=== PATIENT | male | born 1970 | race African-American/Black ===

== ENCOUNTER 2020-09-08 06:34 | Inpatient (IN) | payer OTHER ==
[2020-09-08] MEDS ORDERED: SODIUM CHLORIDE 0.9% 1000 ML 1,000 ML IV ONE ×2 (07:12→09:35)
--- NOTE | 2020-09-08 07:27 | Emergency Department Report ---
ED Altered Mental Status HPI - General Chief Complaint: Alcohol Stated Complaint: ETOH Time Seen by Provider: 09/08/20 07:12 Source: EMS Mode of arrival: Stretcher Limitations: Language Barrier, Physical Limitation - History of Present Illness Initial Comments: 49-year-old male, no past medical history, presents to ED for medical evaluation. Patient is currently unable to give any history. I spoke with patient's brother, Adrián ([phone]), over the phone. He states that there was a alliance party at his house last night. States his brother attended. Brother Adrián believes patient had too much to drink last night. Patient's brother states he went to bed early. When he awoke this morning, patient had an empty bottle of whiskey beside him. Brother states it looks like patient was about to vomit. States he had white bubbles in his mouth. Brother states he asked the patient if he needed to go to the ER and patient stated yes. Brother states patient does not drink daily, however he does drink on the weekends usually. MD Complaint: altered mental status, intoxication -: Last night Severity: severe Consistency of Symptoms: constant Context: alcohol abuse - Related Data Home Medications Medication Instructions Recorded Confirmed Last Taken Cholecalciferol (Vitamin D3) 5,000 unit PO DAILY 09/08/20 09/08/20 Unknown [Vitamin D3] Famotidine [Pepcid] 20 mg PO BID 09/08/20 09/08/20 Unknown lisinopriL [Lisinopril] 30 mg PO QDAY 09/08/20 09/08/20 Unknown metFORMIN [Glucophage] 500 mg PO QDAY 09/08/20 09/08/20 Unknown Allergies Allergy/AdvReac Type Severity Reaction Status Date / Time No Known Allergies Allergy Unverified 09/08/20 08:33 ED Review of Systems ROS: Stated complaint: ETOH Other details as noted in HPI Comment: Unobtainable due to pts medical conditions ED Past Medical Hx - Past Medical History Previous Medical History?: No - Surgical History Past Surgical History?: No - Medications Home Medications: Home Medications Medication Instructions Recorded Confirmed Last Taken Type Cholecalciferol (Vitamin D3) 5,000 unit PO DAILY 09/08/20 09/08/20 Unknown History [Vitamin D3] Famotidine [Pepcid] 20 mg PO BID 09/08/20 09/08/20 Unknown History lisinopriL [Lisinopril] 30 mg PO QDAY 09/08/20 09/08/20 Unknown History metFORMIN [Glucophage] 500 mg PO QDAY 09/08/20 09/08/20 Unknown History ED Physical Exam - General Limitations: Language Barrier, Physical Limitation General appearance: lethargic (Arousable to painful stimuli, opens eyes, does not speak) - Head Head exam: Present: atraumatic, normocephalic - Eye Eye exam: Present: normal appearance - ENT ENT exam: Present: mucous membranes dry - Neck Neck exam: Present: normal inspection - Respiratory Respiratory exam: Present: normal lung sounds bilaterally. Absent: respiratory distress - Cardiovascular Cardiovascular Exam: Present: normal rhythm, tachycardia - GI/Abdominal GI/Abdominal exam: Present: soft. Absent: distended, tenderness - Extremities Exam Extremities exam: Present: normal inspection - Neurological Exam Neurological exam: Present: altered - Psychiatric Psychiatric exam: Present: normal affect, normal mood - Skin Skin exam: Present: warm, dry, intact, normal color ED Course Vital Signs 09/08/20 09/08/20 09/08/20 06:45 07:00 07:16 Temperature 97.7 F Pulse Rate 114 H 116 H 125 H Respiratory 19 31 H 25 H Rate Blood Pressure 143/88 161/109 Blood Pressure 142/89 [Left] O2 Sat by Pulse 97 96 98 Oximetry 09/08/20 09/08/20 09/08/20 07:45 08:16 08:43 Temperature Pulse Rate 114 H 88 94 H Respiratory 23 19 20 Rate Blood Pressure 212/125 122/72 194/134 Blood Pressure [Left] O2 Sat by Pulse 93 97 96 Oximetry 09/08/20 09/08/20 09/08/20 08:45 09:01 09:31 Temperature Pulse Rate 92 H 86 72 Respiratory 21 21 20 Rate Blood Pressure 98/50 94/45 84/48 Blood Pressure [Left] O2 Sat by Pulse 95 94 100 Oximetry 09/08/20 09/08/20 09/08/20 10:01 10:11 10:31 Temperature Pulse Rate 67 70 61 Respiratory 20 24 Rate Blood Pressure 88/51 110/75 89/54 Blood Pressure [Left] O2 Sat by Pulse 100 97 97 Oximetry 09/08/20 09/08/20 09/08/20 10:45 11:15 11:31 Temperature Pulse Rate 76 65 65 Respiratory 24 24 24 Rate Blood Pressure 112/83 92/44 94/53 Blood Pressure [Left] O2 Sat by Pulse 97 98 98 Oximetry 09/08/20 09/08/20 09/08/20 11:45 12:01 12:15 Temperature Pulse Rate 64 66 84 Respiratory 24 24 24 Rate Blood Pressure 98/53 101/54 104/78 Blood Pressure [Left] O2 Sat by Pulse 100 100 97 Oximetry 09/08/20 09/08/20 09/08/20 12:31 12:45 13:01 Temperature Pulse Rate 66 63 64 Respiratory 24 24 24 Rate Blood Pressure 91/52 96/47 96/40 Blood Pressure [Left] O2 Sat by Pulse 96 98 91 Oximetry 09/08/20 09/08/20 09/08/20 13:15 13:31 13:45 Temperature Pulse Rate 62 80 72 Respiratory 24 24 24 Rate Blood Pressure 96/47 100/55 109/51 Blood Pressure [Left] O2 Sat by Pulse 93 97 95 Oximetry 09/08/20 09/08/20 14:01 14:15 Temperature Pulse Rate 64 74 Respiratory 24 23 Rate Blood Pressure 104/49 104/47 Blood Pressure [Left] O2 Sat by Pulse 94 94 Oximetry - Reevaluation(s) Reevaluation #1: 09/08/20 07:49 Called to room to evaluate patient. Patient just returned from CT, more unresponsive. When I entered the room, patient appeared cyanotic, O2 sats were in the 50s on the monitor and patient was bradycardic. I immediately began bagging the patient. Heart rate then improved to the 110s and O2 sats increased to 98%. Patient was then intubated using the glide scope, no drugs. - Intubation Time Out Performed: No Sedative: none Paralytic: other (None) Laryngoscope: fiberoptic video scope Size: 4 ET Tube Size: 7.5 Tube Secured Depth (cm): 22 Tube Secured Location: lips Tube Placement Confirmation: visualized tube passing t, equal breath sounds bilat, no breath sounds over epi, confirmation by capnometr Patient Tolerated Procedure: well Intubation Complications: none - Lab Data Result diagrams: 09/08/20 08:15 09/08/20 08:15 Lab Results 09/08/20 09/08/20 09/08/20 Range/Units 07:51 08:15 08:15 WBC 15.6 H (4.5-11.0) K/mm3 RBC 6.67 H (3.65-5.03) M/mm3 Hgb 17.7 H (11.8-15.2) gm/dl Hct 57.5 H (35.5-45.6) % MCV 86 (84-94) fl MCH 27 L (28-32) pg MCHC 31 L (32-34) % RDW 18.1 H (13.2-15.2) % Plt Count 235 (140-440) K/mm3 Add Manual Diff Complete Total Counted 100 Seg Neuts % (Manual) 71.0 H (40.0-70.0) % Band Neutrophils % 5.0 % Lymphocytes % (Manual) 14.0 (13.4-35.0) % Monocytes % (Manual) 3.0 (0.0-7.3) % Eosinophils % (Manual) 1.0 (0.0-4.3) % Metamyelocytes % 6.0 % Nucleated RBC % Not Reportable Seg Neutrophils # Man 11.1 H (1.8-7.7) K/mm3 Band Neutrophils # 0.8 K/mm3 Lymphocytes # (Manual) 2.2 (1.2-5.4) K/mm3 Abs React Lymphs (Man) 0.0 K/mm3 Monocytes # (Manual) 0.5 (0.0-0.8) K/mm3 Eosinophils # (Manual) 0.2 (0.0-0.4) K/mm3 Basophils # (Manual) 0.0 (0.0-0.1) K/mm3 Metamyelocytes # 0.9 K/mm3 Myelocytes # 0.0 K/mm3 Promyelocytes # 0.0 K/mm3 Blast Cells # 0.0 K/mm3 WBC Morphology Not Reportable Hypersegmented Neuts Not Reportable Hyposegmented Neuts Not Reportable Hypogranular Neuts Not Reportable Smudge Cells Not Reportable Toxic Granulation Not Reportable Toxic Vacuolation Not Reportable Dohle Bodies Not Reportable Pelger-Huet Anomaly Not Reportable Lamar Rods Not Reportable Platelet Estimate Consistent w auto Clumped Platelets Not Reportable Plt Clumps, EDTA Not Reportable Large Platelets Not Reportable Giant Platelets Not Reportable Platelet Satelliting Not Reportable Plt Morphology Comment Not Reportable RBC Morphology Normal Dimorphic RBCs Not Reportable Polychromasia Not Reportable Hypochromasia Not Reportable Poikilocytosis Not Reportable Anisocytosis Not Reportable Microcytosis Not Reportable Macrocytosis Not Reportable Spherocytes Not Reportable Pappenheimer Bodies Not Reportable Sickle Cells Not Reportable Target Cells Not Reportable Tear Drop Cells Not Reportable Ovalocytes Not Reportable Helmet Cells Not Reportable Cochran-Bellmore Bodies Not Reportable [place] Rings Not Reportable Hubbard Cells Not Reportable Bite Cells Not Reportable Crenated Cell Not Reportable Elliptocytes Not Reportable Acanthocytes (Spur) Not Reportable Rouleaux Not Reportable Hemoglobin C Crystals Not Reportable Schistocytes Not Reportable Malaria parasites Not Reportable Warner Bodies Not Reportable Hem Pathologist Commnt No ABG pH (7.350-7.450) pH Units ABG pCO2 mm Hg ABG pO2 (80.0-90.0) mm Hg ABG HCO3 (20.0-26.0) mmol/L ABG O2 Saturation (95.0-99.0) % ABG O2 Content (0.0-44) ABG Base Excess (-2.0-3.0) mmol/L ABG Hemoglobin (14.0-18.0) gm/dl ABG Carboxyhemoglobin (0.0-5.0) % ABG Methemoglobin (0.0-1.5) % Oxyhemoglobin (95.0-99.0) % FiO2 % Sodium 140 (137-145) mmol/L Potassium 3.5 L (3.6-5.0) mmol/L Chloride 97.7 L (98-107) mmol/L Carbon Dioxide 26 (22-30) mmol/L Anion Gap 20 mmol/L BUN 21 H (9-20) mg/dL Creatinine 1.3 (0.8-1.3) mg/dL Estimated GFR 58 ml/min BUN/Creatinine Ratio 16 % Glucose 228 H (75-100) mg/dL Lactic Acid (0.7-2.0) mmol/L Calcium 8.4 (8.4-10.2) mg/dL Total Bilirubin 0.20 (0.1-1.2) mg/dL Direct Bilirubin < 0.2 (0-0.2) mg/dL Indirect Bilirubin 0.0 mg/dL AST 33 (5-40) units/L ALT 26 (7-56) units/L Alkaline Phosphatase 121 (35-129) units/L Total Protein 8.2 (6.3-8.2) g/dL Albumin 4.0 (3.9-5) g/dL Albumin/Globulin Ratio 1.0 % Salicylates < 0.3 L (2.8-20.0) mg/dL Acetaminophen (10.0-30.0) ug/mL Plasma/Serum Alcohol (0-0.07) % 09/08/20 09/08/20 09/08/20 Range/Units 08:15 08:15 08:20 WBC (4.5-11.0) K/mm3 RBC (3.65-5.03) M/mm3 Hgb (11.8-15.2) gm/dl Hct (35.5-45.6) % MCV (84-94) fl MCH (28-32) pg MCHC (32-34) % RDW (13.2-15.2) % Plt Count (140-440) K/mm3 Add Manual Diff Total Counted Seg Neuts % (Manual) (40.0-70.0) % Band Neutrophils % % Lymphocytes % (Manual) (13.4-35.0) % Monocytes % (Manual) (0.0-7.3) % Eosinophils % (Manual) (0.0-4.3) % Metamyelocytes % % Nucleated RBC % Seg Neutrophils # Man (1.8-7.7) K/mm3 Band Neutrophils # K/mm3 Lymphocytes # (Manual) (1.2-5.4) K/mm3 Abs React Lymphs (Man) K/mm3 Monocytes # (Manual) (0.0-0.8) K/mm3 Eosinophils # (Manual) (0.0-0.4) K/mm3 Basophils # (Manual) (0.0-0.1) K/mm3 Metamyelocytes # K/mm3 Myelocytes # K/mm3 Promyelocytes # K/mm3 Blast Cells # K/mm3 WBC Morphology Hypersegmented Neuts Hyposegmented Neuts Hypogranular Neuts Smudge Cells Toxic Granulation Toxic Vacuolation Dohle Bodies Pelger-Huet Anomaly Lamar Rods Platelet Estimate Clumped Platelets Plt Clumps, EDTA Large Platelets Giant Platelets Platelet Satelliting Plt Morphology Comment RBC Morphology Dimorphic RBCs Polychromasia Hypochromasia Poikilocytosis Anisocytosis Microcytosis Macrocytosis Spherocytes Pappenheimer Bodies Sickle Cells Target Cells Tear Drop Cells Ovalocytes Helmet Cells Cochran-Bellmore Bodies [place] Rings Onel Cells Bite Cells Crenated Cell Elliptocytes Acanthocytes (Spur) Rouleaux Hemoglobin C Crystals Schistocytes Malaria parasites Warner Bodies Hem Pathologist Commnt ABG pH (7.350-7.450) pH Units ABG pCO2 mm Hg ABG pO2 (80.0-90.0) mm Hg ABG HCO3 (20.0-26.0) mmol/L ABG O2 Saturation (95.0-99.0) % ABG O2 Content (0.0-44) ABG Base Excess (-2.0-3.0) mmol/L ABG Hemoglobin (14.0-18.0) gm/dl ABG Carboxyhemoglobin (0.0-5.0) % ABG Methemoglobin (0.0-1.5) % Oxyhemoglobin (95.0-99.0) % FiO2 % Sodium (137-145) mmol/L Potassium (3.6-5.0) mmol/L Chloride (98-107) mmol/L Carbon Dioxide (22-30) mmol/L Anion Gap mmol/L BUN (9-20) mg/dL Creatinine (0.8-1.3) mg/dL Estimated GFR ml/min BUN/Creatinine Ratio % Glucose (75-100) mg/dL Lactic Acid 4.40 H* (0.7-2.0) mmol/L Calcium (8.4-10.2) mg/dL Total Bilirubin (0.1-1.2) mg/dL Direct Bilirubin (0-0.2) mg/dL Indirect Bilirubin mg/dL AST (5-40) units/L ALT (7-56) units/L Alkaline Phosphatase (35-129) units/L Total Protein (6.3-8.2) g/dL Albumin (3.9-5) g/dL Albumin/Globulin Ratio % Salicylates (2.8-20.0) mg/dL Acetaminophen 5.0 L (10.0-30.0) ug/mL Plasma/Serum Alcohol 0.11 H (0-0.07) % 05/25/21 Range/Units 09:15 WBC (4.5-11.0) K/mm3 RBC (3.65-5.03) M/mm3 Hgb (11.8-15.2) gm/dl Hct (35.5-45.6) % MCV (84-94) fl MCH (28-32) pg MCHC (32-34) % RDW (13.2-15.2) % Plt Count (140-440) K/mm3 Add Manual Diff Total Counted Seg Neuts % (Manual) (40.0-70.0) % Band Neutrophils % % Lymphocytes % (Manual) (13.4-35.0) % Monocytes % (Manual) (0.0-7.3) % Eosinophils % (Manual) (0.0-4.3) % Metamyelocytes % % Nucleated RBC % Seg Neutrophils # Man (1.8-7.7) K/mm3 Band Neutrophils # K/mm3 Lymphocytes # (Manual) (1.2-5.4) K/mm3 Abs React Lymphs (Man) K/mm3 Monocytes # (Manual) (0.0-0.8) K/mm3 Eosinophils # (Manual) (0.0-0.4) K/mm3 Basophils # (Manual) (0.0-0.1) K/mm3 Metamyelocytes # K/mm3 Myelocytes # K/mm3 Promyelocytes # K/mm3 Blast Cells # K/mm3 WBC Morphology Hypersegmented Neuts Hyposegmented Neuts Hypogranular Neuts Smudge Cells Toxic Granulation Toxic Vacuolation Dohle Bodies Pelger-Huet Anomaly Lamar Rods Platelet Estimate Clumped Platelets Plt Clumps, EDTA Large Platelets Giant Platelets Platelet Satelliting Plt Morphology Comment RBC Morphology Dimorphic RBCs Polychromasia Hypochromasia Poikilocytosis Anisocytosis Microcytosis Macrocytosis Spherocytes Pappenheimer Bodies Sickle Cells Target Cells Tear Drop Cells Ovalocytes Helmet Cells Cochran-Bellmore Bodies [place] Rings Onel Cells Bite Cells Crenated Cell Elliptocytes Acanthocytes (Spur) Rouleaux Hemoglobin C Crystals Schistocytes Malaria parasites Warner Bodies Hem Pathologist Commnt ABG pH 7.222 L (7.350-7.450) pH Units ABG pCO2 54.5 mm Hg ABG pO2 185.7 H (80.0-90.0) mm Hg ABG HCO3 21.9 (20.0-26.0) mmol/L ABG O2 Saturation 99.0 (95.0-99.0) % ABG O2 Content 23.1 (0.0-44) ABG Base Excess -6.5 L (-2.0-3.0) mmol/L ABG Hemoglobin 17.0 (14.0-18.0) gm/dl ABG Carboxyhemoglobin 3.1 (0.0-5.0) % ABG Methemoglobin 0.7 (0.0-1.5) % Oxyhemoglobin 95.3 (95.0-99.0) % FiO2 21 % Sodium (137-145) mmol/L Potassium (3.6-5.0) mmol/L Chloride (98-107) mmol/L Carbon Dioxide (22-30) mmol/L Anion Gap mmol/L BUN (9-20) mg/dL Creatinine (0.8-1.3) mg/dL Estimated GFR ml/min BUN/Creatinine Ratio % Glucose (75-100) mg/dL Lactic Acid (0.7-2.0) mmol/L Calcium (8.4-10.2) mg/dL Total Bilirubin (0.1-1.2) mg/dL Direct Bilirubin (0-0.2) mg/dL Indirect Bilirubin mg/dL AST (5-40) units/L ALT (7-56) units/L Alkaline Phosphatase (35-129) units/L Total Protein (6.3-8.2) g/dL Albumin (3.9-5) g/dL Albumin/Globulin Ratio % Salicylates (2.8-20.0) mg/dL Acetaminophen (10.0-30.0) ug/mL Plasma/Serum Alcohol (0-0.07) % - EKG Data -: EKG Interpreted by Ri EKG shows normal: sinus rhythm, axis, intervals, QRS complexes, ST-T waves Rate: normal Interpretation: no acute changes - Radiology Data Radiology results: report reviewed, image reviewed CHEST 1 VIEW INDICATION: AMS, post-intubation. COMPARISON: None FINDINGS: SUPPORT DEVICES: Endotracheal tube faintly projects in the midline with tip near the level the clavicles. HEART: Borderline cardiomegaly. LUNGS/PLEURA: Mild patchy left basilar predominant airspace disease. No appreciable effusion. ADDITIONAL FINDINGS: None. IMPRESSION: 1. Faintly visualized endotracheal tube in the midline. 2. Mild patchy left basilar airspace disease. Signer Name: Jerry Duarte MD Signed: 09/08/2020 7:56 AM Workstation Name: [id number] CT head without contrast INDICATION : AMS. TECHNIQUE: Axial imaging performed from the skull apex through the skull base without the use of contrast. All CT scans at this location are performed using CT dose reduction for ALARA by means of automated exposure control. COMPARISON: None FINDINGS: Parenchyma: No acute intracranial hemorrhage or parenchymal abnormality. Blood vessels throughout the brain appears slightly dense which may reflect recent contrast administration at another facility--I see no comparison imaging at this facility. Ventricles: Ventricles are normal in size and appear symmetric. Soft tissues: Soft tissues including the orbits appear normal. Bones: No acute osseous abnormality. Sinuses: There is mild mucosal thickening in both maxillary sinuses. Remaining sinuses and mastoid air cells are clear. IMPRESSION: No acute abnormality. Signer Name: Jerry Duarte MD Signed: 09/08/2020 6:56 AM Workstation Name: [id number] - Medical Decision Making 49-year-old male presents to ED with altered mental status, possibly due to alcohol use. Patient obtunded on initial presentation, but able to open eyes to painful stimuli. Patient went over to CT to have a head CT done. Following CT, patient was more altered, unable to arouse, and cyanotic. Patient was hypoxic. BVM was immediately used to increase O2 saturation. Patient was then intubated. CT head negative for any acute findings. Chest x-ray shows left basilar infiltrate. WBCs and lactic acid elevated. Blood cultures drawn, cefepime given. Patient given 30 cc/kg bolus of IV fluids. Alcohol level is 111. EKG is unremarkable. Drug screen only positive for marijuana. Patient will be admitted by hospitalist, Dr. Cantu, for further management. - Differential Diagnosis Alcohol intoxication, drug overdose, intracranial bleed Critical Care Time: Yes Critical care time in (mins) excluding proc time.: 35 Critical care attestation.: If time is entered above; I have spent that time in minutes in the direct care of this critically ill patient, excluding procedure time. Critical Care Time: 35 min ED Disposition Clinical Impression: Acute respiratory failure with hypoxia, Acute encephalopathy, Alcohol intoxication, Pneumonia, Sepsis Disposition: DC-[id number] OP ADMIT IP TO THIS HOSP Is pt being admited?: Yes Condition: Critical Time of Disposition: 09:18
[2020-09-08 08:30] LABS: Mean Corpuscular HGB Conc 31 % (32-34); Mean Corpuscular Volume 86 fl (84-94); Platelet Count 235 K/mm3 (140-440); Red Blood Count 6.67 M/mm3 (3.65-5.03); Red Cell Distribution Width 18.1 % (13.2-15.2)
[2020-09-08 08:37] LABS: Hematocrit 57.5 % (35.5-45.6); Hemoglobin 17.7 gm/dl (11.8-15.2)
[2020-09-08 08:50] LABS: Alanine Aminotransferase 26 units/L (7-56); BUN/Creatinine Ratio 16; Blood Urea Nitrogen 21 mg/dL (9-20); Calcium 8.4 mg/dL (8.4-10.2); Hemolysis Index 23
[2020-09-08 09:04] LABS: Bilirubin,Direct < 0.2 mg/dL (0-0.2)
[2020-09-08] MEDS ORDERED: CEFEPIME/NS 2 GM/100 ML 2 GM/100 ML BAG IV ONE (09:04)
--- NOTE | 2020-09-08 09:11 | XRay Report ---
ABDOMEN 1 VIEW(S) 09/08/2020 7:51 AM INDICATION: OG tube placement. COMPARISON: Chest radiograph 09/08/2020 FINDINGS: The tip of the nasogastric tube projects over the gastric lumen in appropriate position.. Signer Name: Newton Moore MD Signed: 09/08/2020 9:00 AM Workstation Name: [id number]
--- NOTE | 2020-09-08 09:11 | XRay Report ---
CHEST 1 VIEW INDICATION: AMS, post-intubation. COMPARISON: None FINDINGS: SUPPORT DEVICES: Endotracheal tube faintly projects in the midline with tip near the level the clavic les. HEART: Borderline cardiomegaly. LUNGS/PLEURA: Mild patchy left basilar predominant airspace disease. No appreciable effusion. ADDITIONAL FINDINGS: None. IMPRESSION: 1. Faintly visualized endotracheal tube in the midline. 2. Mild patchy left basilar airspace disease. Signer Name: Jerry Duarte MD Signed: 09/08/2020 8:56 AM Workstation Name: [id number]
--- NOTE | 2020-09-08 09:11 | Cat Scan Report ---
CT head without contrast INDICATION : AMS. TECHNIQUE: Axial imaging performed from the skull apex through the skull base without the use of con trast. All CT scans at this location are performed using CT dose reduction for ALARA by means of aut omated exposure control. COMPARISON: None FINDINGS: Parenchyma: No acute intracranial hemorrhage or parenchymal abnormality. Blood vessels throughout th e brain appears slightly dense which may reflect recent contrast administration at another facility-- I see no comparison imaging at this facility. Ventricles: Ventricles are normal in size and appear symmetric. Soft tissues: Soft tissues including the orbits appear normal. Bones: No acute osseous abnormality. Sinuses: There is mild mucosal thickening in both maxillary sinuses. Remaining sinuses and mastoid a ir cells are clear. IMPRESSION: No acute abnormality. Signer Name: Jerry Duarte MD Signed: 09/08/2020 7:56 AM Workstation Name: [id number]
[2020-09-08 09:12] LABS: Band Neutrophils # (Manual) 0.8 K/mm3; Total Cells Counted 100
[2020-09-08 09:13] LABS: Platelet Estimate Consistent w Auto; RBC Morphology Normal
[2020-09-08 09:39] LABS: ABG Base Excess -6.5 mmol/L (-2.0-3.0); ABG HCO3 21.9 mmol/L (20.0-26.0); ABG Methemoglobin 0.7 % (0.0-1.5); ABG PCO2 54.5 mm Hg; ABG PH 7.222 pH Units (7.350-7.450); ABG PO2 185.7 mm Hg (80.0-90.0)
--- NOTE | 2020-09-08 10:08 | History and Physical Report ---
History of Present Illness Date of examination: 09/08/20 Date of admission: 09/08/2020 Chief complaint: Altered level of consciousness, acute alcohol intoxication History of present illness: When I evaluated the patient patient was orally intubated on ventilatory suppo rt, no proper history available for me Details were obtained from the ED note 49-year-old male, no past medical history, presents to ED for medical evaluation. Patient is currently unable to give any history. ED doc spoke with patient's brother, Adrián ([phone]), over the phone. He states that there was a republican at his house last night. States his brother attended. Brother Adrián believes patient had too much to drink last night. Patient's brother states he went to bed early. When he awoke this morning, patient had an empty bottle of whiskey beside him. Brother states it looks like patient was about to vomit. States he had white bubbles in his mouth. Brother states he asked the patient if he needed to go to the ER and patient stated yes. Brother states patient does not drink daily, however he does drink on the weekends usually. In ED patient went to CT scan and return to the room was found to be cyanotic and acute hypoxic respiratory failure, ER physician promptly intubated and placed on ventilatory support. Initial work-up in the ED consistent with alcohol intoxication with alcohol levels of 0.11, has leukocytosis, lactic acidosis And chest x-ray showed mild patchy left-sided infiltrate. No other history available Past History Past Medical History: diabetes, hypertension Past Surgical History: Other (Unknown) Social history: alcohol abuse Family history: other (None) Medications and Allergies Allergies Allergy/AdvReac Type Severity Reaction Status Date / Time No Known Allergies Allergy Unverified 09/08/20 08:33 Home Medications Medication Instructions Recorded Confirmed Last Taken Type Cholecalciferol (Vitamin D3) 5,000 unit PO DAILY 09/08/20 09/08/20 Unknown History [Vitamin D3] Famotidine [Pepcid] 20 mg PO BID 09/08/20 09/08/20 Unknown History RX: lisinopriL [Lisinopril] 30 mg PO QDAY 09/08/20 09/08/20 Unknown History metFORMIN [Glucophage] 500 mg PO QDAY 09/08/20 09/08/20 Unknown History Active Meds: Active Medications Propofol (Diprivan 10 Mg/Ml) 1,000 mg in 100 mls @ 3.6 mls/hr IV TITR JUAN LUIS; Protocol Last Titration: 09/08/20 09:37 Dose: 3 mcg/kg/min, 2.16 mls/hr Documented by: Sodium Chloride (Nacl 0.9% 1000 Ml) 1,000 mls @ 999 mls/hr IV BOLUS ONE Stop: 09/08/20 10:35 Last Admin: 09/08/20 09:36 Dose: 999 mls/hr Documented by: Review of Systems ROS unobtainable: due to endotracheal tube Exam - Constitutional Vitals: Temp Pulse Resp BP Pulse Ox 97.7 F 86 21 94/45 94 09/08/20 06:45 09/08/20 09:01 09/08/20 09:01 09/08/20 09:01 09/08/20 09:01 General appearance: Present: mild distress, well-nourished, obese (Morbidly obese), other (Orally intubated on ventilatory support) - EENT Eyes: Present: PERRL, EOM intact ENT: other (ET tube and Dobbhoff in place) - Neck Neck: Present: other (ET tube and Dobbhoff in place). Absent: enlarged thyroid - Respiratory Respiratory effort: normal Respiratory: bilateral: diminished, rhonchi, negative: rales, wheezing - Cardiovascular Rhythm: regular Heart Sounds: Present: S1 & S2 - Extremities Extremities: no ischemia Extremity abnormal: edema - Abdominal General gastrointestinal: Present: soft, non-tender, non-distended, normal bowel sounds, other (Obese) - Integumentary Integumentary: Present: clear, warm - Musculoskeletal Musculoskeletal: other - Psychiatric Psychiatric: other (Infectious) - Neurologic Neurologic: other Results - Labs CBC & Chem 7: 09/08/20 08:15 09/08/20 08:15 Labs: Abnormal lab results 09/08/20 09/08/20 09/08/20 Range/Units 07:51 08:15 08:15 WBC 15.6 H (4.5-11.0) K/mm3 RBC 6.67 H (3.65-5.03) M/mm3 Hgb 17.7 H (11.8-15.2) gm/dl Hct 57.5 H (35.5-45.6) % MCH 27 L (28-32) pg MCHC 31 L (32-34) % RDW 18.1 H (13.2-15.2) % Seg Neuts % (Manual) 71.0 H (40.0-70.0) % Seg Neutrophils # Man 11.1 H (1.8-7.7) K/mm3 ABG pH (7.350-7.450) pH Units ABG pO2 (80.0-90.0) mm Hg ABG Base Excess (-2.0-3.0) mmol/L Potassium 3.5 L (3.6-5.0) mmol/L Chloride 97.7 L (98-107) mmol/L BUN 21 H (9-20) mg/dL Glucose 228 H (75-100) mg/dL Salicylates < 0.3 L (2.8-20.0) mg/dL Acetaminophen (10.0-30.0) ug/mL Plasma/Serum Alcohol (0-0.07) % 09/08/20 09/08/20 09/08/20 Range/Units 08:15 08:15 09:15 WBC (4.5-11.0) K/mm3 RBC (3.65-5.03) M/mm3 Hgb (11.8-15.2) gm/dl Hct (35.5-45.6) % MCH (28-32) pg MCHC (32-34) % RDW (13.2-15.2) % Seg Neuts % (Manual) (40.0-70.0) % Seg Neutrophils # Man (1.8-7.7) K/mm3 ABG pH 7.222 L (7.350-7.450) pH Units ABG pO2 185.7 H (80.0-90.0) mm Hg ABG Base Excess -6.5 L (-2.0-3.0) mmol/L Potassium (3.6-5.0) mmol/L Chloride (98-107) mmol/L BUN (9-20) mg/dL Glucose (75-100) mg/dL Salicylates (2.8-20.0) mg/dL Acetaminophen 5.0 L (10.0-30.0) ug/mL Plasma/Serum Alcohol 0.11 H (0-0.07) % Assessment and Plan --Acute toxic metabolic encephalopathy; Due to alcohol intoxication, hypoxia --Acute hypoxic respiratory failure; Possible aspiration pneumonia. Intubated on ventilatory support Nebulizers, IV antibiotics, follow cultures Pulmonary /critical care consult --Acute alcohol intoxication; Thiamine folic acid, IV Protonix, IV fluids, Supportive care Patient needs counseling when medically stable --Pneumonia Community-acquired versus aspiration Empiric antibiotics, ventilatory support Follow cultures, ID consult if needed --Leukocytosis; secondary to pneumonia Treat the underlying cause --Lactic acidosis/sepsis due to pneumonia Continue empiric antibiotics, follow cultures --Alcohol withdrawal symptoms; [facility] protocol Will counsellors and advised to quit alcohol intake when patient is more alert and awake --Hyperglycemia; Accu-Chek sliding scale coverage Check A1c --Hypokalemia; replenish per protocol monitor electrolytes --Obesity; BMI 51.7 Patient needs weight reduction when medically stable --DVT prophylaxis; Lovenox Closely monitor the patient and adjust management as needed We will try to talk to the family and get more medical history Critical care time 55 minutes The high probability of a clinically significant, sudden or life threatening deterioration of the [multi] system(s) required my full and direct attention, intervention and personal management. The aggregate critical care time was [55] minutes. This time is in addition to time spent performing reported procedures but includes the following: [x] Data Review and interpretation [x] Patient assessment and monitoring of vital signs [x] Documentation [x] Medication orders and management 09/08/2020; will try to reach family for additional medical history Follow pulmonary evaluation and recommendations Admit to ICU.
[2020-09-08] MEDS ORDERED: VANCOMYCIN/NS 1 GM/250 ML 1 GM/250 ML BAG IV ONE (10:18)
[2020-09-08] MEDS ORDERED: MIDAZOLAM 5 MG/5 ML INJ MDV IV ONE (10:43)
--- NOTE | 2020-09-08 10:45 | Electrocardiograph Report ---
[facility] Test Date: 2020-09-08 Test Time: 09:06:40 Pat Name: GARY SOL Department: Room: [place] [address] Gender: M Pole [employer]amer Machine: FRANKLIN : 1970 Requested By: SKY GUERRIER Order Number: [id number] Reading MD: Carol Navarro Measurements Intervals [place] Rate: 76 P: 69 W[place]: 173 QRS: 66 QRSD: 109 T: -5 QT: 414 QTc: 468 Interpretive Statements Sinus rhythm LAE, consider biatrial enlargement No previous ECG available for comparison Electronically Signed On 09-08-2020 10:45:22 EDT by Carol Navarro
[2020-09-08] MEDS ORDERED: SODIUM CHLORIDE 0.9% 1000 ML IV SOLN IV ONE (10:54)
[2020-09-08] MEDS ORDERED: THIAMINE 100 MG, FOLIC ACID 1 MG, MULTIPLE VITAMIN INJ, ADULT 10 ML in SODIUM CHLORIDE ... IV ONE (11:00)
[2020-09-08] MEDS ORDERED: VANCOMYCIN 2,000 MG in SODIUM CHLORIDE 0.9% 500 ML 500 ML IV ONE (11:00)
[2020-09-08] MEDS ORDERED: MIDAZOLAM 5 MG/5 ML INJ MDV IV NR (12:00)
--- NOTE | 2020-09-08 13:24 | Consultation ---
History of Present Illness Consult date: 09/08/20 Requesting physician: SHAREE MÉNDEZ Reason for consult: other (Acute Hypoxemic Respiratory Failure) History of present illness: PULMONARY/CCM CONSULT NOTE (Full note dictated) Please see dictated notes for full details Past History Past Medical History: diabetes, hypertension Past Surgical History: Other (Unknown) Social history: alcohol abuse Family history: other (None) Medications and Allergies Allergies Allergy/AdvReac Type Severity Reaction Status Date / Time No Known Allergies Allergy Unverified 09/08/20 08:33 Home Medications Medication Instructions Recorded Confirmed Last Taken Type Cholecalciferol (Vitamin D3) 5,000 unit PO DAILY 09/08/20 09/08/20 Unknown History [Vitamin D3] Famotidine [Pepcid] 20 mg PO BID 09/08/20 09/08/20 Unknown History lisinopriL [Lisinopril] 30 mg PO QDAY 09/08/20 09/08/20 Unknown History metFORMIN [Glucophage] 500 mg PO QDAY 09/08/20 09/08/20 Unknown History Active Meds: Active Medications Enoxaparin Sodium (Enoxaparin 40 Mg/0.4 Ml Inj) 40 mg SUB-Q QDAY@2200 JUAN LUIS; Protocol Propofol (Diprivan 10 Mg/Ml) 1,000 mg in 100 mls @ 3.6 mls/hr IV TITR JUAN LUIS; Protocol Last Titration: 09/08/20 09:37 Dose: 3 mcg/kg/min, 2.16 mls/hr Documented by: Cefepime HCl (Cefepime/Ns 2 Gm/100 Ml) 2 gm in 100 mls @ 200 mls/hr IV Q8H JUAN LUIS; Protocol Thiamine HCl 100 mg/ Folic Acid 1 mg/ Multivitamins/Minerals 10 ml/ Sodium Chloride 1,011.2 mls @ 250 mls/hr IV ONCE ONE Stop: 09/08/20 15:02 Last Admin: 09/08/20 11:36 Dose: 250 mls/hr Documented by: Insulin Human Lispro (Insulin Lispro 100 Unit/Ml) 0 unit SUB-Q Q6HR JUAN LUIS; Protocol Lorazepam (Lorazepam 2 Mg/Ml Vial) 2 mg IV Q4H PRN PRN Reason: Agitation Midazolam HCl (Midazolam 5 Mg/5 Ml Inj Mdv) 5 mg IV ONCE NR Stop: 09/08/20 23:59 Last Admin: 09/08/20 11:10 Dose: 5 mg Documented by: Pantoprazole Sodium (Pantoprazole 40 Mg Inj) 40 mg IV QDAY [facility] Physical Examination Vital signs: Vital Signs Temp Pulse Resp BP Pulse Ox 97.7 F 114 H 19 142/89 97 09/08/20 06:45 09/08/20 06:45 09/08/20 06:45 09/08/20 06:45 09/08/20 06:45 Results - Laboratory Findings CBC and BMP: 09/08/20 08:15 09/08/20 08:15 ABG ABG pH 7.222 pH Units (7.350-7.450) L 09/08/20 09:15 ABG pCO2 54.5 mm Hg 09/08/20 09:15 ABG pO2 185.7 mm Hg (80.0-90.0) H 09/08/20 09:15 ABG O2 Saturation 99.0 % (95.0-99.0) 09/08/20 09:15 Abnormal lab findings: Abnormal Labs 09/08/20 09/08/20 09/08/20 07:51 08:15 08:15 WBC 15.6 H RBC 6.67 H Hgb 17.7 H Hct 57.5 H MCH 27 L MCHC 31 L RDW 18.1 H Seg Neuts % (Manual) 71.0 H Seg Neutrophils # Man 11.1 H ABG pH ABG pO2 ABG Base Excess Potassium 3.5 L Chloride 97.7 L BUN 21 H Glucose 228 H Lactic Acid Salicylates < 0.3 L Acetaminophen Plasma/Serum Alcohol 09/08/20 09/08/20 09/08/20 08:15 08:15 08:20 WBC RBC Hgb Hct MCH MCHC RDW Seg Neuts % (Manual) Seg Neutrophils # Man ABG pH ABG pO2 ABG Base Excess Potassium Chloride BUN Glucose Lactic Acid 4.40 H* Salicylates Acetaminophen 5.0 L Plasma/Serum Alcohol 0.11 H 09/08/20 09:15 WBC RBC Hgb Hct MCH MCHC RDW Seg Neuts % (Manual) Seg Neutrophils # Man ABG pH 7.222 L ABG pO2 185.7 H ABG Base Excess -6.5 L Potassium Chloride BUN Glucose Lactic Acid Salicylates Acetaminophen Plasma/Serum Alcohol
[2020-09-08 13:52] LABS: Bilirubin,Urine NEG (Negative); Blood,Urine SM (Negative); Color,Urine Amber (Yellow); Protein,Urine >500 mg/dL (Negative); Urobilinogen,Urine < 2.0 mg/dL (<2.0)
[2020-09-08 13:57] LABS: Amphetamine Screen,Urine Negative; Benzodiazepines Screen,Urine Negative; Cocaine Screen,Urine Negative; Methadone Screen,Urine Negative; Opiate Screen,Urine Negative
[2020-09-08 14:37] LABS: Cannabinoid Screen,Urine PRESUMPTIVE NEGATIVE
[2020-09-08] MEDS ORDERED: LIP THERAPY VASELINE TP PRN (16:21)
[2020-09-08] MEDS ORDERED: MINERAL OIL/PETROLATUM, WHITE OPHTH OINT 3.5 GM OU PRN (16:21)
[2020-09-08 16:36] LABS: ABG HCO3 20.9 mmol/L (20.0-26.0); ABG Methemoglobin 0.6 % (0.0-1.5); ABG Oxygen Saturation 98.4 % (95.0-99.0); ABG PCO2 31.8 mm Hg; ABG PH 7.435 pH Units (7.350-7.450); ABG PO2 117.8 mm Hg (80.0-90.0)
[2020-09-08] MEDS: INSULIN LISPRO 100 UNIT/ML SUB-Q SCH ×2 (17:03→18:21)
[2020-09-08] MEDS: CEFEPIME/NS 2 GM/100 ML 2 GM/100 ML BAG IV SCH (17:51)
[2020-09-08] MEDS ORDERED: SODIUM CHLORIDE 0.9% 1000 ML 1,000 ML IV SCH (20:15)
[2020-09-08] MEDS: ENOXAPARIN 40 MG/0.4 ML INJ SUB-Q SCH (21:50)
[2020-09-09] MEDS: INSULIN LISPRO 100 UNIT/ML SUB-Q SCH ×4 (01:41→17:18)
[2020-09-09] MEDS: CEFEPIME/NS 2 GM/100 ML 2 GM/100 ML BAG IV SCH ×3 (01:42→17:55)
--- NOTE | 2020-09-09 03:14 | XRay Report ---
CHEST 1 VIEW [id number] INDICATION / CLINICAL INFORMATION: follow up respiratory failure COMPARISON: 09/08/2020 FINDINGS: SUPPORT DEVICES: Nasogastric tube is again noted. Endotracheal tube appears to have advanced to just below the sternal notch with tip approximately 4.8 cm from the sarath. HEART / MEDIASTINUM: Cardiomegaly LUNGS / PLEURA: Lung bases are not fully included. Bibasilar atelectatic changes continue. A slightly congested appearance is seen. No pneumothorax. ADDITIONAL FINDINGS: No significant additional findings. Signer Name: Hilton Sampson MD Signed: 09/09/2020 3:10 AM Workstation Name: [id number]
--- NOTE | 2020-09-09 03:15 | Consultation ---
DATE OF CONSULTATION: 09/08/2020 CONSULTING PHYSICIAN: Dr. Zoë Cantu. REASON FOR CONSULTATION: Acute hypoxemic respiratory failure, on mechanical ventilatory support; acute toxic metabolic encephalopathy. CHIEF COMPLAINT AND HISTORY OF PRESENT ILLNESS: The patient is a 49-year-old morbidly obese male with past medical history according to the records significant for a diagnosis of alcohol abuse, who was brought to the emergency room. Apparently, according to his brother per the records, there was a alliance party at his house the night before presentation his brother had attended. He believes that his brother drank too much the night in question. He went to bed early. When he woke this morning, the patient was found with an empty bottle of whiskey beside him. His brother stated that the patient looked like he was about to vomit; he had white bubbles in his mouth. He asked the patient if he needed to go to the emergency room and the patient said yes. The brother had stated that the patient is not a daily drinker, but he does drink to excess on weekends in particular. He was seen in the emergency room, evaluated by the emergency room physician. When he came back from the CT scan, the patient was found more unresponsive. He appeared cyanotic. O2 sats were in the 50s. He was becoming bradycardic and so he was intubated with rapid sequence intubation at the bedside successfully. We are asked to assist with management. When I stopped by to see him, he remained on the mechanical ventilator, assist control mode of ventilation; I believe tidal volume of 500, rate of 24, PEEP of 8 and 80% FiO2. That is as much of the history of presentation as I have. With regards to the patient's tobacco use/abuse history, that history is unknown. PAST MEDICAL HISTORY: Reportedly alcohol abuse. PAST SURGICAL HISTORY: Unknown. MEDICATIONS: He was on at the time I stopped by to see him were reviewed. Pertinent medications included the following; cefepime 2 grams IV q. 8 hours, Lovenox 40 mg subcutaneously daily, insulin via sliding scale, Ativan 2 mg IV q. 4 hours p.r.n. agitation, Protonix 40 mg IV daily and propofol drip was going at 5 mcg per kilogram per minute. ALLERGIES: No known drug allergies. DIET: Morbidly obese gentleman, acute weight loss again history is unknown. FAMILY AND SOCIAL HISTORY: Lives in the community. Reported history of alcohol abuse. Tobacco or illicit drug use or abuse history otherwise unknown. FAMILY HISTORY: Otherwise unknown. The records actually do mention a history of diabetes and hypertension. REVIEW OF SYSTEMS: Unobtainable secondary to the patient's medical and mental condition. Since he has been here, no gross hematochezia or melena, no gross hematuria, no bloody tracheal secretions, no witnessed seizures have been reported. Review of systems is otherwise unobtainable or as in the body of the history above. PHYSICAL EXAMINATION: VITAL SIGNS: At presentation here, he is afebrile, temperature 97.7 degrees Fahrenheit, pulse of 114, respiratory rate of 19 and blood pressure 142/89, O2 sats were 97%, inspired oxygen concentration at that time was not known. GENERAL: A middle-aged, morbidly obese male. Normocephalic, atraumatic. On the mechanical ventilator ____ the set rate without significantly increased respiratory effort at rest. HEENT: Anicteric. No conjunctival erythema. Oropharynx is moist. Endotracheal tube was in place, taped at the lips around 25 cm. No gross jugular venous distention, no thyromegaly. He does have a large neck circumference. Grossly, there were no palpable lymph nodes in the supraclavicular or submandibular lymph node chains. LUNGS: Auscultation of both lung [place] were unremarkable. Lungs were clear bilaterally with good bilateral air movement. HEART: Sounds 1 and 2 are heard, regular rate and rhythm at the time of my evaluation without overt rubs or murmurs. ABDOMEN: Soft, full, protuberant. Bowel sounds are positive, nontender. No palpable hepatosplenomegaly. EXTREMITIES: Without overt digital clubbing or cyanosis. Trace pedal edema. Pedal pulses are 2+ bilaterally. NEUROLOGIC: Pupils were equal, round, about 2 mm, sluggishly reactive to light. Extraocular muscle movements could not be assessed. He had spontaneous withdrawal movements to all extremities, but he was sedated. SKIN: Normal turgor in the areas I examined, without overt cellulitis or rash. Please see the wound care nurses' notes for full description of his skin. PSYCHIATRIC: Mood and affect could not be assessed. The patient was sedated. LABORATORY DATA: From my review are as follows; admission white cell count 15,600, hemoglobin 17.7, hematocrit 57.5, platelet count 235. No significant band forms on the manual differential. Arterial blood gas showed pH of 7.22, pCO2 of 54, pO2 of 186; that was on room air. Serum sodium was 140, potassium 3.5, chloride 98, bicarbonate 26, BUN 21, creatinine 1.3, glucose 228. Lactic acid level was 4.4. Liver function tests essentially were within normal limits otherwise. Urinalysis was negative for nitrites and it did show trace leukocyte esterase; however, no microscopy has been reported. Urine drug screen; aspirin, Tylenol level within normal limits. Plasma alcohol was 0.11%, elevated. Two sets of blood cultures are no growth to date. IMAGING: A CT scan of the head was done. I have reviewed the radiologist's interpretation; no acute abnormality, essentially. A chest x-ray was done; I have reviewed the chest x-ray myself. It shows an endotracheal tube with the tip at the mid level of the clavicular heads, really riding a little high; it is a lordotic film. There is a suggestion of gross cardiomegaly; otherwise, really no acute process that I can see. A nasogastric tube is seen coursing through the mediastinum. I suspect soft tissue shadows, perhaps mild interstitial edema otherwise. ASSESSMENT: 1. Acute hypoxemic respiratory failure, on mechanical ventilatory support, presumably due to alcohol overdose. 2. Alcohol overdose. 3. Acute toxic metabolic encephalopathy. 4. Leukocytosis at presentation. 5. Hemoconcentration. 6. Likely chronic hypercapnia. 7. Mild hypokalemia. 8. Lactic acidosis at presentation. 9. History of hypertension. 10. History of diabetes. 11. Morbid obesity. PLAN: I should mention the urine drug screen was otherwise presumptive negative for all drugs tested. It does seem this is an alcohol overdose with hypoventilation hypercapnia, and subsequent need for mechanical ventilation. Ventilator-associated pneumonia bundle has been introduced. A stat ABG has been ordered and I will make adjustments from that standpoint. Oxygen will be weaned to keep sats greater than or equal to about 90%, aspiration precautions included in the ventilator-associated pneumonia bundle. Hopefully, he can quickly improve, his alcohol can be metabolized and we might see an improvement in mental status. Brother, per records, denies daily alcohol use; still will need to keep an eye out for possible alcohol withdrawal symptoms down the road. I will go ahead and order serum magnesium and phosphorus, just to get an idea of how much alcohol he might be taking and to address as necessary. I will also get a serum troponin. He will benefit from evaluation of his cardiomegaly ultimately. I do note the lower extremity trace edema. I will get a BNP level. Again, consideration will be made for a 2D echocardiogram and, in light of the significant cardiomegaly, I will go ahead and order a 2D echocardiogram. Enteral nutrition will be the feeding modality of choice. He is appropriately on GI and DVT prophylaxis. I will get a procalcitonin level to better evaluate the true infectious potential of this leukocytosis. I will also repeat the lactic acid level. We will continue empiric cefepime monotherapy for now, follow the tracheal aspirate and follow the blood cultures. Flu and pneumonia vaccination will be addressed per protocol. Thank you very much for the consult. We will follow along and make further recommendations as the picture progresses/becomes clearer. He is critically ill, on life-sustaining interventions including mechanical ventilatory support, at high risk of from cardiopulmonary system decompensation at this time. I spent about 35 to 40 minutes of critical care time without overlap and excluding any procedural time that may be necessary. TID: [id number] RECEIPT: [id number] DAVIE/EMANUEL PHILIP
[2020-09-09 04:54] LABS: Alanine Aminotransferase 18 units/L (7-56); Albumin 2.8 g/dL (3.9-5); BUN/Creatinine Ratio 22; Blood Urea Nitrogen 26 mg/dL (9-20); Calcium 7.5 mg/dL (8.4-10.2); HDL Cholesterol 33 mg/dL (40-59); Hemolysis Index 71; LDL Cholesterol,Direct 71 mg/dL (50-130)
--- NOTE | 2020-09-09 08:27 | Progress Note ---
Assessment and Plan Assessment and plan: --Acute hypoxic respiratory failure; Possible aspiration pneumonia. Intubated on ventilatory support Nebulizers, IV antibiotics, follow cultures Pulmonary /critical care consult --Acute toxic metabolic encephalopathy; POA Due to alcohol intoxication, hypoxia Now orally intubated and sedated --Acute systolic congestive heart failure; ejection fraction 20 to 25% IV diuretics, cannot give beta-blockers, TONO inhibitors, due to hypotension input output monitoring, low-sodium diet Fluid restriction, cardiology consult --Four-chamber dilated cardiomyopathy; Antifailure medications, cardiology consult --Acute alcohol intoxication; Thiamine folic acid, IV Protonix, IV fluids, Supportive care Patient needs counseling when medically stable --Pneumonia Community-acquired versus aspiration Empiric antibiotics, ventilatory support Follow cultures, ID consult if needed --Leukocytosis; secondary to pneumonia Treat the underlying cause --Lactic acidosis/sepsis due to pneumonia Continue empiric antibiotics, follow cultures --Alcohol withdrawal symptoms; [facility] protocol Will counselor at law and advised to quit alcohol intake when patient is more alert and awake --Hyperglycemia; no evidence of diabetes mellitus Accu-Chek sliding scale coverage Check A1c 5.9 --Hypokalemia; resolved replenish per protocol as needed --Obesity; BMI 51.7 Patient needs weight reduction when medically stable --DVT prophylaxis; Lovenox Closely monitor the patient and adjust management as needed We will try to talk to the family and get more medical history Restraint for safety Critical care time 35 minutes The high probability of a clinically significant, sudden or life threatening deterioration of the [multi] system(s) required my full and direct attention, intervention and personal management. The aggregate critical care time was [35] minutes. This time is in addition to time spent performing reported pro cedures but includes the following: [x] Data Review and interpretation [x] Patient assessment and monitoring of vital signs [x] Documentation [x] Medication orders and management 09/09/2020; Patient is intubated on ventilatory support, wean as tolerated and extubate Pulmonary critical evaluation and recommendations noted and appreciated Acute versus acute on chronic CHF systolic dysfunction/dilated cardiomyopathy Start Lasix, unable to give beta-blockers and TONO inhibitors due to hypotension Cardiology consult placed History Interval history: I have seen and examined the patient at the bedside in ICU this morning Patient's chart and medications reviewed No new events reported by the nursing staff Patient remains intubated on ventilatory support Vital signs reviewed Hospitalist Physical - Constitutional Vitals: Temp Pulse Resp BP Pulse Ox 98.2 F 79 24 127/94 98 09/09/20 07:27 09/09/20 04:00 09/09/20 02:51 09/09/20 03:53 09/09/20 03:53 General appearance: Present: no acute distress, well-nourished, obese (Morbidly obese), other (Orally intubated on ventilatory support, sedated) - EENT Eyes: Present: PERRL, EOM intact ENT: other (ET tube and Dobbhoff in place) - Neck Neck: Present: supple, normal ROM - Respiratory Respiratory effort: normal Respiratory: bilateral: diminished, rhonchi, negative: rales, wheezing - Cardiovascular Rhythm: regular Heart Sounds: Present: S1 & S2 - Extremities Extremities: no ischemia, No edema - Abdominal General gastrointestinal: soft, non-tender, non-distended, normal bowel sounds - Integumentary Integumentary: Present: clear, warm - Psychiatric Psychiatric: other (Intubated on vent) - Neurologic Neurologic: other (Intubated on vent) Results - Labs CBC & Chem 7: 09/08/20 08:15 09/09/20 04:12 Labs: Laboratory Last Values WBC 15.6 K/mm3 (4.5-11.0) H 09/08/20 08:15 RBC 6.67 M/mm3 (3.65-5.03) H 09/08/20 08:15 Hgb 17.7 gm/dl (11.8-15.2) H 09/08/20 08:15 Hct 57.5 % (35.5-45.6) H 09/08/20 08:15 MCV 86 fl (84-94) 09/08/20 08:15 MCH 27 pg (28-32) L 09/08/20 08:15 MCHC 31 % (32-34) L 09/08/20 08:15 RDW 18.1 % (13.2-15.2) H 09/08/20 08:15 Plt Count 235 K/mm3 (140-440) 09/08/20 08:15 Add Manual Diff Complete 09/08/20 08:15 Total Counted 100 09/08/20 08:15 Seg Neuts % (Manual) 71.0 % (40.0-70.0) H 09/08/20 08:15 Band Neutrophils % 5.0 % 09/08/20 08:15 Lymphocytes % (Manual) 14.0 % (13.4-35.0) 09/08/20 08:15 Monocytes % (Manual) 3.0 % (0.0-7.3) 09/08/20 08:15 Eosinophils % (Manual) 1.0 % (0.0-4.3) 09/08/20 08:15 Metamyelocytes % 6.0 % 09/08/20 08:15 Nucleated RBC % Not Reportable 09/08/20 08:15 Seg Neutrophils # Man 11.1 K/mm3 (1.8-7.7) H 09/08/20 08:15 Band Neutrophils # 0.8 K/mm3 09/08/20 08:15 Lymphocytes # (Manual) 2.2 K/mm3 (1.2-5.4) 09/08/20 08:15 Abs React Lymphs (Man) 0.0 K/mm3 09/08/20 08:15 Monocytes # (Manual) 0.5 K/mm3 (0.0-0.8) 09/08/20 08:15 Eosinophils # (Manual) 0.2 K/mm3 (0.0-0.4) 09/08/20 08:15 Basophils # (Manual) 0.0 K/mm3 (0.0-0.1) 09/08/20 08:15 Metamyelocytes # 0.9 K/mm3 09/08/20 08:15 Myelocytes # 0.0 K/mm3 09/08/20 08:15 Promyelocytes # 0.0 K/mm3 09/08/20 08:15 Blast Cells # 0.0 K/mm3 09/08/20 08:15 WBC Morphology Not Reportable 09/08/20 08:15 Hypersegmented Neuts Not Reportable 09/08/20 08:15 Hyposegmented Neuts Not Reportable 09/08/20 08:15 Hypogranular Neuts Not Reportable 09/08/20 08:15 Smudge Cells Not Reportable 09/08/20 08:15 Toxic Granulation Not Reportable 09/08/20 08:15 Toxic Vacuolation Not Reportable 09/08/20 08:15 Dohle Bodies Not Reportable 09/08/20 08:15 Pelger-Huet Anomaly Not Reportable 09/08/20 08:15 Lamar Rods Not Reportable 09/08/20 08:15 Platelet Estimate Consistent w auto 09/08/20 08:15 Clumped Platelets Not Reportable 09/08/20 08:15 Plt Clumps, EDTA Not Reportable 09/08/20 08:15 Large Platelets Not Reportable 09/08/20 08:15 Giant Platelets Not Reportable 09/08/20 08:15 Platelet Satelliting Not Reportable 09/08/20 08:15 Plt Morphology Comment Not Reportable 09/08/20 08:15 RBC Morphology Normal 09/08/20 08:15 Dimorphic RBCs Not Reportable 09/08/20 08:15 Polychromasia Not Reportable 09/08/20 08:15 Hypochromasia Not Reportable 09/08/20 08:15 Poikilocytosis Not Reportable 09/08/20 08:15 Anisocytosis Not Reportable 09/08/20 08:15 Microcytosis Not Reportable 09/08/20 08:15 Macrocytosis Not Reportable 09/08/20 08:15 Spherocytes Not Reportable 09/08/20 08:15 Pappenheimer Bodies Not Reportable 09/08/20 08:15 Sickle Cells Not Reportable 09/08/20 08:15 Target Cells Not Reportable 09/08/20 08:15 Tear Drop Cells Not Reportable 09/08/20 08:15 Ovalocytes Not Reportable 09/08/20 08:15 Helmet Cells Not Reportable 09/08/20 08:15 [place]ran-[place] Bodies Not Reportable 09/08/20 08:15 [place] Rings Not Reportable 09/08/20 08:15 Onel Cells Not Reportable 09/08/20 08:15 Bite Cells Not Reportable 09/08/20 08:15 Crenated Cell Not Reportable 09/08/20 08:15 Elliptocytes Not Reportable 09/08/20 08:15 Acanthocytes (Spur) Not Reportable 09/08/20 08:15 Rouleaux Not Reportable 09/08/20 08:15 Hemoglobin C Crystals Not Reportable 09/08/20 08:15 Schistocytes Not Reportable 09/08/20 08:15 Malaria parasites Not Reportable 09/08/20 08:15 Warner Bodies Not Reportable 09/08/20 08:15 Hem Pathologist Commnt No 09/08/20 08:15 ABG pH 7.425 (7.320-7.450) 09/09/20 03:08 POC ABG pCO2 36.4 mmHg (32.0-48.0) 09/09/20 03:08 ABG pCO2 31.8 mm Hg 09/08/20 16:25 POC ABG pO2 107.6 mmHg (83-108) 09/09/20 03:08 ABG pO2 117.8 mm Hg (80.0-90.0) H 09/08/20 16:25 POC ABG HCO3 23.3 09/09/20 03:08 ABG HCO3 20.9 mmol/L (20.0-26.0) 09/08/20 16:25 ABG O2 Saturation 98.9 (0-100) 09/09/20 03:08 ABG O2 Content 24.5 (0.0-44) 09/08/20 16:25 POC ABG Base Excess -0.5 09/09/20 03:08 ABG Base Excess -2.0 mmol/L (-2.0-3.0) 09/08/20 16:25 ABG Hemoglobin 18.2 (12.0-17.5) H 09/09/20 03:08 ABG Oxyhemoglobin 97.5 (94-98) 09/09/20 03:08 ABG Carboxyhemoglobin 2.0 % (0.0-5.0) 09/08/20 16:25 ABG Methemoglobin 0.2 (0.0-1.5) 09/09/20 03:08 ABG Sodium 139.3 mmol/L (136.0-145.0) 09/09/20 03:08 ABG Potassium 4.4 mmol/L (3.40-4.50) 09/09/20 03:08 ABG Chloride 106.0 mmol/L (98-107) 09/09/20 03:08 ABG Glucose 145 mg/dL (65-95) H 09/09/20 03:08 Oxyhemoglobin 95.8 % (95.0-99.0) 09/08/20 16:25 Carboxyhemoglobin 1.2 (0.5-1.5) 09/09/20 03:08 FiO2 80 % 05/25/21 16:25 FiO2 % 80.0 09/09/20 03:08 Sodium 139 mmol/L (137-145) 09/09/20 04:12 Potassium 4.5 mmol/L (3.6-5.0) D 09/09/20 04:12 Chloride 105.0 mmol/L (98-107) 09/09/20 04:12 Carbon Dioxide 22 mmol/L (22-30) 09/09/20 04:12 Anion Gap 17 mmol/L 09/09/20 04:12 BUN 26 mg/dL (9-20) H 09/09/20 04:12 Creatinine 1.2 mg/dL (0.8-1.3) 09/09/20 04:12 Estimated GFR > 60 ml/min 09/09/20 04:12 BUN/Creatinine Ratio 22 % 09/09/20 04:12 Glucose 136 mg/dL (75-100) H 09/09/20 04:12 POC Glucose 128 mg/dL (70-105) H 09/09/20 01:32 Hemoglobin A1c 5.8 % (4-6) 09/08/20 15:58 Lactic Acid 2.20 mmol/L (0.7-2.0) H* 09/08/20 17:39 Calcium 7.5 mg/dL (8.4-10.2) L 09/09/20 04:12 Phosphorus 3.60 mg/dL (2.5-4.5) 09/08/20 17:39 Magnesium 2.00 mg/dL (1.7-2.3) 09/09/20 04:12 Total Bilirubin 0.60 mg/dL (0.1-1.2) 09/09/20 04:12 Direct Bilirubin < 0.2 mg/dL (0-0.2) 09/08/20 08:15 Indirect Bilirubin 0.0 mg/dL 09/08/20 08:15 AST 30 units/L (5-40) 09/09/20 04:12 ALT 18 units/L (7-56) 09/09/20 04:12 Alkaline Phosphatase 82 units/L (35-129) 09/09/20 04:12 Ammonia 50.0 umol/L (25-60) 09/09/20 04:12 Total Protein 6.0 g/dL (6.3-8.2) L D 09/09/20 04:12 Albumin 2.8 g/dL (3.9-5) L 09/09/20 04:12 Albumin/Globulin Ratio 0.9 % 09/09/20 04:12 Triglycerides 148 mg/dL (2-149) 09/09/20 04:12 Cholesterol 119 mg/dL (50-199) 09/09/20 04:12 LDL Cholesterol Direct 71 mg/dL (50-130) 09/09/20 04:12 HDL Cholesterol 33 mg/dL (40-59) L 09/09/20 04:12 Cholesterol/HDL Ratio 3.60 % 09/09/20 04:12 Amylase 45 units/L (27-131) 09/09/20 04:12 Lipase 12 units/L (13-60) L 09/09/20 04:12 Arterial Blood Glucose 145 mg/dL (65-95) H 09/09/20 03:08 Arterial Blood Ionized Calcium 4.3 mg/dL (4.6-5.3) L 09/09/20 03:08 Urine Color Yee (Yellow) 09/08/20 Unknown Urine Turbidity Cloudy (Clear) 09/08/20 Unknown Urine pH 5.0 (5.0-7.0) 09/08/20 Unknown Ur Specific [place] 1.018 (1.003-1.030) 09/08/20 Unknown Urine Protein >500 mg/dL (Negative) 09/08/20 Unknown Urine Glucose (UA) Neg mg/dL (Negative) 09/08/20 Unknown Urine Ketones Neg mg/dL (Negative) 09/08/20 Unknown Urine Blood Sm (Negative) 09/08/20 Unknown Urine Nitrite Neg (Negative) 09/08/20 Unknown Urine Bilirubin Neg (Negative) 09/08/20 Unknown Urine Urobilinogen < 2.0 mg/dL (<2.0) 09/08/20 Unknown Ur Leukocyte Esterase Tr (Negative) 09/08/20 Unknown Urine WBC (Auto) Not Reportable 09/08/20 Unknown Urine RBC (Auto) Not Reportable 09/08/20 Unknown Salicylates < 0.3 mg/dL (2.8-20.0) L 09/08/20 07:51 Urine Opiates Screen Negative 09/08/20 Unknown Urine Methadone Screen Negative 09/08/20 Unknown Acetaminophen 5.0 ug/mL (10.0-30.0) L 09/08/20 08:15 Ur Barbiturates Screen Negative 09/08/20 Unknown Ur Phencyclidine Scrn Negative 09/08/20 Unknown Ur Amphetamines Screen Negative 09/08/20 Unknown U Benzodiazepines Scrn Negative 09/08/20 Unknown Urine Cocaine Screen Negative 09/08/20 Unknown U Marijuana (THC) Screen Presumptive negative 09/08/20 Unknown Drugs of Abuse Note Disclamer 09/08/20 Unknown Plasma/Serum Alcohol 0.11 % (0-0.07) H 09/08/20 08:15 Microbiology: Microbiology 09/08/20 08:20 Peripheral/Venous Blood Culture - Preliminary Culture in Progress 09/08/20 08:20 Peripheral/Venous Blood Culture - Preliminary Culture in Progress Active Medications - Current Medications Current Medications: Generic Name Dose Route Start Last Admin Trade Name Freq PRN Reason Stop Dose Admin Enoxaparin Sodium 40 mg 09/08/20 22:00 09/08/20 21:50 Enoxaparin 40 Mg/0.4 Ml Inj SUB-Q 40 mg QDAY@2200 JUAN LUIS Administration Protocol Hydrophilic Ointment 1 applic 09/08/20 16:21 Lip Therapy Vaseline TP Q2HR PRN Dry Lips Propofol 1,000 mg in 100 mls @ 3.6 mls/hr 09/08/20 08:00 09/09/20 08:21 Diprivan 10 Mg/Ml IV 30 mcg/kg/min TITR JUAN LUIS 21.6 mls/hr Titration Protocol 5 MCG/KG/MIN Cefepime HCl 2 gm in 100 mls @ 200 mls/hr 09/08/20 18:00 09/09/20 01:42 Cefepime/Ns 2 Gm/100 Ml IV 200 mls/hr Q8H JUAN LUIS Administration Protocol Sodium Chloride 1,000 mls @ 75 mls/hr 09/08/20 20:15 09/08/20 21:00 Nacl 0.9% 1000 Ml IV 75 mls/hr DIRECT JUAN LUIS Administration Insulin Human Lispro 0 unit 09/08/20 12:00 09/09/20 06:26 Insulin Lispro 100 Unit/Ml SUB-Q Not Given Q6HR JUAN LUIS Protocol Lorazepam 2 mg 09/08/20 10:35 Lorazepam 2 Mg/Ml Vial IV Q4H PRN Agitation Multi-Ingred Cream/Lotion/Oil/Oint 1 applic 09/08/20 16:21 Mineral Oil/Petrolatum, White Ophth Oint 3.5 Gm OU Q4HR PRN Dry Eye(s) Pantoprazole Sodium 40 mg 09/09/20 10:00 Pantoprazole 40 Mg Inj IV QDAY JUAN LUIS
[2020-09-09] MEDS: PANTOPRAZOLE 40 MG INJ IV SCH (09:03)
[2020-09-09] MEDS ORDERED: SIMPLE SYRUP 15 ML FEEDTUBE PRN ×2 (09:19)
[2020-09-09] MEDS ORDERED: SODIUM BICARBONATE 325 MG TAB FEEDTUBE PRN (09:19)
[2020-09-09] MEDS ORDERED: LIPASE 10,500/PROTEASE 25,000/AMYLASE 43,750 (UNITS) DR CAP FEEDTUBE PRN (09:19)
[2020-09-09] MEDS: LORazepam 2 MG/ML VIAL IV PRN (13:52)
--- NOTE | 2020-09-09 14:10 | Progress Note ---
Assessment and Plan Acute hypoxemic respiratory failure Alcohol overdose Acute toxic metabolic encephalopathy HFrEF Leukocytosis at presentation Hemoconcentration Likely chronic hypercapnia Mild hypokalemia Lactic acidosis at presentation History of hypertension History of diabetes Morbid obesity - increased peep to 10 - reduced FiO2 to 60% - begin Fentanyl and hold Propofol for weaning - begin CIWA protocol - discontinue [place] catheter - repeat procalcitonin level ion am (tentative de-escalation of IV AB's after >/= 72 hours of negative cultures if procalcitonin trends unremarkable) - VTE w/up (D-dimer + bilateral lower extremity dopplers +/- CTA chest re: Pulm HTN and hypoxemia with current CXR) - continue care as below otherwise; - continue Daily SAT and SBT assessment as tolerated - continue to wean supplemental oxygen for target O2 sat's > 90% acutely - VAP bundle addressed - continue lung protective strategies - continue bronchodilators with pulmonary hygiene per RT - wean per pulmonary driven protocols otherwise - continue accuchecks with glycemic control per SSI (While critically ill target blood glucose of 140-180 mg/dL; avoid hypoglycemia) - sedation prn for target RASS 0 to -1 - avoid nephrotoxins, renally dose all medications - continue empiric Zosyn & Vancomycin - prn analgesia per CPOT score - Maintenance of sleep-wake cycle, avoid delirium - continue enteral nutritional support at goal rate as tolerated - G.I. & VTE prophylaxis - PT/OT/ROM exercises - continue mobility protocols for pressure ulcer prophylaxis - Monitor hemodynamics closely - continue other care per attending / other consultants - discharge planning ongoing concurrently COVID SPECIFIC INTERVENTIONS - consider Remdesivir as per ID/Pulmonary developed protocols - consider systemic steroids for severe COVID-19 infection empirically - follow COVID tests results - consider zinc and vitamin C supplementation - Monitor inflammatory markers per facility protocol - ferritin, Ddimer, CRP - therapeutic anticoagulation per system Protocol based on d-dimer and clinical considerations - empiric contact and airborne isolation .... Re-evaluate in am & prn CONDITION: CRITICAL PROGNOSIS: GUARDED CODE STATUS: FULL CODE The high probability of a clinically significant, sudden or life-threatening deterioration of the [respiratory, cardiovascular, renal & neurologic] system(s) required my full and direct attention, intervention and personal management. The aggregate critical care time was [35] minutes without overlap. Time includes spent on; [x] Data Review and interpretation [x] Patient assessment and monitoring of vital signs [x] Documentation [x] Medication orders and management Subjective Date of service: 09/09/20 Principal diagnosis: Ac hypoxemic and hypercapnic resp failure; EtOH OD; Acute encephalopathy Interval history: Patient is seen today for: Acute hypoxemic and hypercapnic respiratory failure; Alcohol overdose; Acute encephalopathy; Leukocytosis; DM II; Morbid obesity Seen and examined at bedside; 24hour events reviewed; nursing and respiratory care staff consulted; no adverse overnight events reported to me; restying peacefully in bed; remains on MVS; FiO2 at 65% with peep at 8; appropriate during SAT's per RN; no gross bleeding; 2D ECHO with EF 20-25% & RVSP of 45 mmHg Objective Vital Signs - 12hr 09/09/20 09/09/20 09/09/20 02:11 02:21 02:30 Temperature Pulse Rate 81 81 80 Respiratory 24 24 24 Rate Blood Pressure 138/104 138/100 O2 Sat by Pulse 97 98 98 Oximetry 09/09/20 09/09/20 09/09/20 02:41 02:47 02:51 Temperature Pulse Rate 78 80 Respiratory 26 H 22 24 Rate Blood Pressure 138/100 130/96 O2 Sat by Pulse 97 99 98 Oximetry 09/09/20 09/09/20 09/09/20 03:53 04:00 07:27 Temperature 98.2 F 98.2 F Pulse Rate 79 79 Respiratory Rate Blood Pressure 127/94 O2 Sat by Pulse 98 Oximetry 09/09/20 09/09/20 09/09/20 08:54 09:53 09:54 Temperature Pulse Rate 79 74 Respiratory 22 Rate Blood Pressure 132/92 O2 Sat by Pulse 98 99 Oximetry Constitutional: no acute distress, other (middle aged morbidly obese male without vemtilator dyssynchrony) Eyes: non-icteric ENT: oropharynx moist, other (ETT 25 cm RACHEAL) Neck: supple, no lymphadenopathy, no JVD, other (large neck circumference) Effort: normal Ascultation: Bilateral: diminished breath sounds, rhonchi Percussion: Bilateral: not dull Cardiovascular: regular rate and rhythm Gastrointestinal: normoactive bowel sounds, soft, non-tender, non-distended (protuberant) Integumentary: normal Extremities: no cyanosis, pink and warm, pulses normal, no ischemia or petechiae, edema (trace) Neurologic: non-focal exam (grossly), pupils equal and round, CN II-XII normal, motor strength normal and Psychiatric: other (sedated) CBC and BMP: 09/08/20 08:15 09/09/20 04:12 ABG, PT/INR, D-dimer: ABG ABG pH 7.425 (7.320-7.450) 09/09/20 03:08 POC ABG pCO2 36.4 mmHg (32.0-48.0) 09/09/20 03:08 ABG pCO2 31.8 mm Hg 09/08/20 16:25 POC ABG pO2 107.6 mmHg (83-108) 09/09/20 03:08 ABG pO2 117.8 mm Hg (80.0-90.0) H 09/08/20 16:25 POC ABG HCO3 23.3 09/09/20 03:08 ABG O2 Saturation 98.9 (0-100) 09/09/20 03:08 Abnormal lab findings: Abnormal Labs 09/08/20 09/08/20 09/08/20 07:51 08:15 08:15 WBC 15.6 H RBC 6.67 H Hgb 17.7 H Hct 57.5 H MCH 27 L MCHC 31 L RDW 18.1 H Seg Neuts % (Manual) 71.0 H Seg Neutrophils # Man 11.1 H ABG pH ABG pO2 ABG Base Excess ABG Hemoglobin ABG Glucose Potassium 3.5 L Chloride 97.7 L BUN 21 H Glucose 228 H POC Glucose Lactic Acid Calcium Total Protein Albumin HDL Cholesterol Lipase Arterial Blood Glucose Arterial Blood Ionized Calcium Salicylates < 0.3 L Acetaminophen Plasma/Serum Alcohol 09/08/20 09/08/20 09/08/20 08:15 08:15 08:20 WBC RBC Hgb Hct MCH MCHC RDW Seg Neuts % (Manual) Seg Neutrophils # Man ABG pH ABG pO2 ABG Base Excess ABG Hemoglobin ABG Glucose Potassium Chloride BUN Glucose POC Glucose Lactic Acid 4.40 H* Calcium Total Protein Albumin HDL Cholesterol Lipase Arterial Blood Glucose Arterial Blood Ionized Calcium Salicylates Acetaminophen 5.0 L Plasma/Serum Alcohol 0.11 H 09/08/20 09/08/20 09/08/20 09:15 16:25 17:19 WBC RBC Hgb Hct MCH MCHC RDW Seg Neuts % (Manual) Seg Neutrophils # Man ABG pH 7.222 L ABG pO2 185.7 H 117.8 H ABG Base Excess -6.5 L ABG Hemoglobin 18.1 H ABG Glucose Potassium Chloride BUN Glucose POC Glucose 106 H Lactic Acid Calcium Total Protein Albumin HDL Cholesterol Lipase Arterial Blood Glucose Arterial Blood Ionized Calcium Salicylates Acetaminophen Plasma/Serum Alcohol 09/08/20 09/09/20 09/09/20 17:39 01:32 03:08 WBC RBC Hgb Hct MCH MCHC RDW Seg Neuts % (Manual) Seg Neutrophils # Man ABG pH ABG pO2 ABG Base Excess ABG Hemoglobin 18.2 H ABG Glucose 145 H Potassium Chloride BUN Glucose POC Glucose 128 H Lactic Acid 2.20 H* Calcium Total Protein Albumin HDL Cholesterol Lipase Arterial Blood Glucose 145 H Arterial Blood Ionized Calcium 4.3 L Salicylates Acetaminophen Plasma/Serum Alcohol 09/09/20 09/09/20 09/09/20 04:12 06:10 11:05 WBC RBC Hgb Hct MCH MCHC RDW Seg Neuts % (Manual) Seg Neutrophils # Man ABG pH ABG pO2 ABG Base Excess ABG Hemoglobin ABG Glucose Potassium Chloride BUN 26 H Glucose 136 H POC Glucose 135 H 139 H Lactic Acid Calcium 7.5 L Total Protein 6.0 L D Albumin 2.8 L HDL Cholesterol 33 L Lipase 12 L Arterial Blood Glucose Arterial Blood Ionized Calcium Salicylates Acetaminophen Plasma/Serum Alcohol Chest x-ray: image reviewed (tubes and lines in good position) Allied health notes reviewed: nursing
[2020-09-09] MEDS: fentaNYL DRIP Premix 2,000 MCG/100 ML BAG IV SCH (15:16)
--- NOTE | 2020-09-09 16:40 | Vascular Lab Report ---
DUPLEX DOPPLER LOWER EXTREMITY VEINS, BILATERAL INDICATION / CLINICAL INFORMATION: swelling; hypoxemia. TECHNIQUE: Duplex doppler imaging was performed through the veins of both lower extremities using venous adam yakelin and other maneuvers. COMPARISON: None available. FINDINGS: RIGHT COMMON FEMORAL VEIN: Negative. RIGHT FEMORAL VEIN: Negative. RIGHT POPLITEAL VEIN: Negative. RIGHT CALF VEINS: Negative. LEFT COMMON FEMORAL VEIN: Negative. LEFT FEMORAL VEIN: Negative. LEFT POPLITEAL VEIN: Negative. LEFT CALF VEINS: Negative. ADDITIONAL FINDINGS: None. IMPRESSION: 1. No sonographic evidence for DVT in either lower extremity. Signer Name: Renny Buckley MD Signed: 09/09/2020 4:35 PM Workstation Name: [id number]
[2020-09-09] MEDS: ENOXAPARIN 40 MG/0.4 ML INJ SUB-Q SCH (21:52)
[2020-09-10] MEDS: CEFEPIME/NS 2 GM/100 ML 2 GM/100 ML BAG IV SCH ×3 (02:11→18:05)
[2020-09-10] MEDS: INSULIN LISPRO 100 UNIT/ML SUB-Q SCH ×3 (05:27→19:05)
[2020-09-10] MEDS: FUROSEMIDE 40 MG/4 ML INJ IV SCH ×2 (05:27→18:06)
[2020-09-10] MEDS: fentaNYL DRIP Premix 2,000 MCG/100 ML BAG IV SCH ×2 (05:28→18:30)
--- NOTE | 2020-09-10 05:29 | XRay Report ---
CHEST 1 VIEW [id number] INDICATION / CLINICAL INFORMATION: follow up respiratory failure COMPARISON: 09/09/2020 FINDINGS: SUPPORT DEVICES: Stable HEART / MEDIASTINUM: Stable LUNGS / PLEURA: Slightly congested appearance is noted. No definite focal infiltrates are seen. No pn eumothorax. ADDITIONAL FINDINGS: No significant additional findings. Signer Name: Hilton Sampson MD Signed: 09/10/2020 5:25 AM Workstation Name: [id number]
--- NOTE | 2020-09-10 08:21 | Progress Note ---
Assessment and Plan Assessment and plan: COVID-19 test negative - 09/10/2020 --Elevated D-dimers; Lower extremity venous Dopplers negative for DVT Check CTA to evaluate for PE and patient is stable --Acute hypoxic respiratory failure; Possible aspiration pneumonia. Intubated on ventilatory support Wean as tolerated and extubate Nebulizers, IV antibiotics, follow cultures Pulmonary /critical care following --Acute toxic metabolic encephalopathy; POA Due to alcohol intoxication, hypoxia Now orally intubated and sedated --Acute systolic congestive heart failure; ejection fraction 20 to 25% IV diuretics, cannot give beta-blockers, TONO inhibitors, due to hypotension input output monitoring, low-sodium diet Fluid restriction, cardiology consulted --Four-chamber dilated cardiomyopathy; Antifailure medications, cardiology consult --Acute alcohol intoxication; Thiamine folic acid, IV Protonix, IV fluids, Supportive care Patient needs counseling when medically stable --Pneumonia Community-acquired versus aspiration Empiric antibiotics, ventilatory support Follow cultures, ID consult if needed --Leukocytosis; secondary to pneumonia Treat the underlying cause --Lactic acidosis/sepsis due to pneumonia Continue empiric antibiotics, follow cultures --Alcohol withdrawal symptoms; [facility] protocol Will behavioral health counselor and advised to quit alcohol intake when patient is more alert and awake --Hyperglycemia; no evidence of diabetes mellitus Accu-Chek sliding scale coverage Check A1c 5.9 --Hypokalemia; resolved replenish per protocol as needed --Obesity; BMI 51.7 Patient needs weight reduction when medically stable --DVT prophylaxis; Lovenox Closely monitor the patient and adjust management as needed We will try to talk to the family and get more medical history Restraint for safety Critical care time 35 minutes The high probability of a clinically significant, sudden or life threatening deterioration of the [multi] system(s) required my full and direct attention, intervention and personal management. The aggregate critical care time was [35] minutes. This time is in addition to time spent performing reported procedures but includes the following: [x] Data Review and interpretation [x] Patient assessment and monitoring of vital signs [x] Documentation [x] Medication orders and management 09/09/2020; Patient is intubated on ventilatory support, wean as tolerated and extubate Pulmonary critical evaluation and recommendations noted and appreciated Acute versus acute on chronic CHF systolic dysfunction/dilated cardiomyopathy Start Lasix, unable to give beta-blockers and TONO inhibitors due to hypotension Cardiology consult placed 09/10/2020; patient remains intubated on ventilatory support Will wean as tolerated and extubate Elevated D-dimers, venous Doppler lower extremity negative for DVT Will get CTA chest to rule out PE when medically stable Cardiomyopathy, cardiology consulted History Interval history: I have seen and examined the patient at the bedside in ICU this morning Patient's chart, tests and reports, current medications reviewed Morbidly obese patient remains intubated on ventilatory support In mild distress Vital signs noted Hospitalist Physical - Constitutional Vitals: Temp Pulse Resp BP Pulse Ox 98.8 F 75 24 97/65 100 09/10/20 05:00 09/10/20 07:46 09/10/20 04:00 09/10/20 07:46 09/10/20 07:46 General appearance: Present: no acute distress, well-nourished, obese (Morbidly obese), other (Orally intubated on ventilatory support, sedated) - EENT Eyes: Present: PERRL, EOM intact - Neck Neck: Present: supple, normal ROM, other (Dobbhoff in ET tube in place) - Respiratory Respiratory effort: normal Respiratory: bilateral: diminished, rales, rhonchi, negative: wheezing - Cardiovascular Rhythm: regular Heart Sounds: Present: S1 & S2 - Extremities Extremities: no ischemia Extremity abnormal: edema - Abdominal General gastrointestinal: soft, non-tender, non-distended, normal bowel sounds, other (Obese) - Integumentary Integumentary: Present: clear, warm - Psychiatric Psychiatric: other (Intubated on ventilatory support) - Neurologic Neurologic: other (Intubated on ventilatory support) Results - Labs CBC & Chem 7: 09/08/20 08:15 09/09/20 04:12 Labs: Laboratory Last Values WBC 15.6 K/mm3 (4.5-11.0) H 09/08/20 08:15 RBC 6.67 M/mm3 (3.65-5.03) H 09/08/20 08:15 Hgb 17.7 gm/dl (11.8-15.2) H 09/08/20 08:15 Hct 57.5 % (35.5-45.6) H 09/08/20 08:15 MCV 86 fl (84-94) 09/08/20 08:15 MCH 27 pg (28-32) L 09/08/20 08:15 MCHC 31 % (32-34) L 09/08/20 08:15 RDW 18.1 % (13.2-15.2) H 09/08/20 08:15 Plt Count 235 K/mm3 (140-440) 09/08/20 08:15 Add Manual Diff Complete 09/08/20 08:15 Total Counted 100 09/08/20 08:15 Seg Neuts % (Manual) 71.0 % (40.0-70.0) H 09/08/20 08:15 Band Neutrophils % 5.0 % 09/08/20 08:15 Lymphocytes % (Manual) 14.0 % (13.4-35.0) 09/08/20 08:15 Monocytes % (Manual) 3.0 % (0.0-7.3) 09/08/20 08:15 Eosinophils % (Manual) 1.0 % (0.0-4.3) 09/08/20 08:15 Metamyelocytes % 6.0 % 09/08/20 08:15 Nucleated RBC % Not Reportable 09/08/20 08:15 Seg Neutrophils # Man 11.1 K/mm3 (1.8-7.7) H 09/08/20 08:15 Band Neutrophils # 0.8 K/mm3 09/08/20 08:15 Lymphocytes # (Manual) 2.2 K/mm3 (1.2-5.4) 09/08/20 08:15 Abs React Lymphs (Man) 0.0 K/mm3 09/08/20 08:15 Monocytes # (Manual) 0.5 K/mm3 (0.0-0.8) 09/08/20 08:15 Eosinophils # (Manual) 0.2 K/mm3 (0.0-0.4) 09/08/20 08:15 Basophils # (Manual) 0.0 K/mm3 (0.0-0.1) 09/08/20 08:15 Metamyelocytes # 0.9 K/mm3 09/08/20 08:15 Myelocytes # 0.0 K/mm3 09/08/20 08:15 Promyelocytes # 0.0 K/mm3 09/08/20 08:15 Blast Cells # 0.0 K/mm3 09/08/20 08:15 WBC Morphology Not Reportable 09/08/20 08:15 Hypersegmented Neuts Not Reportable 09/08/20 08:15 Hyposegmented Neuts Not Reportable 09/08/20 08:15 Hypogranular Neuts Not Reportable 09/08/20 08:15 Smudge Cells Not Reportable 09/08/20 08:15 Toxic Granulation Not Reportable 09/08/20 08:15 Toxic Vacuolation Not Reportable 09/08/20 08:15 Dohle Bodies Not Reportable 09/08/20 08:15 Pelger-Huet Anomaly Not Reportable 09/08/20 08:15 Lamar Rods Not Reportable 09/08/20 08:15 Platelet Estimate Consistent w auto 09/08/20 08:15 Clumped Platelets Not Reportable 09/08/20 08:15 Plt Clumps, EDTA Not Reportable 09/08/20 08:15 Large Platelets Not Reportable 09/08/20 08:15 Giant Platelets Not Reportable 09/08/20 08:15 Platelet Satelliting Not Reportable 09/08/20 08:15 Plt Morphology Comment Not Reportable 09/08/20 08:15 RBC Morphology Normal 09/08/20 08:15 Dimorphic RBCs Not Reportable 09/08/20 08:15 Polychromasia Not Reportable 09/08/20 08:15 Hypochromasia Not Reportable 09/08/20 08:15 Poikilocytosis Not Reportable 09/08/20 08:15 Anisocytosis Not Reportable 09/08/20 08:15 Microcytosis Not Reportable 09/08/20 08:15 Macrocytosis Not Reportable 09/08/20 08:15 Spherocytes Not Reportable 09/08/20 08:15 Pappenheimer Bodies Not Reportable 09/08/20 08:15 Sickle Cells Not Reportable 09/08/20 08:15 Target Cells Not Reportable 09/08/20 08:15 Tear Drop Cells Not Reportable 09/08/20 08:15 Ovalocytes Not Reportable 09/08/20 08:15 Helmet Cells Not Reportable 09/08/20 08:15 Cochran-Jeddito Bodies Not Reportable 09/08/20 08:15 Foristell Rings Not Reportable 09/08/20 08:15 Onel Cells Not Reportable 09/08/20 08:15 Bite Cells Not Reportable 09/08/20 08:15 Crenated Cell Not Reportable 09/08/20 08:15 Elliptocytes Not Reportable 09/08/20 08:15 Acanthocytes (Spur) Not Reportable 09/08/20 08:15 Rouleaux Not Reportable 09/08/20 08:15 Hemoglobin C Crystals Not Reportable 09/08/20 08:15 Schistocytes Not Reportable 09/08/20 08:15 Malaria parasites Not Reportable 09/08/20 08:15 Warner Bodies Not Reportable 09/08/20 08:15 Hem Pathologist Commnt No 09/08/20 08:15 D-Dimer 3467.79 ng/mlDDU (0-234) H 09/09/20 15:19 ABG pH 7.409 (7.320-7.450) 09/10/20 05:00 POC ABG pCO2 33.8 mmHg (32.0-48.0) 09/10/20 05:00 ABG pCO2 31.8 mm Hg 09/08/20 16:25 POC ABG pO2 73.9 mmHg (83-108) L 09/10/20 05:00 ABG pO2 117.8 mm Hg (80.0-90.0) H 09/08/20 16:25 POC ABG HCO3 20.9 09/10/20 05:00 ABG HCO3 20.9 mmol/L (20.0-26.0) 09/08/20 16:25 ABG O2 Saturation 96.8 (0-100) 09/10/20 05:00 ABG O2 Content 24.5 (0.0-44) 09/08/20 16:25 POC ABG Base Excess -2.7 09/10/20 05:00 ABG Base Excess -2.0 mmol/L (-2.0-3.0) 09/08/20 16:25 ABG Hemoglobin 18.0 (12.0-17.5) H 09/10/20 05:00 ABG Oxyhemoglobin 95.2 (94-98) 09/10/20 05:00 ABG Carboxyhemoglobin 2.0 % (0.0-5.0) 09/08/20 16:25 ABG Methemoglobin 0.1 (0.0-1.5) 09/10/20 05:00 ABG Sodium 140.3 mmol/L (136.0-145.0) 09/10/20 05:00 ABG Potassium 4.0 mmol/L (3.40-4.50) 09/10/20 05:00 ABG Chloride 110.0 mmol/L (98-107) H 09/10/20 05:00 ABG Glucose 121 mg/dL (65-95) H 09/10/20 05:00 Oxyhemoglobin 95.8 % (95.0-99.0) 09/08/20 16:25 Carboxyhemoglobin 1.6 (0.5-1.5) H 09/10/20 05:00 FiO2 80 % 09/08/20 16:25 FiO2 % 45.0 09/10/20 05:00 Sodium 139 mmol/L (137-145) 09/09/20 04:12 Potassium 4.5 mmol/L (3.6-5.0) D 09/09/20 04:12 Chloride 105.0 mmol/L (98-107) 09/09/20 04:12 Carbon Dioxide 22 mmol/L (22-30) 09/09/20 04:12 Anion Gap 17 mmol/L 09/09/20 04:12 BUN 26 mg/dL (9-20) H 09/09/20 04:12 Creatinine 1.2 mg/dL (0.8-1.3) 09/09/20 04:12 Estimated GFR > 60 ml/min 09/09/20 04:12 BUN/Creatinine Ratio 22 % 09/09/20 04:12 Glucose 136 mg/dL (75-100) H 09/09/20 04:12 POC Glucose 127 mg/dL (70-105) H 09/10/20 05:22 Hemoglobin A1c 5.8 % (4-6) 09/08/20 15:58 Lactic Acid 2.00 mmol/L (0.7-2.0) 09/09/20 09:10 Calcium 7.5 mg/dL (8.4-10.2) L 09/09/20 04:12 Phosphorus 3.60 mg/dL (2.5-4.5) 09/08/20 17:39 Magnesium 2.00 mg/dL (1.7-2.3) 09/09/20 04:12 Total Bilirubin 0.60 mg/dL (0.1-1.2) 09/09/20 04:12 Direct Bilirubin < 0.2 mg/dL (0-0.2) 09/08/20 08:15 Indirect Bilirubin 0.0 mg/dL 09/08/20 08:15 AST 30 units/L (5-40) 09/09/20 04:12 ALT 18 units/L (7-56) 09/09/20 04:12 Alkaline Phosphatase 82 units/L (35-129) 09/09/20 04:12 Ammonia 50.0 umol/L (25-60) 09/09/20 04:12 Total Protein 6.0 g/dL (6.3-8.2) L D 09/09/20 04:12 Albumin 2.8 g/dL (3.9-5) L 09/09/20 04:12 Albumin/Globulin Ratio 0.9 % 09/09/20 04:12 Triglycerides 148 mg/dL (2-149) 09/09/20 04:12 Cholesterol 119 mg/dL (50-199) 09/09/20 04:12 LDL Cholesterol Direct 71 mg/dL (50-130) 09/09/20 04:12 HDL Cholesterol 33 mg/dL (40-59) L 09/09/20 04:12 Cholesterol/HDL Ratio 3.60 % 09/09/20 04:12 Amylase 45 units/L (27-131) 09/09/20 04:12 Lipase 12 units/L (13-60) L 09/09/20 04:12 Procalcitonin 0.34 ng/mL (<0.15) 09/08/20 17:39 Arterial Blood Glucose 121 mg/dL (65-95) H 09/10/20 05:00 Arterial Blood Ionized Calcium 4.6 mg/dL (4.6-5.3) 09/10/20 05:00 Urine Color Yee (Yellow) 09/08/20 Unknown Urine Turbidity Cloudy (Clear) 09/08/20 Unknown Urine pH 5.0 (5.0-7.0) 09/08/20 Unknown Ur Specific [place] 1.018 (1.003-1.030) 09/08/20 Unknown Urine Protein >500 mg/dL (Negative) 09/08/20 Unknown Urine Glucose (UA) Neg mg/dL (Negative) 09/08/20 Unknown Urine Ketones Neg mg/dL (Negative) 09/08/20 Unknown Urine Blood Sm (Negative) 09/08/20 Unknown Urine Nitrite Neg (Negative) 09/08/20 Unknown Urine Bilirubin Neg (Negative) 09/08/20 Unknown Urine Urobilinogen < 2.0 mg/dL (<2.0) 09/08/20 Unknown Ur Leukocyte Esterase Tr (Negative) 09/08/20 Unknown Urine WBC (Auto) Not Reportable 09/08/20 Unknown Urine RBC (Auto) Not Reportable 09/08/20 Unknown Salicylates < 0.3 mg/dL (2.8-20.0) L 09/08/20 07:51 Urine Opiates Screen Negative 09/08/20 Unknown Urine Methadone Screen Negative 09/08/20 Unknown Acetaminophen 5.0 ug/mL (10.0-30.0) L 09/08/20 08:15 Ur Barbiturates Screen Negative 09/08/20 Unknown Ur Phencyclidine Scrn Negative 09/08/20 Unknown Ur Amphetamines Screen Negative 09/08/20 Unknown U Benzodiazepines Scrn Negative 09/08/20 Unknown Urine Cocaine Screen Negative 09/08/20 Unknown U Marijuana (THC) Screen Presumptive negative 09/08/20 Unknown Drugs of Abuse Note Disclamer 09/08/20 Unknown Plasma/Serum Alcohol 0.11 % (0-0.07) H 09/08/20 08:15 Coronavirus (PCR) Negative (Negative) 09/09/20 09:45 Microbiology: Microbiology 09/08/20 08:20 Peripheral/Venous Blood Culture - Preliminary NO GROWTH AFTER 24 HOURS 09/08/20 08:20 Peripheral/Venous Blood Culture - Preliminary NO GROWTH AFTER 24 HOURS Active Medications - Current Medications Current Medications: Generic Name Dose Route Start Last Admin Trade Name Freq PRN Reason Stop Dose Admin Lipase/Protease/Amylase 1 each 09/09/20 09:19 Lipase 10,500/Protease 25,000/Amylase 43,750 (Units) Dr Almeida FEEDTUBE PRN PRN For Clogged Feeding Tube Enoxaparin Sodium 40 mg 09/08/20 22:00 09/09/20 21:52 Enoxaparin 40 Mg/0.4 Ml Inj SUB-Q 40 mg QDAY@2200 JUAN LUIS Administration Protocol Fentanyl 50 mcg 09/09/20 13:30 Fentanyl 100 Mcg/2 Ml Inj IV Q10MIN PRN ANALGESIA Furosemide 40 mg 09/10/20 06:00 09/10/20 05:27 Furosemide 40 Mg/4 Ml Inj IV 40 mg 0600,1800 JUAN LUIS Administration Hydrophilic Ointment 1 applic 09/08/20 16:21 Lip Therapy Vaseline TP Q2HR PRN Dry Lips Propofol 1,000 mg in 100 mls @ 3.6 mls/hr 09/08/20 08:00 09/10/20 02:11 Diprivan 10 Mg/Ml IV 20 mcg/kg/min TITR JUAN LUIS 14.4 mls/hr Administration Protocol 5 MCG/KG/MIN Cefepime HCl 2 gm in 100 mls @ 200 mls/hr 09/08/20 18:00 09/10/20 02:11 Cefepime/Ns 2 Gm/100 Ml IV 200 mls/hr Q8H JUAN LUIS Administration Protocol Fentanyl Citrate 2,000 mcg in 100 mls @ 6 mls/hr 09/09/20 14:00 09/10/20 05:28 Fentanyl Drip Premix IV 1 mcg/kg/hr TITR JUAN LUIS 6 mls/hr Administration Protocol 1 MCG/KG/HR Insulin Human Lispro 0 unit 09/08/20 12:00 09/10/20 05:27 Insulin Lispro 100 Unit/Ml SUB-Q Not Given Q6HR [facility] Protocol Lorazepam 2 mg 09/08/20 10:35 09/09/20 13:52 Lorazepam 2 Mg/Ml Vial IV 2 mg Q4H PRN Administration Agitation Multi-Ingred Cream/Lotion/Oil/Oint 1 applic 09/08/20 16:21 Mineral Oil/Petrolatum, White Ophth Oint 3.5 Gm OU Q4HR PRN Dry Eye(s) Pantoprazole Sodium 40 mg 09/09/20 10:00 09/09/20 09:03 Pantoprazole 40 Mg Inj IV 40 mg QDAY JUAN LUIS Administration Simple Syrup 15 ml 09/09/20 09:19 Simple Syrup 15 Ml FEEDTUBE PRN PRN Hypoglycemia Simple Syrup 30 ml 09/09/20 09:19 Simple Syrup 15 Ml FEEDTUBE PRN PRN Hypoglycemia Sodium Bicarbonate 325 mg 09/09/20 09:19 Sodium Bicarbonate 325 Mg Tab FEEDTUBE PRN PRN For Clogged Feeding Tube Nutrition/Malnutrition Assess - Dietary Evaluation Nutrition/Malnutrition Findings: Nutrition Notes Start: 09/09/20 09:13 Freq: Status: Active Protocol: Document 09/09/20 09:13 COLLEEN (Rec: 09/09/20 09:19 [id number]) Nutrition Notes Need for Assessment generated from: MD Order Initial or Follow up Assessment Current Diagnosis Diabetes,Hypertension, Respiratory Failure Other Pertinent Diagnosis alcohol intoxication Current Diet No diet Labs/Tests BUN 26 BG 136 Pertinent Medications Propofol 21.6 mls/hr (570 kcal ) Height 5 ft Weight 120 kg [place] Body Weight (kg) 48.18 BMI 51.6 Weight Status Morbidly Obese Subjective/Other Information MD order for TF. Pt on vent. Will increase TF rate to meet needs as propofol decreases. Burn Absent Trauma Absent Current % PO Negligible Minimum of two criteria No physical signs of malnutrition #1 Nutrition Diagnosis Inadequate oral intake Etiology acute respiratory failure As Evidenced by Signs and Symptoms pt on vent and unable to consume PO Is patient on ventilator? Yes Is Patient Ambulatory and/or Out of Bed No [facility] 2286.456 Kcal/Kg value to use for calculation 15 Approximate Energy Requirements Using 1800 kcal/Kg Calculation Used for Recommendations Kcal/kg Additional Notes Protein: (up to 2.5 g/kg IBW) <120g Fluid: 1 ml/kcal or per MD Nutrition Intervention Change Diet Order: Start TF Nutrition Support: Vital AF at 55 ml/hr Flush 100 ml q4h or per MD Kcal 1,584 Protein (gm) 99 Carbohydrates (gm) 146 Fat (gm) 71 Fluid (mL) 1,071 Fiber (gm) 0 Goal #1 Meet at least 75% of protein and energy needs via TF Anticipated Discharge Needs: Unable to determine at this time Follow-Up By: 09/11/20 Additional Comments FU for TF start and tolerance
[2020-09-10] MEDS: PANTOPRAZOLE 40 MG INJ IV SCH (09:05)
[2020-09-10 10:10] LABS: Basophils # (Auto) 0.1 K/mm3 (0.0-0.1); Basophils % (Auto) 0.5 % (0.0-1.8); Eosinophils % (Auto) 0.5 % (0.0-4.3); Hematocrit 53.2 % (35.5-45.6); Hemoglobin 17.2 gm/dl (11.8-15.2); Lymphocytes # (Auto) 1.3 K/mm3 (1.2-5.4); Lymphocytes % (Auto) 13.3 % (13.4-35.0); Mean Corpuscular HGB Conc 32 % (32-34); Mean Corpuscular Volume 83 fl (84-94); Monocytes # (Auto) 0.7 K/mm3 (0.0-0.8); Monocytes % (Auto) 6.6 % (0.0-7.3); Platelet Count 157 K/mm3 (140-440); Red Blood Count 6.44 M/mm3 (3.65-5.03); Red Cell Distribution Width 18.1 % (13.2-15.2)
--- NOTE | 2020-09-10 10:32 | Consultation ---
History of Present Illness Consult date: 09/10/20 Consult reason: congestive heart failure History of present illness: 49-year old M admitted with alcohol intoxication with a serum alcohol level 0.11, and acute hypoxic respiratory failure. Head CT scan reports no acute intracranial abnormality. Currently, he is intubated, unresponsive on mechanical ventilation. A cardiac consultation has been requested for CHF. Chest x-ray shows cardiomegaly but no interstitial edema. Further evaluation with an echocardiogram revealed a 4 chamber dilated cardiomyopathy with an ejection fraction 20-25%. The duration of cardiomyopathy is uncertain. Home medications suggests a history of hypertension and diabetes. There is no reported cardiac history. An ECG done is sinus rhythm with left atrial enlargement. Past History Past Medical History: diabetes, hypertension Past Surgical History: Other (Unknown) Social history: alcohol abuse Family history: other (None) Medications and Allergies Allergies Allergy/AdvReac Type Severity Reaction Status Date / Time No Known Allergies Allergy Unverified 09/08/20 08:33 Home Medications Medication Instructions Recorded Confirmed Last Taken Type Cholecalciferol (Vitamin D3) 5,000 unit PO DAILY 09/08/20 09/08/20 Unknown History [Vitamin D3] Famotidine [Pepcid] 20 mg PO BID 09/08/20 09/08/20 Unknown History lisinopriL [Lisinopril] 30 mg PO QDAY 09/08/20 09/08/20 Unknown History metFORMIN [Glucophage] 500 mg PO QDAY 09/08/20 09/08/20 Unknown History Active Meds: Active Medications Lipase/Protease/Amylase (Lipase 10,500/Protease 25,000/Amylase 43,750 (Units) Dr Almeida) 1 each FEEDTUBE PRN PRN PRN Reason: For Clogged Feeding Tube Enoxaparin Sodium (Enoxaparin 40 Mg/0.4 Ml Inj) 40 mg SUB-Q QDAY@2200 JUAN LUIS; Protocol Last Admin: 09/09/20 21:52 Dose: 40 mg Documented by: Fentanyl (Fentanyl 100 Mcg/2 Ml Inj) 50 mcg IV Q10MIN PRN PRN Reason: ANALGESIA Furosemide (Furosemide 40 Mg/4 Ml Inj) 40 mg IV 0600,1800 JUAN LUIS Last Admin: 09/10/20 05:27 Dose: 40 mg Documented by: Hydrophilic Ointment (Lip Therapy Vaseline) 1 applic TP Q2HR PRN PRN Reason: Dry Lips Propofol (Diprivan 10 Mg/Ml) 1,000 mg in 100 mls @ 3.6 mls/hr IV TITR JUAN LUIS; Protocol Last Admin: 09/10/20 09:36 Dose: 20 mcg/kg/min, 14.4 mls/hr Documented by: Cefepime HCl (Cefepime/Ns 2 Gm/100 Ml) 2 gm in 100 mls @ 200 mls/hr IV Q8H JUAN LUIS; Protocol Last Admin: 09/10/20 09:37 Dose: 200 mls/hr Documented by: Fentanyl Citrate (Fentanyl Drip Premix) 2,000 mcg in 100 mls @ 6 mls/hr IV TITR JUAN LUIS; Protocol Last Admin: 09/10/20 05:28 Dose: 1 mcg/kg/hr, 6 mls/hr Documented by: Insulin Human Lispro (Insulin Lispro 100 Unit/Ml) 0 unit SUB-Q Q6HR JUAN LUIS; Protocol Last Admin: 09/10/20 05:27 Dose: Not Given Documented by: Lorazepam (Lorazepam 2 Mg/Ml Vial) 2 mg IV Q4H PRN PRN Reason: Agitation Last Admin: 09/09/20 13:52 Dose: 2 mg Documented by: Multi-Ingred Cream/Lotion/Oil/Oint (Mineral Oil/Petrolatum, White Ophth Oint 3.5 Gm) 1 applic OU Q4HR PRN PRN Reason: Dry Eye(s) Pantoprazole Sodium (Pantoprazole 40 Mg Inj) 40 mg IV QDAY [facility] Last Admin: 09/10/20 09:05 Dose: 40 mg Documented by: Simple Syrup (Simple Syrup 15 Ml) 15 ml FEEDTUBE PRN PRN PRN Reason: Hypoglycemia Simple Syrup (Simple Syrup 15 Ml) 30 ml FEEDTUBE PRN PRN PRN Reason: Hypoglycemia Sodium Bicarbonate (Sodium Bicarbonate 325 Mg Tab) 325 mg FEEDTUBE PRN PRN PRN Reason: For Clogged Feeding Tube Review of Systems ROS unobtainable: due to endotracheal tube Physical Examination Vital Signs Temp Pulse Resp BP Pulse Ox 97.7 F 114 H 19 142/89 97 09/08/20 06:45 09/08/20 06:45 09/08/20 06:45 09/08/20 06:45 09/08/20 06:45 General appearance: obese, other (intubated on the vent) Cardiac: Positive: Reg Rate and Rhythm Results 09/10/20 08:47 09/09/20 04:12 CBC 09/10/20 Range/Units 08:47 WBC 9.9 (4.5-11.0) K/mm3 RBC 6.44 H (3.65-5.03) M/mm3 Hgb 17.2 H (11.8-15.2) gm/dl Hct 53.2 H (35.5-45.6) % Plt Count 157 (140-440) K/mm3 Lymph # (Auto) 1.3 (1.2-5.4) K/mm3 [place] # (Auto) 0.7 (0.0-0.8) K/mm3 Eos # (Auto) 0.0 (0.0-0.4) K/mm3 Baso # (Auto) 0.1 (0.0-0.1) K/mm3 Assessment and Plan Dilated Cardiomyopathy, uncertain duration LVEF 20-25% Acute hypoxic respiratory failure Alcohol intoxication Hypertension Diabetes Medical therapy for dilated cardiomyopathy. Further evaluation depends on clinical course.
[2020-09-10 10:34] LABS: Alanine Aminotransferase 17 units/L (7-56); Albumin 2.6 g/dL (3.9-5); BUN/Creatinine Ratio 25; Blood Urea Nitrogen 27 mg/dL (9-20); Calcium 7.8 mg/dL (8.4-10.2); Hemolysis Index 67
[2020-09-10] MEDS: LORazepam 2 MG/ML VIAL IV PRN (11:50)
[2020-09-10] MEDS: fentaNYL 100 MCG/2 ML INJ IV PRN (12:19)
[2020-09-10] MEDS ORDERED: niCARdipine 50 MG in SODIUM CHLORIDE 0.9% 250ML 230 ML IV SCH (12:30)
--- NOTE | 2020-09-10 12:41 | Progress Note ---
Assessment and Plan Acute hypoxemic respiratory failure Alcohol overdose Acute toxic metabolic encephalopathy HFrEF Leukocytosis at presentation Hemoconcentration Likely chronic hypercapnia Mild hypokalemia Lactic acidosis at presentation History of hypertension History of diabetes Morbid obesity - begin Cardene drip - cardiology evaluation ongoing re: CMOP (EF 20-25%) - FiO2 down to 45% - continue CIWA protocol - repeat procalcitonin unremarbale; will de-escalate after 72 hours of negative BC's - will get CTA chest (dopplers negative) - continue care as below otherwise; - continue Daily SAT and SBT assessment as tolerated - continue to wean supplemental oxygen for target O2 sat's > 90% acutely - VAP bundle addressed - continue lung protective strategies - continue bronchodilators with pulmonary hygiene per RT - wean per pulmonary driven protocols otherwise - continue accuchecks with glycemic control per SSI (While critically ill target blood glucose of 140-180 mg/dL; avoid hypoglycemia) - sedation prn for target RASS 0 to -1 - avoid nephrotoxins, renally dose all medications - continue empiric Zosyn & Vancomycin - prn analgesia per CPOT score - Maintenance of sleep-wake cycle, avoid delirium - continue enteral nutritional support at goal rate as tolerated - G.I. & VTE prophylaxis - PT/OT/ROM exercises - continue mobility protocols for pressure ulcer prophylaxis - Monitor hemodynamics closely - continue other care per attending / other consultants - discharge planning ongoing concurrently COVID SPECIFIC INTERVENTIONS - consider Remdesivir as per ID/Pulmonary developed protocols - consider systemic steroids for severe COVID-19 infection empirically - follow COVID tests results - consider zinc and vitamin C supplementation - Monitor inflammatory markers per facility protocol - ferritin, Ddimer, CRP - therapeutic anticoagulation per system Protocol based on d-dimer and clinical considerations - empiric contact and airborne isolation .... Re-evaluate in am & prn CONDITION: CRITICAL PROGNOSIS: GUARDED CODE STATUS: FULL CODE The high probability of a clinically significant, sudden or life-threatening deterioration of the [respiratory, cardiovascular, renal & neurologic] system(s) required my full and direct attention, intervention and personal management. The aggregate critical care time was [32] minutes without overlap. Time includes spent on; [x] Data Review and interpretation [x] Patient assessment and monitoring of vital signs [x] Documentation [x] Medication orders and management Subjective Date of service: 09/10/20 Principal diagnosis: Ac hypoxemic and hypercapnic resp failure; EtOH OD; Acute encephalopathy Interval history: Patient is seen today for: Acute hypoxemic and hypercapnic respiratory failure; Alcohol overdose; Acute encephalopathy; Leukocytosis; DM II; Morbid obesity Seen and examined at bedside; 24hour events reviewed; nursing and respiratory care staff consulted; no adverse overnight events reported to me; restying peacefully in bed; failed SBT after about 2 hours; SBP's up to 200's; no emesis ort overt aspiration Objective Vital Signs - 12hr 09/10/20 09/10/20 09/10/20 02:00 04:00 05:00 Temperature 98.8 F Pulse Rate Pulse Rate [ 66 72 From Monitor] Respiratory 23 24 Rate Blood Pressure O2 Sat by Pulse 100 100 Oximetry 09/10/20 09/10/20 09/10/20 05:02 07:46 08:00 Temperature 99.4 F Pulse Rate 69 75 Pulse Rate [ From Monitor] Respiratory Rate Blood Pressure 103/66 97/65 O2 Sat by Pulse 98 100 Oximetry 09/10/20 09/10/20 09/10/20 10:00 11:00 12:00 Temperature 99 F Pulse Rate 72 78 Pulse Rate [ 72 From Monitor] Respiratory 24 24 28 H Rate Blood Pressure O2 Sat by Pulse 100 99 Oximetry Constitutional: no acute distress, other (middle aged morbidly obese male without vemtilator dyssynchrony) Eyes: non-icteric ENT: oropharynx moist, other (ETT 25 cm RACHEAL) Neck: supple, no lymphadenopathy, no JVD, other (large neck circumference) Effort: normal Ascultation: Bilateral: diminished breath sounds, rhonchi Percussion: Bilateral: not dull Cardiovascular: regular rate and rhythm Gastrointestinal: normoactive bowel sounds, soft, non-tender, non-distended (protuberant) Integumentary: normal Extremities: no cyanosis, pink and warm, pulses normal, no ischemia or petechiae, edema (trace) Neurologic: non-focal exam (grossly), pupils equal and round, CN II-XII normal, motor strength normal and Psychiatric: other (sedated) CBC and BMP: 09/10/20 08:47 09/10/20 08:47 ABG, PT/INR, D-dimer: ABG ABG pH 7.409 (7.320-7.450) 09/10/20 05:00 POC ABG pCO2 33.8 mmHg (32.0-48.0) 09/10/20 05:00 ABG pCO2 31.8 mm Hg 09/08/20 16:25 POC ABG pO2 73.9 mmHg (83-108) L 09/10/20 05:00 ABG pO2 117.8 mm Hg (80.0-90.0) H 09/08/20 16:25 POC ABG HCO3 20.9 09/10/20 05:00 ABG O2 Saturation 96.8 (0-100) 09/10/20 05:00 PT/INR, D-dimer D-Dimer 3467.79 ng/mlDDU (0-234) H 09/09/20 15:19 Abnormal lab findings: Abnormal Labs 09/08/20 09/08/20 09/08/20 07:51 08:15 08:15 WBC 15.6 H RBC 6.67 H Hgb 17.7 H Hct 57.5 H MCV MCH 27 L MCHC 31 L RDW 18.1 H Lymph % (Auto) Seg Neutrophils % Seg Neuts % (Manual) 71.0 H Seg Neutrophils # Seg Neutrophils # Man 11.1 H D-Dimer ABG pH POC ABG pO2 ABG pO2 ABG Base Excess ABG Hemoglobin ABG Chloride ABG Glucose Carboxyhemoglobin Potassium 3.5 L Chloride 97.7 L Carbon Dioxide BUN 21 H Glucose 228 H POC Glucose Lactic Acid Calcium Magnesium Total Protein Albumin HDL Cholesterol Lipase Arterial Blood Glucose Arterial Blood Ionized Calcium Salicylates < 0.3 L Acetaminophen Plasma/Serum Alcohol 09/08/20 09/08/20 09/08/20 08:15 08:15 08:20 WBC RBC Hgb Hct MCV MCH MCHC RDW Lymph % (Auto) Seg Neutrophils % Seg Neuts % (Manual) Seg Neutrophils # Seg Neutrophils # Man D-Dimer ABG pH POC ABG pO2 ABG pO2 ABG Base Excess ABG Hemoglobin ABG Chloride ABG Glucose Carboxyhemoglobin Potassium Chloride Carbon Dioxide BUN Glucose POC Glucose Lactic Acid 4.40 H* Calcium Magnesium Total Protein Albumin HDL Cholesterol Lipase Arterial Blood Glucose Arterial Blood Ionized Calcium Salicylates Acetaminophen 5.0 L Plasma/Serum Alcohol 0.11 H 09/08/20 09/08/20 09/08/20 09:15 16:25 17:19 WBC RBC Hgb Hct MCV MCH MCHC RDW Lymph % (Auto) Seg Neutrophils % Seg Neuts % (Manual) Seg Neutrophils # Seg Neutrophils # Man D-Dimer ABG pH 7.222 L POC ABG pO2 ABG pO2 185.7 H 117.8 H ABG Base Excess -6.5 L ABG Hemoglobin 18.1 H ABG Chloride ABG Glucose Carboxyhemoglobin Potassium Chloride Carbon Dioxide BUN Glucose POC Glucose 106 H Lactic Acid Calcium Magnesium Total Protein Albumin HDL Cholesterol Lipase Arterial Blood Glucose Arterial Blood Ionized Calcium Salicylates Acetaminophen Plasma/Serum Alcohol 09/08/20 09/09/20 09/09/20 17:39 01:32 03:08 WBC RBC Hgb Hct MCV MCH MCHC RDW Lymph % (Auto) Seg Neutrophils % Seg Neuts % (Manual) Seg Neutrophils # Seg Neutrophils # Meng D-Dimer ABG pH POC ABG pO2 ABG pO2 ABG Base Excess ABG Hemoglobin 18.2 H ABG Chloride ABG Glucose 145 H Carboxyhemoglobin Potassium Chloride Carbon Dioxide BUN Glucose POC Glucose 128 H Lactic Acid 2.20 H* Calcium Magnesium Total Protein Albumin HDL Cholesterol Lipase Arterial Blood Glucose 145 H Arterial Blood Ionized Calcium 4.3 L Salicylates Acetaminophen Plasma/Serum Alcohol 09/09/20 09/09/20 09/09/20 04:12 06:10 11:05 WBC RBC Hgb Hct MCV MCH MCHC RDW Lymph % (Auto) Seg Neutrophils % Seg Neuts % (Manual) Seg Neutrophils # Seg Neutrophils # Meng D-Dimer ABG pH POC ABG pO2 ABG pO2 ABG Base Excess ABG Hemoglobin ABG Chloride ABG Glucose Carboxyhemoglobin Potassium Chloride Carbon Dioxide BUN 26 H Glucose 136 H POC Glucose 135 H 139 H Lactic Acid Calcium 7.5 L Magnesium Total Protein 6.0 L D Albumin 2.8 L HDL Cholesterol 33 L Lipase 12 L Arterial Blood Glucose Arterial Blood Ionized Calcium Salicylates Acetaminophen Plasma/Serum Alcohol 09/09/20 09/09/20 09/09/20 15:19 15:43 23:37 WBC RBC Hgb Hct MCV MCH MCHC RDW Lymph % (Auto) Seg Neutrophils % Seg Neuts % (Manual) Seg Neutrophils # Seg Neutrophils # Man D-Dimer 3467.79 H ABG pH POC ABG pO2 ABG pO2 ABG Base Excess ABG Hemoglobin ABG Chloride ABG Glucose Carboxyhemoglobin Potassium Chloride Carbon Dioxide BUN Glucose POC Glucose 116 H 117 H Lactic Acid Calcium Magnesium Total Protein Albumin HDL Cholesterol Lipase Arterial Blood Glucose Arterial Blood Ionized Calcium Salicylates Acetaminophen Plasma/Serum Alcohol 09/10/20 09/10/20 09/10/20 05:00 05:22 08:47 WBC RBC 6.44 H Hgb 17.2 H Hct 53.2 H MCV 83 L MCH 27 L MCHC RDW 18.1 H Lymph % (Auto) 13.3 L Seg Neutrophils % 79.1 H Seg Neuts % (Manual) Seg Neutrophils # 7.9 H Seg Neutrophils # Man D-Dimer ABG pH POC ABG pO2 73.9 L ABG pO2 ABG Base Excess ABG Hemoglobin 18.0 H ABG Chloride 110.0 H ABG Glucose 121 H Carboxyhemoglobin 1.6 H Potassium Chloride Carbon Dioxide BUN Glucose POC Glucose 127 H Lactic Acid Calcium Magnesium Total Protein Albumin HDL Cholesterol Lipase Arterial Blood Glucose 121 H Arterial Blood Ionized Calcium Salicylates Acetaminophen Plasma/Serum Alcohol 09/10/20 08:47 WBC RBC Hgb Hct MCV MCH MCHC RDW Lymph % (Auto) Seg Neutrophils % Seg Neuts % (Manual) Seg Neutrophils # Seg Neutrophils # Man D-Dimer ABG pH POC ABG pO2 ABG pO2 ABG Base Excess ABG Hemoglobin ABG Chloride ABG Glucose Carboxyhemoglobin Potassium Chloride 108.3 H Carbon Dioxide 20 L BUN 27 H Glucose POC Glucose Lactic Acid Calcium 7.8 L Magnesium 2.50 H Total Protein 5.8 L Albumin 2.6 L HDL Cholesterol Lipase Arterial Blood Glucose Arterial Blood Ionized Calcium Salicylates Acetaminophen Plasma/Serum Alcohol Chest x-ray: image reviewed Allied health notes reviewed: nursing
[2020-09-10] MEDS: METOPROLOL TARTRATE 25 MG TAB PO SCH ×2 (13:00→21:29)
--- NOTE | 2020-09-10 17:29 | Cat Scan Report ---
CTA CHEST WITH IV CONTRAST INDICATION / CLINICAL INFORMATION: respiratory failure; hypoxemia. TECHNIQUE: Axial CT images were obtained through the chest after injection of IV contrast. 3 plane MIP and/or 3D reconstructions were produced. All CT scans at this location are performed using CT dose reduction f or ALARA by means of automated exposure control. COMPARISON: None available. FINDINGS: Motion artifact obscures fine detail Endotracheal tubes in good position. PULMONARY ARTERIES: No pulmonary emboli. THORACIC AORTA: No significant abnormality. HEART: Moderate cardiac enlargement CORONARY ARTERIES: No significant calcification. PLEURA: No pleural effusion. No pneumothorax. LYMPH NODES: No significant adenopathy. LUNGS: Patchy airspace changes lower lobes noted ADDITIONAL FINDINGS: None. UPPER ABDOMEN: No acute findings. SKELETAL STRUCTURES: No significant osseous abnormality. IMPRESSION: 1. No CT evidence for pulmonary embolism. 2. Patchy airspace changes lower lobes pneumonia is a concern 3. Cardiac enlargement Signer Name: Renny Buckley MD Signed: 09/10/2020 5:25 PM Workstation Name: [id number]
[2020-09-10] MEDS: SODIUM CHLORIDE 0.45% 1000 ML 1,000 ML IV SCH (18:06)
[2020-09-10] MEDS: carvediloL 3.125 MG TAB PO SCH (21:29)
[2020-09-10] MEDS: ENOXAPARIN 40 MG/0.4 ML INJ SUB-Q SCH (21:30)
[2020-09-11] MEDS: CEFEPIME/NS 2 GM/100 ML 2 GM/100 ML BAG IV SCH ×3 (01:34→17:49)
--- NOTE | 2020-09-11 04:02 | XRay Report ---
CHEST 1 VIEW [id number] INDICATION / CLINICAL INFORMATION: follow up respiratory failure COMPARISON: 09/10/2020 FINDINGS: SUPPORT DEVICES: Stable HEART / MEDIASTINUM: Cardiomegaly LUNGS / PLEURA: Left lower lateral chest is excluded. Congestive changes and pulmonary edema have wor sened. No pneumothorax. ADDITIONAL FINDINGS: No significant additional findings. Signer Name: Hilton Sampson MD Signed: 09/11/2020 3:57 AM Workstation Name: [id number]
[2020-09-11] MEDS: FUROSEMIDE 40 MG/4 ML INJ IV SCH ×2 (06:28→17:49)
[2020-09-11] MEDS: INSULIN LISPRO 100 UNIT/ML SUB-Q SCH ×3 (06:28→17:51)
[2020-09-11] MEDS: SODIUM CHLORIDE 0.45% 1000 ML 1,000 ML IV SCH (06:32)
[2020-09-11] MEDS: ASPIRIN 81 MG TAB CHEW PO SCH (10:02)
[2020-09-11] MEDS: METOPROLOL TARTRATE 25 MG TAB PO SCH ×2 (10:02→21:46)
[2020-09-11] MEDS: carvediloL 3.125 MG TAB PO SCH ×2 (10:03→21:46)
[2020-09-11] MEDS: LISINOPRIL 5 MG TAB PO SCH (10:05)
[2020-09-11] MEDS: SPIRONOLACTONE 25 MG TAB PO SCH (10:06)
--- NOTE | 2020-09-11 11:28 | Progress Note ---
Assessment and Plan Assessment and plan: COVID-19 test negative - 09/10/2020 --Elevated D-dimers; Lower extremity venous Dopplers negative for DVT Check CTA to evaluate for PE and patient is stable --Acute hypoxic respiratory failure; Possible aspiration pneumonia. Intubated on ventilatory support Wean as tolerated and extubate Nebulizers, IV antibiotics, follow cultures Pulmonary /critical care following --Acute toxic metabolic encephalopathy; POA Due to alcohol intoxication, hypoxia Now orally intubated and sedated --Acute systolic congestive heart failure; ejection fraction 20 to 25% IV diuretics, cannot give beta-blockers, TONO inhibitors, due to hypotension input output monitoring, low-sodium diet Fluid restriction, cardiology consulted --Four-chamber dilated cardiomyopathy; Antifailure medications, cardiology consult --Acute alcohol intoxication; Thiamine folic acid, IV Protonix, IV fluids, Supportive care Patient needs counseling when medically stable --Pneumonia Community-acquired versus aspiration Empiric antibiotics, ventilatory support Follow cultures, ID consult if needed --Leukocytosis; secondary to pneumonia Treat the underlying cause --Lactic acidosis/sepsis due to pneumonia Continue empiric antibiotics, follow cultures --Alcohol withdrawal symptoms; CIWY protocol Will investment counselor and advised to quit alcohol intake when patient is more alert and awake --Hyperglycemia; no evidence of diabetes mellitus Accu-Chek sliding scale coverage Check A1c 5.9 --Hypokalemia; resolved replenish per protocol as needed --Obesity; BMI 51.7 Patient needs weight reduction when medically stable --DVT prophylaxis; Lovenox Closely monitor the patient and adjust management as needed We will try to talk to the family and get more medical history Restraint for safety Critical care time 34 minutes The high probability of a clinically significant, sudden or life threatening deterioration of the [multi] system(s) required my full and direct attention, intervention and personal management. The aggregate critical care time was [34] minutes. This time is in addition to time spent performing reported procedures but includes the following: [x] Data Review and interpretation [x] Patient assessment and monitoring of vital signs [x] Documentation [x] Medication orders and management 09/09/2020; Patient is intubated on ventilatory support, wean as tolerated and extubate Pulmonary critical evaluation and recommendations noted and appreciated Acute versus acute on chronic CHF systolic dysfunction/dilated cardiomyopathy Start Lasix, unable to give beta-blockers and TONO inhibitors due to hypotension Cardiology consult placed 09/10/2020; patient remains intubated on ventilatory support Will wean as tolerated and extubate Elevated D-dimers, venous Doppler lower extremity negative for DVT Will get CTA chest to rule out PE when medically stable Cardiomyopathy, cardiology consulted 09/11/2020 remains intubated on ventilator support on weaning parameters Wean as tolerated and extubate, continue current management Plan of care reviewed with the patient's nurse and case management History Interval history: I have seen and examined the patient at the bedside Patient's chart and medications reviewed Patient remains intubated on ventilatory support Alert and awake, not in acute distress Vital signs noted Hospitalist Physical - Constitutional Vitals: Temp Pulse Resp BP Pulse Ox 98.6 F 71 24 123/79 99 09/11/20 03:51 09/11/20 11:17 09/11/20 10:30 09/11/20 11:17 09/11/20 11:17 General appearance: Present: no acute distress, well-nourished, obese, other (intubated on the vent) - EENT Eyes: Present: PERRL, EOM intact - Neck Neck: Present: supple, normal ROM - Respiratory Respiratory effort: normal Respiratory: bilateral: diminished, rhonchi, negative: rales, wheezing - Cardiovascular Rhythm: regular Heart Sounds: Present: S1 & S2 - Extremities Extremities: no ischemia Extremity abnormal: edema - Abdominal General gastrointestinal: soft, non-tender, non-distended, normal bowel sounds - Integumentary Integumentary: Present: clear, warm - Psychiatric Psychiatric: other (Intubated on vent) - Neurologic Neurologic: other (Intubated on vent) Results - Labs CBC & Chem 7: 09/11/20 13:10 09/11/20 13:10 Labs: Laboratory Last Values WBC 9.9 K/mm3 (4.5-11.0) 09/10/20 08:47 RBC 6.44 M/mm3 (3.65-5.03) H 09/10/20 08:47 Hgb 17.2 gm/dl (11.8-15.2) H 09/10/20 08:47 Hct 53.2 % (35.5-45.6) H 09/10/20 08:47 MCV 83 fl (84-94) L 09/10/20 08:47 MCH 27 pg (28-32) L 09/10/20 08:47 MCHC 32 % (32-34) 09/10/20 08:47 RDW 18.1 % (13.2-15.2) H 09/10/20 08:47 Plt Count 157 K/mm3 (140-440) 09/10/20 08:47 Lymph % (Auto) 13.3 % (13.4-35.0) L 09/10/20 08:47 [place] % (Auto) 6.6 % (0.0-7.3) 09/10/20 08:47 Eos % (Auto) 0.5 % (0.0-4.3) 09/10/20 08:47 Baso % (Auto) 0.5 % (0.0-1.8) 09/10/20 08:47 Lymph # (Auto) 1.3 K/mm3 (1.2-5.4) 09/10/20 08:47 [place] # (Auto) 0.7 K/mm3 (0.0-0.8) 09/10/20 08:47 Eos # (Auto) 0.0 K/mm3 (0.0-0.4) 09/10/20 08:47 Baso # (Auto) 0.1 K/mm3 (0.0-0.1) 09/10/20 08:47 Add Manual Diff Complete 09/08/20 08:15 Total Counted 100 09/08/20 08:15 Seg Neutrophils % 79.1 % (40.0-70.0) H 09/10/20 08:47 Seg Neuts % (Manual) 71.0 % (40.0-70.0) H 09/08/20 08:15 Band Neutrophils % 5.0 % 09/08/20 08:15 Lymphocytes % (Manual) 14.0 % (13.4-35.0) 09/08/20 08:15 Monocytes % (Manual) 3.0 % (0.0-7.3) 09/08/20 08:15 Eosinophils % (Manual) 1.0 % (0.0-4.3) 09/08/20 08:15 Metamyelocytes % 6.0 % 09/08/20 08:15 Nucleated RBC % Not Reportable 09/08/20 08:15 Seg Neutrophils # 7.9 K/mm3 (1.8-7.7) H 09/10/20 08:47 Seg Neutrophils # Man 11.1 K/mm3 (1.8-7.7) H 09/08/20 08:15 Band Neutrophils # 0.8 K/mm3 09/08/20 08:15 Lymphocytes # (Manual) 2.2 K/mm3 (1.2-5.4) 09/08/20 08:15 Abs React Lymphs (Man) 0.0 K/mm3 09/08/20 08:15 Monocytes # (Manual) 0.5 K/mm3 (0.0-0.8) 09/08/20 08:15 Eosinophils # (Manual) 0.2 K/mm3 (0.0-0.4) 09/08/20 08:15 Basophils # (Manual) 0.0 K/mm3 (0.0-0.1) 09/08/20 08:15 Metamyelocytes # 0.9 K/mm3 09/08/20 08:15 Myelocytes # 0.0 K/mm3 09/08/20 08:15 Promyelocytes # 0.0 K/mm3 09/08/20 08:15 Blast Cells # 0.0 K/mm3 09/08/20 08:15 WBC Morphology Not Reportable 09/08/20 08:15 Hypersegmented Neuts Not Reportable 09/08/20 08:15 Hyposegmented Neuts Not Reportable 09/08/20 08:15 Hypogranular Neuts Not Reportable 09/08/20 08:15 Smudge Cells Not Reportable 09/08/20 08:15 Toxic Granulation Not Reportable 09/08/20 08:15 Toxic Vacuolation Not Reportable 09/08/20 08:15 Dohle Bodies Not Reportable 09/08/20 08:15 Pelger-Huet Anomaly Not Reportable 09/08/20 08:15 Lamar Rods Not Reportable 09/08/20 08:15 Platelet Estimate Consistent w auto 09/08/20 08:15 Clumped Platelets Not Reportable 09/08/20 08:15 Plt Clumps, EDTA Not Reportable 09/08/20 08:15 Large Platelets Not Reportable 09/08/20 08:15 Giant Platelets Not Reportable 09/08/20 08:15 Platelet Satelliting Not Reportable 09/08/20 08:15 Plt Morphology Comment Not Reportable 09/08/20 08:15 RBC Morphology Normal 09/08/20 08:15 Dimorphic RBCs Not Reportable 09/08/20 08:15 Polychromasia Not Reportable 09/08/20 08:15 Hypochromasia Not Reportable 09/08/20 08:15 Poikilocytosis Not Reportable 09/08/20 08:15 Anisocytosis Not Reportable 09/08/20 08:15 Microcytosis Not Reportable 09/08/20 08:15 Macrocytosis Not Reportable 09/08/20 08:15 Spherocytes Not Reportable 09/08/20 08:15 Pappenheimer Bodies Not Reportable 09/08/20 08:15 Sickle Cells Not Reportable 09/08/20 08:15 Target Cells Not Reportable 09/08/20 08:15 Tear Drop Cells Not Reportable 09/08/20 08:15 Ovalocytes Not Reportable 09/08/20 08:15 Helmet Cells Not Reportable 09/08/20 08:15 [place] Bodies Not Reportable 09/08/20 08:15 [place] Rings Not Reportable 09/08/20 08:15 [place] Cells Not Reportable 09/08/20 08:15 Bite Cells Not Reportable 09/08/20 08:15 Crenated Cell Not Reportable 09/08/20 08:15 Elliptocytes Not Reportable 09/08/20 08:15 Acanthocytes (Spur) Not Reportable 09/08/20 08:15 Rouleaux Not Reportable 09/08/20 08:15 Hemoglobin C Crystals Not Reportable 09/08/20 08:15 Schistocytes Not Reportable 09/08/20 08:15 Malaria parasites Not Reportable 09/08/20 08:15 [place] Bodies Not Reportable 09/08/20 08:15 Hem Pathologist Commnt No 09/08/20 08:15 D-Dimer 3467.79 ng/mlDDU (0-234) H 09/09/20 15:19 ABG pH 7.456 (7.320-7.450) H 09/11/20 04:24 POC ABG pCO2 28.6 mmHg (32.0-48.0) L 09/11/20 04:24 ABG pCO2 31.8 mm Hg 09/08/20 16:25 POC ABG pO2 123.7 mmHg (83-108) H 09/11/20 04:24 ABG pO2 117.8 mm Hg (80.0-90.0) H 09/08/20 16:25 POC ABG HCO3 19.7 09/11/20 04:24 ABG HCO3 20.9 mmol/L (20.0-26.0) 09/08/20 16:25 ABG O2 Saturation 99.4 (0-100) 09/11/20 04:24 ABG O2 Content 24.5 (0.0-44) 09/08/20 16:25 POC ABG Base Excess -2.5 09/11/20 04:24 ABG Base Excess -2.0 mmol/L (-2.0-3.0) 09/08/20 16:25 ABG Hemoglobin 16.8 (12.0-17.5) 09/11/20 04:24 ABG Oxyhemoglobin 97.3 (94-98) 09/11/20 04:24 ABG Carboxyhemoglobin 2.0 % (0.0-5.0) 09/08/20 16:25 ABG Methemoglobin 0.2 (0.0-1.5) 09/11/20 04:24 ABG Sodium 138.6 mmol/L (136.0-145.0) 09/11/20 04:24 ABG Potassium 3.2 mmol/L (3.40-4.50) L 09/11/20 04:24 ABG Chloride 108.0 mmol/L (98-107) H 09/11/20 04:24 ABG Glucose 112 mg/dL (65-95) H 09/11/20 04:24 Oxyhemoglobin 95.8 % (95.0-99.0) 09/08/20 16:25 Carboxyhemoglobin 1.9 (0.5-1.5) H 09/11/20 04:24 FiO2 80 % 09/08/20 16:25 FiO2 % 45 09/11/20 04:24 Sodium 141 mmol/L (137-145) 09/10/20 08:47 Potassium 4.1 mmol/L (3.6-5.0) 09/10/20 08:47 Chloride 108.3 mmol/L (98-107) H 09/10/20 08:47 Carbon Dioxide 20 mmol/L (22-30) L 09/10/20 08:47 Anion Gap 17 mmol/L 09/10/20 08:47 BUN 27 mg/dL (9-20) H 09/10/20 08:47 Creatinine 1.1 mg/dL (0.8-1.3) 09/10/20 08:47 Estimated GFR > 60 ml/min 09/10/20 08:47 BUN/Creatinine Ratio 25 % 09/10/20 08:47 Glucose 94 mg/dL (75-100) 09/10/20 08:47 POC Glucose 108 mg/dL (70-105) H 09/11/20 06:22 Hemoglobin A1c 5.8 % (4-6) 09/08/20 15:58 Lactic Acid 2.00 mmol/L (0.7-2.0) 09/09/20 09:10 Calcium 7.8 mg/dL (8.4-10.2) L 09/10/20 08:47 Phosphorus 3.60 mg/dL (2.5-4.5) 09/08/20 17:39 Magnesium 2.50 mg/dL (1.7-2.3) H 09/10/20 08:47 Total Bilirubin 0.70 mg/dL (0.1-1.2) 09/10/20 08:47 Direct Bilirubin < 0.2 mg/dL (0-0.2) 09/08/20 08:15 Indirect Bilirubin 0.0 mg/dL 09/08/20 08:15 AST 24 units/L (5-40) 09/10/20 08:47 ALT 17 units/L (7-56) 09/10/20 08:47 Alkaline Phosphatase 77 units/L (35-129) 09/10/20 08:47 Ammonia 50.0 umol/L (25-60) 09/09/20 04:12 Total Protein 5.8 g/dL (6.3-8.2) L 09/10/20 08:47 Albumin 2.6 g/dL (3.9-5) L 09/10/20 08:47 Albumin/Globulin Ratio 0.8 % 09/10/20 08:47 Triglycerides 148 mg/dL (2-149) 09/09/20 04:12 Cholesterol 119 mg/dL (50-199) 09/09/20 04:12 LDL Cholesterol Direct 71 mg/dL (50-130) 09/09/20 04:12 HDL Cholesterol 33 mg/dL (40-59) L 09/09/20 04:12 Cholesterol/HDL Ratio 3.60 % 09/09/20 04:12 Amylase 45 units/L (27-131) 09/09/20 04:12 Lipase 12 units/L (13-60) L 09/09/20 04:12 Procalcitonin 0.28 ng/mL (<0.15) 09/10/20 05:00 Arterial Blood Glucose 112 mg/dL (65-95) H 09/11/20 04:24 Arterial Blood Ionized Calcium 4.6 mg/dL (4.6-5.3) 09/11/20 04:24 Urine Color Yee (Yellow) 09/08/20 Unknown Urine Turbidity Cloudy (Clear) 09/08/20 Unknown Urine pH 5.0 (5.0-7.0) 09/08/20 Unknown Ur Specific [place] 1.018 (1.003-1.030) 09/08/20 Unknown Urine Protein >500 mg/dL (Negative) 09/08/20 Unknown Urine Glucose (UA) Neg mg/dL (Negative) 09/08/20 Unknown Urine Ketones Neg mg/dL (Negative) 09/08/20 Unknown Urine Blood Sm (Negative) 09/08/20 Unknown Urine Nitrite Neg (Negative) 09/08/20 Unknown Urine Bilirubin Neg (Negative) 09/08/20 Unknown Urine Urobilinogen < 2.0 mg/dL (<2.0) 09/08/20 Unknown Ur Leukocyte Esterase Tr (Negative) 09/08/20 Unknown Urine WBC (Auto) Not Reportable 09/08/20 Unknown Urine RBC (Auto) Not Reportable 09/08/20 Unknown Salicylates < 0.3 mg/dL (2.8-20.0) L 09/08/20 07:51 Urine Opiates Screen Negative 09/08/20 Unknown Urine Methadone Screen Negative 09/08/20 Unknown Acetaminophen 5.0 ug/mL (10.0-30.0) L 09/08/20 08:15 Ur Barbiturates Screen Negative 09/08/20 Unknown Ur Phencyclidine Scrn Negative 09/08/20 Unknown Ur Amphetamines Screen Negative 09/08/20 Unknown U Benzodiazepines Scrn Negative 09/08/20 Unknown Urine Cocaine Screen Negative 09/08/20 Unknown U Marijuana (THC) Screen Presumptive negative 09/08/20 Unknown Drugs of Abuse Note Disclamer 09/08/20 Unknown Plasma/Serum Alcohol 0.11 % (0-0.07) H 09/08/20 08:15 Coronavirus (PCR) Negative (Negative) 09/09/20 09:45 Microbiology: Microbiology 09/08/20 08:20 Peripheral/Venous Blood Culture - Preliminary NO GROWTH AFTER 72 HOURS 09/08/20 08:20 Peripheral/Venous Blood Culture - Preliminary NO GROWTH AFTER 72 HOURS Active Medications - Current Medications Current Medications: Generic Name Dose Route Start Last Admin Trade Name Freq PRN Reason Stop Dose Admin Lipase/Protease/Amylase 1 each 09/09/20 09:19 Lipase 10,500/Protease 25,000/Amylase 43,750 (Units) Dr Almeida FEEDTUBE PRN PRN For Clogged Feeding Tube Aspirin 81 mg 09/11/20 10:00 09/11/20 10:02 Aspirin 81 Mg Tab Chew PO 81 mg QDAY JUAN LUIS Administration Carvedilol 3.125 mg 09/10/20 22:00 09/11/20 10:03 Carvedilol 3.125 Mg Tab PO 3.125 mg BID JUAN LUIS Administration Enoxaparin Sodium 40 mg 09/08/20 22:00 09/10/20 21:30 Enoxaparin 40 Mg/0.4 Ml Inj SUB-Q 40 mg QDAY@2200 JUAN LUIS Administration Protocol Fentanyl 50 mcg 09/09/20 13:30 09/10/20 12:19 Fentanyl 100 Mcg/2 Ml Inj IV 50 mcg Q10MIN PRN Administration ANALGESIA Furosemide 40 mg 09/10/20 06:00 09/11/20 06:28 Furosemide 40 Mg/4 Ml Inj IV 40 mg 0600,1800 [facility] Administration Hydrophilic Ointment 1 applic 09/08/20 16:21 Lip Therapy Vaseline TP Q2HR PRN Dry Lips Propofol 1,000 mg in 100 mls @ 3.6 mls/hr 09/08/20 08:00 09/11/20 06:31 Diprivan 10 Mg/Ml IV 15 mcg/kg/min TITR JUAN LUIS 10.8 mls/hr Administration Protocol 5 MCG/KG/MIN Cefepime HCl 2 gm in 100 mls @ 200 mls/hr 09/08/20 18:00 09/11/20 10:08 Cefepime/Ns 2 Gm/100 Ml IV 09/13/20 10:29 200 mls/hr Q8H JUAN LUIS Administration Protocol Fentanyl Citrate 2,000 mcg in 100 mls @ 6 mls/hr 09/09/20 14:00 09/10/20 18: 30 Fentanyl Drip Premix IV 1 mcg/kg/hr TITR JUAN LUIS 6 mls/hr Administration Protocol 1 MCG/KG/HR Nicardipine HCl 50 mg/ Sodium 250 mls @ 25 mls/hr 09/10/20 12:30 09/10/20 13 :00 Chloride IV 0 mg/hr TITR JUAN LUIS 0 mls/hr Titration Protocol 5 MG/HR Sodium Chloride 1,000 mls @ 50 mls/hr 09/10/20 16:00 09/11/20 06:32 Nacl 0.45% 1000 Ml IV 50 mls/hr DIRECT JUAN LUIS Administration Insulin Human Lispro 0 unit 09/08/20 12:00 09/11/20 06:28 Insulin Lispro 100 Unit/Ml SUB-Q Not Given Q6HR JUAN LUIS Protocol Lansoprazole 30 mg 09/11/20 10:00 Lansoprazole 30 Mg Solutab FEEDTUBE QDAY JUAN LUIS Lisinopril 2.5 mg 09/11/20 10:00 09/11/20 10:05 Lisinopril 5 Mg Tab PO 2.5 mg QDAY JUAN LUIS Administration Lorazepam 2 mg 09/08/20 10:35 09/10/20 11:50 Lorazepam 2 Mg/Ml Vial IV 2 mg Q4H PRN Administration Agitation Metoprolol Tartrate 25 mg 09/10/20 13:00 09/11/20 10:02 Metoprolol Tartrate 25 Mg Tab PO 25 mg BID JUAN LUIS Administration Multi-Ingred Cream/Lotion/Oil/Oint 1 applic 09/08/20 16:21 Mineral Oil/Petrolatum, White Ophth Oint 3.5 Gm OU Q4HR PRN Dry Eye(s) Simple Syrup 15 ml 09/09/20 09:19 Simple Syrup 15 Ml FEEDTUBE PRN PRN Hypoglycemia Simple Syrup 30 ml 09/09/20 09:19 Simple Syrup 15 Ml FEEDTUBE PRN PRN Hypoglycemia Sodium Bicarbonate 325 mg 09/09/20 09:19 Sodium Bicarbonate 325 Mg Tab FEEDTUBE PRN PRN For Clogged Feeding Tube Spironolactone 25 mg 09/11/20 10:00 09/11/20 10:06 Spironolactone 25 Mg Tab PO 25 mg QDAY JUAN LUIS Administration Nutrition/Malnutrition Assess - Dietary Evaluation Nutrition/Malnutrition Findings: Nutrition Notes Start: 09/09/20 09:13 Freq: Status: Active Protocol: Document 09/11/20 08:21 CW (Rec: 09/11/20 08:30 CW [id number]) Nutrition Notes Initial or Follow up Reassessment Current Diagnosis Diabetes,Hypertension, Respiratory Failure Other Pertinent Diagnosis alcohol intoxication Current Diet TF - Vital AF at 55 ml/hr Labs/Tests BUN 27 Pertinent Medications 1/2 NS at 50 ml/hr Humalog Propofol at 10.8ml/hr (285 kcal) Lasix Height 5 ft Weight 120 kg [place] Body Weight (kg) 48.18 BMI 51.6 Weight Status Morbidly Obese Subjective/Other Information F/U for TF start/ tolerance. Pt remains mechanically ventilated. TF advanced to goal of 55 ml/hr per chart; previous ran at 50 ml/hr. No reports of TF intolerance. Percent of energy/protein needs met: 80%/75% (excluding kcal from propofol) Burn Absent Trauma Absent Difficulty In Swallowing Skin Integrity/Comment Intact Current % PO Negligible Minimum of two criteria No physical signs of malnutrition #1 Nutrition Diagnosis Inadequate oral intake Diagnosis Progress(for reassessment Continues documentation) Is patient on ventilator? Yes Is Patient Ambulatory and/or Out of Bed No REE-([facility]-confined to bed) 2286.456 Kcal/Kg value to use for calculation 15 Approximate Energy Requirements Using 1800 kcal/Kg Calculation Used for Recommendations Kcal/kg Additional Notes Protein: (up to 2.5 g/kg IBW) <120g Fluid: 1 ml/kcal or per MD Nutrition Intervention Change Diet Order: Start TF Nutrition Support: Vital AF at 55 ml/hr Flush 100 ml q4h or per MD Kcal 1,584 Protein (gm) 99 Fluid (mL) 1,071 Goal #1 Meet at least 75% of protein and energy needs via TF Anticipated Discharge Needs: Unable to determine at this time Follow-Up By: 09/14/20 Additional Comments F/U for TF tolerance, vent status, propofol status
--- NOTE | 2020-09-11 11:53 | Progress Note ---
Assessment and Plan Dilated Cardiomyopathy, uncertain duration LVEF 20-25% Acute hypoxic respiratory failure Alcohol intoxication Hypertension Diabetes Medical therapy for dilated cardiomyopathy as tolerated. Further evaluation depends on clinical course. Subjective Date of service: 09/11/20 Principal diagnosis: Ac hypoxemic and hypercapnic resp failure; EtOH OD; Acute encephalopathy Interval history: Patient is alert but remains intubated on mechanical ventilation. Objective Vital Signs Temp Pulse Pulse Resp BP Pulse Ox 09/11/20 11:20 75 23 123/79 100 09/11/20 11:17 71 123/79 99 09/11/20 11:10 71 24 118/79 99 09/11/20 11:00 67 24 118/79 99 09/11/20 10:50 68 24 115/78 99 09/11/20 10:40 63 24 116/79 98 09/11/20 10:30 65 24 116/79 99 09/11/20 10:20 75 16 110/76 99 09/11/20 10:10 67 24 117/73 99 09/11/20 10:06 72 117/73 09/11/20 10:05 73 117/73 09/11/20 10:03 69 117/73 09/11/20 10:02 69 117/73 09/11/20 10:00 71 64 21 119/78 100 09/11/20 09:50 65 24 119/78 99 09/11/20 09:40 70 24 119/79 100 09/11/20 09:30 68 24 119/79 100 09/11/20 09:20 68 23 115/75 100 09/11/20 09:10 64 20 116/80 100 09/11/20 09:00 64 24 116/80 100 09/11/20 08:50 60 24 115/72 99 09/11/20 08:40 61 24 118/84 100 09/11/20 08:30 68 24 118/84 100 09/11/20 08:20 61 13 109/72 99 09/11/20 08:10 64 18 117/79 99 09/11/20 08:00 68 24 107/69 100 09/11/20 07:51 68 107/69 100 09/11/20 07:50 63 22 107/69 100 09/11/20 07:40 61 15 107/72 100 09/11/20 07:30 64 16 107/72 100 09/11/20 07:20 62 25 H 114/75 100 09/11/20 07:10 62 16 106/67 100 09/11/20 07:00 63 21 106/67 100 09/11/20 06:50 63 120/86 100 09/11/20 06:40 61 108/70 100 09/11/20 06:30 63 108/70 100 09/11/20 06:20 64 102/66 100 09/11/20 06:10 66 102/65 100 09/11/20 06:00 65 24 102/65 99 09/11/20 05:50 69 18 126/75 99 09/11/20 05:40 64 23 126/75 100 09/11/20 05:30 56 L 24 126/75 100 09/11/20 05:20 57 L 24 126/75 100 09/11/20 05:18 56 L 100 09/11/20 05:10 56 L 24 126/75 100 09/11/20 05:00 58 L 24 126/75 100 09/11/20 04:50 64 16 126/75 100 09/11/20 04:40 52 L 24 138/84 100 09/11/20 04:30 58 L 24 138/84 09/11/20 04:20 58 L 24 133/88 100 09/11/20 04:10 60 24 145/78 100 09/11/20 04:00 59 L 62 24 145/78 100 09/11/20 03:51 98.6 F 09/11/20 03:50 59 L 24 138/85 100 09/11/20 03:40 59 L 24 141/87 100 09/11/20 03:30 61 24 139/74 99 09/11/20 03:20 62 24 139/74 99 09/11/20 03:10 67 24 122/74 100 09/11/20 03:00 57 L 24 122/74 100 09/11/20 02:50 59 L 24 115/72 100 09/11/20 02:40 54 L 24 126/77 100 09/11/20 02:30 58 L 24 126/77 100 09/11/20 02:20 54 L 24 100 09/11/20 00:00 65 65 25 H 143/96 100 09/10/20 23:38 99.4 F 09/10/20 22:00 61 09/10/20 21:29 63 144/87 09/10/20 20:27 61 141/88 100 09/10/20 20:00 98.8 F 61 24 100 09/10/20 18:10 63 24 99 09/10/20 18:00 64 72 24 142/88 99 09/10/20 17:50 65 24 151/93 99 09/10/20 17:40 67 24 99 09/10/20 17:30 72 24 168/101 100 09/10/20 17:20 81 24 162/96 99 09/10/20 17:10 87 23 155/106 98 09/10/20 17:00 97 H 24 146/98 98 09/10/20 16:58 100 H 17 146/98 99 09/10/20 16:20 63 24 146/98 100 09/10/20 16:10 56 L 24 136/76 100 09/10/20 16:00 99 F 57 L 24 136/76 100 09/10/20 15:50 58 L 24 139/78 100 09/10/20 15:40 58 L 24 142/74 99 09/10/20 15:30 57 L 24 142/74 99 09/10/20 15:20 59 L 24 142/82 99 09/10/20 15:10 57 L 24 140/78 99 09/10/20 15:00 61 24 140/78 99 09/10/20 14:50 64 24 142/78 99 09/10/20 14:40 64 24 150/77 98 09/10/20 14:30 65 24 150/77 98 09/10/20 14:20 71 24 141/80 98 09/10/20 14:10 74 24 151/79 98 09/10/20 14:00 77 72 24 151/79 98 09/10/20 13:50 79 24 151/81 97 09/10/20 13:40 78 25 H 160/85 98 09/10/20 13:30 81 23 160/85 97 09/10/20 13:20 87 20 161/91 97 09/10/20 13:10 92 H 24 187/114 97 09/10/20 13:00 104 H 17 225/127 99 09/10/20 12:50 108 H 29 H 228/148 94 09/10/20 12:40 106 H 13 93 09/10/20 12:30 108 H 19 214/147 94 09/10/20 12:20 126 H 26 H 261/153 92 09/10/20 12:11 121 H 34 H 236/172 96 09/10/20 12:00 99 F 122 H 26 H 235/160 95 - Physical Examination General: Other (intubated) Cardiac: Positive: Reg Rate and Rhythm - Allied health notes Allied health notes reviewed: nursing
--- NOTE | 2020-09-11 12:27 | Progress Note ---
Assessment and Plan -Acute hypoxic respiratory failure on MVS Possible aspiration pneumonia -Lactic acidosis/sepsis due to pneumonia -Elevated D-dimers; Lower extremity venous Dopplers negative for DVT -Acute toxic metabolic encephalopathy; POA Due to alcohol intoxication, hypoxia -Acute systolic congestive heart failure; ejection fraction 20 to 25% -Four-chamber dilated cardiomyopathy -Acute alcohol intoxication, alcohol abuse disorder -Leukocytosis; secondary to pneumonia -Hyperglycemia; no evidence of diabetes mellitus -Hypokalemia; resolved - Extreme Obesity; BMI 51.7 -Thrombocytopenia - continue daily SAT and SBT assessment as tolerated -Add Precedex for agitation management - continue to titrate supplemental oxygen for SpO2 89-92% - VAP bundle addressed, aspiration precautions HOB >40 -Heart failure measures, keep negative balance. Stop IV fluids -Continue with diuresis while monitoring hemodynamics and electrolyte profile - continue lung protective strategies - continue bronchodilators with pulmonary hygiene per RT - wean per pulmonary driven protocols - continue accuchecks with glycemic control per SSI (While critically ill target blood glucose of 140-180 mg/dL; avoid hypoglycemia) - sedation for target RASS 0 to -1 -Titrate analgesia to CPOT 0-3 - avoid nephrotoxins, renally dose all medications - continue empiric antibitoics, then de-escalate - prn analgesia per CPOT score - Maintenance of sleep-wake cycle, avoid delirium - continue enteral nutritional support at goal rate as tolerated - VTE prophylaxis- Enoxaparin -Stress ulcer prophylaxis-Lansoprazole - PT/OT/ROM exercises - continue mobility protocol, off loading per facility protocol for pressure ulcer prevention - Monitor hemodynamics closely - continue other care per attending / other consultants CONDITION: CRITICAL PROGNOSIS: GUARDED CODE STATUS: FULL CODE The high probability of a clinically significant, sudden or life-threatening deterioration of the [respiratory, cardiovascular, renal & neurologic] system(s) required my full and direct attention, intervention and personal management. The aggregate critical care time was [35] minutes without overlap. Time includes spent on; [x] Data Review and interpretation [x] Patient assessment and monitoring of vital signs [x] Documentation [x] Medication orders and management Subjective Date of service: 09/11/20 Principal diagnosis: Ac hypoxemic and hypercapnic resp failure; EtOH OD; Acute encephalopathy Interval history: Patient is seen today for: Acute hypoxemic and hypercapnic respiratory failure; Alcohol overdose; Acute encephalopathy; Leukocytosis; DM II; Morbid obesity Seen and examined at bedside; 24hour events reviewed; nursing and respiratory care staff consulted; no adverse overnight events reported to me; resting peacefully in bed; failed SBT after about 1 hour SBPs up to 200s with tachycardia >100 ; no emesis or overt aspiration Awake and alert, appropriate off sedation COVID-19 test negative - 09/10/2020 Objective Vital Signs - 12hr 09/11/20 09/11/20 09/11/20 02:20 02:30 02:40 Temperature Pulse Rate 54 L 58 L 54 L Pulse Rate [ From Monitor] Respiratory 24 24 24 Rate Blood Pressure 126/77 126/77 O2 Sat by Pulse 100 100 100 Oximetry 09/11/20 09/11/20 09/11/20 02:50 03:00 03:10 Temperature Pulse Rate 59 L 57 L 67 Pulse Rate [ From Monitor] Respiratory 24 24 24 Rate Blood Pressure 115/72 122/74 122/74 O2 Sat by Pulse 100 100 100 Oximetry 09/11/20 09/11/20 09/11/20 03:20 03:30 03:40 Temperature Pulse Rate 62 61 59 L Pulse Rate [ From Monitor] Respiratory 24 24 24 Rate Blood Pressure 139/74 139/74 141/87 O2 Sat by Pulse 99 99 100 Oximetry 09/11/20 09/11/20 09/11/20 03:50 03:51 04:00 Temperature 98.6 F Pulse Rate 59 L 59 L Pulse Rate [ 62 From Monitor] Respiratory 24 24 Rate Blood Pressure 138/85 145/78 O2 Sat by Pulse 100 100 Oximetry 09/11/20 09/11/20 09/11/20 04:10 04:20 04:30 Temperature Pulse Rate 60 58 L 58 L Pulse Rate [ From Monitor] Respiratory 24 24 24 Rate Blood Pressure 145/78 133/88 138/84 O2 Sat by Pulse 100 100 100 Oximetry 09/11/20 09/11/20 09/11/20 04:40 04:50 05:00 Temperature Pulse Rate 52 L 64 58 L Pulse Rate [ From Monitor] Respiratory 24 16 24 Rate Blood Pressure 138/84 126/75 126/75 O2 Sat by Pulse 100 100 100 Oximetry 09/11/20 09/11/20 09/11/20 05:10 05:18 05:20 Temperature Pulse Rate 56 L 56 L 57 L Pulse Rate [ From Monitor] Respiratory 24 24 Rate Blood Pressure 126/75 126/75 O2 Sat by Pulse 100 100 100 Oximetry 09/11/20 09/11/20 09/11/20 05:30 05:40 05:50 Temperature Pulse Rate 56 L 64 69 Pulse Rate [ From Monitor] Respiratory 24 23 18 Rate Blood Pressure 126/75 126/75 126/75 O2 Sat by Pulse 100 100 99 Oximetry 09/11/20 09/11/20 09/11/20 06:00 06:10 06:20 Temperature Pulse Rate 65 66 64 Pulse Rate [ From Monitor] Respiratory 24 Rate Blood Pressure 102/65 102/65 102/66 O2 Sat by Pulse 99 100 100 Oximetry 09/11/20 09/11/20 09/11/20 06:30 06:40 06:50 Temperature Pulse Rate 63 61 63 Pulse Rate [ From Monitor] Respiratory Rate Blood Pressure 108/70 108/70 120/86 O2 Sat by Pulse 100 100 100 Oximetry 09/11/20 09/11/20 09/11/20 07:00 07:10 07:20 Temperature Pulse Rate 63 62 62 Pulse Rate [ From Monitor] Respiratory 21 16 25 H Rate Blood Pressure 106/67 106/67 114/75 O2 Sat by Pulse 100 100 100 Oximetry 09/11/20 09/11/20 09/11/20 07:30 07:40 07:50 Temperature Pulse Rate 64 61 63 Pulse Rate [ From Monitor] Respiratory 16 15 22 Rate Blood Pressure 107/72 107/72 107/69 O2 Sat by Pulse 100 100 100 Oximetry 09/11/20 09/11/20 09/11/20 07:51 08:00 08:10 Temperature Pulse Rate 68 68 64 Pulse Rate [ From Monitor] Respiratory 24 18 Rate Blood Pressure 107/69 107/69 117/79 O2 Sat by Pulse 100 100 99 Oximetry 09/11/20 09/11/20 09/11/20 08:20 08:30 08:40 Temperature Pulse Rate 61 68 61 Pulse Rate [ From Monitor] Respiratory 13 24 24 Rate Blood Pressure 109/72 118/84 118/84 O2 Sat by Pulse 99 100 100 Oximetry 09/11/20 09/11/20 09/11/20 08:50 09:00 09:10 Temperature Pulse Rate 60 64 64 Pulse Rate [ From Monitor] Respiratory 24 24 20 Rate Blood Pressure 115/72 116/80 116/80 O2 Sat by Pulse 99 100 100 Oximetry 09/11/20 09/11/20 09/11/20 09:20 09:30 09:40 Temperature Pulse Rate 68 68 70 Pulse Rate [ From Monitor] Respiratory 23 24 24 Rate Blood Pressure 115/75 119/79 119/79 O2 Sat by Pulse 100 100 100 Oximetry 09/11/20 09/11/20 09/11/20 09:50 10:00 10:02 Temperature Pulse Rate 65 71 69 Pulse Rate [ 64 From Monitor] Respiratory 24 21 Rate Blood Pressure 119/78 119/78 117/73 O2 Sat by Pulse 99 100 Oximetry 09/11/20 09/11/20 09/11/20 10:03 10:05 10:06 Temperature Pulse Rate 69 73 72 Pulse Rate [ From Monitor] Respiratory Rate Blood Pressure 117/73 117/73 117/73 O2 Sat by Pulse Oximetry 09/11/20 09/11/20 09/11/20 10:10 10:20 10:30 Temperature Pulse Rate 67 75 65 Pulse Rate [ From Monitor] Respiratory 24 16 24 Rate Blood Pressure 117/73 110/76 116/79 O2 Sat by Pulse 99 99 99 Oximetry 09/11/20 09/11/20 09/11/20 10:40 10:50 11:00 Temperature Pulse Rate 63 68 67 Pulse Rate [ From Monitor] Respiratory 24 24 24 Rate Blood Pressure 116/79 115/78 118/79 O2 Sat by Pulse 98 99 99 Oximetry 09/11/20 09/11/20 09/11/20 11:10 11:17 11:20 Temperature Pulse Rate 71 71 75 Pulse Rate [ From Monitor] Respiratory 24 23 Rate Blood Pressure 118/79 123/79 123/79 O2 Sat by Pulse 99 99 100 Oximetry 09/11/20 09/11/20 09/11/20 11:30 11:40 11:50 Temperature Pulse Rate 73 73 68 Pulse Rate [ From Monitor] Respiratory 21 20 24 Rate Blood Pressure 117/73 117/73 123/82 O2 Sat by Pulse 99 99 99 Oximetry 09/11/20 09/11/20 09/11/20 12:00 12:10 12:20 Temperature Pulse Rate 69 72 85 Pulse Rate [ From Monitor] Respiratory 24 24 16 Rate Blood Pressure 124/84 124/84 129/90 O2 Sat by Pulse 99 100 99 Oximetry Constitutional: no acute distress, other (middle aged morbidly obese male without vemtilator dyssynchrony) Eyes: non-icteric ENT: oropharynx moist, other (ETT 25 cm RACHEAL) Neck: supple, no lymphadenopathy, no JVD, other (large neck circumference) Effort: normal Ascultation: Bilateral: diminished breath sounds, rhonchi Percussion: Bilateral: not dull Cardiovascular: regular rate and rhythm Gastrointestinal: normoactive bowel sounds, soft, non-tender, non-distended (protuberant) Integumentary: normal Extremities: no cyanosis, pink and warm, pulses normal, no ischemia or petechiae, edema (trace) Neurologic: non-focal exam (grossly), pupils equal and round, CN II-XII normal, motor strength normal and Psychiatric: mood appropriate, affect normal CBC and BMP: 09/11/20 13:10 09/11/20 13:10 ABG, PT/INR, D-dimer: ABG ABG pH 7.456 (7.320-7.450) H 09/11/20 04:24 POC ABG pCO2 28.6 mmHg (32.0-48.0) L 09/11/20 04:24 ABG pCO2 31.8 mm Hg 09/08/20 16:25 POC ABG pO2 123.7 mmHg (83-108) H 09/11/20 04:24 ABG pO2 117.8 mm Hg (80.0-90.0) H 09/08/20 16:25 POC ABG HCO3 19.7 09/11/20 04:24 ABG O2 Saturation 99.4 (0-100) 09/11/20 04:24 PT/INR, D-dimer D-Dimer 3467.79 ng/mlDDU (0-234) H 09/09/20 15:19 Abnormal lab findings: Abnormal Labs 09/08/20 09/08/20 09/08/20 07:51 08:15 08:15 WBC 15.6 H RBC 6.67 H Hgb 17.7 H Hct 57.5 H MCV MCH 27 L MCHC 31 L RDW 18.1 H Lymph % (Auto) Seg Neutrophils % Seg Neuts % (Manual) 71.0 H Seg Neutrophils # Seg Neutrophils # Man 11.1 H D-Dimer ABG pH POC ABG pCO2 POC ABG pO2 ABG pO2 ABG Base Excess ABG Hemoglobin ABG Potassium ABG Chloride ABG Glucose Carboxyhemoglobin Potassium 3.5 L Chloride 97.7 L Carbon Dioxide BUN 21 H Glucose 228 H POC Glucose Lactic Acid Calcium Magnesium Total Protein Albumin HDL Cholesterol Lipase Arterial Blood Glucose Arterial Blood Ionized Calcium Salicylates < 0.3 L Acetaminophen Plasma/Serum Alcohol 09/08/20 09/08/20 09/08/20 08:15 08:15 08:20 WBC RBC Hgb Hct MCV MCH MCHC RDW Lymph % (Auto) Seg Neutrophils % Seg Neuts % (Manual) Seg Neutrophils # Seg Neutrophils # Man D-Dimer ABG pH POC ABG pCO2 POC ABG pO2 ABG pO2 ABG Base Excess ABG Hemoglobin ABG Potassium ABG Chloride ABG Glucose Carboxyhemoglobin Potassium Chloride Carbon Dioxide BUN Glucose POC Glucose Lactic Acid 4.40 H* Calcium Magnesium Total Protein Albumin HDL Cholesterol Lipase Arterial Blood Glucose Arterial Blood Ionized Calcium Salicylates Acetaminophen 5.0 L Plasma/Serum Alcohol 0.11 H 09/08/20 09/08/20 09/08/20 09:15 16:25 17:19 WBC RBC Hgb Hct MCV MCH MCHC RDW Lymph % (Auto) Seg Neutrophils % Seg Neuts % (Manual) Seg Neutrophils # Seg Neutrophils # Man D-Dimer ABG pH 7.222 L POC ABG pCO2 POC ABG pO2 ABG pO2 185.7 H 117.8 H ABG Base Excess -6.5 L ABG Hemoglobin 18.1 H ABG Potassium ABG Chloride ABG Glucose Carboxyhemoglobin Potassium Chloride Carbon Dioxide BUN Glucose POC Glucose 106 H Lactic Acid Calcium Magnesium Total Protein Albumin HDL Cholesterol Lipase Arterial Blood Glucose Arterial Blood Ionized Calcium Salicylates Acetaminophen Plasma/Serum Alcohol 09/08/20 09/09/20 09/09/20 17:39 01:32 03:08 WBC RBC Hgb Hct MCV MCH MCHC RDW Lymph % (Auto) Seg Neutrophils % Seg Neuts % (Manual) Seg Neutrophils # Seg Neutrophils # Man D-Dimer ABG pH POC ABG pCO2 POC ABG pO2 ABG pO2 ABG Base Excess ABG Hemoglobin 18.2 H ABG Potassium ABG Chloride ABG Glucose 145 H Carboxyhemoglobin Potassium Chloride Carbon Dioxide BUN Glucose POC Glucose 128 H Lactic Acid 2.20 H* Calcium Magnesium Total Protein Albumin HDL Cholesterol Lipase Arterial Blood Glucose 145 H Arterial Blood Ionized Calcium 4.3 L Salicylates Acetaminophen Plasma/Serum Alcohol 09/09/20 09/09/20 09/09/20 04:12 06:10 11:05 WBC RBC Hgb Hct MCV MCH MCHC RDW Lymph % (Auto) Seg Neutrophils % Seg Neuts % (Manual) Seg Neutrophils # Seg Neutrophils # Meng D-Dimer ABG pH POC ABG pCO2 POC ABG pO2 ABG pO2 ABG Base Excess ABG Hemoglobin ABG Potassium ABG Chloride ABG Glucose Carboxyhemoglobin Potassium Chloride Carbon Dioxide BUN 26 H Glucose 136 H POC Glucose 135 H 139 H Lactic Acid Calcium 7.5 L Magnesium Total Protein 6.0 L D Albumin 2.8 L HDL Cholesterol 33 L Lipase 12 L Arterial Blood Glucose Arterial Blood Ionized Calcium Salicylates Acetaminophen Plasma/Serum Alcohol 09/09/20 09/09/20 09/09/20 15:19 15:43 23:37 WBC RBC Hgb Hct MCV MCH MCHC RDW Lymph % (Auto) Seg Neutrophils % Seg Neuts % (Manual) Seg Neutrophils # Seg Neutrophils # Meng D-Dimer 3467.79 H ABG pH POC ABG pCO2 POC ABG pO2 ABG pO2 ABG Base Excess ABG Hemoglobin ABG Potassium ABG Chloride ABG Glucose Carboxyhemoglobin Potassium Chloride Carbon Dioxide BUN Glucose POC Glucose 116 H 117 H Lactic Acid Calcium Magnesium Total Protein Albumin HDL Cholesterol Lipase Arterial Blood Glucose Arterial Blood Ionized Calcium Salicylates Acetaminophen Plasma/Serum Alcohol 09/10/20 09/10/20 09/10/20 05:00 05:22 08:47 WBC RBC 6.44 H Hgb 17.2 H Hct 53.2 H MCV 83 L MCH 27 L MCHC RDW 18.1 H Lymph % (Auto) 13.3 L Seg Neutrophils % 79.1 H Seg Neuts % (Manual) Seg Neutrophils # 7.9 H Seg Neutrophils # Man D-Dimer ABG pH POC ABG pCO2 POC ABG pO2 73.9 L ABG pO2 ABG Base Excess ABG Hemoglobin 18.0 H ABG Potassium ABG Chloride 110.0 H ABG Glucose 121 H Carboxyhemoglobin 1.6 H Potassium Chloride Carbon Dioxide BUN Glucose POC Glucose 127 H Lactic Acid Calcium Magnesium Total Protein Albumin HDL Cholesterol Lipase Arterial Blood Glucose 121 H Arterial Blood Ionized Calcium Salicylates Acetaminophen Plasma/Serum Alcohol 09/10/20 09/10/20 09/11/20 08:47 11:39 04:24 WBC RBC Hgb Hct MCV MCH MCHC RDW Lymph % (Auto) Seg Neutrophils % Seg Neuts % (Manual) Seg Neutrophils # Seg Neutrophils # Man D-Dimer ABG pH 7.456 H POC ABG pCO2 28.6 L POC ABG pO2 123.7 H ABG pO2 ABG Base Excess ABG Hemoglobin ABG Potassium 3.2 L ABG Chloride 108.0 H ABG Glucose 112 H Carboxyhemoglobin 1.9 H Potassium Chloride 108.3 H Carbon Dioxide 20 L BUN 27 H Glucose POC Glucose 107 H Lactic Acid Calcium 7.8 L Magnesium 2.50 H Total Protein 5.8 L Albumin 2.6 L HDL Cholesterol Lipase Arterial Blood Glucose 112 H Arterial Blood Ionized Calcium Salicylates Acetaminophen Plasma/Serum Alcohol 09/11/20 09/11/20 06:22 11:26 WBC RBC Hgb Hct MCV MCH MCHC RDW Lymph % (Auto) Seg Neutrophils % Seg Neuts % (Manual) Seg Neutrophils # Seg Neutrophils # Man D-Dimer ABG pH POC ABG pCO2 POC ABG pO2 ABG pO2 ABG Base Excess ABG Hemoglobin ABG Potassium ABG Chloride ABG Glucose Carboxyhemoglobin Potassium Chloride Carbon Dioxide BUN Glucose POC Glucose 108 H 124 H Lactic Acid Calcium Magnesium Total Protein Albumin HDL Cholesterol Lipase Arterial Blood Glucose Arterial Blood Ionized Calcium Salicylates Acetaminophen Plasma/Serum Alcohol Chest x-ray: image reviewed Allied health notes reviewed: nursing
[2020-09-11] MEDS: LANSOPRAZOLE 30 MG SOLUTAB FEEDTUBE SCH (13:10)
[2020-09-11 13:32] LABS: Hemoglobin 16.9 gm/dl (11.8-15.2); Mean Corpuscular HGB Conc 33 % (32-34); Mean Corpuscular Volume 82 fl (84-94); Platelet Count 127 K/mm3 (140-440); Red Blood Count 6.38 M/mm3 (3.65-5.03); Red Cell Distribution Width 17.8 % (13.2-15.2)
[2020-09-11 13:43] LABS: Alanine Aminotransferase 17 units/L (7-56); Albumin 3.3 g/dL (3.9-5); BUN/Creatinine Ratio 25; Blood Urea Nitrogen 28 mg/dL (9-20); Hemolysis Index 17
[2020-09-11] MEDS: LORazepam 2 MG/ML VIAL IV PRN (14:45)
[2020-09-11] MEDS: fentaNYL 100 MCG/2 ML INJ IV PRN (15:01)
[2020-09-11] MEDS: fentaNYL DRIP Premix 2,000 MCG/100 ML BAG IV SCH (18:28)
[2020-09-11] MEDS: ENOXAPARIN 40 MG/0.4 ML INJ SUB-Q SCH (21:47)
[2020-09-12] MEDS: CEFEPIME/NS 2 GM/100 ML 2 GM/100 ML BAG IV SCH ×3 (01:50→18:36)
[2020-09-12] MEDS: FUROSEMIDE 40 MG/4 ML INJ IV SCH ×2 (06:08→18:35)
[2020-09-12] MEDS: INSULIN LISPRO 100 UNIT/ML SUB-Q SCH ×3 (06:08→18:36)
--- NOTE | 2020-09-12 08:30 | Progress Note ---
Assessment and Plan Assessment and plan: COVID-19 test negative - 09/10/2020 --Hypokalemia; potassium 3.2 Replenished with KCl oral Monitor electrolytes --Acute hypoxic respiratory failure; Possible aspiration pneumonia. Intubated on ventilatory support Wean as tolerated and extubate Nebulizers, IV antibiotics, follow cultures Pulmonary /critical care following --Elevated D-dimers; Lower extremity venous Dopplers negative for DVT CTA chest negative for PE --Acute toxic metabolic encephalopathy; POA Due to alcohol intoxication, hypoxia. Patient is intubated on vent --Acute systolic congestive heart failure; ejection fraction 20 to 25% IV diuretics, continue beta-blockers, TONO inhibitors, input output monitoring, low-sodium diet Fluid restriction, cardiology following --Four-chamber dilated cardiomyopathy; Antifailure medications, cardiology consult --Acute alcohol intoxication; Thiamine folic acid, IV Protonix, IV fluids, Supportive care Patient needs counseling when medically stable --Pneumonia Community-acquired versus aspiration Empiric antibiotics, ventilatory support Follow cultures, ID consult if needed --Leukocytosis; secondary to pneumonia Treat the underlying cause --Lactic acidosis/sepsis due to pneumonia Continue empiric antibiotics, follow cultures --Alcohol withdrawal symptoms; [facility] protocol Will certified alcohol drug counselor and advised to quit alcohol intake when patient is more alert and awake --Hyperglycemia; no evidence of diabetes mellitus Accu-Chek sliding scale coverage Check A1c 5.9 --Hypokalemia; resolved replenish per protocol as needed --Obesity; BMI 51.7 Patient needs weight reduction when medically stable --DVT prophylaxis; Lovenox Closely monitor the patient and adjust management as needed We will try to talk to the family and get more medical history Restraint for safety Critical care time 34 minutes The high probability of a clinically significant, sudden or life threatening deterioration of the [multi] system(s) required my full and direct attention, intervention and personal management. The aggregate critical care time was [35] minutes. This time is in addition to time spent performing reported procedures but includes the following: [x] Data Review and interpretation [x] Patient assessment and monitoring of vital signs [x] Documentation [x] Medication orders and management 09/09/2020; Patient is intubated on ventilatory support, wean as tolerated and extubate Pulmonary critical evaluation and recommendations noted and appreciated Acute versus acute on chronic CHF systolic dysfunction/dilated cardiomyopathy Start Lasix, unable to give beta-blockers and TONO inhibitors due to hypotension Cardiology consult placed 09/10/2020; patient remains intubated on ventilatory support Will wean as tolerated and extubate Elevated D-dimers, venous Doppler lower extremity negative for DVT Will get CTA chest to rule out PE when medically stable Cardiomyopathy, cardiology consulted 09/11/2020 remains intubated on ventilator support on weaning parameters Wean as tolerated and extubate, continue current management 09/12/2020; patient remains intubated on ventilatory support, wean as tolerated and extubate Blood pressure slightly improved, on antifailure medications Plan of care reviewed with the patient's nurse and case management History Interval history: Seen and examined the patient at the bedside in ICU this morning Patient's chart and medications reviewed, patient remains orally intubated on ventilatory support On weaning parameters, patient is alert and awake mild distress Vital signs noted Hospitalist Physical - Constitutional Vitals: Temp Pulse Resp BP Pulse Ox 98.6 F 63 22 126/90 100 09/12/20 03:23 09/12/20 07:47 09/12/20 07:00 09/12/20 07:47 09/12/20 07:47 General appearance: Present: no acute distress, well-nourished, obese, other (intubated on the vent) - EENT Eyes: Present: PERRL, EOM intact - Neck Neck: Present: supple, normal ROM, enlarged thyroid, masses or JVD - Respiratory Respiratory effort: labored Respiratory: bilateral: diminished, rales, rhonchi, negative: wheezing - Cardiovascular Rhythm: regular Heart Sounds: Present: S1 & S2 - Extremities Extremities: no ischemia Extremity abnormal: edema Peripheral Pulses: within normal limits - Abdominal General gastrointestinal: soft, non-tender, non-distended, normal bowel sounds - Integumentary Integumentary: Present: clear, warm - Psychiatric Psychiatric: other (Intubated on vent) - Neurologic Neurologic: moves all extremities, other (Intubated) Results - Labs CBC & Chem 7: 09/11/20 13:10 09/11/20 13:10 Labs: Laboratory Last Values WBC 11.1 K/mm3 (4.5-11.0) H 09/11/20 13:10 RBC 6.38 M/mm3 (3.65-5.03) H 09/11/20 13:10 Hgb 16.9 gm/dl (11.8-15.2) H 09/11/20 13:10 Hct 52.0 % (35.5-45.6) H 09/11/20 13:10 MCV 82 fl (84-94) L 09/11/20 13:10 MCH 27 pg (28-32) L 09/11/20 13:10 MCHC 33 % (32-34) 09/11/20 13:10 RDW 17.8 % (13.2-15.2) H 09/11/20 13:10 Plt Count 127 K/mm3 (140-440) L 09/11/20 13:10 Lymph % (Auto) Not Reportable 09/11/20 13:10 [place] % (Auto) Not Reportable 09/11/20 13:10 Eos % (Auto) Not Reportable 09/11/20 13:10 Baso % (Auto) Not Reportable 09/11/20 13:10 Lymph # (Auto) Not Reportable 09/11/20 13:10 [place] # (Auto) Not Reportable 09/11/20 13:10 Eos # (Auto) Not Reportable 09/11/20 13:10 Baso # (Auto) Not Reportable 09/11/20 13:10 Add Manual Diff Complete 09/08/20 08:15 Total Counted 100 09/08/20 08:15 Seg Neutrophils % 79.1 % (40.0-70.0) H 09/10/20 08:47 Seg Neuts % (Manual) 71.0 % (40.0-70.0) H 09/08/20 08:15 Band Neutrophils % 5.0 % 09/08/20 08:15 Lymphocytes % (Manual) 14.0 % (13.4-35.0) 09/08/20 08:15 Monocytes % (Manual) 3.0 % (0.0-7.3) 09/08/20 08:15 Eosinophils % (Manual) 1.0 % (0.0-4.3) 09/08/20 08:15 Metamyelocytes % 6.0 % 09/08/20 08:15 Nucleated RBC % Not Reportable 09/08/20 08:15 Seg Neutrophils # Not Reportable 09/11/20 13:10 Seg Neutrophils # Man 11.1 K/mm3 (1.8-7.7) H 09/08/20 08:15 Band Neutrophils # 0.8 K/mm3 09/08/20 08:15 Lymphocytes # (Manual) 2.2 K/mm3 (1.2-5.4) 09/08/20 08:15 Abs React Lymphs (Man) 0.0 K/mm3 09/08/20 08:15 Monocytes # (Manual) 0.5 K/mm3 (0.0-0.8) 09/08/20 08:15 Eosinophils # (Manual) 0.2 K/mm3 (0.0-0.4) 09/08/20 08:15 Basophils # (Manual) 0.0 K/mm3 (0.0-0.1) 09/08/20 08:15 Metamyelocytes # 0.9 K/mm3 09/08/20 08:15 Myelocytes # 0.0 K/mm3 09/08/20 08:15 Promyelocytes # 0.0 K/mm3 09/08/20 08:15 Blast Cells # 0.0 K/mm3 09/08/20 08:15 WBC Morphology Not Reportable 09/08/20 08:15 Hypersegmented Neuts Not Reportable 09/08/20 08:15 Hyposegmented Neuts Not Reportable 09/08/20 08:15 Hypogranular Neuts Not Reportable 09/08/20 08:15 Smudge Cells Not Reportable 09/08/20 08:15 Toxic Granulation Not Reportable 09/08/20 08:15 Toxic Vacuolation Not Reportable 09/08/20 08:15 Dohle Bodies Not Reportable 09/08/20 08:15 Pelger-Huet Anomaly Not Reportable 09/08/20 08:15 Lamar Rods Not Reportable 09/08/20 08:15 Platelet Estimate Consistent w auto 09/08/20 08:15 Clumped Platelets Not Reportable 09/08/20 08:15 Plt Clumps, EDTA Not Reportable 09/08/20 08:15 Large Platelets Not Reportable 09/08/20 08:15 Giant Platelets Not Reportable 09/08/20 08:15 Platelet Satelliting Not Reportable 09/08/20 08:15 Plt Morphology Comment Not Reportable 09/08/20 08:15 RBC Morphology Normal 09/08/20 08:15 Dimorphic RBCs Not Reportable 09/08/20 08:15 Polychromasia Not Reportable 09/08/20 08:15 Hypochromasia Not Reportable 09/08/20 08:15 Poikilocytosis Not Reportable 09/08/20 08:15 Anisocytosis Not Reportable 09/08/20 08:15 Microcytosis Not Reportable 09/08/20 08:15 Macrocytosis Not Reportable 09/08/20 08:15 Spherocytes Not Reportable 09/08/20 08:15 Pappenheimer Bodies Not Reportable 09/08/20 08:15 Sickle Cells Not Reportable 09/08/20 08:15 Target Cells Not Reportable 09/08/20 08:15 Tear Drop Cells Not Reportable 09/08/20 08:15 Ovalocytes Not Reportable 09/08/20 08:15 Helmet Cells Not Reportable 09/08/20 08:15 [place] Bodies Not Reportable 09/08/20 08:15 [place] Rings Not Reportable 09/08/20 08:15 Saxis Cells Not Reportable 09/08/20 08:15 Bite Cells Not Reportable 09/08/20 08:15 Crenated Cell Not Reportable 09/08/20 08:15 Elliptocytes Not Reportable 09/08/20 08:15 Acanthocytes (Spur) Not Reportable 09/08/20 08:15 Rouleaux Not Reportable 09/08/20 08:15 Hemoglobin C Crystals Not Reportable 09/08/20 08:15 Schistocytes Not Reportable 09/08/20 08:15 Malaria parasites Not Reportable 09/08/20 08:15 [place] Bodies Not Reportable 09/08/20 08:15 Hem Pathologist Commnt No 09/08/20 08:15 D-Dimer 3467.79 ng/mlDDU (0-234) H 09/09/20 15:19 ABG pH 7.507 (7.320-7.450) H 09/12/20 05:01 POC ABG pCO2 28.3 mmHg (32.0-48.0) L 09/12/20 05:01 ABG pCO2 31.8 mm Hg 09/08/20 16:25 POC ABG pO2 107.5 mmHg (83-108) 09/12/20 05:01 ABG pO2 117.8 mm Hg (80.0-90.0) H 09/08/20 16:25 POC ABG HCO3 21.9 09/12/20 05:01 ABG HCO3 20.9 mmol/L (20.0-26.0) 09/08/20 16:25 ABG O2 Saturation 98.9 (0-100) 09/12/20 05:01 ABG O2 Content 24.5 (0.0-44) 09/08/20 16:25 POC ABG Base Excess 0.5 09/12/20 05:01 ABG Base Excess -2.0 mmol/L (-2.0-3.0) 09/08/20 16:25 ABG Hemoglobin 17.4 (12.0-17.5) 09/12/20 05:01 ABG Oxyhemoglobin 96.8 (94-98) 09/12/20 05:01 ABG Carboxyhemoglobin 2.0 % (0.0-5.0) 09/08/20 16:25 ABG Methemoglobin 0.1 (0.0-1.5) 09/12/20 05:01 ABG Sodium 143.2 mmol/L (136.0-145.0) 09/12/20 05:01 ABG Potassium 3.2 mmol/L (3.40-4.50) L 09/12/20 05:01 ABG Chloride 108.0 mmol/L (98-107) H 09/12/20 05:01 ABG Glucose 83 mg/dL (65-95) 09/12/20 05:01 Oxyhemoglobin 95.8 % (95.0-99.0) 09/08/20 16:25 Carboxyhemoglobin 2.0 (0.5-1.5) H 09/12/20 05:01 FiO2 80 % 09/08/20 16:25 FiO2 % 45.0 09/12/20 05:01 Sodium 142 mmol/L (137-145) 09/11/20 13:10 Potassium 3.4 mmol/L (3.6-5.0) L 09/11/20 13:10 Chloride 106.2 mmol/L (98-107) 09/11/20 13:10 Carbon Dioxide 24 mmol/L (22-30) 09/11/20 13:10 Anion Gap 15 mmol/L 09/11/20 13:10 BUN 28 mg/dL (9-20) H 09/11/20 13:10 Creatinine 1.1 mg/dL (0.8-1.3) 09/11/20 13:10 Estimated GFR > 60 ml/min 09/11/20 13:10 BUN/Creatinine Ratio 25 % 09/11/20 13:10 Glucose 99 mg/dL (75-100) 09/11/20 13:10 POC Glucose 102 mg/dL (70-105) 09/11/20 23:17 Hemoglobin A1c 5.8 % (4-6) 09/08/20 15:58 Lactic Acid 2.00 mmol/L (0.7-2.0) 09/09/20 09:10 Calcium 8.0 mg/dL (8.4-10.2) L 09/11/20 13:10 Phosphorus 3.90 mg/dL (2.5-4.5) 09/11/20 13:10 Magnesium 2.20 mg/dL (1.7-2.3) 09/11/20 13:10 Total Bilirubin 1.10 mg/dL (0.1-1.2) 09/11/20 13:10 Direct Bilirubin < 0.2 mg/dL (0-0.2) 09/08/20 08:15 Indirect Bilirubin 0.0 mg/dL 09/08/20 08:15 AST 23 units/L (5-40) 09/11/20 13:10 ALT 17 units/L (7-56) 09/11/20 13:10 Alkaline Phosphatase 97 units/L (35-129) 09/11/20 13:10 Ammonia 50.0 umol/L (25-60) 09/09/20 04:12 Total Protein 5.7 g/dL (6.3-8.2) L 09/11/20 13:10 Albumin 3.3 g/dL (3.9-5) L 09/11/20 13:10 Albumin/Globulin Ratio 1.4 % 09/11/20 13:10 Triglycerides 148 mg/dL (2-149) 09/09/20 04:12 Cholesterol 119 mg/dL (50-199) 09/09/20 04:12 LDL Cholesterol Direct 71 mg/dL (50-130) 09/09/20 04:12 HDL Cholesterol 33 mg/dL (40-59) L 09/09/20 04:12 Cholesterol/HDL Ratio 3.60 % 09/09/20 04:12 Amylase 45 units/L (27-131) 09/09/20 04:12 Lipase 12 units/L (13-60) L 09/09/20 04:12 Procalcitonin 0.28 ng/mL (<0.15) 09/10/20 05:00 Arterial Blood Glucose 83 mg/dL (65-95) 09/12/20 05:01 Arterial Blood Ionized Calcium 4.6 mg/dL (4.6-5.3) 09/11/20 04:24 Urine Color Yee (Yellow) 09/08/20 Unknown Urine Turbidity Cloudy (Clear) 09/08/20 Unknown Urine pH 5.0 (5.0-7.0) 09/08/20 Unknown Ur Specific [place] 1.018 (1.003-1.030) 09/08/20 Unknown Urine Protein >500 mg/dL (Negative) 09/08/20 Unknown Urine Glucose (UA) Neg mg/dL (Negative) 09/08/20 Unknown Urine Ketones Neg mg/dL (Negative) 09/08/20 Unknown Urine Blood Sm (Negative) 09/08/20 Unknown Urine Nitrite Neg (Negative) 09/08/20 Unknown Urine Bilirubin Neg (Negative) 09/08/20 Unknown Urine Urobilinogen < 2.0 mg/dL (<2.0) 09/08/20 Unknown Ur Leukocyte Esterase Tr (Negative) 09/08/20 Unknown Urine WBC (Auto) Not Reportable 09/08/20 Unknown Urine RBC (Auto) Not Reportable 09/08/20 Unknown Salicylates < 0.3 mg/dL (2.8-20.0) L 09/08/20 07:51 Urine Opiates Screen Negative 09/08/20 Unknown Urine Methadone Screen Negative 09/08/20 Unknown Acetaminophen 5.0 ug/mL (10.0-30.0) L 09/08/20 08:15 Ur Barbiturates Screen Negative 09/08/20 Unknown Ur Phencyclidine Scrn Negative 09/08/20 Unknown Ur Amphetamines Screen Negative 09/08/20 Unknown U Benzodiazepines Scrn Negative 09/08/20 Unknown Urine Cocaine Screen Negative 09/08/20 Unknown U Marijuana (THC) Screen Presumptive negative 09/08/20 Unknown Drugs of Abuse Note Disclamer 09/08/20 Unknown Plasma/Serum Alcohol 0.11 % (0-0.07) H 09/08/20 08:15 Coronavirus (PCR) Negative (Negative) 09/09/20 09:45 Microbiology: Microbiology 09/08/20 10:28 Tracheal Aspirate Sputum Culture - Preliminary 09/08/20 08:20 Peripheral/Venous Blood Culture - Preliminary NO GROWTH AFTER 72 HOURS 09/08/20 08:20 Peripheral/Venous Blood Culture - Preliminary NO GROWTH AFTER 72 HOURS Active Medications - Current Medications Current Medications: Generic Name Dose Route Start Last Admin Trade Name Freq PRN Reason Stop Dose Admin Lipase/Protease/Amylase 1 each 09/09/20 09:19 Lipase 10,500/Protease 25,000/Amylase 43,750 (Units) Dr Almeida FEEDTUBE PRN PRN For Clogged Feeding Tube Aspirin 81 mg 09/11/20 10:00 09/11/20 10:02 Aspirin 81 Mg Tab Chew PO 81 mg QDAY JUAN LUIS Administration Carvedilol 3.125 mg 09/10/20 22:00 09/11/20 21:46 Carvedilol 3.125 Mg Tab PO 3.125 mg BID JUAN LUIS Administration Enoxaparin Sodium 40 mg 09/08/20 22:00 09/11/20 21:47 Enoxaparin 40 Mg/0.4 Ml Inj SUB-Q 40 mg QDAY@2200 JUAN LUIS Administration Protocol Fentanyl 50 mcg 09/09/20 13:30 09/11/20 15:01 Fentanyl 100 Mcg/2 Ml Inj IV 50 mcg Q10MIN PRN Administration ANALGESIA Furosemide 40 mg 09/10/20 06:00 09/12/20 06:08 Furosemide 40 Mg/4 Ml Inj IV 40 mg 0600,1800 JUAN LUIS Administration Hydrophilic Ointment 1 applic 09/08/20 16:21 Lip Therapy Vaseline TP Q2HR PRN Dry Lips Propofol 1,000 mg in 100 mls @ 3.6 mls/hr 09/08/20 08:00 09/12/20 01:51 Diprivan 10 Mg/Ml IV 15 mcg/kg/min TITR JUAN LUIS 10.8 mls/hr Administration Protocol 5 MCG/KG/MIN Cefepime HCl 2 gm in 100 mls @ 200 mls/hr 09/08/20 18:00 09/12/20 01:50 Cefepime/Ns 2 Gm/100 Ml IV 09/13/20 10:29 200 mls/hr Q8H JUAN LUIS Administration Protocol Fentanyl Citrate 2,000 mcg in 100 mls @ 6 mls/hr 09/09/20 14:00 09/11/20 18:28 Fentanyl Drip Premix IV 1 mcg/kg/hr TITR JUAN LUIS 6 mls/hr Administration Protocol 1 MCG/KG/HR Nicardipine HCl 50 mg/ Sodium 250 mls @ 25 mls/hr 09/10/20 12:30 09/10/20 13:00 Chloride IV 0 mg/hr TITR JUAN LUIS 0 mls/hr Titration Protocol 5 MG/HR Insulin Human Lispro 0 unit 09/08/20 12:00 09/12/20 06:08 Insulin Lispro 100 Unit/Ml SUB-Q Not Given Q6HR [facility] Protocol Lansoprazole 30 mg 09/11/20 10:00 09/11/20 13:10 Lansoprazole 30 Mg Solutab FEEDTUBE 30 mg QDAY JUAN LUIS Administration Lisinopril 2.5 mg 09/11/20 10:00 09/11/20 10:05 Lisinopril 5 Mg Tab PO 2.5 mg QDAY JUAN LUIS Administration Lorazepam 2 mg 09/08/20 10:35 09/11/20 14:45 Lorazepam 2 Mg/Ml Vial IV 2 mg Q4H PRN Administration Agitation Metoprolol Tartrate 25 mg 09/10/20 13:00 09/11/20 21:46 Metoprolol Tartrate 25 Mg Tab PO 25 mg BID JUAN LUIS Administration Multi-Ingred Cream/Lotion/Oil/Oint 1 applic 09/08/20 16:21 Mineral Oil/Petrolatum, White Ophth Oint 3.5 Gm OU Q4HR PRN Dry Eye(s) Simple Syrup 15 ml 09/09/20 09:19 Simple Syrup 15 Ml FEEDTUBE PRN PRN Hypoglycemia Simple Syrup 30 ml 09/09/20 09:19 Simple Syrup 15 Ml FEEDTUBE PRN PRN Hypoglycemia Sodium Bicarbonate 325 mg 09/09/20 09:19 Sodium Bicarbonate 325 Mg Tab FEEDTUBE PRN PRN For Clogged Feeding Tube Spironolactone 25 mg 09/11/20 10:00 09/11/20 10:06 Spironolactone 25 Mg Tab PO 25 mg QDAY JUAN LUIS Administration Nutrition/Malnutrition Assess - Dietary Evaluation Nutrition/Malnutrition Findings: Nutrition Notes Start: 09/09/20 09:13 Freq: Status: Active Protocol: Document 09/11/20 08:21 CW (Rec: 09/11/20 08:30 CW [id number]) Nutrition Notes Initial or Follow up Reassessment Current Diagnosis Diabetes,Hypertension, Respiratory Failure Other Pertinent Diagnosis alcohol intoxication Current Diet TF - Vital AF at 55 ml/hr Labs/Tests BUN 27 Pertinent Medications 1/2 NS at 50 ml/hr Humalog Propofol at 10.8ml/hr (285 kcal) Lasix Height 5 ft Weight 120 kg [place] Body Weight (kg) 48.18 BMI 51.6 Weight Status Morbidly Obese Subjective/Other Information F/U for TF start/ tolerance. Pt remains mechanically ventilated. TF advanced to goal of 55 ml/hr per chart; previous ran at 50 ml/hr. No reports of TF intolerance. Percent of energy/protein needs met: 80%/75% (excluding kcal from propofol) Burn Absent Trauma Absent Difficulty In Swallowing Skin Integrity/Comment Intact Current % PO Negligible Minimum of two criteria No physical signs of malnutrition #1 Nutrition Diagnosis Inadequate oral intake Diagnosis Progress(for reassessment Continues documentation) Is patient on ventilator? Yes Is Patient Ambulatory and/or Out of Bed No REE-([place]-confined to bed) 2286.456 Kcal/Kg value to use for calculation 15 Approximate Energy Requirements Using 1800 kcal/Kg Calculation Used for Recommendations Kcal/kg Additional Notes Protein: (up to 2.5 g/kg IBW) <120g Fluid: 1 ml/kcal or per MD Nutrition Intervention Change Diet Order: Start TF Nutrition Support: Vital AF at 55 ml/hr Flush 100 ml q4h or per MD Kcal 1,584 Protein (gm) 99 Fluid (mL) 1,071 Goal #1 Meet at least 75% of protein and energy needs via TF Anticipated Discharge Needs: Unable to determine at this time Follow-Up By: 09/14/20 Additional Comments F/U for TF tolerance, vent status, propofol status
[2020-09-12] MEDS: ASPIRIN 81 MG TAB CHEW PO SCH (09:45)
[2020-09-12] MEDS: SPIRONOLACTONE 25 MG TAB PO SCH (09:45)
[2020-09-12] MEDS: METOPROLOL TARTRATE 25 MG TAB PO SCH ×2 (09:46→21:01)
[2020-09-12] MEDS: LISINOPRIL 5 MG TAB PO SCH (09:46)
[2020-09-12] MEDS: carvediloL 3.125 MG TAB PO SCH ×2 (09:46→21:01)
[2020-09-12] MEDS: LANSOPRAZOLE 30 MG SOLUTAB FEEDTUBE SCH (09:46)
[2020-09-12] MEDS ORDERED: BUMETANIDE 1 MG/4 ML INJ IV ONE (11:00)
--- NOTE | 2020-09-12 11:03 | Progress Note ---
Assessment and Plan -Acute hypoxic respiratory failure on MVS Possible aspiration pneumonia -Lactic acidosis/sepsis due to pneumonia -Elevated D-dimers; Lower extremity venous Dopplers negative for DVT -Acute toxic metabolic encephalopathy; POA Due to alcohol intoxication, hypoxia -Acute systolic congestive heart failure; ejection fraction 20 to 25% -Four-chamber dilated cardiomyopathy -Acute alcohol intoxication, alcohol abuse disorder -Leukocytosis; secondary to pneumonia -Hyperglycemia; no evidence of diabetes mellitus -Hypokalemia; resolved - Extreme Obesity; BMI 51.7 -Thrombocytopenia - continue daily SAT and SBT assessment as tolerated -Added Precedex for agitation management - continue to titrate supplemental oxygen for SpO2 89-92% - VAP bundle addressed, aspiration precautions HOB >40 -Heart failure measures, keep negative balance. An extra dose of Furosemide was given today -Continue with diuresis while monitoring hemodynamics and electrolyte profile - continue lung protective strategies - continue bronchodilators with pulmonary hygiene per RT - wean per pulmonary driven protocols - continue accuchecks with glycemic control per SSI (While critically ill target blood glucose of 140-180 mg/dL; avoid hypoglycemia) - sedation for target RASS 0 to -1 -Titrate analgesia to CPOT 0-3 - avoid nephrotoxins, renally dose all medications - continue empiric antibitoics, then de-escalate - prn analgesia per CPOT score - Maintenance of sleep-wake cycle, avoid delirium - continue enteral nutritional support at goal rate as tolerated - VTE prophylaxis- Enoxaparin -Stress ulcer prophylaxis-Lansoprazole - PT/OT/ROM exercises - continue mobility protocol, off loading per facility protocol for pressure ulcer prevention - Monitor hemodynamics closely - continue other care per attending / other consultants CONDITION: CRITICAL PROGNOSIS: GUARDED CODE STATUS: FULL CODE The high probability of a clinically significant, sudden or life-threatening deterioration of the [respiratory, cardiovascular, renal & neurologic] system(s) required my full and direct attention, intervention and personal management. The aggregate critical care time was [35] minutes without overlap. Time includes spent on; [x] Data Review and interpretation [x] Patient assessment and monitoring of vital signs [x] Documentation [x] Medication orders and management Subjective Date of service: 09/12/20 Principal diagnosis: Ac hypoxemic and hypercapnic resp failure; EtOH OD; Acute encephalopathy Interval history: Patient is seen today for: Acute hypoxemic and hypercapnic respiratory failure; Alcohol overdose; Acute encephalopathy; Leukocytosis; DM II; Morbid obesity Seen and examined at bedside; 24hour events reviewed; nursing and respiratory care staff consulted; no adverse overnight events reported to me; resting pe acefully in bed; failed SBT after about 2 hour SBPs up to 200s with tachycardia >100 ; no emesis or overt aspiration Awake and alert, appropriate off sedation COVID-19 test negative - 09/10/2020 Objective Vital Signs - 12hr 09/11/20 09/11/20 09/11/20 23:11 23:21 23:30 Temperature Pulse Rate 57 L 59 L 52 L Pulse Rate [ From Monitor] Respiratory 25 H 27 H 26 H Rate Blood Pressure 128/82 120/74 O2 Sat by Pulse 100 99 98 Oximetry 09/11/20 09/11/20 09/11/20 23:33 23:41 23:51 Temperature 98.9 F Pulse Rate 50 L 50 L Pulse Rate [ From Monitor] Respiratory 24 25 H Rate Blood Pressure 120/74 114/69 O2 Sat by Pulse 99 99 Oximetry 09/12/20 09/12/20 09/12/20 00:00 00:11 00:12 Temperature Pulse Rate 50 L 50 L 50 L Pulse Rate [ From Monitor] Respiratory 25 H 25 H Rate Blood Pressure 116/70 116/70 116/70 O2 Sat by Pulse 99 99 99 Oximetry 09/12/20 09/12/20 09/12/20 00:21 00:30 00:41 Temperature Pulse Rate 51 L 60 57 L Pulse Rate [ From Monitor] Respiratory 24 24 25 H Rate Blood Pressure 114/70 130/87 130/87 O2 Sat by Pulse 99 100 100 Oximetry 09/12/20 09/12/20 09/12/20 00:51 01:00 01:11 Temperature Pulse Rate 51 L 50 L 50 L Pulse Rate [ From Monitor] Respiratory 24 25 H 24 Rate Blood Pressure 126/83 120/78 120/78 O2 Sat by Pulse 99 100 99 Oximetry 09/12/20 09/12/20 09/12/20 01:21 01:30 01:41 Temperature Pulse Rate 59 L 50 L 50 L Pulse Rate [ From Monitor] Respiratory 24 25 H 25 H Rate Blood Pressure 130/86 126/77 126/77 O2 Sat by Pulse 100 99 100 Oximetry 09/12/20 09/12/20 09/12/20 01:51 02:00 02:11 Temperature Pulse Rate 49 L 50 L 51 L Pulse Rate [ From Monitor] Respiratory 24 24 25 H Rate Blood Pressure 122/77 118/74 118/74 O2 Sat by Pulse 100 100 99 Oximetry 09/12/20 09/12/20 09/12/20 02:21 02:30 02:41 Temperature Pulse Rate 50 L 58 L 58 L Pulse Rate [ From Monitor] Respiratory 18 25 H 24 Rate Blood Pressure 122/75 125/85 125/85 O2 Sat by Pulse 99 99 99 Oximetry 09/12/20 09/12/20 09/12/20 02:51 03:00 03:11 Temperature Pulse Rate 60 58 L 61 Pulse Rate [ From Monitor] Respiratory 24 24 24 Rate Blood Pressure 138/92 129/89 129/89 O2 Sat by Pulse 100 100 100 Oximetry 09/12/20 09/12/20 09/12/20 03:21 03:23 03:30 Temperature 98.6 F Pulse Rate 59 L 58 L Pulse Rate [ From Monitor] Respiratory 29 H 25 H Rate Blood Pressure 145/97 133/88 O2 Sat by Pulse 100 100 Oximetry 09/12/20 09/12/20 09/12/20 03:41 03:51 04:00 Temperature Pulse Rate 66 57 L 49 L Pulse Rate [ 63 From Monitor] Respiratory 18 25 H 25 H Rate Blood Pressure 133/88 136/89 121/80 O2 Sat by Pulse 100 100 100 Oximetry 09/12/20 09/12/20 09/12/20 04:11 04:21 04:30 Temperature Pulse Rate 57 L 47 L 59 L Pulse Rate [ From Monitor] Respiratory 26 H 24 24 Rate Blood Pressure 121/80 121/76 129/84 O2 Sat by Pulse 100 100 100 Oximetry 09/12/20 09/12/20 09/12/20 04:41 04:51 05:00 Temperature Pulse Rate 60 64 64 Pulse Rate [ From Monitor] Respiratory 25 H 25 H 29 H Rate Blood Pressure 129/84 147/94 148/89 O2 Sat by Pulse 100 100 100 Oximetry 09/12/20 09/12/20 09/12/20 05:11 05:21 05:30 Temperature Pulse Rate 65 50 L 60 Pulse Rate [ From Monitor] Respiratory 22 25 H 30 H Rate Blood Pressure 148/89 141/93 151/97 O2 Sat by Pulse 100 100 100 Oximetry 09/12/20 09/12/20 09/12/20 05:41 05:51 06:00 Temperature Pulse Rate 56 L 56 L 48 L Pulse Rate [ From Monitor] Respiratory 29 H 27 H 24 Rate Blood Pressure 151/97 143/95 126/79 O2 Sat by Pulse 100 99 99 Oximetry 09/12/20 09/12/20 09/12/20 06:11 06:20 06:30 Temperature Pulse Rate 67 77 66 Pulse Rate [ From Monitor] Respiratory 18 24 26 H Rate Blood Pressure 126/79 O2 Sat by Pulse 100 100 99 Oximetry 09/12/20 09/12/20 09/12/20 06:40 06:50 07:00 Temperature Pulse Rate 58 L 62 63 Pulse Rate [ From Monitor] Respiratory 29 H 20 22 Rate Blood Pressure 123/81 126/90 O2 Sat by Pulse 100 100 100 Oximetry 09/12/20 09/12/20 09/12/20 07:10 07:20 07:30 Temperature Pulse Rate 50 L 50 L 55 L Pulse Rate [ From Monitor] Respiratory 26 H 25 H 26 H Rate Blood Pressure 126/90 119/79 O2 Sat by Pulse 99 98 98 Oximetry 09/12/20 09/12/20 09/12/20 07:40 07:47 07:50 Temperature Pulse Rate 48 L 63 63 Pulse Rate [ From Monitor] Respiratory 24 26 H Rate Blood Pressure 119/79 126/90 121/75 O2 Sat by Pulse 98 100 98 Oximetry 09/12/20 09/12/20 09/12/20 08:00 08:10 08:20 Temperature 98.9 F Pulse Rate 61 50 L 49 L Pulse Rate [ From Monitor] Respiratory 26 H 26 H 25 H Rate Blood Pressure 131/84 131/84 136/86 O2 Sat by Pulse 99 99 99 Oximetry 09/12/20 09/12/20 09/12/20 08:30 08:40 08:50 Temperature Pulse Rate 50 L 51 L 51 L Pulse Rate [ From Monitor] Respiratory 25 H 25 H 25 H Rate Blood Pressure 118/74 118/74 141/94 O2 Sat by Pulse 99 99 98 Oximetry 09/12/20 09/12/20 09/12/20 09:00 09:10 09:20 Temperature Pulse Rate 83 71 69 Pulse Rate [ From Monitor] Respiratory 20 24 24 Rate Blood Pressure 140/104 140/104 148/103 O2 Sat by Pulse 100 99 99 Oximetry 09/12/20 09/12/20 09/12/20 09:30 09:40 09:45 Temperature Pulse Rate 64 67 81 Pulse Rate [ From Monitor] Respiratory 24 24 Rate Blood Pressure 156/95 156/95 156/95 O2 Sat by Pulse 98 99 Oximetry 09/12/20 09/12/20 09/12/20 09:46 09:50 10:00 Temperature Pulse Rate 80 89 77 Pulse Rate [ From Monitor] Respiratory 15 24 Rate Blood Pressure 175/118 175/118 165/104 O2 Sat by Pulse 100 99 Oximetry 09/12/20 09/12/20 09/12/20 10:10 10:20 10:30 Temperature Pulse Rate 85 76 73 Pulse Rate [ From Monitor] Respiratory 24 24 24 Rate Blood Pressure 165/104 159/100 170/100 O2 Sat by Pulse 98 99 98 Oximetry 09/12/20 09/12/20 10:40 10:50 Temperature Pulse Rate 83 86 Pulse Rate [ From Monitor] Respiratory 26 H 22 Rate Blood Pressure 170/100 189/130 O2 Sat by Pulse 97 98 Oximetry Constitutional: no acute distress, other (middle aged morbidly obese male without vemtilator dyssynchrony) Eyes: non-icteric ENT: oropharynx moist, other (ETT 25 cm RACHEAL) Neck: supple, no lymphadenopathy, no JVD, other (large neck circumference) Effort: normal Ascultation: Bilateral: diminished breath sounds, rhonchi Percussion: Bilateral: not dull Cardiovascular: regular rate and rhythm Gastrointestinal: normoactive bowel sounds, soft, non-tender, non-distended (protuberant) Integumentary: normal Extremities: no cyanosis, pink and warm, pulses normal, no ischemia or petechiae, edema (trace) Neurologic: non-focal exam (grossly), pupils equal and round, CN II-XII normal, motor strength normal and Psychiatric: mood appropriate, affect normal CBC and BMP: 09/13/20 04:29 09/13/20 04:29 ABG, PT/INR, D-dimer: ABG ABG pH 7.507 (7.320-7.450) H 09/12/20 05:01 POC ABG pCO2 28.3 mmHg (32.0-48.0) L 09/12/20 05:01 ABG pCO2 31.8 mm Hg 09/08/20 16:25 POC ABG pO2 107.5 mmHg (83-108) 09/12/20 05:01 ABG pO2 117.8 mm Hg (80.0-90.0) H 09/08/20 16:25 POC ABG HCO3 21.9 09/12/20 05:01 ABG O2 Saturation 98.9 (0-100) 09/12/20 05:01 PT/INR, D-dimer D-Dimer 3467.79 ng/mlDDU (0-234) H 09/09/20 15:19 Abnormal lab findings: Abnormal Labs 09/08/20 09/08/20 09/08/20 07:51 08:15 08:15 WBC 15.6 H RBC 6.67 H Hgb 17.7 H Hct 57.5 H MCV MCH 27 L MCHC 31 L RDW 18.1 H Plt Count Lymph % (Auto) Seg Neutrophils % Seg Neuts % (Manual) 71.0 H Seg Neutrophils # Seg Neutrophils # Man 11.1 H D-Dimer ABG pH POC ABG pCO2 POC ABG pO2 ABG pO2 ABG Base Excess ABG Hemoglobin ABG Potassium ABG Chloride ABG Glucose Carboxyhemoglobin Potassium 3.5 L Chloride 97.7 L Carbon Dioxide BUN 21 H Glucose 228 H POC Glucose Lactic Acid Calcium Magnesium Total Protein Albumin HDL Cholesterol Lipase Arterial Blood Glucose Arterial Blood Ionized Calcium Salicylates < 0.3 L Acetaminophen Plasma/Serum Alcohol 09/08/20 09/08/20 09/08/20 08:15 08:15 08:20 WBC RBC Hgb Hct MCV MCH MCHC RDW Plt Count Lymph % (Auto) Seg Neutrophils % Seg Neuts % (Manual) Seg Neutrophils # Seg Neutrophils # Man D-Dimer ABG pH POC ABG pCO2 POC ABG pO2 ABG pO2 ABG Base Excess ABG Hemoglobin ABG Potassium ABG Chloride ABG Glucose Carboxyhemoglobin Potassium Chloride Carbon Dioxide BUN Glucose POC Glucose Lactic Acid 4.40 H* Calcium Magnesium Total Protein Albumin HDL Cholesterol Lipase Arterial Blood Glucose Arterial Blood Ionized Calcium Salicylates Acetaminophen 5.0 L Plasma/Serum Alcohol 0.11 H 09/08/20 09/08/20 09/08/20 09:15 16:25 17:19 WBC RBC Hgb Hct MCV MCH MCHC RDW Plt Count Lymph % (Auto) Seg Neutrophils % Seg Neuts % (Manual) Seg Neutrophils # Seg Neutrophils # Man D-Dimer ABG pH 7.222 L POC ABG pCO2 POC ABG pO2 ABG pO2 185.7 H 117.8 H ABG Base Excess -6.5 L ABG Hemoglobin 18.1 H ABG Potassium ABG Chloride ABG Glucose Carboxyhemoglobin Potassium Chloride Carbon Dioxide BUN Glucose POC Glucose 106 H Lactic Acid Calcium Magnesium Total Protein Albumin HDL Cholesterol Lipase Arterial Blood Glucose Arterial Blood Ionized Calcium Salicylates Acetaminophen Plasma/Serum Alcohol 09/08/20 09/09/20 09/09/20 17:39 01:32 03:08 WBC RBC Hgb Hct MCV MCH MCHC RDW Plt Count Lymph % (Auto) Seg Neutrophils % Seg Neuts % (Manual) Seg Neutrophils # Seg Neutrophils # Man D-Dimer ABG pH POC ABG pCO2 POC ABG pO2 ABG pO2 ABG Base Excess ABG Hemoglobin 18.2 H ABG Potassium ABG Chloride ABG Glucose 145 H Carboxyhemoglobin Potassium Chloride Carbon Dioxide BUN Glucose POC Glucose 128 H Lactic Acid 2.20 H* Calcium Magnesium Total Protein Albumin HDL Cholesterol Lipase Arterial Blood Glucose 145 H Arterial Blood Ionized Calcium 4.3 L Salicylates Acetaminophen Plasma/Serum Alcohol 09/09/20 09/09/20 09/09/20 04:12 06:10 11:05 WBC RBC Hgb Hct MCV MCH MCHC RDW Plt Count Lymph % (Auto) Seg Neutrophils % Seg Neuts % (Manual) Seg Neutrophils # Seg Neutrophils # Man D-Dimer ABG pH POC ABG pCO2 POC ABG pO2 ABG pO2 ABG Base Excess ABG Hemoglobin ABG Potassium ABG Chloride ABG Glucose Carboxyhemoglobin Potassium Chloride Carbon Dioxide BUN 26 H Glucose 136 H POC Glucose 135 H 139 H Lactic Acid Calcium 7.5 L Magnesium Total Protein 6.0 L D Albumin 2.8 L HDL Cholesterol 33 L Lipase 12 L Arterial Blood Glucose Arterial Blood Ionized Calcium Salicylates Acetaminophen Plasma/Serum Alcohol 09/09/20 09/09/20 09/09/20 15:19 15:43 23:37 WBC RBC Hgb Hct MCV MCH MCHC RDW Plt Count Lymph % (Auto) Seg Neutrophils % Seg Neuts % (Manual) Seg Neutrophils # Seg Neutrophils # Man D-Dimer 3467.79 H ABG pH POC ABG pCO2 POC ABG pO2 ABG pO2 ABG Base Excess ABG Hemoglobin ABG Potassium ABG Chloride ABG Glucose Carboxyhemoglobin Potassium Chloride Carbon Dioxide BUN Glucose POC Glucose 116 H 117 H Lactic Acid Calcium Magnesium Total Protein Albumin HDL Cholesterol Lipase Arterial Blood Glucose Arterial Blood Ionized Calcium Salicylates Acetaminophen Plasma/Serum Alcohol 09/10/20 09/10/20 09/10/20 05:00 05:22 08:47 WBC RBC 6.44 H Hgb 17.2 H Hct 53.2 H MCV 83 L MCH 27 L MCHC RDW 18.1 H Plt Count Lymph % (Auto) 13.3 L Seg Neutrophils % 79.1 H Seg Neuts % (Manual) Seg Neutrophils # 7.9 H Seg Neutrophils # Man D-Dimer ABG pH POC ABG pCO2 POC ABG pO2 73.9 L ABG pO2 ABG Base Excess ABG Hemoglobin 18.0 H ABG Potassium ABG Chloride 110.0 H ABG Glucose 121 H Carboxyhemoglobin 1.6 H Potassium Chloride Carbon Dioxide BUN Glucose POC Glucose 127 H Lactic Acid Calcium Magnesium Total Protein Albumin HDL Cholesterol Lipase Arterial Blood Glucose 121 H Arterial Blood Ionized Calcium Salicylates Acetaminophen Plasma/Serum Alcohol 09/10/20 09/10/20 09/11/20 08:47 11:39 04:24 WBC RBC Hgb Hct MCV MCH MCHC RDW Plt Count Lymph % (Auto) Seg Neutrophils % Seg Neuts % (Manual) Seg Neutrophils # Seg Neutrophils # Man D-Dimer ABG pH 7.456 H POC ABG pCO2 28.6 L POC ABG pO2 123.7 H ABG pO2 ABG Base Excess ABG Hemoglobin ABG Potassium 3.2 L ABG Chloride 108.0 H ABG Glucose 112 H Carboxyhemoglobin 1.9 H Potassium Chloride 108.3 H Carbon Dioxide 20 L BUN 27 H Glucose POC Glucose 107 H Lactic Acid Calcium 7.8 L Magnesium 2.50 H Total Protein 5.8 L Albumin 2.6 L HDL Cholesterol Lipase Arterial Blood Glucose 112 H Arterial Blood Ionized Calcium Salicylates Acetaminophen Plasma/Serum Alcohol 09/11/20 09/11/20 09/11/20 06:22 11:26 13:10 WBC 11.1 H RBC 6.38 H Hgb 16.9 H Hct 52.0 H MCV 82 L MCH 27 L MCHC RDW 17.8 H Plt Count 127 L Lymph % (Auto) Seg Neutrophils % Seg Neuts % (Manual) Seg Neutrophils # Seg Neutrophils # Man D-Dimer ABG pH POC ABG pCO2 POC ABG pO2 ABG pO2 ABG Base Excess ABG Hemoglobin ABG Potassium ABG Chloride ABG Glucose Carboxyhemoglobin Potassium Chloride Carbon Dioxide BUN Glucose POC Glucose 108 H 124 H Lactic Acid Calcium Magnesium Total Protein Albumin HDL Cholesterol Lipase Arterial Blood Glucose Arterial Blood Ionized Calcium Salicylates Acetaminophen Plasma/Serum Alcohol 09/11/20 09/11/20 09/12/20 13:10 17:25 05:01 WBC RBC Hgb Hct MCV MCH MCHC RDW Plt Count Lymph % (Auto) Seg Neutrophils % Seg Neuts % (Manual) Seg Neutrophils # Seg Neutrophils # Man D-Dimer ABG pH 7.507 H POC ABG pCO2 28.3 L POC ABG pO2 ABG pO2 ABG Base Excess ABG Hemoglobin ABG Potassium 3.2 L ABG Chloride 108.0 H ABG Glucose Carboxyhemoglobin 2.0 H Potassium 3.4 L Chloride Carbon Dioxide BUN 28 H Glucose POC Glucose 107 H Lactic Acid Calcium 8.0 L Magnesium Total Protein 5.7 L Albumin 3.3 L HDL Cholesterol Lipase Arterial Blood Glucose Arterial Blood Ionized Calcium Salicylates Acetaminophen Plasma/Serum Alcohol Allied health notes reviewed: nursing
--- NOTE | 2020-09-12 11:31 | Progress Note ---
Assessment and Plan 1. Chronic combined systolic and diastolic heart failure 2. Dilated cardiomyopathy 3. Respiratory failure intubated on mechanical ventilator 4. Essential hypertension 5. Type 2 diabetes mellitus 6. Alcoholism Plan. Patient is currently stable he currently is being weaned off ventilator. He is alert and a little agitated today we will continue conservative management till he is extubated further cardiac work-up pending post extubation. Subjective Date of service: 09/12/20 Principal diagnosis: Ac hypoxemic and hypercapnic resp failure; EtOH OD; Acute encephalopathy Interval history: Alert intubated still on mechanical ventilator. Agitated today Objective Vital Signs Temp Pulse Pulse Resp BP Pulse Ox 09/12/20 11:20 74 24 166/101 98 09/12/20 11:10 80 25 H 154/103 98 09/12/20 11:00 78 24 154/103 98 09/12/20 10:50 86 22 189/130 98 09/12/20 10:40 83 26 H 170/100 97 09/12/20 10:30 73 24 170/100 98 09/12/20 10:20 76 24 159/100 99 09/12/20 10:10 85 24 165/104 98 09/12/20 10:00 77 24 165/104 99 09/12/20 09:50 89 15 175/118 100 09/12/20 09:46 80 175/118 09/12/20 09:45 81 156/95 09/12/20 09:40 67 24 156/95 99 09/12/20 09:30 64 24 156/95 98 09/12/20 09:20 69 24 148/103 99 09/12/20 09:10 71 24 140/104 99 09/12/20 09:00 83 20 140/104 100 09/12/20 08:50 51 L 25 H 141/94 98 09/12/20 08:40 51 L 25 H 118/74 99 09/12/20 08:30 50 L 25 H 118/74 99 09/12/20 08:20 49 L 25 H 136/86 99 09/12/20 08:10 50 L 26 H 131/84 99 09/12/20 08:00 98.9 F 61 26 H 131/84 99 09/12/20 07:50 63 26 H 121/75 98 09/12/20 07:47 63 126/90 100 09/12/20 07:40 48 L 24 119/79 98 09/12/20 07:30 55 L 26 H 119/79 98 09/12/20 07:20 50 L 25 H 98 09/12/20 07:10 50 L 26 H 126/90 99 09/12/20 07:00 63 22 126/90 100 09/12/20 06:50 62 20 123/81 100 09/12/20 06:40 58 L 29 H 100 09/12/20 06:30 66 26 H 99 09/12/20 06:20 77 24 100 09/12/20 06:11 67 18 126/79 100 09/12/20 06:00 48 L 24 126/79 99 09/12/20 05:51 56 L 27 H 143/95 99 09/12/20 05:41 56 L 29 H 151/97 09/12/20 05:30 60 30 H 151/97 09/12/20 05:21 50 L 25 H 141/93 09/12/20 05:11 65 22 148/89 09/12/20 05:00 64 29 H 148/89 09/12/20 04:51 64 25 H 147/94 09/12/20 04:41 60 25 H 129/84 09/12/20 04:30 59 L 24 129/84 09/12/20 04:21 47 L 24 121/76 09/12/20 04:11 57 L 26 H 121/80 09/12/20 04:00 49 L 63 25 H 121/80 09/12/20 03:51 57 L 25 H 136/89 09/12/20 03:41 66 18 133/88 09/12/20 03:30 58 L 25 H 133/88 09/12/20 03:23 98.6 F 09/12/20 03:21 59 L 29 H 145/97 09/12/20 03:11 61 24 129/89 09/12/20 03:00 58 L 24 129/89 100 09/12/20 02:51 60 24 138/92 09/12/20 02:41 58 L 24 125/85 99 09/12/20 02:30 58 L 25 H 125/85 99 09/12/20 02:21 50 L 18 122/75 99 09/12/20 02:11 51 L 25 H 118/74 99 09/12/20 02:00 50 L 24 118/74 100 09/12/20 01:51 49 L 24 122/77 100 09/12/20 01:41 50 L 25 H 126/77 100 09/12/20 01:30 50 L 25 H 126/77 99 09/12/20 01:21 59 L 24 130/86 100 09/12/20 01:11 50 L 24 120/78 99 09/12/20 01:00 50 L 25 H 120/78 100 09/12/20 00:51 51 L 24 126/83 99 09/12/20 00:41 57 L 25 H 130/87 100 09/12/20 00:30 60 24 130/87 100 09/12/20 00:21 51 L 24 114/70 99 09/12/20 00:12 50 L 116/70 99 09/12/20 00:11 50 L 25 H 116/70 99 09/12/20 00:00 50 L 25 H 116/70 99 09/11/20 23:51 50 L 25 H 114/69 99 09/11/20 23:41 50 L 24 120/74 99 09/11/20 23:33 98.9 F 09/11/20 23:30 52 L 26 H 120/74 98 09/11/20 23:21 59 L 27 H 99 09/11/20 23:11 57 L 25 H 128/82 100 09/11/20 23:00 60 25 H 128/82 99 09/11/20 22:51 61 25 H 142/92 99 09/11/20 22:41 73 17 150/96 100 09/11/20 22:30 69 15 150/96 100 09/11/20 22:21 63 16 137/91 100 09/11/20 22:10 66 16 100 09/11/20 22:00 63 25 H 143/91 100 09/11/20 21:51 69 25 H 138/92 100 09/11/20 21:46 62 138/92 09/11/20 21:41 60 24 140/91 99 09/11/20 21:31 62 24 140/91 99 09/11/20 21:30 64 24 140/91 100 09/11/20 21:21 64 25 H 138/93 100 09/11/20 21:11 64 24 140/92 99 09/11/20 21:05 67 24 99 09/11/20 21:00 64 25 H 140/92 99 09/11/20 20:51 70 24 141/88 100 09/11/20 20:41 65 24 99 09/11/20 20:34 64 114/69 100 09/11/20 20:30 53 L 24 114/69 99 09/11/20 20:21 54 L 24 130/84 99 09/11/20 20:10 61 24 99 09/11/20 20:00 64 60 25 H 135/86 100 09/11/20 19:58 99.1 F 09/11/20 19:51 66 24 124/79 99 09/11/20 19:41 61 23 99 09/11/20 19:30 70 21 137/92 100 09/11/20 19:21 54 L 13 117/73 99 09/11/20 19:11 54 L 21 120/74 99 09/11/20 19:00 55 L 24 120/74 99 09/11/20 18:51 54 L 24 127/83 99 09/11/20 18:41 59 L 24 98 09/11/20 18:30 67 25 H 140/88 99 09/11/20 18:21 63 26 H 127/81 99 09/11/20 18:11 61 24 133/84 97 09/11/20 18:00 68 61 25 H 133/84 98 09/11/20 17:51 62 24 124/77 98 09/11/20 17:41 62 25 H 97 09/11/20 17:30 66 24 120/75 97 09/11/20 17:21 68 24 122/75 97 09/11/20 17:11 69 24 96 09/11/20 17:00 72 24 122/72 97 09/11/20 16:50 75 24 97 09/11/20 16:41 75 24 121/75 98 09/11/20 16:30 84 24 121/75 98 09/11/20 16:21 88 24 130/79 97 09/11/20 16:11 94 H 24 132/77 98 09/11/20 16:01 103 H 25 H 132/77 97 09/11/20 15:51 118 H 25 H 186/104 96 09/11/20 15:41 137 H 26 H 92 05/28/21 15:31 128 H 39 H 179/110 95 09/11/20 15:25 103 H 132/77 97 09/11/20 15:21 127 H 37 H 179/110 96 09/11/20 15:11 124 H 36 H 95 09/11/20 15:00 128 H 26 H 184/113 95 09/11/20 14:50 122 H 30 H 96 09/11/20 14:41 117 H 37 H 97 09/11/20 14:30 120 H 34 H 185/117 97 09/11/20 14:20 107 H 37 H 98 09/11/20 14:11 108 H 36 H 160/109 98 09/11/20 14:00 103 H 118 H 30 H 160/109 99 09/11/20 13:51 102 H 38 H 97 09/11/20 13:40 115 H 26 H 98 09/11/20 13:30 84 24 157/102 99 09/11/20 13:20 85 26 H 159/108 100 09/11/20 13:10 76 15 99 09/11/20 13:00 81 18 147/109 100 09/11/20 12:56 98.8 F 09/11/20 12:50 72 24 130/89 99 09/11/20 12:40 76 18 98 09/11/20 12:30 85 13 129/90 98 09/11/20 12:20 85 16 129/90 99 09/11/20 12:10 72 24 124/84 100 09/11/20 12:00 69 24 124/84 99 09/11/20 11:50 68 24 123/82 99 09/11/20 11:40 73 20 117/73 99 09/11/20 11:30 73 21 117/73 99 - Physical Examination General: Other (intubated) HEENT: Positive: PERRL, Normocephaly, Mucus Membranes Moist Neck: Positive: neck supple, trachea midline. Negative: JVD/HJR Cardiac: Positive: Regular Rate, S1/S2, PMI, Dilated, Laterally Displaced Lungs: Positive: clear to auscultation, No Wheeze, Rales, Rhonchi Neuro: Positive: Grossly Intact, No Lateralizing Findings Abdomen: Positive: Unremarkable, Soft Extremities: Absent: edema - Labs and Meds Cardiac Enzymes 09/11/20 Range/Units 13:10 AST 23 (5-40) units/L CBC 09/11/20 Range/Units 13:10 WBC 11.1 H (4.5-11.0) K/mm3 RBC 6.38 H (3.65-5.03) M/mm3 Hgb 16.9 H (11.8-15.2) gm/dl Hct 52.0 H (35.5-45.6) % Plt Count 127 L (140-440) K/mm3 Lymph # (Auto) Not Reportable [place] # (Auto) Not Reportable Eos # (Auto) Not Reportable Baso # (Auto) Not Reportable Comprehensive Metabolic Panel 09/11/20 Range/Units 13:10 Sodium 142 (137-145) mmol/L Potassium 3.4 L (3.6-5.0) mmol/L Chloride 106.2 (98-107) mmol/L Carbon Dioxide 24 (22-30) mmol/L BUN 28 H (9-20) mg/dL Creatinine 1.1 (0.8-1.3) mg/dL Glucose 99 (75-100) mg/dL Calcium 8.0 L (8.4-10.2) mg/dL AST 23 (5-40) units/L ALT 17 (7-56) units/L Alkaline Phosphatase 97 (35-129) units/L Total Protein 5.7 L (6.3-8.2) g/dL Albumin 3.3 L (3.9-5) g/dL - Allied health notes Allied health notes reviewed: nursing
[2020-09-12] MEDS: ENOXAPARIN 40 MG/0.4 ML INJ SUB-Q SCH (21:01)
[2020-09-13] MEDS: CEFEPIME/NS 2 GM/100 ML 2 GM/100 ML BAG IV SCH ×2 (01:57→09:58)
[2020-09-13] MEDS: INSULIN LISPRO 100 UNIT/ML SUB-Q SCH ×4 (01:57→17:22)
[2020-09-13 04:48] LABS: Basophils % (Auto) 0.3 % (0.0-1.8); Eosinophils # (Auto) 0.5 K/mm3 (0.0-0.4); Eosinophils % (Auto) 3.8 % (0.0-4.3); Hematocrit 55.4 % (35.5-45.6); Hemoglobin 18.2 gm/dl (11.8-15.2); Lymphocytes % (Auto) 8.3 % (13.4-35.0); Mean Corpuscular HGB Conc 33 % (32-34); Mean Corpuscular Volume 82 fl (84-94); Monocytes % (Auto) 8.6 % (0.0-7.3); Red Blood Count 6.74 M/mm3 (3.65-5.03); Red Cell Distribution Width 17.2 % (13.2-15.2)
[2020-09-13 05:02] LABS: Platelet Count 147 K/mm3 (140-440)
[2020-09-13 05:07] LABS: Alanine Aminotransferase 26 units/L (7-56); Albumin 3.3 g/dL (3.9-5); BUN/Creatinine Ratio 26; Blood Urea Nitrogen 29 mg/dL (9-20); Calcium 8.4 mg/dL (8.4-10.2); Hemolysis Index 9
[2020-09-13] MEDS: FUROSEMIDE 40 MG/4 ML INJ IV SCH ×2 (06:27→17:22)
--- NOTE | 2020-09-13 08:33 | Progress Note ---
Assessment and Plan Assessment and plan: COVID-19 test negative - 09/10/2020 --Acute hypoxic respiratory failure; Possible aspiration pneumonia. Intubated on ventilatory support Wean as tolerated and extubate Nebulizers, IV antibiotics, follow cultures Pulmonary /critical care following --Elevated D-dimers; Lower extremity venous Dopplers negative for DVT CTA chest negative for PE --Hypokalemia; K3.2 Replenished with oral KCl 40 mEq x 2 Magnesium levels normal, monitor electrolytes --Acute toxic metabolic encephalopathy; POA Due to alcohol intoxication, hypoxia. Patient is currently intubated on vent --Acute systolic congestive heart failure; ejection fraction 20 to 25% IV diuretics, continue beta-blockers, TONO inhibitors, input output monitoring, low-sodium diet Fluid restriction, cardiology following --Four-chamber dilated cardiomyopathy; Antifailure medications, cardiology consult --Acute alcohol intoxication; Thiamine folic acid, IV Protonix, IV fluids, Supportive care Patient needs counseling when medically stable --Pneumonia Community-acquired versus aspiration Empiric antibiotics, ventilatory support Follow cultures, ID consult if needed --Leukocytosis; secondary to pneumonia Treat the underlying cause --Lactic acidosis/sepsis due to pneumonia Continue empiric antibiotics, follow cultures --Alcohol withdrawal symptoms; [facility] protocol Will counselor dormitory and advised to quit alcohol intake when patient is more alert and awake --Hyperglycemia; no evidence of diabetes mellitus Accu-Chek sliding scale coverage, A1c 5.9 --Hypokalemia; resolved replenish per protocol as needed --Severe malnutrition/hypoalbuminemia; present on admission Mild improvement Albumin is 3.3 today, nutrition supplements Nutrition consult --Thrombocytopenia; probably alcohol related Worsening platelet count, rule out HIT, test ordered --Obesity; BMI 51.7 Patient needs weight reduction when medically stable --DVT prophylaxis; Lovenox Closely monitor the patient and adjust management as needed We will try to talk to the family and get more medical history Restraint for safety Critical care time 34 minutes The high probability of a clinically significant, sudden or life threatening deterioration of the [multi] system(s) required my full and direct attention, intervention and personal management. The aggregate critical care time was [35] minutes. This time is in addition to time spent performing reported procedures but includes the following: [x] Data Review and interpretation [x] Patient assessment and monitoring of vital signs [x] Documentation [x] Medication orders and management 09/09/2020; Patient is intubated on ventilatory support, wean as tolerated and extubate Pulmonary critical evaluation and recommendations noted and appreciated Acute versus acute on chronic CHF systolic dysfunction/dilated cardiomyopathy Start Lasix, unable to give beta-blockers and TONO inhibitors due to hypotension Cardiology consult placed 09/10/2020; patient remains intubated on ventilatory support Will wean as tolerated and extubate Elevated D-dimers, venous Doppler lower extremity negative for DVT Will get CTA chest to rule out PE when medically stable Cardiomyopathy, cardiology consulted 09/11/2020 remains intubated on ventilator support on weaning parameters Wean as tolerated and extubate, continue current management 09/12/2020; patient remains intubated on ventilatory support, wean as tolerated and extubate Blood pressure slightly improved, on antifailure medications 09/13/2020; patient remains intubated on vent, hypokalemia, replaced with oral KCl Wean as tolerated and extubate, consult recommendations noted Plan of care reviewed with the patient's nurse and case management History Interval history: I have seen and examined the patient at the bedside in ICU this morning Patient's chart and medications reviewed No new overnight events reported by the nursing staff Patient remains intubated on ventilatory support On weaning parameters Alert and awake, not in acute distress Vital signs reviewed Hospitalist Physical - Constitutional Vitals: Temp Pulse Resp BP Pulse Ox 99.2 F 62 30 H 158/99 98 09/13/20 07:00 09/13/20 06:00 09/13/20 06:00 09/13/20 06:00 09/13/20 06:00 General appearance: Present: no acute distress, well-nourished, obese (Morbidly obese), other (intubated on the vent) - EENT Eyes: Present: PERRL, EOM intact - Neck Neck: Present: supple, normal ROM - Respiratory Respiratory effort: normal Respiratory: bilateral: diminished, negative: rales, rhonchi, wheezing - Cardiovascular Rhythm: regular Heart Sounds: Present: S1 & S2 - Extremities Extremities: no ischemia, No edema - Abdominal General gastrointestinal: soft, non-tender, non-distended, normal bowel sounds - Integumentary Integumentary: Present: clear, warm - Psychiatric Psychiatric: other (Intubated on vent) - Neurologic Neurologic: other (Intubated on vent) Results - Labs CBC & Chem 7: 09/13/20 04:29 09/13/20 04:29 Labs: Laboratory Last Values WBC 11.8 K/mm3 (4.5-11.0) H 09/13/20 04:29 RBC 6.74 M/mm3 (3.65-5.03) H 09/13/20 04:29 Hgb 18.2 gm/dl (11.8-15.2) H 09/13/20 04:29 Hct 55.4 % (35.5-45.6) H 09/13/20 04:29 MCV 82 fl (84-94) L 09/13/20 04:29 MCH 27 pg (28-32) L 09/13/20 04:29 MCHC 33 % (32-34) 09/13/20 04:29 RDW 17.2 % (13.2-15.2) H 09/13/20 04:29 Plt Count 147 K/mm3 (140-440) 09/13/20 04:29 Lymph % (Auto) 8.3 % (13.4-35.0) L 09/13/20 04:29 [place] % (Auto) 8.6 % (0.0-7.3) H 09/13/20 04:29 Eos % (Auto) 3.8 % (0.0-4.3) 09/13/20 04:29 Baso % (Auto) 0.3 % (0.0-1.8) 09/13/20 04:29 Lymph # (Auto) 1.0 K/mm3 (1.2-5.4) L 09/13/20 04:29 [place] # (Auto) 1.0 K/mm3 (0.0-0.8) H 09/13/20 04:29 Eos # (Auto) 0.5 K/mm3 (0.0-0.4) H 09/13/20 04:29 Baso # (Auto) 0.0 K/mm3 (0.0-0.1) 09/13/20 04:29 Add Manual Diff Complete 09/08/20 08:15 Total Counted 100 09/08/20 08:15 Seg Neutrophils % 79.0 % (40.0-70.0) H 09/13/20 04:29 Seg Neuts % (Manual) 71.0 % (40.0-70.0) H 09/08/20 08:15 Band Neutrophils % 5.0 % 09/08/20 08:15 Lymphocytes % (Manual) 14.0 % (13.4-35.0) 09/08/20 08:15 Monocytes % (Manual) 3.0 % (0.0-7.3) 09/08/20 08:15 Eosinophils % (Manual) 1.0 % (0.0-4.3) 09/08/20 08:15 Metamyelocytes % 6.0 % 09/08/20 08:15 Nucleated RBC % Not Reportable 09/08/20 08:15 Seg Neutrophils # 9.3 K/mm3 (1.8-7.7) H 09/13/20 04:29 Seg Neutrophils # Man 11.1 K/mm3 (1.8-7.7) H 09/08/20 08:15 Band Neutrophils # 0.8 K/mm3 09/08/20 08:15 Lymphocytes # (Manual) 2.2 K/mm3 (1.2-5.4) 09/08/20 08:15 Abs React Lymphs (Man) 0.0 K/mm3 09/08/20 08:15 Monocytes # (Manual) 0.5 K/mm3 (0.0-0.8) 09/08/20 08:15 Eosinophils # (Manual) 0.2 K/mm3 (0.0-0.4) 09/08/20 08:15 Basophils # (Manual) 0.0 K/mm3 (0.0-0.1) 09/08/20 08:15 Metamyelocytes # 0.9 K/mm3 09/08/20 08:15 Myelocytes # 0.0 K/mm3 09/08/20 08:15 Promyelocytes # 0.0 K/mm3 09/08/20 08:15 Blast Cells # 0.0 K/mm3 09/08/20 08:15 WBC Morphology Not Reportable 09/08/20 08:15 Hypersegmented Neuts Not Reportable 09/08/20 08:15 Hyposegmented Neuts Not Reportable 09/08/20 08:15 Hypogranular Neuts Not Reportable 09/08/20 08:15 Smudge Cells Not Reportable 09/08/20 08:15 Toxic Granulation Not Reportable 09/08/20 08:15 Toxic Vacuolation Not Reportable 09/08/20 08:15 Dohle Bodies Not Reportable 09/08/20 08:15 Pelger-Huet Anomaly Not Reportable 09/08/20 08:15 Lamar Rods Not Reportable 09/08/20 08:15 Platelet Estimate Consistent w auto 09/08/20 08:15 Clumped Platelets Not Reportable 09/08/20 08:15 Plt Clumps, EDTA Not Reportable 09/08/20 08:15 Large Platelets Not Reportable 09/08/20 08:15 Giant Platelets Not Reportable 09/08/20 08:15 Platelet Satelliting Not Reportable 09/08/20 08:15 Plt Morphology Comment Not Reportable 09/08/20 08:15 RBC Morphology Normal 09/08/20 08:15 Dimorphic RBCs Not Reportable 09/08/20 08:15 Polychromasia Not Reportable 09/08/20 08:15 Hypochromasia Not Reportable 09/08/20 08:15 Poikilocytosis Not Reportable 09/08/20 08:15 Anisocytosis Not Reportable 09/08/20 08:15 Microcytosis Not Reportable 09/08/20 08:15 Macrocytosis Not Reportable 09/08/20 08:15 Spherocytes Not Reportable 09/08/20 08:15 Pappenheimer Bodies Not Reportable 09/08/20 08:15 Sickle Cells Not Reportable 09/08/20 08:15 Target Cells Not Reportable 09/08/20 08:15 Tear Drop Cells Not Reportable 09/08/20 08:15 Ovalocytes Not Reportable 09/08/20 08:15 Helmet Cells Not Reportable 09/08/20 08:15 Cochran-Draper Bodies Not Reportable 09/08/20 08:15 Spray Rings Not Reportable 09/08/20 08:15 [place] Cells Not Reportable 09/08/20 08:15 Bite Cells Not Reportable 09/08/20 08:15 Crenated Cell Not Reportable 09/08/20 08:15 Elliptocytes Not Reportable 09/08/20 08:15 Acanthocytes (Spur) Not Reportable 09/08/20 08:15 Rouleaux Not Reportable 09/08/20 08:15 Hemoglobin C Crystals Not Reportable 09/08/20 08:15 Schistocytes Not Reportable 09/08/20 08:15 Malaria parasites Not Reportable 09/08/20 08:15 Warner Bodies Not Reportable 09/08/20 08:15 Hem Pathologist Commnt No 09/08/20 08:15 D-Dimer 3467.79 ng/mlDDU (0-234) H 09/09/20 15:19 ABG pH 7.509 (7.320-7.450) H 09/13/20 03:27 POC ABG pCO2 29.8 mmHg (32.0-48.0) L 09/13/20 03:27 ABG pCO2 31.8 mm Hg 09/08/20 16:25 POC ABG pO2 81.6 mmHg (83-108) L 09/13/20 03:27 ABG pO2 117.8 mm Hg (80.0-90.0) H 09/08/20 16:25 POC ABG HCO3 23.2 09/13/20 03:27 ABG HCO3 20.9 mmol/L (20.0-26.0) 09/08/20 16:25 ABG O2 Saturation 98.1 (0-100) 09/13/20 03:27 ABG O2 Content 24.5 (0.0-44) 09/08/20 16:25 POC ABG Base Excess 1.6 09/13/20 03:27 ABG Base Excess -2.0 mmol/L (-2.0-3.0) 09/08/20 16:25 ABG Hemoglobin 19.2 (12.0-17.5) H 09/13/20 03:27 ABG Oxyhemoglobin 96.1 (94-98) 09/13/20 03:27 ABG Carboxyhemoglobin 2.0 % (0.0-5.0) 09/08/20 16:25 ABG Methemoglobin 0.2 (0.0-1.5) 09/13/20 03:27 ABG Sodium 145.3 mmol/L (136.0-145.0) H 09/13/20 03:27 ABG Potassium 3.0 mmol/L (3.40-4.50) L 09/13/20 03:27 ABG Chloride 105.0 mmol/L (98-107) 09/13/20 03:27 ABG Glucose 97 mg/dL (65-95) H 09/13/20 03:27 Oxyhemoglobin 95.8 % (95.0-99.0) 09/08/20 16:25 Carboxyhemoglobin 1.8 (0.5-1.5) H 09/13/20 03:27 FiO2 80 % 09/08/20 16:25 FiO2 % 35.0 09/13/20 03:27 Sodium 145 mmol/L (137-145) 09/13/20 04:29 Potassium 3.2 mmol/L (3.6-5.0) L 09/13/20 04:29 Chloride 103.9 mmol/L (98-107) 09/13/20 04:29 Carbon Dioxide 26 mmol/L (22-30) 09/13/20 04:29 Anion Gap 18 mmol/L 09/13/20 04:29 BUN 29 mg/dL (9-20) H 09/13/20 04:29 Creatinine 1.1 mg/dL (0.8-1.3) 09/13/20 04:29 Estimated GFR > 60 ml/min 09/13/20 04:29 BUN/Creatinine Ratio 26 % 09/13/20 04:29 Glucose 86 mg/dL (75-100) 09/13/20 04:29 POC Glucose 82 mg/dL (70-105) 09/13/20 06:06 Hemoglobin A1c 5.8 % (4-6) 09/08/20 15:58 Lactic Acid 2.00 mmol/L (0.7-2.0) 09/09/20 09:10 Calcium 8.4 mg/dL (8.4-10.2) 09/13/20 04:29 Phosphorus 3.00 mg/dL (2.5-4.5) 09/13/20 04:29 Magnesium 2.00 mg/dL (1.7-2.3) 09/13/20 04:29 Total Bilirubin 1.80 mg/dL (0.1-1.2) H 09/13/20 04:29 Direct Bilirubin < 0.2 mg/dL (0-0.2) 09/08/20 08:15 Indirect Bilirubin 0.0 mg/dL 09/08/20 08:15 AST 30 units/L (5-40) 09/13/20 04:29 ALT 26 units/L (7-56) 09/13/20 04:29 Alkaline Phosphatase 118 units/L (35-129) 09/13/20 04:29 Ammonia 50.0 umol/L (25-60) 09/09/20 04:12 Total Protein 6.8 g/dL (6.3-8.2) 09/13/20 04:29 Albumin 3.3 g/dL (3.9-5) L 09/13/20 04:29 Albumin/Globulin Ratio 0.9 % 09/13/20 04:29 Triglycerides 148 mg/dL (2-149) 09/09/20 04:12 Cholesterol 119 mg/dL (50-199) 09/09/20 04:12 LDL Cholesterol Direct 71 mg/dL (50-130) 09/09/20 04:12 HDL Cholesterol 33 mg/dL (40-59) L 09/09/20 04:12 Cholesterol/HDL Ratio 3.60 % 09/09/20 04:12 Amylase 45 units/L (27-131) 09/09/20 04:12 Lipase 12 units/L (13-60) L 09/09/20 04:12 Procalcitonin 0.28 ng/mL (<0.15) 09/10/20 05:00 Arterial Blood Glucose 97 mg/dL (65-95) H 09/13/20 03:27 Arterial Blood Ionized Calcium 4.6 mg/dL (4.6-5.3) 09/13/20 03:27 Urine Color Yee (Yellow) 09/08/20 Unknown Urine Turbidity Cloudy (Clear) 09/08/20 Unknown Urine pH 5.0 (5.0-7.0) 09/08/20 Unknown Ur Specific [place] 1.018 (1.003-1.030) 09/08/20 Unknown Urine Protein >500 mg/dL (Negative) 09/08/20 Unknown Urine Glucose (UA) Neg mg/dL (Negative) 09/08/20 Unknown Urine Ketones Neg mg/dL (Negative) 09/08/20 Unknown Urine Blood Sm (Negative) 09/08/20 Unknown Urine Nitrite Neg (Negative) 09/08/20 Unknown Urine Bilirubin Neg (Negative) 09/08/20 Unknown Urine Urobilinogen < 2.0 mg/dL (<2.0) 09/08/20 Unknown Ur Leukocyte Esterase Tr (Negative) 09/08/20 Unknown Urine WBC (Auto) Not Reportable 09/08/20 Unknown Urine RBC (Auto) Not Reportable 09/08/20 Unknown Salicylates < 0.3 mg/dL (2.8-20.0) L 09/08/20 07:51 Urine Opiates Screen Negative 09/08/20 Unknown Urine Methadone Screen Negative 09/08/20 Unknown Acetaminophen 5.0 ug/mL (10.0-30.0) L 09/08/20 08:15 Ur Barbiturates Screen Negative 09/08/20 Unknown Ur Phencyclidine Scrn Negative 09/08/20 Unknown Ur Amphetamines Screen Negative 09/08/20 Unknown U Benzodiazepines Scrn Negative 09/08/20 Unknown Urine Cocaine Screen Negative 09/08/20 Unknown U Marijuana (THC) Screen Presumptive negative 09/08/20 Unknown Drugs of Abuse Note Disclamer 09/08/20 Unknown Plasma/Serum Alcohol 0.11 % (0-0.07) H 09/08/20 08:15 Coronavirus (PCR) Negative (Negative) 09/09/20 09:45 Microbiology: Microbiology 09/08/20 10:28 Tracheal Aspirate Sputum Culture - Preliminary 09/08/20 08:20 Peripheral/Venous Blood Culture - Preliminary NO GROWTH AFTER 4 DAYS 09/08/20 08:20 Peripheral/Venous Blood Culture - Preliminary NO GROWTH AFTER 4 DAYS [place]/IV: Voiding Method Condom Catheter Active Medications - Current Medications Current Medications: Generic Name Dose Route Start Last Admin Trade Name Freq PRN Reason Stop Dose Admin Lipase/Protease/Amylase 1 each 09/09/20 09:19 Lipase 10,500/Protease 25,000/Amylase 43,750 (Units) Dr Almeida FEEDTUBE PRN PRN For Clogged Feeding Tube Aspirin 81 mg 09/11/20 10:00 09/12/20 09:45 Aspirin 81 Mg Tab Chew PO 81 mg QDAY JUAN LUIS Administration Carvedilol 3.125 mg 09/10/20 22:00 09/12/20 21:01 Carvedilol 3.125 Mg Tab PO Not Given BID JUAN LUIS Enoxaparin Sodium 40 mg 09/08/20 22:00 09/12/20 21:01 Enoxaparin 40 Mg/0.4 Ml Inj SUB-Q 40 mg QDAY@2200 [facility] Administration Protocol Fentanyl 50 mcg 09/09/20 13:30 09/11/20 15:01 Fentanyl 100 Mcg/2 Ml Inj IV 50 mcg Q10MIN PRN Administration ANALGESIA Furosemide 40 mg 09/10/20 06:00 09/13/20 06:27 Furosemide 40 Mg/4 Ml Inj IV 40 mg 0600,1800 JUAN LUIS Administration Hydrophilic Ointment 1 applic 09/08/20 16:21 Lip Therapy Vaseline TP Q2HR PRN Dry Lips Propofol 1,000 mg in 100 mls @ 3.6 mls/hr 09/08/20 08:00 09/12/20 18:48 Diprivan 10 Mg/Ml IV 0 mcg/kg/min TITR JUAN LUIS 0 mls/hr Titration Protocol 5 MCG/KG/MIN Cefepime HCl 2 gm in 100 mls @ 200 mls/hr 09/08/20 18:00 09/13/20 01:57 Cefepime/Ns 2 Gm/100 Ml IV 09/13/20 10:29 200 mls/hr Q8H JUAN LUIS Administration Protocol Fentanyl Citrate 2,000 mcg in 100 mls @ 6 mls/hr 09/09/20 14:00 09/12/20 18:49 Fentanyl Drip Premix IV 0 mcg/kg/hr TITR JUAN LUIS 0 mls/hr Titration Protocol 1 MCG/KG/HR Nicardipine HCl 50 mg/ Sodium 250 mls @ 25 mls/hr 09/10/20 12:30 09/10/20 13:00 Chloride IV 0 mg/hr TITR JUAN LUIS 0 mls/hr Titration Protocol 5 MG/HR Dexmedetomidine HCl 400 mcg/ 104 mls @ 6.24 mls/hr 09/12/20 10:00 09/13/20 05:50 Sodium Chloride IV 0 mcg/kg/hr TITRATE JUAN LUIS 0 mls/hr Titration Protocol 0.2 MCG/KG/HR Insulin Human Lispro 0 unit 09/08/20 12:00 09/13/20 06:27 Insulin Lispro 100 Unit/Ml SUB-Q Not Given Q6HR JUAN LUIS Protocol Lansoprazole 30 mg 09/11/20 10:00 09/12/20 09:46 Lansoprazole 30 Mg Solutab FEEDTUBE 30 mg QDAY JUAN LUIS Administration Lisinopril 2.5 mg 09/11/20 10:00 09/12/20 09:46 Lisinopril 5 Mg Tab PO 2.5 mg QDAY JUAN LUIS Administration Lorazepam 2 mg 09/08/20 10:35 09/11/20 14:45 Lorazepam 2 Mg/Ml Vial IV 2 mg Q4H PRN Administration Agitation Metoprolol Tartrate 25 mg 09/10/20 13:00 09/12/20 21:01 Metoprolol Tartrate 25 Mg Tab PO Not Given BID JUAN LUIS Multi-Ingred Cream/Lotion/Oil/Oint 1 applic 09/08/20 16:21 Mineral Oil/Petrolatum, White Ophth Oint 3.5 Gm OU Q4HR PRN Dry Eye(s) Simple Syrup 15 ml 09/09/20 09:19 Simple Syrup 15 Ml FEEDTUBE PRN PRN Hypoglycemia Simple Syrup 30 ml 09/09/20 09:19 Simple Syrup 15 Ml FEEDTUBE PRN PRN Hypoglycemia Sodium Bicarbonate 325 mg 09/09/20 09:19 Sodium Bicarbonate 325 Mg Tab FEEDTUBE PRN PRN For Clogged Feeding Tube Spironolactone 25 mg 09/11/20 10:00 09/12/20 09:45 Spironolactone 25 Mg Tab PO 25 mg QDAY JUAN LUIS Administration Nutrition/Malnutrition Assess - Dietary Evaluation Nutrition/Malnutrition Findings: Nutrition Notes Start: 09/09/20 09:13 Freq: Status: Active Protocol: Document 09/11/20 08:21 CW (Rec: 09/11/20 08:30 CW [id number]) Nutrition Notes Initial or Follow up Reassessment Current Diagnosis Diabetes,Hypertension, Respiratory Failure Other Pertinent Diagnosis alcohol intoxication Current Diet TF - Vital AF at 55 ml/hr Labs/Tests BUN 27 Pertinent Medications 1/2 NS at 50 ml/hr Humalog Propofol at 10.8ml/hr (285 kcal) Lasix Height 5 ft Weight 120 kg [place] Body Weight (kg) 48.18 BMI 51.6 Weight Status Morbidly Obese Subjective/Other Information F/U for TF start/ tolerance. Pt remains mechanically ventilated. TF advanced to goal of 55 ml/hr per chart; previous ran at 50 ml/hr. No reports of TF intolerance. Percent of energy/protein needs met: 80%/75% (excluding kcal from propofol) Burn Absent Trauma Absent Difficulty In Swallowing Skin Integrity/Comment Intact Current % PO Negligible Minimum of two criteria No physical signs of malnutrition #1 Nutrition Diagnosis Inadequate oral intake Diagnosis Progress(for reassessment Continues documentation) Is patient on ventilator? Yes Is Patient Ambulatory and/or Out of Bed No REE-([place]-St. Jeor-confined to bed) 2286.456 Kcal/Kg value to use for calculation 15 Approximate Energy Requirements Using 1800 kcal/Kg Calculation Used for Recommendations Kcal/kg Additional Notes Protein: (up to 2.5 g/kg IBW) <120g Fluid: 1 ml/kcal or per MD Nutrition Intervention Change Diet Order: Start TF Nutrition Support: Vital AF at 55 ml/hr Flush 100 ml q4h or per MD Kcal 1,584 Protein (gm) 99 Fluid (mL) 1,071 Goal #1 Meet at least 75% of protein and energy needs via TF Anticipated Discharge Needs: Unable to determine at this time Follow-Up By: 09/14/20 Additional Comments F/U for TF tolerance, vent status, propofol status
--- NOTE | 2020-09-13 09:41 | Progress Note ---
Assessment and Plan 1. Chronic combined systolic and diastolic heart failure 2. Dilated cardiomyopathy 3. Respiratory failure intubated on mechanical ventilator 4. Essential hypertension 5. Type 2 diabetes mellitus 6. Alcoholism Plan. Patient is currently stable he currently is being weaned off ventilator. He is alert and still agitated. We will continue conservative management till he is extubated further cardiac work-up pending post extubation. Subjective Date of service: 09/13/20 Principal diagnosis: Ac hypoxemic and hypercapnic resp failure; EtOH OD; Acute encephalopathy Interval history: Alert intubated still on mechanical ventilator. Agitated today Objective Vital Signs Temp Pulse Pulse Resp BP Pulse Ox 09/13/20 08:10 72 17 139/93 98 09/13/20 08:07 71 139/93 100 09/13/20 07:00 99.2 F 09/13/20 06:00 57 L 62 24 158/99 97 09/13/20 05:30 51 L 24 160/99 98 09/13/20 05:00 57 L 24 167/101 98 09/13/20 04:30 62 24 99 09/13/20 04:06 60 173/104 97 09/13/20 04:00 60 24 97 09/13/20 03:48 98.6 F 09/13/20 03:30 59 L 24 184/110 98 09/13/20 03:00 58 L 24 183/109 97 09/13/20 02:30 58 L 24 175/106 96 09/13/20 02:00 59 L 59 L 25 H 172/106 98 09/13/20 01:30 61 13 174/105 98 09/13/20 01:01 74 16 170/97 97 09/13/20 00:46 60 167/100 98 09/13/20 00:30 60 13 167/100 98 09/13/20 00:00 98.6 F 57 L 24 167/103 98 09/12/20 23:30 64 18 169/100 98 09/12/20 23:00 62 17 160/96 97 09/12/20 22:30 52 L 17 155/91 97 09/12/20 22:00 57 L 55 L 23 164/96 97 09/12/20 21:30 52 L 23 99 09/12/20 21:00 59 L 17 97 09/12/20 20:30 58 L 15 152/92 97 09/12/20 20:29 61 144/87 97 09/12/20 20:00 98.8 F 56 L 13 144/87 96 09/12/20 19:30 57 L 24 136/88 98 09/12/20 19:00 56 L 24 142/84 96 09/12/20 18:10 59 L 24 149/85 98 09/12/20 18:00 68 58 L 17 149/85 98 09/12/20 17:50 80 11 L 131/82 99 09/12/20 17:40 66 25 H 163/106 99 09/12/20 17:30 66 26 H 163/106 99 09/12/20 17:20 53 L 26 H 159/95 98 09/12/20 17:10 63 25 H 98 09/12/20 17:00 53 L 26 H 138/89 98 09/12/20 16:50 60 25 H 149/98 98 09/12/20 16:40 63 24 139/76 98 09/12/20 16:30 73 22 139/76 99 09/12/20 16:20 61 24 126/76 98 09/12/20 16:10 58 L 18 147/93 98 09/12/20 16:00 62 25 H 147/93 99 09/12/20 15:50 60 25 H 128/79 97 09/12/20 15:40 62 25 H 135/85 98 09/12/20 15:30 59 L 25 H 135/85 98 09/12/20 15:20 62 15 133/81 99 09/12/20 15:17 60 133/81 98 09/12/20 15:10 62 24 136/87 98 09/12/20 15:00 66 25 H 136/87 98 09/12/20 14:50 74 12 132/82 100 09/12/20 14:40 61 24 138/82 97 09/12/20 14:30 64 25 H 138/82 98 09/12/20 14:20 76 25 H 136/92 99 09/12/20 14:10 52 L 21 133/83 97 09/12/20 14:00 62 64 26 H 133/83 100 09/12/20 13:50 60 24 149/94 99 09/12/20 13:40 56 L 24 136/81 97 09/12/20 13:30 51 L 25 H 136/81 97 09/12/20 13:20 57 L 24 150/92 97 09/12/20 13:10 60 24 163/100 99 09/12/20 13:00 66 25 H 163/100 99 09/12/20 12:50 71 23 163/105 99 09/12/20 12:40 71 24 179/105 99 09/12/20 12:30 75 17 179/105 100 09/12/20 12:20 74 24 168/97 99 09/12/20 12:10 71 16 148/94 100 09/12/20 12:00 58 L 24 148/94 97 09/12/20 11:50 61 24 154/93 97 09/12/20 11:40 70 25 H 158/104 97 09/12/20 11:30 83 22 158/104 100 09/12/20 11:20 74 24 166/101 98 09/12/20 11:10 80 25 H 154/103 98 09/12/20 11:08 77 154/103 99 09/12/20 11:00 98.4 F 78 24 154/103 98 09/12/20 10:50 86 22 189/130 98 09/12/20 10:40 83 26 H 170/100 97 09/12/20 10:30 73 24 170/100 98 09/12/20 10:20 76 24 159/100 99 09/12/20 10:10 85 24 165/104 98 09/12/20 10:00 77 58 L 24 165/104 99 09/12/20 09:50 89 15 175/118 100 09/12/20 09:46 80 175/118 09/12/20 09:45 81 156/95 09/12/20 09:40 67 24 156/95 99 - Physical Examination General: Other (intubated) HEENT: Positive: PERRL, Normocephaly, Mucus Membranes Moist Neck: Positive: neck supple, trachea midline. Negative: JVD/HJR Cardiac: Positive: Regular Rate, S1/S2, PMI, Dilated, Laterally Displaced. Negative: S3, S4 Lungs: Positive: clear to auscultation, No Wheeze, Rales, Rhonchi Neuro: Positive: Grossly Intact, No Lateralizing Findings Abdomen: Positive: Unremarkable, Soft Extremities: Absent: edema - Labs and Meds Cardiac Enzymes 09/13/20 Range/Units 04:29 AST 30 (5-40) units/L CBC 09/13/20 Range/Units 04:29 WBC 11.8 H (4.5-11.0) K/mm3 RBC 6.74 H (3.65-5.03) M/mm3 Hgb 18.2 H (11.8-15.2) gm/dl Hct 55.4 H (35.5-45.6) % Plt Count 147 (140-440) K/mm3 Lymph # (Auto) 1.0 L (1.2-5.4) K/mm3 [place] # (Auto) 1.0 H (0.0-0.8) K/mm3 Eos # (Auto) 0.5 H (0.0-0.4) K/mm3 Baso # (Auto) 0.0 (0.0-0.1) K/mm3 Comprehensive Metabolic Panel 09/13/20 Range/Units 04:29 Sodium 145 (137-145) mmol/L Potassium 3.2 L (3.6-5.0) mmol/L Chloride 103.9 (98-107) mmol/L Carbon Dioxide 26 (22-30) mmol/L BUN 29 H (9-20) mg/dL Creatinine 1.1 (0.8-1.3) mg/dL Glucose 86 (75-100) mg/dL Calcium 8.4 (8.4-10.2) mg/dL AST 30 (5-40) units/L ALT 26 (7-56) units/L Alkaline Phosphatase 118 (35-129) units/L Total Protein 6.8 (6.3-8.2) g/dL Albumin 3.3 L (3.9-5) g/dL - Allied health notes Allied health notes reviewed: nursing
[2020-09-13] MEDS: POTASSIUM CHLORIDE ER 20 MEQ TAB PO SCH ×2 (09:55→13:32)
[2020-09-13] MEDS: ASPIRIN 81 MG TAB CHEW PO SCH (09:55)
[2020-09-13] MEDS: SPIRONOLACTONE 25 MG TAB PO SCH (09:55)
[2020-09-13] MEDS: LANSOPRAZOLE 30 MG SOLUTAB FEEDTUBE SCH (09:55)
[2020-09-13] MEDS: carvediloL 3.125 MG TAB PO SCH ×2 (09:56→21:27)
[2020-09-13] MEDS: METOPROLOL TARTRATE 25 MG TAB PO SCH ×2 (09:56→21:26)
[2020-09-13] MEDS: LISINOPRIL 5 MG TAB PO SCH (09:56)
[2020-09-13] MEDS: POTASSIUM CHLORIDE 20 MEQ PACKET FEEDTUBE SCH ×2 (09:56→13:32)
--- NOTE | 2020-09-13 11:57 | Progress Note ---
Assessment and Plan -Acute hypoxic respiratory failure on MVS Possible aspiration pneumonia -Lactic acidosis/sepsis due to pneumonia -Elevated D-dimers; Lower extremity venous Dopplers negative for DVT -Acute toxic metabolic encephalopathy; POA Due to alcohol intoxication, hypoxia -Acute systolic congestive heart failure; ejection fraction 20 to 25% -Four-chamber dilated cardiomyopathy -Acute alcohol intoxication, alcohol abuse disorder -Leukocytosis; secondary to pneumonia -Hyperglycemia; no evidence of diabetes mellitus -Hypokalemia; resolved - Extreme Obesity; BMI 51.7 -Thrombocytopenia Tolerating SBT, plan to get weaning parameters NIF and RSBI His hemodynamics are normal, plan to extubate today. Substance abuse counselling once he is extubated and is able to participate in a meaningful discussion - continue to titrate supplemental oxygen for SpO2 89-92% - VAP bundle addressed, aspiration precautions HOB >40 -Heart failure measures, keep negative balance. -Continue with diuresis while monitoring hemodynamics and electrolyte profile - continue lung protective strategies - continue bronchodilators with pulmonary hygiene per RT - wean per pulmonary driven protocols - continue accuchecks with glycemic control per SSI (While critically ill target blood glucose of 140-180 mg/dL; avoid hypoglycemia) - avoid nephrotoxins, renally dose all medications - continue empiric antibitoics, then de-escalate - prn analgesia per CPOT score - Maintenance of sleep-wake cycle, avoid delirium - continue enteral nutritional support at goal rate as tolerated - VTE prophylaxis- Enoxaparin -Stress ulcer prophylaxis-Lansoprazole - PT/OT/ROM exercises - continue mobility protocol, off loading per facility protocol for pressure ulcer prevention - Monitor hemodynamics closely - continue other care per attending / other consultants CONDITION: CRITICAL PROGNOSIS: GUARDED CODE STATUS: FULL CODE The high probability of a clinically significant, sudden or life-threatening deterioration of the [respiratory, cardiovascular, renal & neurologic] system(s) required my full and direct attention, intervention and personal management. The aggregate critical care time was [33] minutes without overlap. Time includes spent on; [x] Data Review and interpretation [x] Patient assessment and monitoring of vital signs [x] Documentation [x] Medication orders and management Subjective Date of service: 09/13/20 Principal diagnosis: Ac hypoxemic and hypercapnic resp failure; EtOH OD; Acute encephalopathy Interval history: Patient is seen today for: Acute hypoxemic and hypercapnic respiratory failure; Alcohol overdose; Acute encephalopathy; Leukocytosis; DM II; Morbid obesity Seen and examined at bedside; 24hour events reviewed; nursing and respiratory care staff consulted; no adverse overnight events reported to me; resting peacefully in bed ; no emesis or overt aspiration Awake and alert, appropriate off Propofol and Fentnayl. On Precedex and is tolerating SBP Psupp 6 COVID-19 test negative - 09/10/2020 Objective Vital Signs - 12hr 09/13/20 09/13/20 09/13/20 00:00 00:30 00:46 Temperature 98.6 F Pulse Rate 57 L 60 60 Pulse Rate [ From Monitor] Respiratory 24 13 Rate Blood Pressure 167/103 167/100 167/100 O2 Sat by Pulse 98 98 98 Oximetry 09/13/20 09/13/20 09/13/20 01:01 01:30 02:00 Temperature Pulse Rate 74 61 59 L Pulse Rate [ 59 L From Monitor] Respiratory 16 13 25 H Rate Blood Pressure 170/97 174/105 172/106 O2 Sat by Pulse 97 98 98 Oximetry 09/13/20 09/13/20 09/13/20 02:30 03:00 03:30 Temperature Pulse Rate 58 L 58 L 59 L Pulse Rate [ From Monitor] Respiratory 24 24 24 Rate Blood Pressure 175/106 183/109 184/110 O2 Sat by Pulse 96 97 98 Oximetry 09/13/20 09/13/20 09/13/20 03:48 04:00 04:06 Temperature 98.6 F Pulse Rate 60 60 Pulse Rate [ From Monitor] Respiratory 24 Rate Blood Pressure 173/104 O2 Sat by Pulse 97 97 Oximetry 09/13/20 09/13/20 09/13/20 04:30 05:00 05:30 Temperature Pulse Rate 62 57 L 51 L Pulse Rate [ From Monitor] Respiratory 24 24 24 Rate Blood Pressure 167/101 160/99 O2 Sat by Pulse 99 98 98 Oximetry 09/13/20 09/13/20 09/13/20 06:00 06:30 07:00 Temperature 99.2 F Pulse Rate 57 L 60 65 Pulse Rate [ 62 From Monitor] Respiratory 24 24 24 Rate Blood Pressure 158/99 160/102 158/98 O2 Sat by Pulse 97 97 99 Oximetry 09/13/20 09/13/20 09/13/20 07:30 08:00 08:07 Temperature Pulse Rate 64 66 71 Pulse Rate [ From Monitor] Respiratory 24 24 Rate Blood Pressure 159/96 139/93 139/93 O2 Sat by Pulse 99 99 100 Oximetry 09/13/20 09/13/20 09/13/20 08:10 08:30 09:00 Temperature Pulse Rate 72 83 91 H Pulse Rate [ From Monitor] Respiratory 17 28 H 28 H Rate Blood Pressure 139/93 168/102 188/114 O2 Sat by Pulse 98 99 100 Oximetry 09/13/20 09/13/20 09/13/20 09:30 09:55 09:56 Temperature Pulse Rate 88 92 H 97 H Pulse Rate [ From Monitor] Respiratory 31 H Rate Blood Pressure 148/91 147/87 147/87 O2 Sat by Pulse 98 Oximetry 09/13/20 09/13/20 09/13/20 10:00 10:31 10:54 Temperature Pulse Rate 93 H 78 73 Pulse Rate [ 84 From Monitor] Respiratory 27 H 25 H 28 H Rate Blood Pressure 165/110 127/82 123/79 O2 Sat by Pulse 98 98 98 Oximetry 09/13/20 09/13/20 09/13/20 11:00 11:49 11:51 Temperature 98.0 F Pulse Rate 76 Pulse Rate [ From Monitor] Respiratory 15 Rate Blood Pressure 119/85 O2 Sat by Pulse 98 98 Oximetry Constitutional: no acute distress, other (middle aged morbidly obese male without vemtilator dyssynchrony) Eyes: non-icteric ENT: oropharynx moist, other (ETT 25 cm RACHEAL) Neck: supple, no lymphadenopathy, no JVD, other (large neck circumference) Effort: normal Ascultation: Bilateral: diminished breath sounds, rhonchi Percussion: Bilateral: not dull Cardiovascular: regular rate and rhythm Gastrointestinal: normoactive bowel sounds, soft, non-tender, non-distended (protuberant) Integumentary: normal Extremities: no cyanosis, pink and warm, pulses normal, no ischemia or petechiae, edema (trace) Neurologic: non-focal exam (grossly), pupils equal and round, CN II-XII normal, motor strength normal and Psychiatric: mood appropriate, affect normal CBC and BMP: 09/14/20 05:50 09/14/20 05:50 ABG, PT/INR, D-dimer: ABG ABG pH 7.346 (7.320-7.450) 09/13/20 10:55 POC ABG pCO2 45.4 mmHg (32.0-48.0) 09/13/20 10:55 ABG pCO2 31.8 mm Hg 09/08/20 16:25 POC ABG pO2 96.5 mmHg (83-108) 09/13/20 10:55 ABG pO2 117.8 mm Hg (80.0-90.0) H 09/08/20 16:25 POC ABG HCO3 24.3 09/13/20 10:55 ABG O2 Saturation 97.9 (0-100) 09/13/20 10:55 PT/INR, D-dimer D-Dimer 3467.79 ng/mlDDU (0-234) H 09/09/20 15:19 Abnormal lab findings: Abnormal Labs 09/08/20 09/08/20 09/08/20 07:51 08:15 08:15 WBC 15.6 H RBC 6.67 H Hgb 17.7 H Hct 57.5 H MCV MCH 27 L MCHC 31 L RDW 18.1 H Plt Count Lymph % (Auto) [place] % (Auto) Lymph # (Auto) [place] # (Auto) Eos # (Auto) Seg Neutrophils % Seg Neuts % (Manual) 71.0 H Seg Neutrophils # Seg Neutrophils # Man 11.1 H D-Dimer ABG pH POC ABG pCO2 POC ABG pO2 ABG pO2 ABG Base Excess ABG Hemoglobin ABG Sodium ABG Potassium ABG Chloride ABG Glucose Carboxyhemoglobin Potassium 3.5 L Chloride 97.7 L Carbon Dioxide BUN 21 H Glucose 228 H POC Glucose Lactic Acid Calcium Magnesium Total Bilirubin Total Protein Albumin HDL Cholesterol Lipase Arterial Blood Glucose Arterial Blood Ionized Calcium Salicylates < 0.3 L Acetaminophen Plasma/Serum Alcohol 09/08/20 09/08/20 09/08/20 08:15 08:15 08:20 WBC RBC Hgb Hct MCV MCH MCHC RDW Plt Count Lymph % (Auto) [place] % (Auto) Lymph # (Auto) [place] # (Auto) Eos # (Auto) Seg Neutrophils % Seg Neuts % (Manual) Seg Neutrophils # Seg Neutrophils # Man D-Dimer ABG pH POC ABG pCO2 POC ABG pO2 ABG pO2 ABG Base Excess ABG Hemoglobin ABG Sodium ABG Potassium ABG Chloride ABG Glucose Carboxyhemoglobin Potassium Chloride Carbon Dioxide BUN Glucose POC Glucose Lactic Acid 4.40 H* Calcium Magnesium Total Bilirubin Total Protein Albumin HDL Cholesterol Lipase Arterial Blood Glucose Arterial Blood Ionized Calcium Salicylates Acetaminophen 5.0 L Plasma/Serum Alcohol 0.11 H 09/08/20 09/08/20 09/08/20 09:15 16:25 17:19 WBC RBC Hgb Hct MCV MCH MCHC RDW Plt Count Lymph % (Auto) [place] % (Auto) Lymph # (Auto) [place] # (Auto) Eos # (Auto) Seg Neutrophils % Seg Neuts % (Manual) Seg Neutrophils # Seg Neutrophils # Man D-Dimer ABG pH 7.222 L POC ABG pCO2 POC ABG pO2 ABG pO2 185.7 H 117.8 H ABG Base Excess -6.5 L ABG Hemoglobin 18.1 H ABG Sodium ABG Potassium ABG Chloride ABG Glucose Carboxyhemoglobin Potassium Chloride Carbon Dioxide BUN Glucose POC Glucose 106 H Lactic Acid Calcium Magnesium Total Bilirubin Total Protein Albumin HDL Cholesterol Lipase Arterial Blood Glucose Arterial Blood Ionized Calcium Salicylates Acetaminophen Plasma/Serum Alcohol 09/08/20 09/09/20 09/09/20 17:39 01:32 03:08 WBC RBC Hgb Hct MCV MCH MCHC RDW Plt Count Lymph % (Auto) [place] % (Auto) Lymph # (Auto) [place] # (Auto) Eos # (Auto) Seg Neutrophils % Seg Neuts % (Manual) Seg Neutrophils # Seg Neutrophils # Man D-Dimer ABG pH POC ABG pCO2 POC ABG pO2 ABG pO2 ABG Base Excess ABG Hemoglobin 18.2 H ABG Sodium ABG Potassium ABG Chloride ABG Glucose 145 H Carboxyhemoglobin Potassium Chloride Carbon Dioxide BUN Glucose POC Glucose 128 H Lactic Acid 2.20 H* Calcium Magnesium Total Bilirubin Total Protein Albumin HDL Cholesterol Lipase Arterial Blood Glucose 145 H Arterial Blood Ionized Calcium 4.3 L Salicylates Acetaminophen Plasma/Serum Alcohol 09/09/20 09/09/20 09/09/20 04:12 06:10 11:05 WBC RBC Hgb Hct MCV MCH MCHC RDW Plt Count Lymph % (Auto) [place] % (Auto) Lymph # (Auto) [place] # (Auto) Eos # (Auto) Seg Neutrophils % Seg Neuts % (Manual) Seg Neutrophils # Seg Neutrophils # Man D-Dimer ABG pH POC ABG pCO2 POC ABG pO2 ABG pO2 ABG Base Excess ABG Hemoglobin ABG Sodium ABG Potassium ABG Chloride ABG Glucose Carboxyhemoglobin Potassium Chloride Carbon Dioxide BUN 26 H Glucose 136 H POC Glucose 135 H 139 H Lactic Acid Calcium 7.5 L Magnesium Total Bilirubin Total Protein 6.0 L D Albumin 2.8 L HDL Cholesterol 33 L Lipase 12 L Arterial Blood Glucose Arterial Blood Ionized Calcium Salicylates Acetaminophen Plasma/Serum Alcohol 09/09/20 09/09/20 09/09/20 15:19 15:43 23:37 WBC RBC Hgb Hct MCV MCH MCHC RDW Plt Count Lymph % (Auto) [place] % (Auto) Lymph # (Auto) [place] # (Auto) Eos # (Auto) Seg Neutrophils % Seg Neuts % (Manual) Seg Neutrophils # Seg Neutrophils # Man D-Dimer 3467.79 H ABG pH POC ABG pCO2 POC ABG pO2 ABG pO2 ABG Base Excess ABG Hemoglobin ABG Sodium ABG Potassium ABG Chloride ABG Glucose Carboxyhemoglobin Potassium Chloride Carbon Dioxide BUN Glucose POC Glucose 116 H 117 H Lactic Acid Calcium Magnesium Total Bilirubin Total Protein Albumin HDL Cholesterol Lipase Arterial Blood Glucose Arterial Blood Ionized Calcium Salicylates Acetaminophen Plasma/Serum Alcohol 09/10/20 09/10/20 09/10/20 05:00 05:22 08:47 WBC RBC 6.44 H Hgb 17.2 H Hct 53.2 H MCV 83 L MCH 27 L MCHC RDW 18.1 H Plt Count Lymph % (Auto) 13.3 L [place] % (Auto) Lymph # (Auto) [place] # (Auto) Eos # (Auto) Seg Neutrophils % 79.1 H Seg Neuts % (Manual) Seg Neutrophils # 7.9 H Seg Neutrophils # Man D-Dimer ABG pH POC ABG pCO2 POC ABG pO2 73.9 L ABG pO2 ABG Base Excess ABG Hemoglobin 18.0 H ABG Sodium ABG Potassium ABG Chloride 110.0 H ABG Glucose 121 H Carboxyhemoglobin 1.6 H Potassium Chloride Carbon Dioxide BUN Glucose POC Glucose 127 H Lactic Acid Calcium Magnesium Total Bilirubin Total Protein Albumin HDL Cholesterol Lipase Arterial Blood Glucose 121 H Arterial Blood Ionized Calcium Salicylates Acetaminophen Plasma/Serum Alcohol 09/10/20 09/10/20 09/11/20 08:47 11:39 04:24 WBC RBC Hgb Hct MCV MCH MCHC RDW Plt Count Lymph % (Auto) [place] % (Auto) Lymph # (Auto) [place] # (Auto) Eos # (Auto) Seg Neutrophils % Seg Neuts % (Manual) Seg Neutrophils # Seg Neutrophils # Man D-Dimer ABG pH 7.456 H POC ABG pCO2 28.6 L POC ABG pO2 123.7 H ABG pO2 ABG Base Excess ABG Hemoglobin ABG Sodium ABG Potassium 3.2 L ABG Chloride 108.0 H ABG Glucose 112 H Carboxyhemoglobin 1.9 H Potassium Chloride 108.3 H Carbon Dioxide 20 L BUN 27 H Glucose POC Glucose 107 H Lactic Acid Calcium 7.8 L Magnesium 2.50 H Total Bilirubin Total Protein 5.8 L Albumin 2.6 L HDL Cholesterol Lipase Arterial Blood Glucose 112 H Arterial Blood Ionized Calcium Salicylates Acetaminophen Plasma/Serum Alcohol 09/11/20 09/11/20 09/11/20 06:22 11:26 13:10 WBC 11.1 H RBC 6.38 H Hgb 16.9 H Hct 52.0 H MCV 82 L MCH 27 L MCHC RDW 17.8 H Plt Count 127 L Lymph % (Auto) [place] % (Auto) Lymph # (Auto) [place] # (Auto) Eos # (Auto) Seg Neutrophils % Seg Neuts % (Manual) Seg Neutrophils # Seg Neutrophils # Man D-Dimer ABG pH POC ABG pCO2 POC ABG pO2 ABG pO2 ABG Base Excess ABG Hemoglobin ABG Sodium ABG Potassium ABG Chloride ABG Glucose Carboxyhemoglobin Potassium Chloride Carbon Dioxide BUN Glucose POC Glucose 108 H 124 H Lactic Acid Calcium Magnesium Total Bilirubin Total Protein Albumin HDL Cholesterol Lipase Arterial Blood Glucose Arterial Blood Ionized Calcium Salicylates Acetaminophen Plasma/Serum Alcohol 09/11/20 09/11/20 09/12/20 13:10 17:25 05:01 WBC RBC Hgb Hct MCV MCH MCHC RDW Plt Count Lymph % (Auto) [place] % (Auto) Lymph # (Auto) [place] # (Auto) Eos # (Auto) Seg Neutrophils % Seg Neuts % (Manual) Seg Neutrophils # Seg Neutrophils # Man D-Dimer ABG pH 7.507 H POC ABG pCO2 28.3 L POC ABG pO2 ABG pO2 ABG Base Excess ABG Hemoglobin ABG Sodium ABG Potassium 3.2 L ABG Chloride 108.0 H ABG Glucose Carboxyhemoglobin 2.0 H Potassium 3.4 L Chloride Carbon Dioxide BUN 28 H Glucose POC Glucose 107 H Lactic Acid Calcium 8.0 L Magnesium Total Bilirubin Total Protein 5.7 L Albumin 3.3 L HDL Cholesterol Lipase Arterial Blood Glucose Arterial Blood Ionized Calcium Salicylates Acetaminophen Plasma/Serum Alcohol 09/13/20 09/13/20 09/13/20 03:27 04:29 04:29 WBC 11.8 H RBC 6.74 H Hgb 18.2 H Hct 55.4 H MCV 82 L MCH 27 L MCHC RDW 17.2 H Plt Count Lymph % (Auto) 8.3 L [place] % (Auto) 8.6 H Lymph # (Auto) 1.0 L [place] # (Auto) 1.0 H Eos # (Auto) 0.5 H Seg Neutrophils % 79.0 H Seg Neuts % (Manual) Seg Neutrophils # 9.3 H Seg Neutrophils # Man D-Dimer ABG pH 7.509 H POC ABG pCO2 29.8 L POC ABG pO2 81.6 L ABG pO2 ABG Base Excess ABG Hemoglobin 19.2 H ABG Sodium 145.3 H ABG Potassium 3.0 L ABG Chloride ABG Glucose 97 H Carboxyhemoglobin 1.8 H Potassium 3.2 L Chloride Carbon Dioxide BUN 29 H Glucose POC Glucose Lactic Acid Calcium Magnesium Total Bilirubin 1.80 H Total Protein Albumin 3.3 L HDL Cholesterol Lipase Arterial Blood Glucose 97 H Arterial Blood Ionized Calcium Salicylates Acetaminophen Plasma/Serum Alcohol 09/13/20 09/13/20 10:55 11:31 WBC RBC Hgb Hct MCV MCH MCHC RDW Plt Count Lymph % (Auto) [place] % (Auto) Lymph # (Auto) [place] # (Auto) Eos # (Auto) Seg Neutrophils % Seg Neuts % (Manual) Seg Neutrophils # Seg Neutrophils # Man D-Dimer ABG pH POC ABG pCO2 POC ABG pO2 ABG pO2 ABG Base Excess ABG Hemoglobin 19.7 H ABG Sodium ABG Potassium ABG Chloride ABG Glucose 102 H Carboxyhemoglobin Potassium Chloride Carbon Dioxide BUN Glucose POC Glucose 106 H Lactic Acid Calcium Magnesium Total Bilirubin Total Protein Albumin HDL Cholesterol Lipase Arterial Blood Glucose 102 H Arterial Blood Ionized Calcium Salicylates Acetaminophen Plasma/Serum Alcohol Allied health notes reviewed: nursing
[2020-09-13] MEDS: ENOXAPARIN 40 MG/0.4 ML INJ SUB-Q SCH (21:26)
[2020-09-14] MEDS: ACETAMINOPHEN 325 MG TAB PO PRN (00:41)
[2020-09-14 06:11] LABS: Basophils # (Auto) 0.1 K/mm3 (0.0-0.1); Basophils % (Auto) 0.6 % (0.0-1.8); Eosinophils # (Auto) 0.7 K/mm3 (0.0-0.4); Eosinophils % (Auto) 6.1 % (0.0-4.3); Hematocrit 57.2 % (35.5-45.6); Hemoglobin 18.8 gm/dl (11.8-15.2); Lymphocytes # (Auto) 0.9 K/mm3 (1.2-5.4); Mean Corpuscular HGB Conc 33 % (32-34); Mean Corpuscular Volume 84 fl (84-94); Monocytes # (Auto) 1.2 K/mm3 (0.0-0.8); Monocytes % (Auto) 10.3 % (0.0-7.3); Red Blood Count 6.82 M/mm3 (3.65-5.03); Red Cell Distribution Width 17.9 % (13.2-15.2)
[2020-09-14] MEDS ORDERED: diphenhydrAMINE 50 MG/ML VIAL IV ONE (06:14)
[2020-09-14 06:21] LABS: Platelet Count 162 K/mm3 (140-440)
[2020-09-14] MEDS: FUROSEMIDE 40 MG/4 ML INJ IV SCH ×2 (06:22→18:10)
[2020-09-14] MEDS: INSULIN LISPRO 100 UNIT/ML SUB-Q SCH ×4 (06:22→18:09)
[2020-09-14 06:30] LABS: Alanine Aminotransferase 52 units/L (7-56); Albumin 3.5 g/dL (3.9-5); BUN/Creatinine Ratio 23; Blood Urea Nitrogen 28 mg/dL (9-20); Calcium 8.6 mg/dL (8.4-10.2); Hemolysis Index 14
[2020-09-14] MEDS: LANSOPRAZOLE 30 MG SOLUTAB FEEDTUBE SCH (09:08)
[2020-09-14] MEDS: METOPROLOL TARTRATE 25 MG TAB PO SCH ×2 (09:08→21:13)
[2020-09-14] MEDS: SPIRONOLACTONE 25 MG TAB PO SCH (09:09)
[2020-09-14] MEDS: ASPIRIN 81 MG TAB CHEW PO SCH (09:09)
[2020-09-14] MEDS: carvediloL 3.125 MG TAB PO SCH ×2 (09:09→21:13)
[2020-09-14] MEDS: LISINOPRIL 5 MG TAB PO SCH (09:09)
--- NOTE | 2020-09-14 09:13 | Progress Note ---
Assessment and Plan Assessment and plan: COVID-19 test negative - 09/10/2020 --Acute hypoxic respiratory failure; extubated on 09/13/2020 on 2 L nasal cannula oxygen Continue supportive care, pulmonary following --Elevated D-dimers; Lower extremity venous Dopplers negative for DVT CTA chest negative for PE --Hypokalemia; K3.2 Replenished with oral KCl 40 mEq x 2 Magnesium levels normal, monitor electrolytes --Acute toxic metabolic encephalopathy; POA Due to alcohol intoxication, hypoxia. Patient is currently intubated on vent --Acute systolic congestive heart failure; ejection fraction 20 to 25% IV diuretics, continue beta-blockers, TONO inhibitors, input output monitoring, low-sodium diet Fluid restriction, cardiology following --Four-chamber dilated cardiomyopathy; Antifailure medications, cardiology consult --Acute alcohol intoxication; Thiamine folic acid, IV Protonix, IV fluids, Supportive care Patient needs counseling when medically stable --Pneumonia Community-acquired versus aspiration Empiric antibiotics, ventilatory support Follow cultures, ID consult if needed --Leukocytosis; secondary to pneumonia Treat the underlying cause --Lactic acidosis/sepsis due to pneumonia Continue empiric antibiotics, follow cultures --Alcohol withdrawal symptoms; [facility] protocol Will juvenile counselor and advised to quit alcohol intake when patient is more alert and awake --Hyperglycemia; no evidence of diabetes mellitus Accu-Chek sliding scale coverage, A1c 5.9 --Hypokalemia; resolved replenish per protocol as needed --Severe malnutrition/hypoalbuminemia; present on admission Mild improvement Albumin is 3.3 today, nutrition supplements Nutrition consult --Thrombocytopenia; probably alcohol related Worsening platelet count, rule out HIT, test ordered --Obesity; BMI 51.7 Patient needs weight reduction when medically stable --DVT prophylaxis; Lovenox PT evaluation recommendation DC planning per case management Stable to be transferred out of ICU Consults and recommendations Closely monitor the patient and adjust management as needed We will try to talk to the family and get more medical history Restraint for safety Critical care time 34 minutes The high probability of a clinically significant, sudden or life threatening deterioration of the [multi] system(s) required my full and direct attention, intervention and personal management. The aggregate critical care time was [35] minutes. This time is in addition to time spent performing reported procedures but includes the following: [x] Data Review and interpretation [x] Patient assessment and monitoring of vital signs [x] Documentation [x] Medication orders and management 09/09/2020; Patient is intubated on ventilatory support, wean as tolerated and extubate Pulmonary critical evaluation and recommendations noted and appreciated Acute versus acute on chronic CHF systolic dysfunction/dilated cardiomyopathy Start Lasix, unable to give beta-blockers and TONO inhibitors due to hypotension Cardiology consult placed 09/10/2020; patient remains intubated on ventilatory support Will wean as tolerated and extubate Elevated D-dimers, venous Doppler lower extremity negative for DVT Will get CTA chest to rule out PE when medically stable Cardiomyopathy, cardiology consulted 09/11/2020 remains intubated on ventilator support on weaning parameters Wean as tolerated and extubate, continue current management 09/12/2020; patient remains intubated on ventilatory support, wean as tolerated and extubate Blood pressure slightly improved, on antifailure medications 09/13/2020; patient remains intubated on vent, hypokalemia, replaced with oral K Cl Wean as tolerated and extubate, consult recommendations noted 09/14/2020; patient was extubated yesterday, today he is on 2 L nasal cannula oxygen Saturating well, PT evaluation recommendation, stable to transfer out of ICU to telemetry Plan of care reviewed with the patient's nurse and case management History Interval history: I have seen and examined the patient at the bedside Patient's chart and will patient's reviewed Patient was extubated yesterday 09/13/2020 Saturating well on 2 L nasal cannula patient is cheerful alert awake oriented x3 Vital signs noted Hospitalist Physical - Constitutional Vitals: Temp Pulse Resp BP Pulse Ox 99.4 F 92 H 21 138/98 96 09/14/20 08:42 09/14/20 08:09 09/14/20 08:09 09/14/20 07:00 09/14/20 08:09 General appearance: Present: no acute distress, well-nourished, obese (Morbidly obese), other (Extubated) - EENT Eyes: Present: PERRL, EOM intact - Neck Neck: Present: supple, normal ROM - Respiratory Respiratory effort: normal Respiratory: bilateral: diminished, negative: rales, rhonchi, wheezing - Cardiovascular Rhythm: regular Heart Sounds: Present: S1 & S2 - Extremities Extremities: no ischemia, No edema - Abdominal General gastrointestinal: soft, non-distended, normal bowel sounds - Integumentary Integumentary: Present: clear, warm - Psychiatric Psychiatric: appropriate mood/affect, cooperative - Neurologic Neurologic: CNII-XII intact, moves all extremities Results - Labs CBC & Chem 7: 09/14/20 05:50 09/14/20 05:50 Labs: Laboratory Last Values WBC 11.3 K/mm3 (4.5-11.0) H 09/14/20 05:50 RBC 6.82 M/mm3 (3.65-5.03) H 09/14/20 05:50 Hgb 18.8 gm/dl (11.8-15.2) H 09/14/20 05:50 Hct 57.2 % (35.5-45.6) H 09/14/20 05:50 MCV 84 fl (84-94) 09/14/20 05:50 MCH 28 pg (28-32) 09/14/20 05:50 MCHC 33 % (32-34) 09/14/20 05:50 RDW 17.9 % (13.2-15.2) H 09/14/20 05:50 Plt Count 162 K/mm3 (140-440) 09/14/20 05:50 Lymph % (Auto) 8.0 % (13.4-35.0) L 09/14/20 05:50 [place] % (Auto) 10.3 % (0.0-7.3) H 09/14/20 05:50 Eos % (Auto) 6.1 % (0.0-4.3) H 09/14/20 05:50 Baso % (Auto) 0.6 % (0.0-1.8) 09/14/20 05:50 Lymph # (Auto) 0.9 K/mm3 (1.2-5.4) L 09/14/20 05:50 [place] # (Auto) 1.2 K/mm3 (0.0-0.8) H 09/14/20 05:50 Eos # (Auto) 0.7 K/mm3 (0.0-0.4) H 09/14/20 05:50 Baso # (Auto) 0.1 K/mm3 (0.0-0.1) 09/14/20 05:50 Add Manual Diff Complete 09/08/20 08:15 Total Counted 100 09/08/20 08:15 Seg Neutrophils % 75.0 % (40.0-70.0) H 09/14/20 05:50 Seg Neuts % (Manual) 71.0 % (40.0-70.0) H 09/08/20 08:15 Band Neutrophils % 5.0 % 09/08/20 08:15 Lymphocytes % (Manual) 14.0 % (13.4-35.0) 09/08/20 08:15 Monocytes % (Manual) 3.0 % (0.0-7.3) 09/08/20 08:15 Eosinophils % (Manual) 1.0 % (0.0-4.3) 09/08/20 08:15 Metamyelocytes % 6.0 % 09/08/20 08:15 Nucleated RBC % Not Reportable 09/08/20 08:15 Seg Neutrophils # 8.5 K/mm3 (1.8-7.7) H 09/14/20 05:50 Seg Neutrophils # Man 11.1 K/mm3 (1.8-7.7) H 09/08/20 08:15 Band Neutrophils # 0.8 K/mm3 09/08/20 08:15 Lymphocytes # (Manual) 2.2 K/mm3 (1.2-5.4) 09/08/20 08:15 Abs React Lymphs (Man) 0.0 K/mm3 09/08/20 08:15 Monocytes # (Manual) 0.5 K/mm3 (0.0-0.8) 09/08/20 08:15 Eosinophils # (Manual) 0.2 K/mm3 (0.0-0.4) 09/08/20 08:15 Basophils # (Manual) 0.0 K/mm3 (0.0-0.1) 09/08/20 08:15 Metamyelocytes # 0.9 K/mm3 09/08/20 08:15 Myelocytes # 0.0 K/mm3 09/08/20 08:15 Promyelocytes # 0.0 K/mm3 09/08/20 08:15 Blast Cells # 0.0 K/mm3 09/08/20 08:15 WBC Morphology Not Reportable 09/08/20 08:15 Hypersegmented Neuts Not Reportable 09/08/20 08:15 Hyposegmented Neuts Not Reportable 09/08/20 08:15 Hypogranular Neuts Not Reportable 09/08/20 08:15 Smudge Cells Not Reportable 09/08/20 08:15 Toxic Granulation Not Reportable 09/08/20 08:15 Toxic Vacuolation Not Reportable 09/08/20 08:15 Dohle Bodies Not Reportable 09/08/20 08:15 Pel[place]-Huet Anomaly Not Reportable 09/08/20 08:15 [place] Rods Not Reportable 09/08/20 08:15 Platelet Estimate Consistent w auto 09/08/20 08:15 Clumped Platelets Not Reportable 09/08/20 08:15 Plt Clumps, EDTA Not Reportable 09/08/20 08:15 Large Platelets Not Reportable 09/08/20 08:15 Giant Platelets Not Reportable 09/08/20 08:15 Platelet Satelliting Not Reportable 09/08/20 08:15 Plt Morphology Comment Not Reportable 09/08/20 08:15 RBC Morphology Normal 09/08/20 08:15 Dimorphic RBCs Not Reportable 09/08/20 08:15 Polychromasia Not Reportable 09/08/20 08:15 Hypochromasia Not Reportable 09/08/20 08:15 Poikilocytosis Not Reportable 09/08/20 08:15 Anisocytosis Not Reportable 09/08/20 08:15 Microcytosis Not Reportable 09/08/20 08:15 Macrocytosis Not Reportable 09/08/20 08:15 Spherocytes Not Reportable 09/08/20 08:15 Pappenheimer Bodies Not Reportable 09/08/20 08:15 Sickle Cells Not Reportable 09/08/20 08:15 Target Cells Not Reportable 09/08/20 08:15 Tear Drop Cells Not Reportable 09/08/20 08:15 Ovalocytes Not Reportable 09/08/20 08:15 Helmet Cells Not Reportable 09/08/20 08:15 [place] Bodies Not Reportable 09/08/20 08:15 [place] Rings Not Reportable 09/08/20 08:15 [place] Cells Not Reportable 09/08/20 08:15 Bite Cells Not Reportable 09/08/20 08:15 Crenated Cell Not Reportable 09/08/20 08:15 Elliptocytes Not Reportable 09/08/20 08:15 Acanthocytes (Spur) Not Reportable 09/08/20 08:15 Rouleaux Not Reportable 09/08/20 08:15 Hemoglobin C Crystals Not Reportable 09/08/20 08:15 Schistocytes Not Reportable 09/08/20 08:15 Malaria parasites Not Reportable 09/08/20 08:15 [place] Bodies Not Reportable 09/08/20 08:15 Hem Pathologist Commnt No 09/08/20 08:15 D-Dimer 3467.79 ng/mlDDU (0-234) H 09/09/20 15:19 ABG pH 7.346 (7.320-7.450) 09/13/20 10:55 POC ABG pCO2 45.4 mmHg (32.0-48.0) 09/13/20 10:55 ABG pCO2 31.8 mm Hg 09/08/20 16:25 POC ABG pO2 96.5 mmHg (83-108) 09/13/20 10:55 ABG pO2 117.8 mm Hg (80.0-90.0) H 09/08/20 16:25 POC ABG HCO3 24.3 09/13/20 10:55 ABG HCO3 20.9 mmol/L (20.0-26.0) 09/08/20 16:25 ABG O2 Saturation 97.9 (0-100) 09/13/20 10:55 ABG O2 Content 24.5 (0.0-44) 09/08/20 16:25 POC ABG Base Excess -1.8 09/13/20 10:55 ABG Base Excess -2.0 mmol/L (-2.0-3.0) 09/08/20 16:25 ABG Hemoglobin 19.7 (12.0-17.5) H 09/13/20 10:55 ABG Oxyhemoglobin 96.3 (94-98) 09/13/20 10:55 ABG Carboxyhemoglobin 2.0 % (0.0-5.0) 09/08/20 16:25 ABG Methemoglobin 0.4 (0.0-1.5) 09/13/20 10:55 ABG Sodium 144.7 mmol/L (136.0-145.0) 09/13/20 10:55 ABG Potassium 3.8 mmol/L (3.40-4.50) 09/13/20 10:55 ABG Chloride 105.0 mmol/L (98-107) 09/13/20 10:55 ABG Glucose 102 mg/dL (65-95) H 09/13/20 10:55 Oxyhemoglobin 95.8 % (95.0-99.0) 09/08/20 16:25 Carboxyhemoglobin 1.2 (0.5-1.5) 09/13/20 10:55 FiO2 80 % 09/08/20 16:25 FiO2 % 35.0 09/13/20 10:55 Sodium 144 mmol/L (137-145) 09/14/20 05:50 Potassium 4.1 mmol/L (3.6-5.0) D 09/14/20 05:50 Chloride 102.9 mmol/L (98-107) 09/14/20 05:50 Carbon Dioxide 32 mmol/L (22-30) H 09/14/20 05:50 Anion Gap 13 mmol/L 09/14/20 05:50 BUN 28 mg/dL (9-20) H 09/14/20 05:50 Creatinine 1.2 mg/dL (0.8-1.3) 09/14/20 05:50 Estimated GFR > 60 ml/min 09/14/20 05:50 BUN/Creatinine Ratio 23 % 09/14/20 05:50 Glucose 97 mg/dL (75-100) 09/14/20 05:50 POC Glucose 105 mg/dL (70-105) 09/14/20 05:26 Hemoglobin A1c 5.8 % (4-6) 09/08/20 15:58 Lactic Acid 2.00 mmol/L (0.7-2.0) 09/09/20 09:10 Calcium 8.6 mg/dL (8.4-10.2) 09/14/20 05:50 Phosphorus 3.00 mg/dL (2.5-4.5) 09/13/20 04:29 Magnesium 2.00 mg/dL (1.7-2.3) 09/13/20 04:29 Total Bilirubin 1.00 mg/dL (0.1-1.2) 09/14/20 05:50 Direct Bilirubin < 0.2 mg/dL (0-0.2) 09/08/20 08:15 Indirect Bilirubin 0.0 mg/dL 09/08/20 08:15 AST 55 units/L (5-40) H 09/14/20 05:50 ALT 52 units/L (7-56) 09/14/20 05:50 Alkaline Phosphatase 135 units/L (35-129) H 09/14/20 05:50 Ammonia 50.0 umol/L (25-60) 09/09/20 04:12 Total Protein 7.1 g/dL (6.3-8.2) 09/14/20 05:50 Albumin 3.5 g/dL (3.9-5) L 09/14/20 05:50 Albumin/Globulin Ratio 1.0 % 09/14/20 05:50 Triglycerides 148 mg/dL (2-149) 09/09/20 04:12 Cholesterol 119 mg/dL (50-199) 09/09/20 04:12 LDL Cholesterol Direct 71 mg/dL (50-130) 09/09/20 04:12 HDL Cholesterol 33 mg/dL (40-59) L 09/09/20 04:12 Cholesterol/HDL Ratio 3.60 % 09/09/20 04:12 Amylase 45 units/L (27-131) 09/09/20 04:12 Lipase 12 units/L (13-60) L 09/09/20 04:12 Procalcitonin 0.28 ng/mL (<0.15) 09/10/20 05:00 Arterial Blood Glucose 102 mg/dL (65-95) H 09/13/20 10:55 Arterial Blood Ionized Calcium 4.7 mg/dL (4.6-5.3) 09/13/20 10:55 Urine Color Yee (Yellow) 09/08/20 Unknown Urine Turbidity Cloudy (Clear) 09/08/20 Unknown Urine pH 5.0 (5.0-7.0) 09/08/20 Unknown Ur Specific [place] 1.018 (1.003-1.030) 09/08/20 Unknown Urine Protein >500 mg/dL (Negative) 09/08/20 Unknown Urine Glucose (UA) Neg mg/dL (Negative) 09/08/20 Unknown Urine Ketones Neg mg/dL (Negative) 09/08/20 Unknown Urine Blood Sm (Negative) 09/08/20 Unknown Urine Nitrite Neg (Negative) 09/08/20 Unknown Urine Bilirubin Neg (Negative) 09/08/20 Unknown Urine Urobilinogen < 2.0 mg/dL (<2.0) 09/08/20 Unknown Ur Leukocyte Esterase Tr (Negative) 09/08/20 Unknown Urine WBC (Auto) Not Reportable 09/08/20 Unknown Urine RBC (Auto) Not Reportable 09/08/20 Unknown Salicylates < 0.3 mg/dL (2.8-20.0) L 09/08/20 07:51 Urine Opiates Screen Negative 09/08/20 Unknown Urine Methadone Screen Negative 09/08/20 Unknown Acetaminophen 5.0 ug/mL (10.0-30.0) L 09/08/20 08:15 Ur Barbiturates Screen Negative 09/08/20 Unknown Ur Phencyclidine Scrn Negative 09/08/20 Unknown Ur Amphetamines Screen Negative 09/08/20 Unknown U Benzodiazepines Scrn Negative 09/08/20 Unknown Urine Cocaine Screen Negative 09/08/20 Unknown U Marijuana (THC) Screen Presumptive negative 09/08/20 Unknown Drugs of Abuse Note Disclamer 09/08/20 Unknown Plasma/Serum Alcohol 0.11 % (0-0.07) H 09/08/20 08:15 Coronavirus (PCR) Negative (Negative) 09/09/20 09:45 Microbiology: Microbiology 09/08/20 08:20 Peripheral/Venous Blood Culture - Final NO GROWTH AFTER 5 DAYS 09/08/20 08:20 Peripheral/Venous Blood Culture - Final NO GROWTH AFTER 5 DAYS [place]/IV: Voiding Method Urinal Active Medications - Current Medications Current Medications: Generic Name Dose Route Start Last Admin Trade Name Freq PRN Reason Stop Dose Admin Acetaminophen 650 mg 09/14/20 00:19 09/14/20 00:41 Acetaminophen 325 Mg Tab PO 650 mg Q6H PRN Administration Pain, Mild (1-3) Lipase/Protease/Amylase 1 each 09/09/20 09:19 Lipase 10,500/Protease 25,000/Amylase 43,750 (Units) Dr Almeida FEEDTUBE PRN PRN For Clogged Feeding Tube Aspirin 81 mg 09/11/20 10:00 09/14/20 09:09 Aspirin 81 Mg Tab Chew PO 81 mg QDAY JUAN LUIS Administration Carvedilol 3.125 mg 09/10/20 22:00 09/14/20 09:09 Carvedilol 3.125 Mg Tab PO 3.125 mg BID JUAN LUIS Administration Enoxaparin Sodium 40 mg 09/08/20 22:00 09/13/20 21:26 Enoxaparin 40 Mg/0.4 Ml Inj SUB-Q 40 mg QDAY@2200 JUAN LUIS Administration Protocol Furosemide 40 mg 09/10/20 06:00 09/14/20 06:22 Furosemide 40 Mg/4 Ml Inj IV 40 mg 0600,1800 JUAN LUIS Administration Hydrophilic Ointment 1 applic 09/08/20 16:21 Lip Therapy Vaseline TP Q2HR PRN Dry Lips Nicardipine HCl 50 mg/ Sodium 250 mls @ 25 mls/hr 09/10/20 12:30 09/10/20 13:00 Chloride IV 0 mg/hr TITR JUAN LUIS 0 mls/hr Titration Protocol 5 MG/HR Dexmedetomidine HCl 400 mcg/ 104 mls @ 6.24 mls/hr 09/12/20 10:00 09/13/20 09:57 Sodium Chloride IV 0.2 mcg/kg/hr TITRATE JUAN LUIS 6.24 mls/hr Titration Protocol 0.2 MCG/KG/HR Insulin Human Lispro 0 unit 09/08/20 12:00 09/14/20 06:22 Insulin Lispro 100 Unit/Ml SUB-Q Not Given Q6HR [facility] Protocol Lansoprazole 30 mg 09/11/20 10:00 09/14/20 09:08 Lansoprazole 30 Mg Solutab FEEDTUBE 30 mg QDAY JUAN LUIS Administration Lisinopril 2.5 mg 09/11/20 10:00 09/14/20 09:09 Lisinopril 5 Mg Tab PO 2.5 mg QDAY JUAN LUIS Administration Lorazepam 2 mg 09/08/20 10:35 09/11/20 14:45 Lorazepam 2 Mg/Ml Vial IV 2 mg Q4H PRN Administration Agitation Metoprolol Tartrate 25 mg 09/10/20 13:00 09/14/20 09:08 Metoprolol Tartrate 25 Mg Tab PO 25 mg BID JUAN LUIS Administration Multi-Ingred Cream/Lotion/Oil/Oint 1 applic 09/08/20 16:21 Mineral Oil/Petrolatum, White Ophth Oint 3.5 Gm OU Q4HR PRN Dry Eye(s) Simple Syrup 15 ml 09/09/20 09:19 Simple Syrup 15 Ml FEEDTUBE PRN PRN Hypoglycemia Simple Syrup 30 ml 09/09/20 09:19 Simple Syrup 15 Ml FEEDTUBE PRN PRN Hypoglycemia Sodium Bicarbonate 325 mg 09/09/20 09:19 Sodium Bicarbonate 325 Mg Tab FEEDTUBE PRN PRN For Clogged Feeding Tube Spironolactone 25 mg 09/11/20 10:00 09/14/20 09:09 Spironolactone 25 Mg Tab PO 25 mg QDAY JUAN LUIS Administration Nutrition/Malnutrition Assess - Dietary Evaluation Nutrition/Malnutrition Findings: Nutrition Notes Start: 09/09/20 09:13 Freq: Status: Active Protocol: Document 09/11/20 08:21 CW (Rec: 09/11/20 08:30 CW [id number]) Nutrition Notes Initial or Follow up Reassessment Current Diagnosis Diabetes,Hypertension, Respiratory Failure Other Pertinent Diagnosis alcohol intoxication Current Diet TF - Vital AF at 55 ml/hr Labs/Tests BUN 27 Pertinent Medications 1/2 NS at 50 ml/hr Humalog Propofol at 10.8ml/hr (285 kcal) Lasix Height 5 ft Weight 120 kg [place] Body Weight (kg) 48.18 BMI 51.6 Weight Status Morbidly Obese Subjective/Other Information F/U for TF start/ tolerance. Pt remains mechanically ventilated. TF advanced to goal of 55 ml/hr per chart; previous ran at 50 ml/hr. No reports of TF intolerance. Percent of energy/protein needs met: 80%/75% (excluding kcal from propofol) Burn Absent Trauma Absent Difficulty In Swallowing Skin Integrity/Comment Intact Current % PO Negligible Minimum of two criteria No physical signs of malnutrition #1 Nutrition Diagnosis Inadequate oral intake Diagnosis Progress(for reassessment Continues documentation) Is patient on ventilator? Yes Is Patient Ambulatory and/or Out of Bed No REE-([facility]-confined to bed) 2286.456 Kcal/Kg value to use for calculation 15 Approximate Energy Requirements Using 1800 kcal/Kg Calculation Used for Recommendations Kcal/kg Additional Notes Protein: (up to 2.5 g/kg IBW) <120g Fluid: 1 ml/kcal or per MD Nutrition Intervention Change Diet Order: Start TF Nutrition Support: Vital AF at 55 ml/hr Flush 100 ml q4h or per MD Kcal 1,584 Protein (gm) 99 Fluid (mL) 1,071 Goal #1 Meet at least 75% of protein and energy needs via TF Anticipated Discharge Needs: Unable to determine at this time Follow-Up By: 09/14/20 Additional Comments F/U for TF tolerance, vent status, propofol status
--- NOTE | 2020-09-14 09:23 | Progress Note ---
Assessment and Plan -Acute hypoxic respiratory failure s/p MVS Possible aspiration pneumonia -Lactic acidosis/sepsis due to pneumonia -Elevated D-dimers; Lower extremity venous Dopplers negative for DVT -Acute toxic metabolic encephalopathy; POA Due to alcohol intoxication, hypoxia -Acute systolic congestive heart failure; ejection fraction 20 to 25% -Four-chamber dilated cardiomyopathy -Acute alcohol intoxication, alcohol abuse disorder -Leukocytosis; secondary to pneumonia -Hyperglycemia; no evidence of diabetes mellitus -Hypokalemia; resolved - Extreme Obesity; BMI 51.7 -Thrombocytopenia Substance abuse counselling done.He states, "never again" - continue to titrate supplemental oxygen for SpO2 89-92% -Heart failure measures, keep negative balance. -Continue with diuresis while monitoring hemodynamics and electrolyte profile - continue accuchecks with glycemic control per SSI (While critically ill target blood glucose of 140-180 mg/dL; avoid hypoglycemia) - avoid nephrotoxins, renally dose all medications - prn analgesia per CPOT score - Maintenance of sleep-wake cycle, avoid delirium - continue with regular diet - VTE prophylaxis- Enoxaparin - PT/OT/ROM exercises - continue other care per attending / other consultants Discussed with primary service. Can transfer out of the ICU Subjective Date of service: 09/14/20 Principal diagnosis: Ac hypoxemic and hypercapnic resp failure; EtOH OD; Acute encephalopathy Interval history: Patient is seen today for: Acute hypoxemic and hypercapnic respiratory failure; Alcohol overdose; Acute encephalopathy; Leukocytosis; DM II; Morbid obesity Seen and examined at bedside; 24hour events reviewed; nursing and respiratory care staff consulted; no adverse overnight events reported to me; resting peacefully in bed ; no emesis or overt aspiration Awake and alert, doing well post extubation COVID-19 test negative - 09/10/2020 Objective Vital Signs - 12hr 09/13/20 09/13/20 09/13/20 21:26 21:27 22:00 Temperature Pulse Rate 88 88 83 Pulse Rate [ 83 From Monitor] Respiratory 41 H Rate Blood Pressure 136/86 136/86 139/93 O2 Sat by Pulse 99 Oximetry 09/13/20 09/13/20 09/14/20 23:00 23:34 00:00 Temperature 98.8 F Pulse Rate 81 75 Pulse Rate [ From Monitor] Respiratory 34 H 33 H Rate Blood Pressure 122/74 120/79 O2 Sat by Pulse 99 93 Oximetry 05/09/14/20 09/14/20 00:02 01:00 02:00 Temperature Pulse Rate 75 75 79 Pulse Rate [ 77 From Monitor] Respiratory 35 H 41 H 18 Rate Blood Pressure 120/79 121/82 112/81 O2 Sat by Pulse 96 94 94 Oximetry 09/14/20 09/14/20 09/14/20 03:00 03:57 04:00 Temperature 98.7 F Pulse Rate 81 81 Pulse Rate [ From Monitor] Respiratory 20 18 Rate Blood Pressure 124/94 132/94 O2 Sat by Pulse 96 94 Oximetry 09/14/20 09/14/20 09/14/20 05:00 06:00 07:00 Temperature Pulse Rate 83 91 H 89 Pulse Rate [ From Monitor] Respiratory 22 22 44 H Rate Blood Pressure 138/98 O2 Sat by Pulse 96 97 93 Oximetry 09/14/20 09/14/20 08:09 08:42 Temperature 99.4 F Pulse Rate 92 H Pulse Rate [ From Monitor] Respiratory 21 Rate Blood Pressure O2 Sat by Pulse 96 Oximetry Constitutional: no acute distress, alert Eyes: non-icteric ENT: oropharynx moist Neck: supple, no lymphadenopathy, no JVD, other (large neck circumference) Effort: normal Ascultation: Bilateral: diminished breath sounds, rhonchi Percussion: Bilateral: not dull Cardiovascular: regular rate and rhythm, other (S1,S2) Gastrointestinal: normoactive bowel sounds, soft, non-tender, non-distended (protuberant) Integumentary: normal Extremities: no cyanosis, pink and warm, pulses normal, no ischemia or petechiae, edema (trace) Neurologic: normal mental status, non-focal exam, pupils equal and round, CN II- XII normal, motor strength normal and Psychiatric: mood appropriate, affect normal CBC and BMP: 09/18/20 04:53 09/18/20 04:53 ABG, PT/INR, D-dimer: ABG ABG pH 7.346 (7.320-7.450) 09/13/20 10:55 POC ABG pCO2 45.4 mmHg (32.0-48.0) 09/13/20 10:55 ABG pCO2 31.8 mm Hg 09/08/20 16:25 POC ABG pO2 96.5 mmHg (83-108) 09/13/20 10:55 ABG pO2 117.8 mm Hg (80.0-90.0) H 09/08/20 16:25 POC ABG HCO3 24.3 09/13/20 10:55 ABG O2 Saturation 97.9 (0-100) 09/13/20 10:55 PT/INR, D-dimer D-Dimer 3467.79 ng/mlDDU (0-234) H 09/09/20 15:19 Abnormal lab findings: Abnormal Labs 09/08/20 09/08/20 09/08/20 07:51 08:15 08:15 WBC 15.6 H RBC 6.67 H Hgb 17.7 H Hct 57.5 H MCV MCH 27 L MCHC 31 L RDW 18.1 H Plt Count Lymph % (Auto) [place] % (Auto) Eos % (Auto) Lymph # (Auto) [place] # (Auto) Eos # (Auto) Seg Neutrophils % Seg Neuts % (Manual) 71.0 H Seg Neutrophils # Seg Neutrophils # Man 11.1 H D-Dimer ABG pH POC ABG pCO2 POC ABG pO2 ABG pO2 ABG Base Excess ABG Hemoglobin ABG Sodium ABG Potassium ABG Chloride ABG Glucose Carboxyhemoglobin Potassium 3.5 L Chloride 97.7 L Carbon Dioxide BUN 21 H Glucose 228 H POC Glucose Lactic Acid Calcium Magnesium Total Bilirubin AST Alkaline Phosphatase Total Protein Albumin HDL Cholesterol Lipase Arterial Blood Glucose Arterial Blood Ionized Calcium Salicylates < 0.3 L Acetaminophen Plasma/Serum Alcohol 09/08/20 09/08/20 09/08/20 08:15 08:15 08:20 WBC RBC Hgb Hct MCV MCH MCHC RDW Plt Count Lymph % (Auto) [place] % (Auto) Eos % (Auto) Lymph # (Auto) [place] # (Auto) Eos # (Auto) Seg Neutrophils % Seg Neuts % (Manual) Seg Neutrophils # Seg Neutrophils # Man D-Dimer ABG pH POC ABG pCO2 POC ABG pO2 ABG pO2 ABG Base Excess ABG Hemoglobin ABG Sodium ABG Potassium ABG Chloride ABG Glucose Carboxyhemoglobin Potassium Chloride Carbon Dioxide BUN Glucose POC Glucose Lactic Acid 4.40 H* Calcium Magnesium Total Bilirubin AST Alkaline Phosphatase Total Protein Albumin HDL Cholesterol Lipase Arterial Blood Glucose Arterial Blood Ionized Calcium Salicylates Acetaminophen 5.0 L Plasma/Serum Alcohol 0.11 H 09/08/20 09/08/20 09/08/20 09:15 16:25 17:19 WBC RBC Hgb Hct MCV MCH MCHC RDW Plt Count Lymph % (Auto) [place] % (Auto) Eos % (Auto) Lymph # (Auto) [place] # (Auto) Eos # (Auto) Seg Neutrophils % Seg Neuts % (Manual) Seg Neutrophils # Seg Neutrophils # Man D-Dimer ABG pH 7.222 L POC ABG pCO2 POC ABG pO2 ABG pO2 185.7 H 117.8 H ABG Base Excess -6.5 L ABG Hemoglobin 18.1 H ABG Sodium ABG Potassium ABG Chloride ABG Glucose Carboxyhemoglobin Potassium Chloride Carbon Dioxide BUN Glucose POC Glucose 106 H Lactic Acid Calcium Magnesium Total Bilirubin AST Alkaline Phosphatase Total Protein Albumin HDL Cholesterol Lipase Arterial Blood Glucose Arterial Blood Ionized Calcium Salicylates Acetaminophen Plasma/Serum Alcohol 09/08/20 09/09/20 09/09/20 17:39 01:32 03:08 WBC RBC Hgb Hct MCV MCH MCHC RDW Plt Count Lymph % (Auto) [place] % (Auto) Eos % (Auto) Lymph # (Auto) [place] # (Auto) Eos # (Auto) Seg Neutrophils % Seg Neuts % (Manual) Seg Neutrophils # Seg Neutrophils # Man D-Dimer ABG pH POC ABG pCO2 POC ABG pO2 ABG pO2 ABG Base Excess ABG Hemoglobin 18.2 H ABG Sodium ABG Potassium ABG Chloride ABG Glucose 145 H Carboxyhemoglobin Potassium Chloride Carbon Dioxide BUN Glucose POC Glucose 128 H Lactic Acid 2.20 H* Calcium Magnesium Total Bilirubin AST Alkaline Phosphatase Total Protein Albumin HDL Cholesterol Lipase Arterial Blood Glucose 145 H Arterial Blood Ionized Calcium 4.3 L Salicylates Acetaminophen Plasma/Serum Alcohol 09/09/20 09/09/20 09/09/20 04:12 06:10 11:05 WBC RBC Hgb Hct MCV MCH MCHC RDW Plt Count Lymph % (Auto) [place] % (Auto) Eos % (Auto) Lymph # (Auto) [place] # (Auto) Eos # (Auto) Seg Neutrophils % Seg Neuts % (Manual) Seg Neutrophils # Seg Neutrophils # Man D-Dimer ABG pH POC ABG pCO2 POC ABG pO2 ABG pO2 ABG Base Excess ABG Hemoglobin ABG Sodium ABG Potassium ABG Chloride ABG Glucose Carboxyhemoglobin Potassium Chloride Carbon Dioxide BUN 26 H Glucose 136 H POC Glucose 135 H 139 H Lactic Acid Calcium 7.5 L Magnesium Total Bilirubin AST Alkaline Phosphatase Total Protein 6.0 L D Albumin 2.8 L HDL Cholesterol 33 L Lipase 12 L Arterial Blood Glucose Arterial Blood Ionized Calcium Salicylates Acetaminophen Plasma/Serum Alcohol 09/09/20 09/09/20 09/09/20 15:19 15:43 23:37 WBC RBC Hgb Hct MCV MCH MCHC RDW Plt Count Lymph % (Auto) [place] % (Auto) Eos % (Auto) Lymph # (Auto) [place] # (Auto) Eos # (Auto) Seg Neutrophils % Seg Neuts % (Manual) Seg Neutrophils # Seg Neutrophils # Man D-Dimer 3467.79 H ABG pH POC ABG pCO2 POC ABG pO2 ABG pO2 ABG Base Excess ABG Hemoglobin ABG Sodium ABG Potassium ABG Chloride ABG Glucose Carboxyhemoglobin Potassium Chloride Carbon Dioxide BUN Glucose POC Glucose 116 H 117 H Lactic Acid Calcium Magnesium Total Bilirubin AST Alkaline Phosphatase Total Protein Albumin HDL Cholesterol Lipase Arterial Blood Glucose Arterial Blood Ionized Calcium Salicylates Acetaminophen Plasma/Serum Alcohol 09/10/20 09/10/20 09/10/20 05:00 05:22 08:47 WBC RBC 6.44 H Hgb 17.2 H Hct 53.2 H MCV 83 L MCH 27 L MCHC RDW 18.1 H Plt Count Lymph % (Auto) 13.3 L [place] % (Auto) Eos % (Auto) Lymph # (Auto) [place] # (Auto) Eos # (Auto) Seg Neutrophils % 79.1 H Seg Neuts % (Manual) Seg Neutrophils # 7.9 H Seg Neutrophils # Man D-Dimer ABG pH POC ABG pCO2 POC ABG pO2 73.9 L ABG pO2 ABG Base Excess ABG Hemoglobin 18.0 H ABG Sodium ABG Potassium ABG Chloride 110.0 H ABG Glucose 121 H Carboxyhemoglobin 1.6 H Potassium Chloride Carbon Dioxide BUN Glucose POC Glucose 127 H Lactic Acid Calcium Magnesium Total Bilirubin AST Alkaline Phosphatase Total Protein Albumin HDL Cholesterol Lipase Arterial Blood Glucose 121 H Arterial Blood Ionized Calcium Salicylates Acetaminophen Plasma/Serum Alcohol 09/10/20 09/10/20 09/11/20 08:47 11:39 04:24 WBC RBC Hgb Hct MCV MCH MCHC RDW Plt Count Lymph % (Auto) [place] % (Auto) Eos % (Auto) Lymph # (Auto) [place] # (Auto) Eos # (Auto) Seg Neutrophils % Seg Neuts % (Manual) Seg Neutrophils # Seg Neutrophils # Man D-Dimer ABG pH 7.456 H POC ABG pCO2 28.6 L POC ABG pO2 123.7 H ABG pO2 ABG Base Excess ABG Hemoglobin ABG Sodium ABG Potassium 3.2 L ABG Chloride 108.0 H ABG Glucose 112 H Carboxyhemoglobin 1.9 H Potassium Chloride 108.3 H Carbon Dioxide 20 L BUN 27 H Glucose POC Glucose 107 H Lactic Acid Calcium 7.8 L Magnesium 2.50 H Total Bilirubin AST Alkaline Phosphatase Total Protein 5.8 L Albumin 2.6 L HDL Cholesterol Lipase Arterial Blood Glucose 112 H Arterial Blood Ionized Calcium Salicylates Acetaminophen Plasma/Serum Alcohol 09/11/20 09/11/20 09/11/20 06:22 11:26 13:10 WBC 11.1 H RBC 6.38 H Hgb 16.9 H Hct 52.0 H MCV 82 L MCH 27 L MCHC RDW 17.8 H Plt Count 127 L Lymph % (Auto) [place] % (Auto) Eos % (Auto) Lymph # (Auto) [place] # (Auto) Eos # (Auto) Seg Neutrophils % Seg Neuts % (Manual) Seg Neutrophils # Seg Neutrophils # Man D-Dimer ABG pH POC ABG pCO2 POC ABG pO2 ABG pO2 ABG Base Excess ABG Hemoglobin ABG Sodium ABG Potassium ABG Chloride ABG Glucose Carboxyhemoglobin Potassium Chloride Carbon Dioxide BUN Glucose POC Glucose 108 H 124 H Lactic Acid Calcium Magnesium Total Bilirubin AST Alkaline Phosphatase Total Protein Albumin HDL Cholesterol Lipase Arterial Blood Glucose Arterial Blood Ionized Calcium Salicylates Acetaminophen Plasma/Serum Alcohol 09/11/20 09/11/20 09/12/20 13:10 17:25 05:01 WBC RBC Hgb Hct MCV MCH MCHC RDW Plt Count Lymph % (Auto) [place] % (Auto) Eos % (Auto) Lymph # (Auto) [place] # (Auto) Eos # (Auto) Seg Neutrophils % Seg Neuts % (Manual) Seg Neutrophils # Seg Neutrophils # Man D-Dimer ABG pH 7.507 H POC ABG pCO2 28.3 L POC ABG pO2 ABG pO2 ABG Base Excess ABG Hemoglobin ABG Sodium ABG Potassium 3.2 L ABG Chloride 108.0 H ABG Glucose Carboxyhemoglobin 2.0 H Potassium 3.4 L Chloride Carbon Dioxide BUN 28 H Glucose POC Glucose 107 H Lactic Acid Calcium 8.0 L Magnesium Total Bilirubin AST Alkaline Phosphatase Total Protein 5.7 L Albumin 3.3 L HDL Cholesterol Lipase Arterial Blood Glucose Arterial Blood Ionized Calcium Salicylates Acetaminophen Plasma/Serum Alcohol 09/13/20 09/13/20 09/13/20 03:27 04:29 04:29 WBC 11.8 H RBC 6.74 H Hgb 18.2 H Hct 55.4 H MCV 82 L MCH 27 L MCHC RDW 17.2 H Plt Count Lymph % (Auto) 8.3 L [place] % (Auto) 8.6 H Eos % (Auto) Lymph # (Auto) 1.0 L [place] # (Auto) 1.0 H Eos # (Auto) 0.5 H Seg Neutrophils % 79.0 H Seg Neuts % (Manual) Seg Neutrophils # 9.3 H Seg Neutrophils # Man D-Dimer ABG pH 7.509 H POC ABG pCO2 29.8 L POC ABG pO2 81.6 L ABG pO2 ABG Base Excess ABG Hemoglobin 19.2 H ABG Sodium 145.3 H ABG Potassium 3.0 L ABG Chloride ABG Glucose 97 H Carboxyhemoglobin 1.8 H Potassium 3.2 L Chloride Carbon Dioxide BUN 29 H Glucose POC Glucose Lactic Acid Calcium Magnesium Total Bilirubin 1.80 H AST Alkaline Phosphatase Total Protein Albumin 3.3 L HDL Cholesterol Lipase Arterial Blood Glucose 97 H Arterial Blood Ionized Calcium Salicylates Acetaminophen Plasma/Serum Alcohol 09/13/20 09/13/20 09/13/20 10:55 11:31 23:10 WBC RBC Hgb Hct MCV MCH MCHC RDW Plt Count Lymph % (Auto) [place] % (Auto) Eos % (Auto) Lymph # (Auto) [place] # (Auto) Eos # (Auto) Seg Neutrophils % Seg Neuts % (Manual) Seg Neutrophils # Seg Neutrophils # Man D-Dimer ABG pH POC ABG pCO2 POC ABG pO2 ABG pO2 ABG Base Excess ABG Hemoglobin 19.7 H ABG Sodium ABG Potassium ABG Chloride ABG Glucose 102 H Carboxyhemoglobin Potassium Chloride Carbon Dioxide BUN Glucose POC Glucose 106 H 107 H Lactic Acid Calcium Magnesium Total Bilirubin AST Alkaline Phosphatase Total Protein Albumin HDL Cholesterol Lipase Arterial Blood Glucose 102 H Arterial Blood Ionized Calcium Salicylates Acetaminophen Plasma/Serum Alcohol 09/14/20 09/14/20 05:50 05:50 WBC 11.3 H RBC 6.82 H Hgb 18.8 H Hct 57.2 H MCV MCH MCHC RDW 17.9 H Plt Count Lymph % (Auto) 8.0 L [place] % (Auto) 10.3 H Eos % (Auto) 6.1 H Lymph # (Auto) 0.9 L [place] # (Auto) 1.2 H Eos # (Auto) 0.7 H Seg Neutrophils % 75.0 H Seg Neuts % (Manual) Seg Neutrophils # 8.5 H Seg Neutrophils # Man D-Dimer ABG pH POC ABG pCO2 POC ABG pO2 ABG pO2 ABG Base Excess ABG Hemoglobin ABG Sodium ABG Potassium ABG Chloride ABG Glucose Carboxyhemoglobin Potassium Chloride Carbon Dioxide 32 H BUN 28 H Glucose POC Glucose Lactic Acid Calcium Magnesium Total Bilirubin AST 55 H Alkaline Phosphatase 135 H Total Protein Albumin 3.5 L HDL Cholesterol Lipase Arterial Blood Glucose Arterial Blood Ionized Calcium Salicylates Acetaminophen Plasma/Serum Alcohol Chest x-ray: image reviewed Allied health notes reviewed: nursing
--- NOTE | 2020-09-14 10:21 | Progress Note ---
Assessment and Plan 1. Chronic combined systolic and diastolic heart failure 2. Dilated cardiomyopathy 3. Essential hypertension 4. Type 2 diabetes mellitus 5. Alcoholism 6. Obesity Plan. Patient is currently stable extubated. We will continue conservative management. Subjective Date of service: 09/14/20 Principal diagnosis: Ac hypoxemic and hypercapnic resp failure; EtOH OD; Acute encephalopathy Interval history: Alert extubated no complains Objective Vital Signs Temp Pulse Pulse Resp BP Pulse Ox 09/14/20 10:00 84 33 H 93/59 98 09/14/20 09:00 96 09/14/20 08:42 99.4 F 09/14/20 08:09 92 H 21 96 09/14/20 07:00 89 44 H 138/98 93 09/14/20 06:00 91 H 22 97 09/14/20 05:00 83 22 96 09/14/20 04:00 81 18 132/94 94 09/14/20 03:57 98.7 F 09/14/20 03:00 81 20 124/94 96 09/14/20 02:00 79 77 18 112/81 94 09/14/20 01:00 75 41 H 121/82 94 09/14/20 00:02 75 35 H 120/79 96 09/14/20 00:00 75 33 H 120/79 93 09/13/20 23:34 98.8 F 09/13/20 23:00 81 34 H 122/74 99 09/13/20 22:00 83 83 41 H 139/93 99 09/13/20 21:27 88 136/86 09/13/20 21:26 88 136/86 09/13/20 21:00 87 18 134/85 97 09/13/20 20:00 84 38 H 134/85 98 09/13/20 19:58 98.2 F 09/13/20 19:42 97 09/13/20 19:30 87 41 H 96 09/13/20 19:00 83 39 H 98 09/13/20 18:30 89 31 H 93 09/13/20 18:00 87 78 35 H 94 09/13/20 17:30 86 43 H 95 09/13/20 17:23 98.5 F 09/13/20 17:00 88 13 98 09/13/20 16:30 81 37 H 99 09/13/20 16:00 81 40 H 99 09/13/20 15:30 81 19 100 09/13/20 15:00 80 38 H 98 09/13/20 14:31 83 46 H 138/81 93 09/13/20 14:01 71 27 H 138/81 97 09/13/20 14:00 75 20 100 09/13/20 13:31 82 25 H 138/81 98 09/13/20 13:01 84 13 138/81 97 09/13/20 12:31 80 20 138/81 97 09/13/20 12:01 84 29 H 138/81 95 09/13/20 11:51 98 09/13/20 11:49 98.0 F 09/13/20 11:30 73 22 128/85 99 09/13/20 11:00 76 15 119/85 98 09/13/20 10:54 73 28 H 123/79 98 09/13/20 10:31 78 25 H 127/82 98 - Physical Examination General: Appears Well, No Apparent Distress HEENT: Positive: PERRL, Normocephaly, Mucus Membranes Moist Neck: Positive: neck supple, trachea midline. Negative: JVD/HJR Cardiac: Positive: Regular Rate, S1/S2, PMI, Laterally Displaced. Negative: S3, S4 Lungs: Positive: clear to auscultation, No Wheeze, Rales, Rhonchi Neuro: Positive: Grossly Intact, No Lateralizing Findings Abdomen: Positive: Unremarkable, Soft Extremities: Absent: edema - Labs and Meds Cardiac Enzymes 09/14/20 Range/Units 05:50 AST 55 H (5-40) units/L CBC 09/14/20 Range/Units 05:50 WBC 11.3 H (4.5-11.0) K/mm3 RBC 6.82 H (3.65-5.03) M/mm3 Hgb 18.8 H (11.8-15.2) gm/dl Hct 57.2 H (35.5-45.6) % Plt Count 162 (140-440) K/mm3 Lymph # (Auto) 0.9 L (1.2-5.4) K/mm3 [place] # (Auto) 1.2 H (0.0-0.8) K/mm3 Eos # (Auto) 0.7 H (0.0-0.4) K/mm3 Baso # (Auto) 0.1 (0.0-0.1) K/mm3 Comprehensive Metabolic Panel 09/14/20 Range/Units 05:50 Sodium 144 (137-145) mmol/L Potassium 4.1 D (3.6-5.0) mmol/L Chloride 102.9 (98-107) mmol/L Carbon Dioxide 32 H (22-30) mmol/L BUN 28 H (9-20) mg/dL Creatinine 1.2 (0.8-1.3) mg/dL Glucose 97 (75-100) mg/dL Calcium 8.6 (8.4-10.2) mg/dL AST 55 H (5-40) units/L ALT 52 (7-56) units/L Alkaline Phosphatase 135 H (35-129) units/L Total Protein 7.1 (6.3-8.2) g/dL Albumin 3.5 L (3.9-5) g/dL - Telemetry EKG Rhythm: Sinus Rhythm - Allied health notes Allied health notes reviewed: nursing
[2020-09-14] MEDS: ENOXAPARIN 40 MG/0.4 ML INJ SUB-Q SCH (21:13)
[2020-09-15] MEDS: INSULIN LISPRO 100 UNIT/ML SUB-Q SCH ×3 (00:32→13:32)
[2020-09-15] MEDS: ACETAMINOPHEN 325 MG TAB PO PRN ×2 (04:01→13:23)
[2020-09-15] MEDS: FUROSEMIDE 40 MG/4 ML INJ IV SCH ×2 (06:12→17:34)
--- NOTE | 2020-09-15 10:26 | Progress Note ---
Assessment and Plan Patient alert, awake. Resting on room air. O2 saturation 98%. No complaint of chest pain, shortness of breath at this time. Having non productive cough. History of alcohol abuse. Denies drug abuse. Smoking history not known . Work with [employer]. Not . No children. No known drug allergies. Patient afebrile and has leukocytosis. Chest xray done 09/11/20 reported Congestive changes and pulmonary edema have worsened. No pneumothorax. CT of chest done 09/10/[address] evidence for pulmonary embolism. Patchy airspace changes lower lobes pneumonia is a concern Cardiac enlargement. - Patient Problems (1) Acute respiratory failure with hypoxia Current Visit: Yes Status: Acute Plan to address problem: Improved. Patient is on room air. O2 saturation 98%. (2) Alcohol intoxication Current Visit: Yes Status: Acute Plan to address problem: Management as per primary care. (3) Acute encephalopathy Current Visit: Yes Status: Acute Plan to address problem: Management as per primary care and neurology. (4) Dilated cardiomyopathy Current Visit: Yes Status: Acute Plan to address problem: Management as per cardiology. Subjective Date of service: 09/15/20 Principal diagnosis: Ac hypoxemic and hypercapnic resp failure; EtOH OD; Acute encephalopathy Interval history: Patient alert, awake. Resting on room air. O2 saturation 98%. No complaint of chest pain, shortness of breath at this time. Having non productive cough. History of alcohol abuse.Denies drug abuse. Smoking history not known .Work with [employer]. Not . No children. No known drug allergies. Patient afebrile and has leukocytosis. Chest xray done 09/11/20 reported Congestive changes and pulmonary edema have worsened. No pneumothorax. CT of chest done 09/10/[address] evidence for pulmonary embolism. Patchy airspace changes lower lobes pneumonia is a concern Cardiac enlargement. Objective Vital Signs - 12hr 09/14/20 09/15/20 09/15/20 23:55 00:25 03:53 Temperature 98.7 F 98.4 F Pulse Rate 73 82 Respiratory 18 18 Rate Blood Pressure 127/76 130/90 O2 Sat by Pulse 96 94 90 Oximetry 09/15/20 09/15/20 09/15/20 08:02 09:02 09:25 Temperature 98.3 F Pulse Rate 92 H 101 H Respiratory 20 Rate Blood Pressure 123/75 O2 Sat by Pulse 96 96 Oximetry Constitutional: no acute distress, other (middle aged morbidly obese male wi thout vemtilator dyssynchrony) Eyes: non-icteric ENT: oropharynx moist, other (ETT 25 cm RACHEAL) Neck: supple, no lymphadenopathy, no JVD, other (large neck circumference) Effort: normal Ascultation: Bilateral: diminished breath sounds, rhonchi Percussion: Bilateral: not dull Cardiovascular: regular rate and rhythm Gastrointestinal: normoactive bowel sounds, soft, non-tender, non-distended (protuberant) Integumentary: normal Extremities: no cyanosis, pink and warm, pulses normal, no ischemia or petechiae, edema (trace) Neurologic: non-focal exam (grossly), pupils equal and round, CN II-XII normal, motor strength normal and Psychiatric: mood appropriate, affect normal CBC and BMP: 09/14/20 05:50 09/14/20 05:50 ABG, PT/INR, D-dimer: ABG ABG pH 7.346 (7.320-7.450) 09/13/20 10:55 POC ABG pCO2 45.4 mmHg (32.0-48.0) 09/13/20 10:55 ABG pCO2 31.8 mm Hg 09/08/20 16:25 POC ABG pO2 96.5 mmHg (83-108) 09/13/20 10:55 ABG pO2 117.8 mm Hg (80.0-90.0) H 09/08/20 16:25 POC ABG HCO3 24.3 09/13/20 10:55 ABG O2 Saturation 97.9 (0-100) 09/13/20 10:55 PT/INR, D-dimer D-Dimer 3467.79 ng/mlDDU (0-234) H 09/09/20 15:19 Abnormal lab findings: Abnormal Labs 09/08/20 09/08/20 09/08/20 07:51 08:15 08:15 WBC 15.6 H RBC 6.67 H Hgb 17.7 H Hct 57.5 H MCV MCH 27 L MCHC 31 L RDW 18.1 H Plt Count Lymph % (Auto) [place] % (Auto) Eos % (Auto) Lymph # (Auto) [place] # (Auto) Eos # (Auto) Seg Neutrophils % Seg Neuts % (Manual) 71.0 H Seg Neutrophils # Seg Neutrophils # Man 11.1 H D-Dimer ABG pH POC ABG pCO2 POC ABG pO2 ABG pO2 ABG Base Excess ABG Hemoglobin ABG Sodium ABG Potassium ABG Chloride ABG Glucose Carboxyhemoglobin Potassium 3.5 L Chloride 97.7 L Carbon Dioxide BUN 21 H Glucose 228 H POC Glucose Lactic Acid Calcium Magnesium Total Bilirubin AST Alkaline Phosphatase Total Protein Albumin HDL Cholesterol Lipase Arterial Blood Glucose Arterial Blood Ionized Calcium Salicylates < 0.3 L Acetaminophen Plasma/Serum Alcohol 09/08/20 09/08/20 09/08/20 08:15 08:15 08:20 WBC RBC Hgb Hct MCV MCH MCHC RDW Plt Count Lymph % (Auto) [place] % (Auto) Eos % (Auto) Lymph # (Auto) [place] # (Auto) Eos # (Auto) Seg Neutrophils % Seg Neuts % (Manual) Seg Neutrophils # Seg Neutrophils # Man D-Dimer ABG pH POC ABG pCO2 POC ABG pO2 ABG pO2 ABG Base Excess ABG Hemoglobin ABG Sodium ABG Potassium ABG Chloride ABG Glucose Carboxyhemoglobin Potassium Chloride Carbon Dioxide BUN Glucose POC Glucose Lactic Acid 4.40 H* Calcium Magnesium Total Bilirubin AST Alkaline Phosphatase Total Protein Albumin HDL Cholesterol Lipase Arterial Blood Glucose Arterial Blood Ionized Calcium Salicylates Acetaminophen 5.0 L Plasma/Serum Alcohol 0.11 H 09/08/20 09/08/20 09/08/20 09:15 16:25 17:19 WBC RBC Hgb Hct MCV MCH MCHC RDW Plt Count Lymph % (Auto) [place] % (Auto) Eos % (Auto) Lymph # (Auto) [place] # (Auto) Eos # (Auto) Seg Neutrophils % Seg Neuts % (Manual) Seg Neutrophils # Seg Neutrophils # Man D-Dimer ABG pH 7.222 L POC ABG pCO2 POC ABG pO2 ABG pO2 185.7 H 117.8 H ABG Base Excess -6.5 L ABG Hemoglobin 18.1 H ABG Sodium ABG Potassium ABG Chloride ABG Glucose Carboxyhemoglobin Potassium Chloride Carbon Dioxide BUN Glucose POC Glucose 106 H Lactic Acid Calcium Magnesium Total Bilirubin AST Alkaline Phosphatase Total Protein Albumin HDL Cholesterol Lipase Arterial Blood Glucose Arterial Blood Ionized Calcium Salicylates Acetaminophen Plasma/Serum Alcohol 09/08/20 09/09/20 09/09/20 17:39 01:32 03:08 WBC RBC Hgb Hct MCV MCH MCHC RDW Plt Count Lymph % (Auto) [place] % (Auto) Eos % (Auto) Lymph # (Auto) [place] # (Auto) Eos # (Auto) Seg Neutrophils % Seg Neuts % (Manual) Seg Neutrophils # Seg Neutrophils # Man D-Dimer ABG pH POC ABG pCO2 POC ABG pO2 ABG pO2 ABG Base Excess ABG Hemoglobin 18.2 H ABG Sodium ABG Potassium ABG Chloride ABG Glucose 145 H Carboxyhemoglobin Potassium Chloride Carbon Dioxide BUN Glucose POC Glucose 128 H Lactic Acid 2.20 H* Calcium Magnesium Total Bilirubin AST Alkaline Phosphatase Total Protein Albumin HDL Cholesterol Lipase Arterial Blood Glucose 145 H Arterial Blood Ionized Calcium 4.3 L Salicylates Acetaminophen Plasma/Serum Alcohol 09/09/20 09/09/20 09/09/20 04:12 06:10 11:05 WBC RBC Hgb Hct MCV MCH MCHC RDW Plt Count Lymph % (Auto) [place] % (Auto) Eos % (Auto) Lymph # (Auto) [place] # (Auto) Eos # (Auto) Seg Neutrophils % Seg Neuts % (Manual) Seg Neutrophils # Seg Neutrophils # Man D-Dimer ABG pH POC ABG pCO2 POC ABG pO2 ABG pO2 ABG Base Excess ABG Hemoglobin ABG Sodium ABG Potassium ABG Chloride ABG Glucose Carboxyhemoglobin Potassium Chloride Carbon Dioxide BUN 26 H Glucose 136 H POC Glucose 135 H 139 H Lactic Acid Calcium 7.5 L Magnesium Total Bilirubin AST Alkaline Phosphatase Total Protein 6.0 L D Albumin 2.8 L HDL Cholesterol 33 L Lipase 12 L Arterial Blood Glucose Arterial Blood Ionized Calcium Salicylates Acetaminophen Plasma/Serum Alcohol 09/09/20 09/09/20 09/09/20 15:19 15:43 23:37 WBC RBC Hgb Hct MCV MCH MCHC RDW Plt Count Lymph % (Auto) [place] % (Auto) Eos % (Auto) Lymph # (Auto) [place] # (Auto) Eos # (Auto) Seg Neutrophils % Seg Neuts % (Manual) Seg Neutrophils # Seg Neutrophils # Man D-Dimer 3467.79 H ABG pH POC ABG pCO2 POC ABG pO2 ABG pO2 ABG Base Excess ABG Hemoglobin ABG Sodium ABG Potassium ABG Chloride ABG Glucose Carboxyhemoglobin Potassium Chloride Carbon Dioxide BUN Glucose POC Glucose 116 H 117 H Lactic Acid Calcium Magnesium Total Bilirubin AST Alkaline Phosphatase Total Protein Albumin HDL Cholesterol Lipase Arterial Blood Glucose Arterial Blood Ionized Calcium Salicylates Acetaminophen Plasma/Serum Alcohol 09/10/20 09/10/20 09/10/20 05:00 05:22 08:47 WBC RBC 6.44 H Hgb 17.2 H Hct 53.2 H MCV 83 L MCH 27 L MCHC RDW 18.1 H Plt Count Lymph % (Auto) 13.3 L [place] % (Auto) Eos % (Auto) Lymph # (Auto) [place] # (Auto) Eos # (Auto) Seg Neutrophils % 79.1 H Seg Neuts % (Manual) Seg Neutrophils # 7.9 H Seg Neutrophils # Man D-Dimer ABG pH POC ABG pCO2 POC ABG pO2 73.9 L ABG pO2 ABG Base Excess ABG Hemoglobin 18.0 H ABG Sodium ABG Potassium ABG Chloride 110.0 H ABG Glucose 121 H Carboxyhemoglobin 1.6 H Potassium Chloride Carbon Dioxide BUN Glucose POC Glucose 127 H Lactic Acid Calcium Magnesium Total Bilirubin AST Alkaline Phosphatase Total Protein Albumin HDL Cholesterol Lipase Arterial Blood Glucose 121 H Arterial Blood Ionized Calcium Salicylates Acetaminophen Plasma/Serum Alcohol 09/10/20 09/10/20 09/11/20 08:47 11:39 04:24 WBC RBC Hgb Hct MCV MCH MCHC RDW Plt Count Lymph % (Auto) [place] % (Auto) Eos % (Auto) Lymph # (Auto) [place] # (Auto) Eos # (Auto) Seg Neutrophils % Seg Neuts % (Manual) Seg Neutrophils # Seg Neutrophils # Man D-Dimer ABG pH 7.456 H POC ABG pCO2 28.6 L POC ABG pO2 123.7 H ABG pO2 ABG Base Excess ABG Hemoglobin ABG Sodium ABG Potassium 3.2 L ABG Chloride 108.0 H ABG Glucose 112 H Carboxyhemoglobin 1.9 H Potassium Chloride 108.3 H Carbon Dioxide 20 L BUN 27 H Glucose POC Glucose 107 H Lactic Acid Calcium 7.8 L Magnesium 2.50 H Total Bilirubin AST Alkaline Phosphatase Total Protein 5.8 L Albumin 2.6 L HDL Cholesterol Lipase Arterial Blood Glucose 112 H Arterial Blood Ionized Calcium Salicylates Acetaminophen Plasma/Serum Alcohol 09/11/20 09/11/20 09/11/20 06:22 11:26 13:10 WBC 11.1 H RBC 6.38 H Hgb 16.9 H Hct 52.0 H MCV 82 L MCH 27 L MCHC RDW 17.8 H Plt Count 127 L Lymph % (Auto) [place] % (Auto) Eos % (Auto) Lymph # (Auto) [place] # (Auto) Eos # (Auto) Seg Neutrophils % Seg Neuts % (Manual) Seg Neutrophils # Seg Neutrophils # Man D-Dimer ABG pH POC ABG pCO2 POC ABG pO2 ABG pO2 ABG Base Excess ABG Hemoglobin ABG Sodium ABG Potassium ABG Chloride ABG Glucose Carboxyhemoglobin Potassium Chloride Carbon Dioxide BUN Glucose POC Glucose 108 H 124 H Lactic Acid Calcium Magnesium Total Bilirubin AST Alkaline Phosphatase Total Protein Albumin HDL Cholesterol Lipase Arterial Blood Glucose Arterial Blood Ionized Calcium Salicylates Acetaminophen Plasma/Serum Alcohol 09/11/20 09/11/20 09/12/20 13:10 17:25 05:01 WBC RBC Hgb Hct MCV MCH MCHC RDW Plt Count Lymph % (Auto) [place] % (Auto) Eos % (Auto) Lymph # (Auto) [place] # (Auto) Eos # (Auto) Seg Neutrophils % Seg Neuts % (Manual) Seg Neutrophils # Seg Neutrophils # Man D-Dimer ABG pH 7.507 H POC ABG pCO2 28.3 L POC ABG pO2 ABG pO2 ABG Base Excess ABG Hemoglobin ABG Sodium ABG Potassium 3.2 L ABG Chloride 108.0 H ABG Glucose Carboxyhemoglobin 2.0 H Potassium 3.4 L Chloride Carbon Dioxide BUN 28 H Glucose POC Glucose 107 H Lactic Acid Calcium 8.0 L Magnesium Total Bilirubin AST Alkaline Phosphatase Total Protein 5.7 L Albumin 3.3 L HDL Cholesterol Lipase Arterial Blood Glucose Arterial Blood Ionized Calcium Salicylates Acetaminophen Plasma/Serum Alcohol 09/13/20 09/13/20 09/13/20 03:27 04:29 04:29 WBC 11.8 H RBC 6.74 H Hgb 18.2 H Hct 55.4 H MCV 82 L MCH 27 L MCHC RDW 17.2 H Plt Count Lymph % (Auto) 8.3 L [place] % (Auto) 8.6 H Eos % (Auto) Lymph # (Auto) 1.0 L [place] # (Auto) 1.0 H Eos # (Auto) 0.5 H Seg Neutrophils % 79.0 H Seg Neuts % (Manual) Seg Neutrophils # 9.3 H Seg Neutrophils # Man D-Dimer ABG pH 7.509 H POC ABG pCO2 29.8 L POC ABG pO2 81.6 L ABG pO2 ABG Base Excess ABG Hemoglobin 19.2 H ABG Sodium 145.3 H ABG Potassium 3.0 L ABG Chloride ABG Glucose 97 H Carboxyhemoglobin 1.8 H Potassium 3.2 L Chloride Carbon Dioxide BUN 29 H Glucose POC Glucose Lactic Acid Calcium Magnesium Total Bilirubin 1.80 H AST Alkaline Phosphatase Total Protein Albumin 3.3 L HDL Cholesterol Lipase Arterial Blood Glucose 97 H Arterial Blood Ionized Calcium Salicylates Acetaminophen Plasma/Serum Alcohol 09/13/20 09/13/20 09/13/20 10:55 11:31 23:10 WBC RBC Hgb Hct MCV MCH MCHC RDW Plt Count Lymph % (Auto) [place] % (Auto) Eos % (Auto) Lymph # (Auto) [place] # (Auto) Eos # (Auto) Seg Neutrophils % Seg Neuts % (Manual) Seg Neutrophils # Seg Neutrophils # Man D-Dimer ABG pH POC ABG pCO2 POC ABG pO2 ABG pO2 ABG Base Excess ABG Hemoglobin 19.7 H ABG Sodium ABG Potassium ABG Chloride ABG Glucose 102 H Carboxyhemoglobin Potassium Chloride Carbon Dioxide BUN Glucose POC Glucose 106 H 107 H Lactic Acid Calcium Magnesium Total Bilirubin AST Alkaline Phosphatase Total Protein Albumin HDL Cholesterol Lipase Arterial Blood Glucose 102 H Arterial Blood Ionized Calcium Salicylates Acetaminophen Plasma/Serum Alcohol 09/14/20 09/14/20 09/14/20 05:50 05:50 11:38 WBC 11.3 H RBC 6.82 H Hgb 18.8 H Hct 57.2 H MCV MCH MCHC RDW 17.9 H Plt Count Lymph % (Auto) 8.0 L [place] % (Auto) 10.3 H Eos % (Auto) 6.1 H Lymph # (Auto) 0.9 L [place] # (Auto) 1.2 H Eos # (Auto) 0.7 H Seg Neutrophils % 75.0 H Seg Neuts % (Manual) Seg Neutrophils # 8.5 H Seg Neutrophils # Man D-Dimer ABG pH POC ABG pCO2 POC ABG pO2 ABG pO2 ABG Base Excess ABG Hemoglobin ABG Sodium ABG Potassium ABG Chloride ABG Glucose Carboxyhemoglobin Potassium Chloride Carbon Dioxide 32 H BUN 28 H Glucose POC Glucose 114 H Lactic Acid Calcium Magnesium Total Bilirubin AST 55 H Alkaline Phosphatase 135 H Total Protein Albumin 3.5 L HDL Cholesterol Lipase Arterial Blood Glucose Arterial Blood Ionized Calcium Salicylates Acetaminophen Plasma/Serum Alcohol 05/31/21 05/31/21 15:24 23:53 WBC RBC Hgb Hct MCV MCH MCHC RDW Plt Count Lymph % (Auto) [place] % (Auto) Eos % (Auto) Lymph # (Auto) [place] # (Auto) Eos # (Auto) Seg Neutrophils % Seg Neuts % (Manual) Seg Neutrophils # Seg Neutrophils # Man D-Dimer ABG pH POC ABG pCO2 POC ABG pO2 ABG pO2 ABG Base Excess ABG Hemoglobin ABG Sodium ABG Potassium ABG Chloride ABG Glucose Carboxyhemoglobin Potassium Chloride Carbon Dioxide BUN Glucose POC Glucose 127 H 140 H Lactic Acid Calcium Magnesium Total Bilirubin AST Alkaline Phosphatase Total Protein Albumin HDL Cholesterol Lipase Arterial Blood Glucose Arterial Blood Ionized Calcium Salicylates Acetaminophen Plasma/Serum Alcohol Chest x-ray: report reviewed, image reviewed CT scan - chest: report reviewed, image reviewed Additional Studies: CHEST 1 VIEW 0306 09/11/20 INDICATION / CLINICAL INFORMATION: follow up respiratory failure COMPARISON: 09/10/2020 FINDINGS: SUPPORT DEVICES: Stable HEART / MEDIASTINUM: Cardiomegaly LUNGS / PLEURA: Left lower lateral chest is excluded. Congestive changes and pulmonary edema have worsened. No pneumothorax. ADDITIONAL FINDINGS: No significant additional findings. CTA CHEST WITH IV CONTRAST 09/10/20 INDICATION / CLINICAL INFORMATION: respiratory failure; hypoxemia. TECHNIQUE: Axial CT images were obtained through the chest after injection of IV contrast. 3 plane MIP and/or 3D reconstructions were produced. All CT scans at this location are performed using CT dose reduction for ALARA by means of automated exposure control. COMPARISON: None available. FINDINGS: Motion artifact obscures fine detail Endotracheal tubes in good position. PULMONARY ARTERIES: No pulmonary emboli. THORACIC AORTA: No significant abnormality. HEART: Moderate cardiac enlargement CORONARY ARTERIES: No significant calcification. PLEURA: No pleural effusion. No pneumothorax. LYMPH NODES: No significant adenopathy. LUNGS: Patchy airspace changes lower lobes noted ADDITIONAL FINDINGS: None. UPPER ABDOMEN: No acute findings. SKELETAL STRUCTURES: No significant osseous abnormality. IMPRESSION: 1. No CT evidence for pulmonary embolism. 2. Patchy airspace changes lower lobes pneumonia is a concern 3. Cardiac enlargement Allied health notes reviewed: nursing
[2020-09-15] MEDS: ASPIRIN 81 MG TAB CHEW PO SCH (10:47)
[2020-09-15] MEDS: SPIRONOLACTONE 25 MG TAB PO SCH (10:47)
[2020-09-15] MEDS: LISINOPRIL 5 MG TAB PO SCH (10:47)
[2020-09-15] MEDS: METOPROLOL TARTRATE 25 MG TAB PO SCH ×2 (10:48→21:07)
[2020-09-15] MEDS: carvediloL 3.125 MG TAB PO SCH ×2 (10:48→21:06)
--- NOTE | 2020-09-15 10:54 | Progress Note ---
Assessment and Plan - Patient Problems (1) Dilated cardiomyopathy Current Visit: Yes Status: Acute Plan to address problem: Dilated cardiomyopathy of uncertain chronicity, and uncertain etiology. It to be noted that patient has a long history of chronic alcohol abuse, which may indicate alcohol as a possible etiology. We will order a Lexiscan thallium stress test for ischemia assessment, and also request outpatient records from any recent work-up. Subjective Date of service: 09/15/20 Principal diagnosis: Ac hypoxemic and hypercapnic resp failure; EtOH OD; Acute encephalopathy Interval history: Patient is awake and alert and comfortable, in no distress. He admits to chronic alcohol abuse, and commits to no further alcohol use after this hospitalization. 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 It will be recalled that he presented here with shortness of breath and respiratory failure, chest x-ray was clear of pulmonary edema, but an echocardiogram showed a severe dilated cardiomyopathy with severe left ventricu lar systolic dysfunction, of uncertain chronicity and uncertain etiology. Objective Vital Signs Temp Pulse Resp BP Pulse Ox 09/15/20 10:48 92 H 123/75 09/15/20 10:47 92 H 123/75 09/15/20 09:25 96 09/15/20 09:02 101 H 09/15/20 08:02 98.3 F 92 H 20 123/75 96 09/15/20 03:53 98.4 F 82 18 130/90 90 09/15/20 00:25 94 09/14/20 23:55 98.7 F 73 18 127/76 96 09/14/20 22:00 22 09/14/20 21:13 82 110/73 09/14/20 19:17 97.9 F 87 16 110/73 94 09/14/20 13:40 81 17 98 09/14/20 13:34 98 09/14/20 13:30 82 20 99 09/14/20 13:20 76 12 90/58 97 09/14/20 13:10 78 24 90/58 98 09/14/20 13:00 80 33 H 90/58 97 09/14/20 12:50 85 17 95/66 98 09/14/20 12:40 86 16 95/66 96 09/14/20 12:30 98.8 F 86 20 95/66 96 09/14/20 12:20 83 34 H / 96 09/14/20 12:10 86 16 / 96 09/14/20 12:00 91 H 13 117/81 97 09/14/20 11:50 89 17 117/81 98 09/14/20 11:00 97 H 23 117/81 91 - Physical Examination General: Appears Well, No Apparent Distress HEENT: Positive: PERRL, Normocephaly, Mucus Membranes Moist Neck: Positive: neck supple, trachea midline. Negative: JVD/HJR Cardiac: Positive: Reg Rate and Rhythm Lungs: Positive: clear to auscultation Neuro: Positive: Grossly Intact, No Lateralizing Findings Abdomen: Positive: Unremarkable, Soft Skin: Positive: Clear Extremities: Absent: edema - Allied health notes Allied health notes reviewed: nursing
--- NOTE | 2020-09-15 11:40 | Progress Note ---
Assessment and Plan Assessment and plan: COVID-19 test negative - 09/10/2020 Cardiology recommend scheduled for Lexiscan stress test tomorrow As patient had new onset severe systolic congestive heart failure --Acute systolic congestive heart failure; ejection fraction 20 to 25% IV diuretics, continue beta-blockers, TONO inhibitors, input output monitoring, low-sodium diet Fluid restriction, --Four-chamber dilated cardiomyopathy; Antifailure medications, cardiology consult --Acute alcohol intoxication; Thiamine folic acid, IV Protonix, IV fluids, Supportive care Patient needs counseling when medically stable --Acute hypoxic respiratory failure; extubated on 09/13/2020 on 2 L nasal cannula oxygen Continue supportive care, pulmonary following --Elevated D-dimers; Lower extremity venous Dopplers negative for DVT CTA chest negative for PE --Hypokalemia; K3.2 Replenished with oral KCl 40 mEq x 2 Magnesium levels normal, monitor electrolytes --Acute toxic metabolic encephalopathy; POA Due to alcohol intoxication, hypoxia. Patient is currently intubated on vent --Pneumonia Community-acquired versus aspiration Empiric antibiotics, ventilatory support Follow cultures, ID consult if needed --Leukocytosis; secondary to pneumonia Treat the underlying cause --Lactic acidosis/sepsis due to pneumonia Continue empiric antibiotics, follow cultures --Alcohol withdrawal symptoms; [facility] protocol Will residential treatment counselor and advised to quit alcohol intake when patient is more alert and awake --Hyperglycemia; no evidence of diabetes mellitus Accu-Chek sliding scale coverage, A1c 5.9 --Hypokalemia; resolved replenish per protocol as needed --Severe malnutrition/hypoalbuminemia; present on admission Mild improvement Albumin is 3.3 today, nutrition supplements Nutrition consult --Thrombocytopenia; probably alcohol related Worsening platelet count, rule out HIT, test ordered --Obesity; BMI 51.7 Patient needs weight reduction when medically stable --DVT prophylaxis; Lovenox PT evaluation recommendation DC planning per case management Stable to be transferred out of ICU Consults and recommendations 09/09/2020; Patient is intubated on ventilatory support, wean as tolerated and extubate Pulmonary critical evaluation and recommendations noted and appreciated Acute versus acute on chronic CHF systolic dysfunction/dilated cardiomyopathy Start Lasix, unable to give beta-blockers and TONO inhibitors due to hypotension Cardiology consult placed 09/10/2020; patient remains intubated on ventilatory support Will wean as tolerated and extubate Elevated D-dimers, venous Doppler lower extremity negative for DVT Will get CTA chest to rule out PE when medically stable Cardiomyopathy, cardiology consulted 09/11/2020 remains intubated on ventilator support on weaning parameters Wean as tolerated and extubate, continue current management 09/12/2020; patient remains intubated on ventilatory support, wean as tolerated and extubate Blood pressure slightly improved, on antifailure medications 09/13/2020; patient remains intubated on vent, hypokalemia, replaced with oral KCl Wean as tolerated and extubate, consult recommendations noted 09/14/2020; patient was extubated yesterday, today he is on 2 L nasal cannula oxygen Saturating well, PT evaluation recommendation, stable to transfer out of ICU to telemetry 09/15/2020; cardiology recommended Lexiscan stress test, scheduled for tomorrow N.p.o. from midnight, disposition; if negative and stable patient may be discharged home tomorrow Plan of care reviewed with the patient's nurse and case management History Interval history: I have seen and examined the patient at the bedside Patient's chart and medications reviewed Patient is ambulatory tolerating oral nutrition Saturating well on room air New onset systolic congestive heart failure Cardiology recommend Lexiscan stress test tomorrow Vital signs noted Hospitalist Physical - Constitutional Vitals: Temp Pulse Resp BP Pulse Ox 98.3 F 92 H 20 123/75 96 09/15/20 08:02 09/15/20 10:48 09/15/20 08:02 09/15/20 10:48 09/15/20 09:25 General appearance: Present: no acute distress, well-nourished, obese (Morbidly obese) - EENT Eyes: Present: PERRL, EOM intact - Neck Neck: Present: supple, normal ROM - Respiratory Respiratory effort: normal Respiratory: bilateral: diminished, negative: rales, rhonchi, wheezing - Cardiovascular Rhythm: regular Heart Sounds: Present: S1 & S2 - Extremities Extremities: no ischemia, No edema - Abdominal General gastrointestinal: soft, non-tender, non-distended, normal bowel sounds - Integumentary Integumentary: Present: clear, warm - Psychiatric Psychiatric: appropriate mood/affect, cooperative Results - Labs CBC & Chem 7: 09/14/20 05:50 09/14/20 05:50 Labs: Laboratory Last Values WBC 11.3 K/mm3 (4.5-11.0) H 09/14/20 05:50 RBC 6.82 M/mm3 (3.65-5.03) H 09/14/20 05:50 Hgb 18.8 gm/dl (11.8-15.2) H 09/14/20 05:50 Hct 57.2 % (35.5-45.6) H 09/14/20 05:50 MCV 84 fl (84-94) 09/14/20 05:50 MCH 28 pg (28-32) 09/14/20 05:50 MCHC 33 % (32-34) 09/14/20 05:50 RDW 17.9 % (13.2-15.2) H 09/14/20 05:50 Plt Count 162 K/mm3 (140-440) 09/14/20 05:50 Lymph % (Auto) 8.0 % (13.4-35.0) L 09/14/20 05:50 [place] % (Auto) 10.3 % (0.0-7.3) H 09/14/20 05:50 Eos % (Auto) 6.1 % (0.0-4.3) H 09/14/20 05:50 Baso % (Auto) 0.6 % (0.0-1.8) 09/14/20 05:50 Lymph # (Auto) 0.9 K/mm3 (1.2-5.4) L 09/14/20 05:50 [place] # (Auto) 1.2 K/mm3 (0.0-0.8) H 09/14/20 05:50 Eos # (Auto) 0.7 K/mm3 (0.0-0.4) H 09/14/20 05:50 Baso # (Auto) 0.1 K/mm3 (0.0-0.1) 09/14/20 05:50 Add Manual Diff Complete 09/08/20 08:15 Total Counted 100 09/08/20 08:15 Seg Neutrophils % 75.0 % (40.0-70.0) H 09/14/20 05:50 Seg Neuts % (Manual) 71.0 % (40.0-70.0) H 09/08/20 08:15 Band Neutrophils % 5.0 % 09/08/20 08:15 Lymphocytes % (Manual) 14.0 % (13.4-35.0) 09/08/20 08:15 Monocytes % (Manual) 3.0 % (0.0-7.3) 09/08/20 08:15 Eosinophils % (Manual) 1.0 % (0.0-4.3) 09/08/20 08:15 Metamyelocytes % 6.0 % 09/08/20 08:15 Nucleated RBC % Not Reportable 09/08/20 08:15 Seg Neutrophils # 8.5 K/mm3 (1.8-7.7) H 09/14/20 05:50 Seg Neutrophils # Man 11.1 K/mm3 (1.8-7.7) H 09/08/20 08:15 Band Neutrophils # 0.8 K/mm3 09/08/20 08:15 Lymphocytes # (Manual) 2.2 K/mm3 (1.2-5.4) 09/08/20 08:15 Abs React Lymphs (Man) 0.0 K/mm3 09/08/20 08:15 Monocytes # (Manual) 0.5 K/mm3 (0.0-0.8) 09/08/20 08:15 Eosinophils # (Manual) 0.2 K/mm3 (0.0-0.4) 09/08/20 08:15 Basophils # (Manual) 0.0 K/mm3 (0.0-0.1) 09/08/20 08:15 Metamyelocytes # 0.9 K/mm3 09/08/20 08:15 Myelocytes # 0.0 K/mm3 09/08/20 08:15 Promyelocytes # 0.0 K/mm3 09/08/20 08:15 Blast Cells # 0.0 K/mm3 09/08/20 08:15 WBC Morphology Not Reportable 09/08/20 08:15 Hypersegmented Neuts Not Reportable 09/08/20 08:15 Hyposegmented Neuts Not Reportable 09/08/20 08:15 Hypogranular Neuts Not Reportable 09/08/20 08:15 Smudge Cells Not Reportable 09/08/20 08:15 Toxic Granulation Not Reportable 09/08/20 08:15 Toxic Vacuolation Not Reportable 09/08/20 08:15 Dohle Bodies Not Reportable 09/08/20 08:15 Pelger-Huet Anomaly Not Reportable 09/08/20 08:15 Lamar Rods Not Reportable 09/08/20 08:15 Platelet Estimate Consistent w auto 09/08/20 08:15 Clumped Platelets Not Reportable 09/08/20 08:15 Plt Clumps, EDTA Not Reportable 09/08/20 08:15 Large Platelets Not Reportable 09/08/20 08:15 Giant Platelets Not Reportable 09/08/20 08:15 Platelet Satelliting Not Reportable 09/08/20 08:15 Plt Morphology Comment Not Reportable 09/08/20 08:15 RBC Morphology Normal 09/08/20 08:15 Dimorphic RBCs Not Reportable 09/08/20 08:15 Polychromasia Not Reportable 09/08/20 08:15 Hypochromasia Not Reportable 09/08/20 08:15 Poikilocytosis Not Reportable 09/08/20 08:15 Anisocytosis Not Reportable 09/08/20 08:15 Microcytosis Not Reportable 09/08/20 08:15 Macrocytosis Not Reportable 09/08/20 08:15 Spherocytes Not Reportable 09/08/20 08:15 Pappenheimer Bodies Not Reportable 09/08/20 08:15 Sickle Cells Not Reportable 09/08/20 08:15 Target Cells Not Reportable 09/08/20 08:15 Tear Drop Cells Not Reportable 09/08/20 08:15 Ovalocytes Not Reportable 09/08/20 08:15 Helmet Cells Not Reportable 09/08/20 08:15 [place]ran-[place] Bodies Not Reportable 09/08/20 08:15 [place] Rings Not Reportable 09/08/20 08:15 Onel Cells Not Reportable 09/08/20 08:15 Bite Cells Not Reportable 09/08/20 08:15 Crenated Cell Not Reportable 09/08/20 08:15 Elliptocytes Not Reportable 09/08/20 08:15 Acanthocytes (Spur) Not Reportable 09/08/20 08:15 Rouleaux Not Reportable 09/08/20 08:15 Hemoglobin C Crystals Not Reportable 09/08/20 08:15 Schistocytes Not Reportable 09/08/20 08:15 Malaria parasites Not Reportable 09/08/20 08:15 Warner Bodies Not Reportable 09/08/20 08:15 Hem Pathologist Commnt No 09/08/20 08:15 D-Dimer 3467.79 ng/mlDDU (0-234) H 09/09/20 15:19 ABG pH 7.346 (7.320-7.450) 09/13/20 10:55 POC ABG pCO2 45.4 mmHg (32.0-48.0) 09/13/20 10:55 ABG pCO2 31.8 mm Hg 09/08/20 16:25 POC ABG pO2 96.5 mmHg (83-108) 09/13/20 10:55 ABG pO2 117.8 mm Hg (80.0-90.0) H 09/08/20 16:25 POC ABG HCO3 24.3 09/13/20 10:55 ABG HCO3 20.9 mmol/L (20.0-26.0) 09/08/20 16:25 ABG O2 Saturation 97.9 (0-100) 09/13/20 10:55 ABG O2 Content 24.5 (0.0-44) 09/08/20 16:25 POC ABG Base Excess -1.8 09/13/20 10:55 ABG Base Excess -2.0 mmol/L (-2.0-3.0) 09/08/20 16:25 ABG Hemoglobin 19.7 (12.0-17.5) H 09/13/20 10:55 ABG Oxyhemoglobin 96.3 (94-98) 09/13/20 10:55 ABG Carboxyhemoglobin 2.0 % (0.0-5.0) 09/08/20 16:25 ABG Methemoglobin 0.4 (0.0-1.5) 09/13/20 10:55 ABG Sodium 144.7 mmol/L (136.0-145.0) 09/13/20 10:55 ABG Potassium 3.8 mmol/L (3.40-4.50) 09/13/20 10:55 ABG Chloride 105.0 mmol/L (98-107) 09/13/20 10:55 ABG Glucose 102 mg/dL (65-95) H 09/13/20 10:55 Oxyhemoglobin 95.8 % (95.0-99.0) 09/08/20 16:25 Carboxyhemoglobin 1.2 (0.5-1.5) 09/13/20 10:55 FiO2 80 % 09/08/20 16:25 FiO2 % 35.0 09/13/20 10:55 Sodium 144 mmol/L (137-145) 09/14/20 05:50 Potassium 4.1 mmol/L (3.6-5.0) D 09/14/20 05:50 Chloride 102.9 mmol/L (98-107) 09/14/20 05:50 Carbon Dioxide 32 mmol/L (22-30) H 09/14/20 05:50 Anion Gap 13 mmol/L 09/14/20 05:50 BUN 28 mg/dL (9-20) H 09/14/20 05:50 Creatinine 1.2 mg/dL (0.8-1.3) 09/14/20 05:50 Estimated GFR > 60 ml/min 09/14/20 05:50 BUN/Creatinine Ratio 23 % 09/14/20 05:50 Glucose 97 mg/dL (75-100) 09/14/20 05:50 POC Glucose 101 mg/dL (70-105) 09/15/20 05:46 Hemoglobin A1c 5.8 % (4-6) 09/08/20 15:58 Lactic Acid 2.00 mmol/L (0.7-2.0) 09/09/20 09:10 Calcium 8.6 mg/dL (8.4-10.2) 09/14/20 05:50 Phosphorus 3.00 mg/dL (2.5-4.5) 09/13/20 04:29 Magnesium 2.00 mg/dL (1.7-2.3) 09/13/20 04:29 Total Bilirubin 1.00 mg/dL (0.1-1.2) 09/14/20 05:50 Direct Bilirubin < 0.2 mg/dL (0-0.2) 09/08/20 08:15 Indirect Bilirubin 0.0 mg/dL 09/08/20 08:15 AST 55 units/L (5-40) H 09/14/20 05:50 ALT 52 units/L (7-56) 09/14/20 05:50 Alkaline Phosphatase 135 units/L (35-129) H 09/14/20 05:50 Ammonia 50.0 umol/L (25-60) 09/09/20 04:12 Total Protein 7.1 g/dL (6.3-8.2) 09/14/20 05:50 Albumin 3.5 g/dL (3.9-5) L 09/14/20 05:50 Albumin/Globulin Ratio 1.0 % 09/14/20 05:50 Triglycerides 148 mg/dL (2-149) 09/09/20 04:12 Cholesterol 119 mg/dL (50-199) 09/09/20 04:12 LDL Cholesterol Direct 71 mg/dL (50-130) 09/09/20 04:12 HDL Cholesterol 33 mg/dL (40-59) L 09/09/20 04:12 Cholesterol/HDL Ratio 3.60 % 09/09/20 04:12 Amylase 45 units/L (27-131) 09/09/20 04:12 Lipase 12 units/L (13-60) L 09/09/20 04:12 Procalcitonin 0.28 ng/mL (<0.15) 09/10/20 05:00 Arterial Blood Glucose 102 mg/dL (65-95) H 09/13/20 10:55 Arterial Blood Ionized Calcium 4.7 mg/dL (4.6-5.3) 09/13/20 10:55 Urine Color Yee (Yellow) 09/08/20 Unknown Urine Turbidity Cloudy (Clear) 09/08/20 Unknown Urine pH 5.0 (5.0-7.0) 09/08/20 Unknown Ur Specific [place] 1.018 (1.003-1.030) 09/08/20 Unknown Urine Protein >500 mg/dL (Negative) 09/08/20 Unknown Urine Glucose (UA) Neg mg/dL (Negative) 09/08/20 Unknown Urine Ketones Neg mg/dL (Negative) 09/08/20 Unknown Urine Blood Sm (Negative) 09/08/20 Unknown Urine Nitrite Neg (Negative) 09/08/20 Unknown Urine Bilirubin Neg (Negative) 09/08/20 Unknown Urine Urobilinogen < 2.0 mg/dL (<2.0) 09/08/20 Unknown Ur Leukocyte Esterase Tr (Negative) 09/08/20 Unknown Urine WBC (Auto) Not Reportable 09/08/20 Unknown Urine RBC (Auto) Not Reportable 09/08/20 Unknown Salicylates < 0.3 mg/dL (2.8-20.0) L 09/08/20 07:51 Urine Opiates Screen Negative 09/08/20 Unknown Urine Methadone Screen Negative 09/08/20 Unknown Acetaminophen 5.0 ug/mL (10.0-30.0) L 09/08/20 08:15 Ur Barbiturates Screen Negative 09/08/20 Unknown Ur Phencyclidine Scrn Negative 09/08/20 Unknown Ur Amphetamines Screen Negative 09/08/20 Unknown U Benzodiazepines Scrn Negative 09/08/20 Unknown Urine Cocaine Screen Negative 09/08/20 Unknown U Marijuana (THC) Screen Presumptive negative 09/08/20 Unknown Drugs of Abuse Note Disclamer 09/08/20 Unknown Plasma/Serum Alcohol 0.11 % (0-0.07) H 09/08/20 08:15 Coronavirus (PCR) Negative (Negative) 09/09/20 09:45 [place]/IV: Voiding Method Toilet Active Medications - Current Medications Current Medications: Generic Name Dose Route Start Last Admin Trade Name Freq PRN Reason Stop Dose Admin Acetaminophen 650 mg 09/14/20 00:19 09/15/20 04:01 Acetaminophen 325 Mg Tab PO 650 mg Q6H PRN Administration Pain, Mild (1-3) Aspirin 81 mg 09/11/20 10:00 09/15/20 10:47 Aspirin 81 Mg Tab Chew PO 81 mg QDAY JUAN LUIS Administration Carvedilol 3.125 mg 09/10/20 22:00 09/15/20 10:48 Carvedilol 3.125 Mg Tab PO 3.125 mg BID JUAN LUIS Administration Enoxaparin Sodium 40 mg 09/08/20 22:00 09/14/20 21:13 Enoxaparin 40 Mg/0.4 Ml Inj SUB-Q 40 mg QDAY@2200 JUAN LUIS Administration Protocol Furosemide 40 mg 09/10/20 06:00 09/15/20 06:12 Furosemide 40 Mg/4 Ml Inj IV 40 mg 0600,1800 JUAN LUIS Administration Insulin Human Lispro 0 unit 09/08/20 12:00 09/15/20 06:03 Insulin Lispro 100 Unit/Ml SUB-Q Not Given Q6HR JUAN LUIS Protocol Lisinopril 2.5 mg 09/11/20 10:00 09/15/20 10:47 Lisinopril 5 Mg Tab PO 2.5 mg QDAY JUAN LUIS Administration Lorazepam 2 mg 09/08/20 10:35 09/11/20 14:45 Lorazepam 2 Mg/Ml Vial IV 2 mg Q4H PRN Administration Agitation Metoprolol Tartrate 25 mg 09/10/20 13:00 09/15/20 10:48 Metoprolol Tartrate 25 Mg Tab PO 25 mg BID JUAN LUIS Administration Multi-Ingred Cream/Lotion/Oil/Oint 1 applic 09/08/20 16:21 Mineral Oil/Petrolatum, White Ophth Oint 3.5 Gm OU Q4HR PRN Dry Eye(s) Spironolactone 25 mg 09/11/20 10:00 09/15/20 10:47 Spironolactone 25 Mg Tab PO 25 mg QDAY JUAN LUIS Administration Nutrition/Malnutrition Assess - Dietary Evaluation Nutrition/Malnutrition Findings: Nutrition Notes Start: 09/09/20 09:13 Freq: Status: Active Protocol: Document 09/14/20 09:40 LP (Rec: 09/14/20 09:45 LP [id number]) Nutrition Notes Initial or Follow up Reassessment Current Diagnosis Diabetes,Hypertension, Respiratory Failure Other Pertinent Diagnosis alcohol intoxication Current Diet Mechanical soft Labs/Tests Reviewed Pertinent Medications Reviewed Height 5 ft Weight 120 kg [place] Body Weight (kg) 48.18 BMI 51.6 Weight Status Morbidly Obese Subjective/Other Information Pt extubated yesterday. Pt on toilet at time of visit. Pt eating some of food. Burn Absent Trauma Absent Difficulty In Chewing Current % PO Poor (25-49%) Minimum of two criteria No physical signs of malnutrition #1 Nutrition Diagnosis Inadequate oral intake As Evidenced by Signs and Symptoms Pt diet advanced and eating some breakfast this AM Diagnosis Progress(for reassessment Improved documentation) Is patient on ventilator? No Is Patient Ambulatory and/or Out of Bed No REE-([place]-confined to bed) 2286.456 Kcal/Kg value to use for calculation 15 Approximate Energy Requirements Using 1800 kcal/Kg Calculation Used for Recommendations Kcal/kg Additional Notes Protein needs are 64-80g (0.8- 1g/kg Adj wt 80kg) Fluid: 1 ml/kcal or per MD Nutrition Intervention Change Diet Order: Mechanical soft diet Nutrition Support: D/C Goal #1 Meet at least 80% of kcal and protein needs Anticipated Discharge Needs: Mechanical soft diet Follow-Up By: 09/17/20 Additional Comments Follow for stable intakes
[2020-09-15] MEDS: ENOXAPARIN 40 MG/0.4 ML INJ SUB-Q SCH (21:06)
[2020-09-16] MEDS: FUROSEMIDE 40 MG/4 ML INJ IV SCH ×2 (05:21→17:27)
[2020-09-16] MEDS ORDERED: REGADENOSON 0.4 MG/5 ML INJ IV ONE ×2 (08:27→08:28)
--- NOTE | 2020-09-16 09:04 | Progress Note ---
<JESSEJOE - Last Filed: 09/16/20 11:08> Assessment and Plan Dilated Cardiomyopathy, uncertain duration LVEF 20-25% Acute hypoxic respiratory failure - resolved Alcohol intoxication Hypertension Diabetes Thallium stress test today. Results are pending. Continue medical therapy for dilated cardiomyopathy as tolerated. Subjective Date of service: 09/16/20 Principal diagnosis: Ac hypoxemic and hypercapnic resp failure; EtOH OD; Acute encephalopathy Interval history: Patient is for thallium stress test today. Objective Vital Signs Temp Pulse Resp BP Pulse Ox 09/16/20 07:30 97.4 F L 92 H 19 105/72 97 09/16/20 04:06 98.4 F 92 H 18 118/73 93 09/15/20 23:07 98.4 F 72 18 127/86 98 09/15/20 22:00 22 09/15/20 21:32 97 09/15/20 21:07 83 127/78 09/15/20 21:06 83 127/78 09/15/20 19:27 97.8 F 76 18 127/78 98 09/15/20 17:33 85 122/79 96 09/15/20 16:05 98.3 F 65 20 117/76 97 09/15/20 13:30 141/90 09/15/20 13:00 79 09/15/20 10:48 92 H 123/75 09/15/20 10:47 92 H 123/75 09/15/20 10:00 22 09/15/20 09:25 96 - Physical Examination General: No Apparent Distress HEENT: Positive: PERRL Neck: Positive: neck supple, trachea midline. Negative: JVD/HJR Cardiac: Positive: Reg Rate and Rhythm Lungs: Positive: Decreased Breath Sounds Neuro: Positive: Grossly Intact Extremities: Absent: edema - Allied health notes Allied health notes reviewed: nursing <ART HUA - Last Filed: 09/22/20 17:11> Assessment and Plan - Patient Problems (1) CAD (coronary artery disease) Status: Acute (2) Acute respiratory failure with hypoxia Status: Acute (3) Dilated cardiomyopathy Status: Acute Subjective Interval history: I SAW THIS PT & AGREE WITH THE Dx & Tx PLAN.
[2020-09-16] MEDS: carvediloL 3.125 MG TAB PO SCH ×2 (11:33→21:43)
[2020-09-16] MEDS: SPIRONOLACTONE 25 MG TAB PO SCH (11:37)
[2020-09-16] MEDS: ASPIRIN 81 MG TAB CHEW PO SCH (11:37)
[2020-09-16] MEDS: LISINOPRIL 5 MG TAB PO SCH (11:37)
--- NOTE | 2020-09-16 14:29 | Progress Note ---
Assessment and Plan Patient alert, awake. Resting on room air. O2 saturation 95%. No complaint of chest pain, shortness of breath at this time. Having non productive cough. History of alcohol abuse.Denies drug abuse. History of smoking 1 pack x 40 years. Counseled to stop smoking. .Work with [employer]. Not . No children. No known drug allergies. Patient afebrile and has leukocytosis. Chest xray done 09/11/20 reported Congestive changes and pulmonary edema have worsened. No pneumothorax. CT of chest done 09/10/[address] evidence for pulmonary embolism. Patchy airspace changes lower lobes pneumonia is a concern Cardiac enlargement. - Patient Problems (1) Acute respiratory failure with hypoxia Current Visit: Yes Status: Acute Plan to address problem: Improved. Patient is on room air. O2 saturation 95%. (2) Alcohol intoxication Current Visit: Yes Status: Acute Plan to address problem: Management as per primary care. (3) Acute encephalopathy Current Visit: Yes Status: Acute Plan to address problem: Management as per primary care and neurology. (4) Dilated cardiomyopathy Current Visit: Yes Status: Acute Plan to address problem: Management as per cardiology. Subjective Date of service: 09/16/20 Principal diagnosis: Ac hypoxemic and hypercapnic resp failure; EtOH OD; Acute encephalopathy Interval history: Patient alert, awake. Resting on room air. O2 saturation 95%. No complaint of chest pain, shortness of breath at this time. Having non productive cough. History of alcohol abuse.Denies drug abuse. History of smoking 1 pack x 40 ye ars. Counseled to stop smoking. .Work with [employer]. Not . No children. No known drug allergies. Patient afebrile and has leukocytosis. Chest xray done 09/11/20 reported Congestive changes and pulmonary edema have worsened. No pneumothorax. CT of chest done 09/10/[address] evidence for pulmonary embolism. Patchy airspace changes lower lobes pneumonia is a concern Cardiac enlargement. Objective Vital Signs - 12hr 09/16/20 09/16/20 09/16/20 04:06 07:30 08:13 Temperature 98.4 F 97.4 F L Pulse Rate 92 H 92 H Respiratory 18 19 Rate Blood Pressure 118/73 105/72 109/77 O2 Sat by Pulse 93 97 Oximetry 09/16/20 09/16/20 09/16/20 08:17 08:55 09:00 Temperature Pulse Rate Respiratory Rate Blood Pressure 116/78 129/88 115/73 O2 Sat by Pulse Oximetry 09/16/20 09/16/20 09/16/20 09:07 09:08 09:09 Temperature Pulse Rate Respiratory Rate Blood Pressure 109/61 106/66 109/69 O2 Sat by Pulse Oximetry 09/16/20 09/16/20 09/16/20 09:10 09:11 11:17 Temperature 97.6 F Pulse Rate 90 Respiratory 18 Rate Blood Pressure 111/62 102/68 104/67 O2 Sat by Pulse 95 Oximetry 09/16/20 11:33 Temperature Pulse Rate 90 Respiratory Rate Blood Pressure O2 Sat by Pulse Oximetry Constitutional: no acute distress, other (middle aged morbidly obese male without vemtilator dyssynchrony) Eyes: non-icteric ENT: oropharynx moist, other (ETT 25 cm RACHEAL) Neck: supple, no lymphadenopathy, no JVD, other (large neck circumference) Effort: normal Ascultation: Bilateral: diminished breath sounds, rhonchi Percussion: Bilateral: not dull Cardiovascular: regular rate and rhythm Gastrointestinal: normoactive bowel sounds, soft, non-tender, non-distended (protuberant) Integumentary: normal Extremities: no cyanosis, pink and warm, pulses normal, no ischemia or petechiae, edema (trace) Neurologic: non-focal exam (grossly), pupils equal and round, CN II-XII normal, motor strength normal and Psychiatric: mood appropriate, affect normal CBC and BMP: 09/17/20 07:20 09/17/20 07:20 ABG, PT/INR, D-dimer: ABG ABG pH 7.346 (7.320-7.450) 09/13/20 10:55 POC ABG pCO2 45.4 mmHg (32.0-48.0) 09/13/20 10:55 ABG pCO2 31.8 mm Hg 09/08/20 16:25 POC ABG pO2 96.5 mmHg (83-108) 09/13/20 10:55 ABG pO2 117.8 mm Hg (80.0-90.0) H 09/08/20 16:25 POC ABG HCO3 24.3 09/13/20 10:55 ABG O2 Saturation 97.9 (0-100) 09/13/20 10:55 PT/INR, D-dimer D-Dimer 3467.79 ng/mlDDU (0-234) H 09/09/20 15:19 Abnormal lab findings: Abnormal Labs 09/08/20 09/08/20 09/08/20 07:51 08:15 08:15 WBC 15.6 H RBC 6.67 H Hgb 17.7 H Hct 57.5 H MCV MCH 27 L MCHC 31 L RDW 18.1 H Plt Count Lymph % (Auto) [place] % (Auto) Eos % (Auto) Lymph # (Auto) [place] # (Auto) Eos # (Auto) Seg Neutrophils % Seg Neuts % (Manual) 71.0 H Seg Neutrophils # Seg Neutrophils # Man 11.1 H D-Dimer ABG pH POC ABG pCO2 POC ABG pO2 ABG pO2 ABG Base Excess ABG Hemoglobin ABG Sodium ABG Potassium ABG Chloride ABG Glucose Carboxyhemoglobin Potassium 3.5 L Chloride 97.7 L Carbon Dioxide BUN 21 H Glucose 228 H POC Glucose Lactic Acid Calcium Magnesium Total Bilirubin AST Alkaline Phosphatase Total Protein Albumin HDL Cholesterol Lipase Arterial Blood Glucose Arterial Blood Ionized Calcium Salicylates < 0.3 L Acetaminophen Plasma/Serum Alcohol 09/08/20 09/08/20 09/08/20 08:15 08:15 08:20 WBC RBC Hgb Hct MCV MCH MCHC RDW Plt Count Lymph % (Auto) [place] % (Auto) Eos % (Auto) Lymph # (Auto) [place] # (Auto) Eos # (Auto) Seg Neutrophils % Seg Neuts % (Manual) Seg Neutrophils # Seg Neutrophils # Man D-Dimer ABG pH POC ABG pCO2 POC ABG pO2 ABG pO2 ABG Base Excess ABG Hemoglobin ABG Sodium ABG Potassium ABG Chloride ABG Glucose Carboxyhemoglobin Potassium Chloride Carbon Dioxide BUN Glucose POC Glucose Lactic Acid 4.40 H* Calcium Magnesium Total Bilirubin AST Alkaline Phosphatase Total Protein Albumin HDL Cholesterol Lipase Arterial Blood Glucose Arterial Blood Ionized Calcium Salicylates Acetaminophen 5.0 L Plasma/Serum Alcohol 0.11 H 09/08/20 09/08/20 09/08/20 09:15 16:25 17:19 WBC RBC Hgb Hct MCV MCH MCHC RDW Plt Count Lymph % (Auto) [place] % (Auto) Eos % (Auto) Lymph # (Auto) [place] # (Auto) Eos # (Auto) Seg Neutrophils % Seg Neuts % (Manual) Seg Neutrophils # Seg Neutrophils # Man D-Dimer ABG pH 7.222 L POC ABG pCO2 POC ABG pO2 ABG pO2 185.7 H 117.8 H ABG Base Excess -6.5 L ABG Hemoglobin 18.1 H ABG Sodium ABG Potassium ABG Chloride ABG Glucose Carboxyhemoglobin Potassium Chloride Carbon Dioxide BUN Glucose POC Glucose 106 H Lactic Acid Calcium Magnesium Total Bilirubin AST Alkaline Phosphatase Total Protein Albumin HDL Cholesterol Lipase Arterial Blood Glucose Arterial Blood Ionized Calcium Salicylates Acetaminophen Plasma/Serum Alcohol 09/08/20 09/09/20 09/09/20 17:39 01:32 03:08 WBC RBC Hgb Hct MCV MCH MCHC RDW Plt Count Lymph % (Auto) [place] % (Auto) Eos % (Auto) Lymph # (Auto) [place] # (Auto) Eos # (Auto) Seg Neutrophils % Seg Neuts % (Manual) Seg Neutrophils # Seg Neutrophils # Man D-Dimer ABG pH POC ABG pCO2 POC ABG pO2 ABG pO2 ABG Base Excess ABG Hemoglobin 18.2 H ABG Sodium ABG Potassium ABG Chloride ABG Glucose 145 H Carboxyhemoglobin Potassium Chloride Carbon Dioxide BUN Glucose POC Glucose 128 H Lactic Acid 2.20 H* Calcium Magnesium Total Bilirubin AST Alkaline Phosphatase Total Protein Albumin HDL Cholesterol Lipase Arterial Blood Glucose 145 H Arterial Blood Ionized Calcium 4.3 L Salicylates Acetaminophen Plasma/Serum Alcohol 09/09/20 09/09/20 09/09/20 04:12 06:10 11:05 WBC RBC Hgb Hct MCV MCH MCHC RDW Plt Count Lymph % (Auto) [place] % (Auto) Eos % (Auto) Lymph # (Auto) [place] # (Auto) Eos # (Auto) Seg Neutrophils % Seg Neuts % (Manual) Seg Neutrophils # Seg Neutrophils # Man D-Dimer ABG pH POC ABG pCO2 POC ABG pO2 ABG pO2 ABG Base Excess ABG Hemoglobin ABG Sodium ABG Potassium ABG Chloride ABG Glucose Carboxyhemoglobin Potassium Chloride Carbon Dioxide BUN 26 H Glucose 136 H POC Glucose 135 H 139 H Lactic Acid Calcium 7.5 L Magnesium Total Bilirubin AST Alkaline Phosphatase Total Protein 6.0 L D Albumin 2.8 L HDL Cholesterol 33 L Lipase 12 L Arterial Blood Glucose Arterial Blood Ionized Calcium Salicylates Acetaminophen Plasma/Serum Alcohol 09/09/20 09/09/20 09/09/20 15:19 15:43 23:37 WBC RBC Hgb Hct MCV MCH MCHC RDW Plt Count Lymph % (Auto) [place] % (Auto) Eos % (Auto) Lymph # (Auto) [place] # (Auto) Eos # (Auto) Seg Neutrophils % Seg Neuts % (Manual) Seg Neutrophils # Seg Neutrophils # Man D-Dimer 3467.79 H ABG pH POC ABG pCO2 POC ABG pO2 ABG pO2 ABG Base Excess ABG Hemoglobin ABG Sodium ABG Potassium ABG Chloride ABG Glucose Carboxyhemoglobin Potassium Chloride Carbon Dioxide BUN Glucose POC Glucose 116 H 117 H Lactic Acid Calcium Magnesium Total Bilirubin AST Alkaline Phosphatase Total Protein Albumin HDL Cholesterol Lipase Arterial Blood Glucose Arterial Blood Ionized Calcium Salicylates Acetaminophen Plasma/Serum Alcohol 09/10/20 09/10/20 09/10/20 05:00 05:22 08:47 WBC RBC 6.44 H Hgb 17.2 H Hct 53.2 H MCV 83 L MCH 27 L MCHC RDW 18.1 H Plt Count Lymph % (Auto) 13.3 L [place] % (Auto) Eos % (Auto) Lymph # (Auto) [place] # (Auto) Eos # (Auto) Seg Neutrophils % 79.1 H Seg Neuts % (Manual) Seg Neutrophils # 7.9 H Seg Neutrophils # Man D-Dimer ABG pH POC ABG pCO2 POC ABG pO2 73.9 L ABG pO2 ABG Base Excess ABG Hemoglobin 18.0 H ABG Sodium ABG Potassium ABG Chloride 110.0 H ABG Glucose 121 H Carboxyhemoglobin 1.6 H Potassium Chloride Carbon Dioxide BUN Glucose POC Glucose 127 H Lactic Acid Calcium Magnesium Total Bilirubin AST Alkaline Phosphatase Total Protein Albumin HDL Cholesterol Lipase Arterial Blood Glucose 121 H Arterial Blood Ionized Calcium Salicylates Acetaminophen Plasma/Serum Alcohol 09/10/20 09/10/20 09/11/20 08:47 11:39 04:24 WBC RBC Hgb Hct MCV MCH MCHC RDW Plt Count Lymph % (Auto) [place] % (Auto) Eos % (Auto) Lymph # (Auto) [place] # (Auto) Eos # (Auto) Seg Neutrophils % Seg Neuts % (Manual) Seg Neutrophils # Seg Neutrophils # Man D-Dimer ABG pH 7.456 H POC ABG pCO2 28.6 L POC ABG pO2 123.7 H ABG pO2 ABG Base Excess ABG Hemoglobin ABG Sodium ABG Potassium 3.2 L ABG Chloride 108.0 H ABG Glucose 112 H Carboxyhemoglobin 1.9 H Potassium Chloride 108.3 H Carbon Dioxide 20 L BUN 27 H Glucose POC Glucose 107 H Lactic Acid Calcium 7.8 L Magnesium 2.50 H Total Bilirubin AST Alkaline Phosphatase Total Protein 5.8 L Albumin 2.6 L HDL Cholesterol Lipase Arterial Blood Glucose 112 H Arterial Blood Ionized Calcium Salicylates Acetaminophen Plasma/Serum Alcohol 09/11/20 09/11/20 09/11/20 06:22 11:26 13:10 WBC 11.1 H RBC 6.38 H Hgb 16.9 H Hct 52.0 H MCV 82 L MCH 27 L MCHC RDW 17.8 H Plt Count 127 L Lymph % (Auto) [place] % (Auto) Eos % (Auto) Lymph # (Auto) [place] # (Auto) Eos # (Auto) Seg Neutrophils % Seg Neuts % (Manual) Seg Neutrophils # Seg Neutrophils # Man D-Dimer ABG pH POC ABG pCO2 POC ABG pO2 ABG pO2 ABG Base Excess ABG Hemoglobin ABG Sodium ABG Potassium ABG Chloride ABG Glucose Carboxyhemoglobin Potassium Chloride Carbon Dioxide BUN Glucose POC Glucose 108 H 124 H Lactic Acid Calcium Magnesium Total Bilirubin AST Alkaline Phosphatase Total Protein Albumin HDL Cholesterol Lipase Arterial Blood Glucose Arterial Blood Ionized Calcium Salicylates Acetaminophen Plasma/Serum Alcohol 09/11/20 09/11/20 09/12/20 13:10 17:25 05:01 WBC RBC Hgb Hct MCV MCH MCHC RDW Plt Count Lymph % (Auto) [place] % (Auto) Eos % (Auto) Lymph # (Auto) [place] # (Auto) Eos # (Auto) Seg Neutrophils % Seg Neuts % (Manual) Seg Neutrophils # Seg Neutrophils # Man D-Dimer ABG pH 7.507 H POC ABG pCO2 28.3 L POC ABG pO2 ABG pO2 ABG Base Excess ABG Hemoglobin ABG Sodium ABG Potassium 3.2 L ABG Chloride 108.0 H ABG Glucose Carboxyhemoglobin 2.0 H Potassium 3.4 L Chloride Carbon Dioxide BUN 28 H Glucose POC Glucose 107 H Lactic Acid Calcium 8.0 L Magnesium Total Bilirubin AST Alkaline Phosphatase Total Protein 5.7 L Albumin 3.3 L HDL Cholesterol Lipase Arterial Blood Glucose Arterial Blood Ionized Calcium Salicylates Acetaminophen Plasma/Serum Alcohol 09/13/20 09/13/20 09/13/20 03:27 04:29 04:29 WBC 11.8 H RBC 6.74 H Hgb 18.2 H Hct 55.4 H MCV 82 L MCH 27 L MCHC RDW 17.2 H Plt Count Lymph % (Auto) 8.3 L [place] % (Auto) 8.6 H Eos % (Auto) Lymph # (Auto) 1.0 L [place] # (Auto) 1.0 H Eos # (Auto) 0.5 H Seg Neutrophils % 79.0 H Seg Neuts % (Manual) Seg Neutrophils # 9.3 H Seg Neutrophils # Man D-Dimer ABG pH 7.509 H POC ABG pCO2 29.8 L POC ABG pO2 81.6 L ABG pO2 ABG Base Excess ABG Hemoglobin 19.2 H ABG Sodium 145.3 H ABG Potassium 3.0 L ABG Chloride ABG Glucose 97 H Carboxyhemoglobin 1.8 H Potassium 3.2 L Chloride Carbon Dioxide BUN 29 H Glucose POC Glucose Lactic Acid Calcium Magnesium Total Bilirubin 1.80 H AST Alkaline Phosphatase Total Protein Albumin 3.3 L HDL Cholesterol Lipase Arterial Blood Glucose 97 H Arterial Blood Ionized Calcium Salicylates Acetaminophen Plasma/Serum Alcohol 09/13/20 09/13/20 09/13/20 10:55 11:31 23:10 WBC RBC Hgb Hct MCV MCH MCHC RDW Plt Count Lymph % (Auto) [place] % (Auto) Eos % (Auto) Lymph # (Auto) [place] # (Auto) Eos # (Auto) Seg Neutrophils % Seg Neuts % (Manual) Seg Neutrophils # Seg Neutrophils # Man D-Dimer ABG pH POC ABG pCO2 POC ABG pO2 ABG pO2 ABG Base Excess ABG Hemoglobin 19.7 H ABG Sodium ABG Potassium ABG Chloride ABG Glucose 102 H Carboxyhemoglobin Potassium Chloride Carbon Dioxide BUN Glucose POC Glucose 106 H 107 H Lactic Acid Calcium Magnesium Total Bilirubin AST Alkaline Phosphatase Total Protein Albumin HDL Cholesterol Lipase Arterial Blood Glucose 102 H Arterial Blood Ionized Calcium Salicylates Acetaminophen Plasma/Serum Alcohol 09/14/20 09/14/20 09/14/20 05:50 05:50 11:38 WBC 11.3 H RBC 6.82 H Hgb 18.8 H Hct 57.2 H MCV MCH MCHC RDW 17.9 H Plt Count Lymph % (Auto) 8.0 L [place] % (Auto) 10.3 H Eos % (Auto) 6.1 H Lymph # (Auto) 0.9 L [place] # (Auto) 1.2 H Eos # (Auto) 0.7 H Seg Neutrophils % 75.0 H Seg Neuts % (Manual) Seg Neutrophils # 8.5 H Seg Neutrophils # Man D-Dimer ABG pH POC ABG pCO2 POC ABG pO2 ABG pO2 ABG Base Excess ABG Hemoglobin ABG Sodium ABG Potassium ABG Chloride ABG Glucose Carboxyhemoglobin Potassium Chloride Carbon Dioxide 32 H BUN 28 H Glucose POC Glucose 114 H Lactic Acid Calcium Magnesium Total Bilirubin AST 55 H Alkaline Phosphatase 135 H Total Protein Albumin 3.5 L HDL Cholesterol Lipase Arterial Blood Glucose Arterial Blood Ionized Calcium Salicylates Acetaminophen Plasma/Serum Alcohol 09/14/20 09/14/20 09/15/20 15:24 23:53 11:17 WBC RBC Hgb Hct MCV MCH MCHC RDW Plt Count Lymph % (Auto) [place] % (Auto) Eos % (Auto) Lymph # (Auto) [place] # (Auto) Eos # (Auto) Seg Neutrophils % Seg Neuts % (Manual) Seg Neutrophils # Seg Neutrophils # Man D-Dimer ABG pH POC ABG pCO2 POC ABG pO2 ABG pO2 ABG Base Excess ABG Hemoglobin ABG Sodium ABG Potassium ABG Chloride ABG Glucose Carboxyhemoglobin Potassium Chloride Carbon Dioxide BUN Glucose POC Glucose 127 H 140 H 112 H Lactic Acid Calcium Magnesium Total Bilirubin AST Alkaline Phosphatase Total Protein Albumin HDL Cholesterol Lipase Arterial Blood Glucose Arterial Blood Ionized Calcium Salicylates Acetaminophen Plasma/Serum Alcohol 09/15/20 09/15/20 16:43 23:05 WBC RBC Hgb Hct MCV MCH MCHC RDW Plt Count Lymph % (Auto) [place] % (Auto) Eos % (Auto) Lymph # (Auto) [place] # (Auto) Eos # (Auto) Seg Neutrophils % Seg Neuts % (Manual) Seg Neutrophils # Seg Neutrophils # Man D-Dimer ABG pH POC ABG pCO2 POC ABG pO2 ABG pO2 ABG Base Excess ABG Hemoglobin ABG Sodium ABG Potassium ABG Chloride ABG Glucose Carboxyhemoglobin Potassium Chloride Carbon Dioxide BUN Glucose POC Glucose 113 H 142 H Lactic Acid Calcium Magnesium Total Bilirubin AST Alkaline Phosphatase Total Protein Albumin HDL Cholesterol Lipase Arterial Blood Glucose Arterial Blood Ionized Calcium Salicylates Acetaminophen Plasma/Serum Alcohol Allied health notes reviewed: nursing
--- NOTE | 2020-09-16 15:42 | Progress Note ---
Assessment and Plan Assessment and plan: COVID-19 test negative - 09/10/2020 Patient had stress test this morning, pending report As patient had new onset severe systolic congestive heart failure --Acute systolic congestive heart failure; ejection fraction 20 to 25% IV diuretics, continue beta-blockers, TONO inhibitors, input output monitoring, low-sodium diet Fluid restriction, --Four-chamber dilated cardiomyopathy; Antifailure medications, cardiology consult --Acute alcohol intoxication; Thiamine folic acid, IV Protonix, IV fluids, Supportive care Patient needs counseling when medically stable --Acute hypoxic respiratory failure; extubated on 09/13/2020 on 2 L nasal cannula oxygen Continue supportive care, pulmonary following --Elevated D-dimers; Lower extremity venous Dopplers negative for DVT CTA chest negative for PE --Hypokalemia; K3.2 Replenished with oral KCl 40 mEq x 2 Magnesium levels normal, monitor electrolytes --Acute toxic metabolic encephalopathy; POA Due to alcohol intoxication, hypoxia. Patient is currently intubated on vent --Pneumonia Community-acquired versus aspiration Empiric antibiotics, ventilatory support Follow cultures, ID consult if needed --Leukocytosis; secondary to pneumonia Treat the underlying cause --Lactic acidosis/sepsis due to pneumonia Continue empiric antibiotics, follow cultures --Alcohol withdrawal symptoms; [facility] protocol Will safety counselor and advised to quit alcohol intake when patient is more alert and awake --Hyperglycemia; no evidence of diabetes mellitus Accu-Chek sliding scale coverage, A1c 5.9 --Hypokalemia; resolved replenish per protocol as needed --Severe malnutrition/hypoalbuminemia; present on admission Mild improvement Albumin is 3.3 today, nutrition supplements Nutrition consult --Thrombocytopenia; probably alcohol related Worsening platelet count, rule out HIT, test ordered --Obesity; BMI 51.7 Patient needs weight reduction when medically stable --DVT prophylaxis; Lovenox Follow stress test report and cardiology recommendation Possible cardiac cath tomorrow if needed per cardiology [employer] continue current management Plan of care reviewed with the patient and his nurse 09/09/2020; Patient is intubated on ventilatory support, wean as tolerated and extubate Pulmonary critical evaluation and recommendations noted and appreciated Acute versus acute on chronic CHF systolic dysfunction/dilated cardiomyopathy Start Lasix, unable to give beta-blockers and TONO inhibitors due to hypotension Cardiology consult placed 09/10/2020; patient remains intubated on ventilatory support Will wean as tolerated and extubate Elevated D-dimers, venous Doppler lower extremity negative for DVT Will get CTA chest to rule out PE when medically stable Cardiomyopathy, cardiology consulted 09/11/2020 remains intubated on ventilator support on weaning parameters Wean as tolerated and extubate, continue current management 09/12/2020; patient remains intubated on ventilatory support, wean as tolerated and extubate Blood pressure slightly improved, on antifailure medications 09/13/2020; patient remains intubated on vent, hypokalemia, replaced with oral KCl Wean as tolerated and extubate, consult recommendations noted 09/14/2020; patient was extubated yesterday, today he is on 2 L nasal cannula oxygen Saturating well, PT evaluation recommendation, stable to transfer out of ICU to telemetry 09/15/2020; cardiology recommended Lexiscan stress test, scheduled for tomorrow N.p.o. from midnight, disposition; if negative and stable patient may be discharged home tomorrow History Interval history: I have seen and examined the patient at the bedside Patient's chart, tests and reports and medications reviewed Patient underwent Lexiscan stress test, pending report Patient feels slightly better still has intermittent chest pain Vital signs noted Hospitalist Physical - Constitutional Vitals: Temp Pulse Resp BP Pulse Ox 97.6 F 90 18 104/67 95 09/16/20 11:17 09/16/20 11:33 09/16/20 11:17 09/16/20 11:17 09/16/20 11:17 General appearance: Present: no acute distress, well-nourished, obese (Morbidly obese) - EENT Eyes: Present: PERRL, EOM intact - Neck Neck: Present: supple, normal ROM - Respiratory Respiratory effort: normal Respiratory: bilateral: diminished, rhonchi, negative: rales, wheezing - Cardiovascular Rhythm: regular Heart Sounds: Present: S1 & S2 - Extremities Extremities: no ischemia Extremity abnormal: edema - Abdominal General gastrointestinal: soft, non-tender, non-distended, normal bowel sounds - Integumentary Integumentary: Present: clear, warm - Psychiatric Psychiatric: appropriate mood/affect, cooperative - Neurologic Neurologic: CNII-XII intact, moves all extremities Results - Labs CBC & Chem 7: 09/14/20 05:50 09/14/20 05:50 Labs: Laboratory Last Values WBC 11.3 K/mm3 (4.5-11.0) H 09/14/20 05:50 RBC 6.82 M/mm3 (3.65-5.03) H 09/14/20 05:50 Hgb 18.8 gm/dl (11.8-15.2) H 09/14/20 05:50 Hct 57.2 % (35.5-45.6) H 09/14/20 05:50 MCV 84 fl (84-94) 09/14/20 05:50 MCH 28 pg (28-32) 09/14/20 05:50 MCHC 33 % (32-34) 09/14/20 05:50 RDW 17.9 % (13.2-15.2) H 09/14/20 05:50 Plt Count 162 K/mm3 (140-440) 09/14/20 05:50 Lymph % (Auto) 8.0 % (13.4-35.0) L 09/14/20 05:50 [place] % (Auto) 10.3 % (0.0-7.3) H 09/14/20 05:50 Eos % (Auto) 6.1 % (0.0-4.3) H 09/14/20 05:50 Baso % (Auto) 0.6 % (0.0-1.8) 09/14/20 05:50 Lymph # (Auto) 0.9 K/mm3 (1.2-5.4) L 09/14/20 05:50 [place] # (Auto) 1.2 K/mm3 (0.0-0.8) H 09/14/20 05:50 Eos # (Auto) 0.7 K/mm3 (0.0-0.4) H 09/14/20 05:50 Baso # (Auto) 0.1 K/mm3 (0.0-0.1) 09/14/20 05:50 Add Manual Diff Complete 09/08/20 08:15 Total Counted 100 09/08/20 08:15 Seg Neutrophils % 75.0 % (40.0-70.0) H 09/14/20 05:50 Seg Neuts % (Manual) 71.0 % (40.0-70.0) H 09/08/20 08:15 Band Neutrophils % 5.0 % 09/08/20 08:15 Lymphocytes % (Manual) 14.0 % (13.4-35.0) 09/08/20 08:15 Monocytes % (Manual) 3.0 % (0.0-7.3) 09/08/20 08:15 Eosinophils % (Manual) 1.0 % (0.0-4.3) 09/08/20 08:15 Metamyelocytes % 6.0 % 09/08/20 08:15 Nucleated RBC % Not Reportable 09/08/20 08:15 Seg Neutrophils # 8.5 K/mm3 (1.8-7.7) H 09/14/20 05:50 Seg Neutrophils # Man 11.1 K/mm3 (1.8-7.7) H 09/08/20 08:15 Band Neutrophils # 0.8 K/mm3 09/08/20 08:15 Lymphocytes # (Manual) 2.2 K/mm3 (1.2-5.4) 09/08/20 08:15 Abs React Lymphs (Man) 0.0 K/mm3 09/08/20 08:15 Monocytes # (Manual) 0.5 K/mm3 (0.0-0.8) 09/08/20 08:15 Eosinophils # (Manual) 0.2 K/mm3 (0.0-0.4) 09/08/20 08:15 Basophils # (Manual) 0.0 K/mm3 (0.0-0.1) 09/08/20 08:15 Metamyelocytes # 0.9 K/mm3 09/08/20 08:15 Myelocytes # 0.0 K/mm3 09/08/20 08:15 Promyelocytes # 0.0 K/mm3 09/08/20 08:15 Blast Cells # 0.0 K/mm3 09/08/20 08:15 WBC Morphology Not Reportable 09/08/20 08:15 Hypersegmented Neuts Not Reportable 09/08/20 08:15 Hyposegmented Neuts Not Reportable 09/08/20 08:15 Hypogranular Neuts Not Reportable 09/08/20 08:15 Smudge Cells Not Reportable 09/08/20 08:15 Toxic Granulation Not Reportable 09/08/20 08:15 Toxic Vacuolation Not Reportable 09/08/20 08:15 Dohle Bodies Not Reportable 09/08/20 08:15 Pelger-Huet Anomaly Not Reportable 09/08/20 08:15 Lamar Rods Not Reportable 09/08/20 08:15 Platelet Estimate Consistent w auto 09/08/20 08:15 Clumped Platelets Not Reportable 09/08/20 08:15 Plt Clumps, EDTA Not Reportable 09/08/20 08:15 Large Platelets Not Reportable 09/08/20 08:15 Giant Platelets Not Reportable 09/08/20 08:15 Platelet Satelliting Not Reportable 09/08/20 08:15 Plt Morphology Comment Not Reportable 09/08/20 08:15 RBC Morphology Normal 09/08/20 08:15 Dimorphic RBCs Not Reportable 09/08/20 08:15 Polychromasia Not Reportable 09/08/20 08:15 Hypochromasia Not Reportable 09/08/20 08:15 Poikilocytosis Not Reportable 09/08/20 08:15 Anisocytosis Not Reportable 09/08/20 08:15 Microcytosis Not Reportable 09/08/20 08:15 Macrocytosis Not Reportable 09/08/20 08:15 Spherocytes Not Reportable 09/08/20 08:15 Pappenheimer Bodies Not Reportable 09/08/20 08:15 Sickle Cells Not Reportable 09/08/20 08:15 Target Cells Not Reportable 09/08/20 08:15 Tear Drop Cells Not Reportable 09/08/20 08:15 Ovalocytes Not Reportable 09/08/20 08:15 Helmet Cells Not Reportable 09/08/20 08:15 [place] Bodies Not Reportable 09/08/20 08:15 Percival Rings Not Reportable 09/08/20 08:15 [place] Cells Not Reportable 09/08/20 08:15 Bite Cells Not Reportable 09/08/20 08:15 Crenated Cell Not Reportable 09/08/20 08:15 Elliptocytes Not Reportable 09/08/20 08:15 Acanthocytes (Spur) Not Reportable 09/08/20 08:15 Rouleaux Not Reportable 09/08/20 08:15 Hemoglobin C Crystals Not Reportable 09/08/20 08:15 Schistocytes Not Reportable 09/08/20 08:15 Malaria parasites Not Reportable 09/08/20 08:15 [place] Bodies Not Reportable 09/08/20 08:15 Hem Pathologist Commnt No 09/08/20 08:15 D-Dimer 3467.79 ng/mlDDU (0-234) H 09/09/20 15:19 ABG pH 7.346 (7.320-7.450) 09/13/20 10:55 POC ABG pCO2 45.4 mmHg (32.0-48.0) 09/13/20 10:55 ABG pCO2 31.8 mm Hg 09/08/20 16:25 POC ABG pO2 96.5 mmHg (83-108) 09/13/20 10:55 ABG pO2 117.8 mm Hg (80.0-90.0) H 09/08/20 16:25 POC ABG HCO3 24.3 09/13/20 10:55 ABG HCO3 20.9 mmol/L (20.0-26.0) 09/08/20 16:25 ABG O2 Saturation 97.9 (0-100) 09/13/20 10:55 ABG O2 Content 24.5 (0.0-44) 09/08/20 16:25 POC ABG Base Excess -1.8 09/13/20 10:55 ABG Base Excess -2.0 mmol/L (-2.0-3.0) 09/08/20 16:25 ABG Hemoglobin 19.7 (12.0-17.5) H 09/13/20 10:55 ABG Oxyhemoglobin 96.3 (94-98) 09/13/20 10:55 ABG Carboxyhemoglobin 2.0 % (0.0-5.0) 09/08/20 16:25 ABG Methemoglobin 0.4 (0.0-1.5) 09/13/20 10:55 ABG Sodium 144.7 mmol/L (136.0-145.0) 09/13/20 10:55 ABG Potassium 3.8 mmol/L (3.40-4.50) 09/13/20 10:55 ABG Chloride 105.0 mmol/L (98-107) 09/13/20 10:55 ABG Glucose 102 mg/dL (65-95) H 09/13/20 10:55 Oxyhemoglobin 95.8 % (95.0-99.0) 09/08/20 16:25 Carboxyhemoglobin 1.2 (0.5-1.5) 09/13/20 10:55 FiO2 80 % 09/08/20 16:25 FiO2 % 35.0 09/13/20 10:55 Sodium 144 mmol/L (137-145) 09/14/20 05:50 Potassium 4.1 mmol/L (3.6-5.0) D 09/14/20 05:50 Chloride 102.9 mmol/L (98-107) 09/14/20 05:50 Carbon Dioxide 32 mmol/L (22-30) H 09/14/20 05:50 Anion Gap 13 mmol/L 09/14/20 05:50 BUN 28 mg/dL (9-20) H 09/14/20 05:50 Creatinine 1.2 mg/dL (0.8-1.3) 09/14/20 05:50 Estimated GFR > 60 ml/min 09/14/20 05:50 BUN/Creatinine Ratio 23 % 09/14/20 05:50 Glucose 97 mg/dL (75-100) 09/14/20 05:50 POC Glucose 142 mg/dL (70-105) H 09/15/20 23:05 Hemoglobin A1c 5.8 % (4-6) 09/08/20 15:58 Lactic Acid 2.00 mmol/L (0.7-2.0) 09/09/20 09:10 Calcium 8.6 mg/dL (8.4-10.2) 09/14/20 05:50 Phosphorus 3.00 mg/dL (2.5-4.5) 09/13/20 04:29 Magnesium 2.00 mg/dL (1.7-2.3) 09/13/20 04:29 Total Bilirubin 1.00 mg/dL (0.1-1.2) 09/14/20 05:50 Direct Bilirubin < 0.2 mg/dL (0-0.2) 09/08/20 08:15 Indirect Bilirubin 0.0 mg/dL 09/08/20 08:15 AST 55 units/L (5-40) H 09/14/20 05:50 ALT 52 units/L (7-56) 09/14/20 05:50 Alkaline Phosphatase 135 units/L (35-129) H 09/14/20 05:50 Ammonia 50.0 umol/L (25-60) 09/09/20 04:12 Total Protein 7.1 g/dL (6.3-8.2) 09/14/20 05:50 Albumin 3.5 g/dL (3.9-5) L 09/14/20 05:50 Albumin/Globulin Ratio 1.0 % 09/14/20 05:50 Triglycerides 148 mg/dL (2-149) 09/09/20 04:12 Cholesterol 119 mg/dL (50-199) 09/09/20 04:12 LDL Cholesterol Direct 71 mg/dL (50-130) 09/09/20 04:12 HDL Cholesterol 33 mg/dL (40-59) L 09/09/20 04:12 Cholesterol/HDL Ratio 3.60 % 09/09/20 04:12 Amylase 45 units/L (27-131) 09/09/20 04:12 Lipase 12 units/L (13-60) L 09/09/20 04:12 Procalcitonin 0.28 ng/mL (<0.15) 09/10/20 05:00 Arterial Blood Glucose 102 mg/dL (65-95) H 09/13/20 10:55 Arterial Blood Ionized Calcium 4.7 mg/dL (4.6-5.3) 09/13/20 10:55 Urine Color Yee (Yellow) 09/08/20 Unknown Urine Turbidity Cloudy (Clear) 09/08/20 Unknown Urine pH 5.0 (5.0-7.0) 09/08/20 Unknown Ur Specific [place] 1.018 (1.003-1.030) 09/08/20 Unknown Urine Protein >500 mg/dL (Negative) 09/08/20 Unknown Urine Glucose (UA) Neg mg/dL (Negative) 09/08/20 Unknown Urine Ketones Neg mg/dL (Negative) 09/08/20 Unknown Urine Blood Sm (Negative) 09/08/20 Unknown Urine Nitrite Neg (Negative) 09/08/20 Unknown Urine Bilirubin Neg (Negative) 09/08/20 Unknown Urine Urobilinogen < 2.0 mg/dL (<2.0) 09/08/20 Unknown Ur Leukocyte Esterase Tr (Negative) 09/08/20 Unknown Urine WBC (Auto) Not Reportable 09/08/20 Unknown Urine RBC (Auto) Not Reportable 09/08/20 Unknown Salicylates < 0.3 mg/dL (2.8-20.0) L 09/08/20 07:51 Urine Opiates Screen Negative 09/08/20 Unknown Urine Methadone Screen Negative 09/08/20 Unknown Acetaminophen 5.0 ug/mL (10.0-30.0) L 09/08/20 08:15 Ur Barbiturates Screen Negative 09/08/20 Unknown Ur Phencyclidine Scrn Negative 09/08/20 Unknown Ur Amphetamines Screen Negative 09/08/20 Unknown U Benzodiazepines Scrn Negative 09/08/20 Unknown Urine Cocaine Screen Negative 09/08/20 Unknown U Marijuana (THC) Screen Presumptive negative 09/08/20 Unknown Drugs of Abuse Note Disclamer 09/08/20 Unknown Plasma/Serum Alcohol 0.11 % (0-0.07) H 09/08/20 08:15 Coronavirus (PCR) Negative (Negative) 09/09/20 09:45 [place]/IV: Voiding Method Toilet Active Medications - Current Medications Current Medications: Generic Name Dose Route Start Last Admin Trade Name Freq PRN Reason Stop Dose Admin Acetaminophen 650 mg 09/14/20 00:19 09/15/20 13:23 Acetaminophen 325 Mg Tab PO 650 mg Q6H PRN Administration Pain, Mild (1-3) Aspirin 81 mg 09/11/20 10:00 09/16/20 11:37 Aspirin 81 Mg Tab Chew PO 81 mg QDAY JUAN LUIS Administration Carvedilol 3.125 mg 09/10/20 22:00 09/16/20 11:33 Carvedilol 3.125 Mg Tab PO 3.125 mg BID JUAN LUIS Administration Enoxaparin Sodium 40 mg 09/08/20 22:00 09/15/20 21:06 Enoxaparin 40 Mg/0.4 Ml Inj SUB-Q 40 mg QDAY@2200 JUAN LUIS Administration Protocol Furosemide 40 mg 09/10/20 06:00 09/16/20 05:21 Furosemide 40 Mg/4 Ml Inj IV 40 mg 0600,1800 JUAN LUIS Administration Lisinopril 2.5 mg 09/11/20 10:00 09/16/20 11:37 Lisinopril 5 Mg Tab PO Not Given QDAY JUAN LUIS Lorazepam 2 mg 09/08/20 10:35 09/11/20 14:45 Lorazepam 2 Mg/Ml Vial IV 2 mg Q4H PRN Administration Agitation Multi-Ingred Cream/Lotion/Oil/Oint 1 applic 09/08/20 16:21 Mineral Oil/Petrolatum, White Ophth Oint 3.5 Gm OU Q4HR PRN Dry Eye(s) Spironolactone 25 mg 09/11/20 10:00 09/16/20 11:37 Spironolactone 25 Mg Tab PO 25 mg QDAY JUAN LUIS Administration Nutrition/Malnutrition Assess - Dietary Evaluation Nutrition/Malnutrition Findings: Nutrition Notes Start: 09/09/20 09:13 Freq: Status: Active Protocol: Document 09/14/20 09:40 LP (Rec: 09/14/20 09:45 LP [id number]) Nutrition Notes Initial or Follow up Reassessment Current Diagnosis Diabetes,Hypertension, Respiratory Failure Other Pertinent Diagnosis alcohol intoxication Current Diet Mechanical soft Labs/Tests Reviewed Pertinent Medications Reviewed Height 5 ft Weight 120 kg [place] Body Weight (kg) 48.18 BMI 51.6 Weight Status Morbidly Obese Subjective/Other Information Pt extubated yesterday. Pt on toilet at time of visit. Pt eating some of food. Burn Absent Trauma Absent Difficulty In Chewing Current % PO Poor (25-49%) Minimum of two criteria No physical signs of malnutrition #1 Nutrition Diagnosis Inadequate oral intake As Evidenced by Signs and Symptoms Pt diet advanced and eating some breakfast this AM Diagnosis Progress(for reassessment Improved documentation) Is patient on ventilator? No Is Patient Ambulatory and/or Out of Bed No REE-([place]-confined to bed) 2286.456 Kcal/Kg value to use for calculation 15 Approximate Energy Requirements Using 1800 kcal/Kg Calculation Used for Recommendations Kcal/kg Additional Notes Protein needs are 64-80g (0.8- 1g/kg Adj wt 80kg) Fluid: 1 ml/kcal or per MD Nutrition Intervention Change Diet Order: Mechanical soft diet Nutrition Support: D/C Goal #1 Meet at least 80% of kcal and protein needs Anticipated Discharge Needs: Mechanical soft diet Follow-Up By: 09/17/20 Additional Comments Follow for stable intakes
[2020-09-16 16:37] LABS: Heparin-Induced Platelet Antib Negative (Negative); Unfractionated Heparin Negative (Negative)
[2020-09-16] MEDS: ENOXAPARIN 40 MG/0.4 ML INJ SUB-Q SCH (21:43)
[2020-09-17] MEDS: FUROSEMIDE 40 MG/4 ML INJ IV SCH (06:21)
[2020-09-17 07:33] LABS: Hematocrit 57.9 % (35.5-45.6); Hemoglobin 18.9 gm/dl (11.8-15.2); Mean Corpuscular HGB Conc 33 % (32-34); Mean Corpuscular Volume 83 fl (84-94); Platelet Count 185 K/mm3 (140-440); Red Blood Count 7.01 M/mm3 (3.65-5.03); Red Cell Distribution Width 17.4 % (13.2-15.2)
[2020-09-17 07:46] LABS: BUN/Creatinine Ratio 44; Blood Urea Nitrogen 40 mg/dL (9-20); Calcium 8.5 mg/dL (8.4-10.2); Hemolysis Index 20
[2020-09-17 07:47] LABS: INR 0.91 (0.87-1.13)
[2020-09-17] MEDS ORDERED: SODIUM CHLORIDE 0.9% 500 ML 500 ML ONE (08:03)
[2020-09-17 08:06] LABS: Total Cells Counted 100
[2020-09-17 08:08] LABS: Band Neutrophils # (Manual) 0.1 K/mm3; Large Platelets Few; Platelet Estimate Consistent w Auto; RBC Morphology Normal
[2020-09-17] MEDS ORDERED: HEPARIN/NS 5000 UNIT/500ML 1,000 ML IR ONE (08:12)
[2020-09-17] MEDS ORDERED: MIDAZOLAM 2 MG/2 ML INJ ONE (08:12)
[2020-09-17] MEDS ORDERED: fentaNYL 100 MCG/2 ML INJ ONE (08:12)
[2020-09-17] MEDS ORDERED: HEPARIN 10,000 UNITS/10 ML VIAL ONE (08:12)
[2020-09-17] MEDS ORDERED: VERAPAMIL 5 MG/2 ML INJ ONE (08:12)
[2020-09-17] MEDS ORDERED: NITROGLYCERIN SYRINGE 0 ML ONE (08:13)
[2020-09-17] MEDS: ASPIRIN 81 MG TAB CHEW PO SCH ×2 (08:16→11:32)
[2020-09-17] MEDS: SODIUM CHLORIDE 0.9% 500 ML 500 ML IV SCH ×2 (08:17→08:48)
[2020-09-17] MEDS: LIDOCAINE (2%) 20 MG/1 ML VIAL 20 ML MDV INFILTRATI ONE ×2 (08:49→08:57)
--- NOTE | 2020-09-17 09:43 | Event Note ---
<JOE MOLINA - Last Filed: 09/17/20 09:41> Date: 09/17/20 Cardiac catheterization was completed via the right femoral artery, no complications. We found severe three-vessel disease. There was normal left ventricular systolic function, ejection fraction estimated at 50%. The patient will be recommended for CT surgery evaluation. <ART HUA - Last Filed: 09/22/20 17:04> I SAW THIS PT & AGREE WITH THE Dx & Tx PLAN.
[2020-09-17] MEDS ORDERED: traMADol 50 MG TAB PO PRN (10:00)
--- NOTE | 2020-09-17 11:08 | Cardiac Catherization Report ---
HISTORY: The patient is a 49-year-old male with a history of smoking, who presented with congestive heart failure and evidence of a dilated cardiomyopathy. He underwent a stress test that was abnormal, so coronary angiography was recommended. INDICATIONS FOR PROCEDURE: Heart failure, cardiomyopathy, abnormal stress test, multiple risk factors. PROCEDURE: Left heart catheterization, left ventriculography, and coronary angiography by the right femoral artery using 5-[place] Shyann catheters and a pigtail catheter. COMPLICATIONS: None. PREPROCEDURE DIAGNOSES: Cardiomyopathy, suspect coronary artery disease. POSTPROCEDURE DIAGNOSIS: Triple vessel coronary artery disease. SEDATION: Intravenous Versed and fentanyl. TISSUE SAMPLE: None. ESTIMATED BLOOD LOSS: 10-20 mL. HEMODYNAMICS: Central aortic pressure 132/99. Left ventricular pressure 132/22. ANGIOGRAPHIC RESULTS: 1. Left ventricle: The left ventriculogram reveals a normal sized left ventricle with good systolic function. The mid portion of the anterior wall is hypokinetic. An estimation of the ejection fraction is 50%. 2. Right coronary artery: This is a dominant vessel and it is of a large caliber and diffusely irregular. The PDA is totally occluded at its ostium. The PDA can be seen via collateral blood flow from the left coronary artery. 3. Left coronary artery: This vessel is diffusely irregular. The left main is free of remarkable disease. The obtuse marginal branch contains a proximal 50% lesion. The distal circumflex contains a 90% stenosis. The LAD is irregular and the mid portion is totally occluded with slow blood flow to the distal LAD via collateral blood flow. FINAL IMPRESSION: 1. Triple vessel coronary artery disease with anatomy most suitable for coronary artery bypass surgery. 2. Cardiomyopathy: Noted on echocardiography, the ejection fraction is improved to 50%. There is mid anterior wall hypokinesia. PLAN: In addition to aggressive medical therapy and CAD risk factor modification, Cardiovascular Surgery will be consulted for coronary artery bypass surgery. TID: [id number] RECEIPT: [id number] ANTON/YING
[2020-09-17] MEDS: SPIRONOLACTONE 25 MG TAB PO SCH (11:30)
[2020-09-17] MEDS: LISINOPRIL 5 MG TAB PO SCH (11:31)
[2020-09-17] MEDS: carvediloL 3.125 MG TAB PO SCH ×2 (11:31→21:46)
--- NOTE | 2020-09-17 12:02 | Cardiac Catherization Report ---
HISTORY: The patient is a 49-year-old male with a history of smoking, who presented with congestive heart failure and evidence of a dilated cardiomyopathy. He underwent a stress test that was abnormal, so coronary angiography was recommended. INDICATIONS FOR PROCEDURE: Heart failure, cardiomyopathy, abnormal stress test, multiple risk factors. PROCEDURE: Left heart catheterization, left ventriculography, and coronary angiography by the right femoral artery using 5-[place] Shyann catheters and a pigtail catheter. COMPLICATIONS: None. PREPROCEDURE DIAGNOSES: Cardiomyopathy, suspect coronary artery disease. POSTPROCEDURE DIAGNOSIS: Triple vessel coronary artery disease. SEDATION: Intravenous Versed and fentanyl. TISSUE SAMPLE: None. ESTIMATED BLOOD LOSS: 10-20 mL. HEMODYNAMICS: Central aortic pressure 132/99. Left ventricular pressure 132/22. ANGIOGRAPHIC RESULTS: 1. Left ventricle: The left ventriculogram reveals a normal sized left ventricle with good systolic function. The mid portion of the anterior wall is hypokinetic. An estimation of the ejection fraction is 50%. 2. Right coronary artery: This is a dominant vessel and it is of a large caliber and diffusely irregular. The PDA is totally occluded at its ostium. The PDA can be seen via collateral blood flow from the left coronary artery. 3. Left coronary artery: This vessel is diffusely irregular. The left main is free of remarkable disease. The obtuse marginal branch contains a proximal 50% lesion. The distal circumflex contains a 90% stenosis. The LAD is irregular and the mid portion is totally occluded with slow blood flow to the distal LAD via collateral blood flow. FINAL IMPRESSION: 1. Triple vessel coronary artery disease with anatomy most suitable for coronary artery bypass surgery. 2. Cardiomyopathy: Noted on echocardiography, the ejection fraction is improved to 50%. There is mid anterior wall hypokinesia. PLAN: In addition to aggressive medical therapy and CAD risk factor modification, Cardiovascular Surgery will be consulted for coronary artery bypass surgery. TID: [id number] RECEIPT: [id number] ANTON/YING Appended Drop Clipper - Dictated on 09/17/2020 10:58:55 AM ADDENDUM PROCEDURE START TIME: 8:48 a.m. PROCEDURE END TIME: 9:15 a.m. PROCEDURE TIME: 27 minutes. SEDATION TIME: 27 minutes. ART HUA MD
--- NOTE | 2020-09-17 12:28 | Progress Note ---
Assessment and Plan Assessment and plan: COVID-19 test negative - 09/10/2020 Acute coronary artery disease; Status post left heart catheterization severe three-vessel disease, with normal left ventricular systolic function with ejection fraction of 50% Cardiology recommended CT surgery evaluation for possible coronary artery bypass surgery however patient refused transfer for CT surgeon evaluation , all caregivers explained the risks and complications of refusing intervention patient and patient's brother verbalized understanding . cardiology recommend medical management of three-vessel coronary artery disease and outpatient follow-up And possible discharge tomorrow --Acute systolic CHF;EF-20 to 25% echo 09/08/2020 IV diuretics, continue beta-blockers, TONO inhibitors, input output monitoring, low-sodium diet Fluid restriction, --Four-chamber dilated cardiomyopathy; Antifailure medications, cardiology consult --Acute alcohol intoxication; Thiamine folic acid, IV Protonix, IV fluids, Supportive care Patient needs counseling when medically stable --Acute hypoxic respiratory failure; extubated on 09/13/2020 on 2 L nasal cannula oxygen Continue supportive care, pulmonary following --Elevated D-dimers; Lower extremity venous Dopplers negative for DVT CTA chest negative for PE --Acute toxic metabolic encephalopathy; POA Due to alcohol intoxication, hypoxia. Patient is currently intubated on vent --Pneumonia Community-acquired versus aspiration Completed antibiotics --Leukocytosis; secondary to pneumonia Treat the underlying cause --Lactic acidosis/sepsis due to pneumonia Continue empiric antibiotics, follow cultures --Alcohol withdrawal symptoms; [facility] protocol Will counseling program leader and advised to quit alcohol intake when patient is more alert and awake --Hyperglycemia; no evidence of diabetes mellitus Accu-Chek sliding scale coverage, A1c 5.9 --Hypokalemia; resolved replenish per protocol as needed --Severe malnutrition/hypoalbuminemia; present on admission Mild improvement Albumin is 3.3 today, nutrition supplements Nutrition consult --Thrombocytopenia; probably alcohol related Worsening platelet count, rule out HIT, test ordered --Obesity; BMI 51.7 Patient needs weight reduction when medically stable --DVT prophylaxis; Lovenox We will closely monitor the patient and adjust management as needed 09/09/2020; Patient is intubated on ventilatory support, wean as tolerated and extubate Pulmonary critical evaluation and recommendations noted and appreciated Acute versus acute on chronic CHF systolic dysfunction/dilated cardiomyopathy Start Lasix, unable to give beta-blockers and TONO inhibitors due to hypotension Cardiology consult placed 09/10/2020; patient remains intubated on ventilatory support Will wean as tolerated and extubate Elevated D-dimers, venous Doppler lower extremity negative for DVT Will get CTA chest to rule out PE when medically stable Cardiomyopathy, cardiology consulted 09/11/2020 remains intubated on ventilator support on weaning parameters Wean as tolerated and extubate, continue current management 09/12/2020; patient remains intubated on ventilatory support, wean as tolerated and extubate Blood pressure slightly improved, on antifailure medications 09/13/2020; patient remains intubated on vent, hypokalemia, replaced with oral KCl Wean as tolerated and extubate, consult recommendations noted 09/14/2020; patient was extubated yesterday, today he is on 2 L nasal cannula oxygen Saturating well, PT evaluation recommendation, stable to transfer out of ICU to telemetry 09/15/2020; cardiology recommended Lexiscan stress test, scheduled for tomorrow N.p.o. from midnight, disposition; if negative and stable patient may be discharged home tomorrow 09/16/2020; patient had Lexiscan stress test, abnormal, left heart catheterization 09/17/2020 09/17/2020; left heart catheterization, multivessel coronary artery disease, recommend CT surgeon evaluation and bypass surgery Patient and brother refused, cardiology recommended medical management and possible discharge home tomorrow with outpatient follow-up Disposition; DC home tomorrow if stable and cleared by cardiology History Interval history: I have seen and examined the patient at the bedside patient's chart and medications reviewed Patient underwent left heart catheterization today, multivessel disease, recommended transfer to CT surgeon Patient refused,Patient is ambulatory, feels better no new complaints Vital signs reviewed Hospitalist Physical - Constitutional Vitals: Temp Pulse Resp BP Pulse Ox 98.6 F 92 H 20 148/106 88 09/17/20 11:50 09/17/20 11:31 09/17/20 11:50 09/17/20 11:50 09/17/20 04:03 General appearance: Present: no acute distress, well-nourished, obese (Morbidly obese) - EENT Eyes: Present: PERRL, EOM intact - Neck Neck: Present: supple, normal ROM - Respiratory Respiratory effort: normal Respiratory: bilateral: diminished, negative: rales, rhonchi, wheezing - Cardiovascular Rhythm: regular Heart Sounds: Present: S1 & S2 - Extremities Extremities: no ischemia, No edema - Abdominal General gastrointestinal: soft, non-tender, normal bowel sounds - Integumentary Integumentary: Present: clear, warm - Psychiatric Psychiatric: appropriate mood/affect, cooperative - Neurologic Neurologic: moves all extremities Results - Labs CBC & Chem 7: 09/17/20 07:20 09/17/20 07:20 Labs: Laboratory Last Values WBC 11.9 K/mm3 (4.5-11.0) H 09/17/20 07:20 RBC 7.01 M/mm3 (3.65-5.03) H 09/17/20 07:20 Hgb 18.9 gm/dl (11.8-15.2) H 09/17/20 07:20 Hct 57.9 % (35.5-45.6) H 09/17/20 07:20 MCV 83 fl (84-94) L 09/17/20 07:20 MCH 27 pg (28-32) L 09/17/20 07:20 MCHC 33 % (32-34) 09/17/20 07:20 RDW 17.4 % (13.2-15.2) H 09/17/20 07:20 Plt Count 185 K/mm3 (140-440) 09/17/20 07:20 Lymph % (Auto) 8.0 % (13.4-35.0) L 09/14/20 05:50 Gem % (Auto) 10.3 % (0.0-7.3) H 09/14/20 05:50 Eos % (Auto) 6.1 % (0.0-4.3) H 09/14/20 05:50 Baso % (Auto) 0.6 % (0.0-1.8) 09/14/20 05:50 Lymph # (Auto) 0.9 K/mm3 (1.2-5.4) L 09/14/20 05:50 Gem # (Auto) 1.2 K/mm3 (0.0-0.8) H 09/14/20 05:50 Eos # (Auto) 0.7 K/mm3 (0.0-0.4) H 09/14/20 05:50 Baso # (Auto) 0.1 K/mm3 (0.0-0.1) 09/14/20 05:50 Add Manual Diff Complete 09/17/20 07:20 Total Counted 100 09/17/20 07:20 Seg Neutrophils % 75.0 % (40.0-70.0) H 09/14/20 05:50 Seg Neuts % (Manual) 81.0 % (40.0-70.0) H 09/17/20 07:20 Band Neutrophils % 1.0 % 09/17/20 07:20 Lymphocytes % (Manual) 9.0 % (13.4-35.0) L 09/17/20 07:20 Monocytes % (Manual) 4.0 % (0.0-7.3) 09/17/20 07:20 Eosinophils % (Manual) 5.0 % (0.0-4.3) H 09/17/20 07:20 Metamyelocytes % 6.0 % 09/08/20 08:15 Nucleated RBC % Not Reportable 09/17/20 07:20 Seg Neutrophils # 8.5 K/mm3 (1.8-7.7) H 09/14/20 05:50 Seg Neutrophils # Man 9.6 K/mm3 (1.8-7.7) H 09/17/20 07:20 Band Neutrophils # 0.1 K/mm3 09/17/20 07:20 Lymphocytes # (Manual) 1.1 K/mm3 (1.2-5.4) L 09/17/20 07:20 Abs React Lymphs (Man) 0.0 K/mm3 09/17/20 07:20 Monocytes # (Manual) 0.5 K/mm3 (0.0-0.8) 09/17/20 07:20 Eosinophils # (Manual) 0.6 K/mm3 (0.0-0.4) H 09/17/20 07:20 Basophils # (Manual) 0.0 K/mm3 (0.0-0.1) 09/17/20 07:20 Metamyelocytes # 0.0 K/mm3 09/17/20 07:20 Myelocytes # 0.0 K/mm3 09/17/20 07:20 Promyelocytes # 0.0 K/mm3 09/17/20 07:20 Blast Cells # 0.0 K/mm3 09/17/20 07:20 WBC Morphology Not Reportable 09/17/20 07:20 Hypersegmented Neuts Not Reportable 09/17/20 07:20 Hyposegmented Neuts Not Reportable 09/17/20 07:20 Hypogranular Neuts Not Reportable 09/17/20 07:20 Smudge Cells Not Reportable 09/17/20 07:20 Toxic Granulation Not Reportable 09/17/20 07:20 Toxic Vacuolation Not Reportable 09/17/20 07:20 Dohle Bodies Not Reportable 09/17/20 07:20 Pelger-Huet Anomaly Not Reportable 09/17/20 07:20 Lamar Rods Not Reportable 09/17/20 07:20 Platelet Estimate Consistent w auto 09/17/20 07:20 Clumped Platelets Not Reportable 09/17/20 07:20 Plt Clumps, EDTA Not Reportable 09/17/20 07:20 Large Platelets Few 09/17/20 07:20 Giant Platelets Not Reportable 09/17/20 07:20 Platelet Satelliting Not Reportable 09/17/20 07:20 Plt Morphology Comment Not Reportable 09/17/20 07:20 RBC Morphology Normal 09/17/20 07:20 Dimorphic RBCs Not Reportable 09/17/20 07:20 Polychromasia Not Reportable 09/17/20 07:20 Hypochromasia Not Reportable 09/17/20 07:20 Poikilocytosis Not Reportable 09/17/20 07:20 Anisocytosis Not Reportable 09/17/20 07:20 Microcytosis Not Reportable 09/17/20 07:20 Macrocytosis Not Reportable 09/17/20 07:20 Spherocytes Not Reportable 09/17/20 07:20 Pappenheimer Bodies Not Reportable 09/17/20 07:20 Sickle Cells Not Reportable 09/17/20 07:20 Target Cells Not Reportable 09/17/20 07:20 Tear Drop Cells Not Reportable 09/17/20 07:20 Ovalocytes Not Reportable 09/17/20 07:20 Helmet Cells Not Reportable 09/17/20 07:20 [place] Bodies Not Reportable 09/17/20 07:20 [place] Rings Not Reportable 09/17/20 07:20 Onel Cells Not Reportable 09/17/20 07:20 Bite Cells Not Reportable 09/17/20 07:20 Crenated Cell Not Reportable 09/17/20 07:20 Elliptocytes Not Reportable 09/17/20 07:20 Acanthocytes (Spur) Not Reportable 09/17/20 07:20 Rouleaux Not Reportable 09/17/20 07:20 Hemoglobin C Crystals Not Reportable 09/17/20 07:20 Schistocytes Not Reportable 09/17/20 07:20 Malaria parasites Not Reportable 09/17/20 07:20 [place] Bodies Not Reportable 09/17/20 07:20 Hem Pathologist Commnt No 09/17/20 07:20 PT 12.9 Sec. (12.2-14.9) 09/17/20 07:20 INR 0.91 (0.87-1.13) 09/17/20 07:20 D-Dimer 3467.79 ng/mlDDU (0-234) H 09/09/20 15:19 Heparin Anti-Xa, Unfract Negative (Negative) 09/13/20 09:50 ABG pH 7.346 (7.320-7.450) 09/13/20 10:55 POC ABG pCO2 45.4 mmHg (32.0-48.0) 09/13/20 10:55 ABG pCO2 31.8 mm Hg 09/08/20 16:25 POC ABG pO2 96.5 mmHg (83-108) 09/13/20 10:55 ABG pO2 117.8 mm Hg (80.0-90.0) H 09/08/20 16:25 POC ABG HCO3 24.3 09/13/20 10:55 ABG HCO3 20.9 mmol/L (20.0-26.0) 09/08/20 16:25 ABG O2 Saturation 97.9 (0-100) 09/13/20 10:55 ABG O2 Content 24.5 (0.0-44) 09/08/20 16:25 POC ABG Base Excess -1.8 09/13/20 10:55 ABG Base Excess -2.0 mmol/L (-2.0-3.0) 09/08/20 16:25 ABG Hemoglobin 19.7 (12.0-17.5) H 09/13/20 10:55 ABG Oxyhemoglobin 96.3 (94-98) 09/13/20 10:55 ABG Carboxyhemoglobin 2.0 % (0.0-5.0) 09/08/20 16:25 ABG Methemoglobin 0.4 (0.0-1.5) 09/13/20 10:55 ABG Sodium 144.7 mmol/L (136.0-145.0) 09/13/20 10:55 ABG Potassium 3.8 mmol/L (3.40-4.50) 09/13/20 10:55 ABG Chloride 105.0 mmol/L (98-107) 09/13/20 10:55 ABG Glucose 102 mg/dL (65-95) H 09/13/20 10:55 Oxyhemoglobin 95.8 % (95.0-99.0) 09/08/20 16:25 Carboxyhemoglobin 1.2 (0.5-1.5) 09/13/20 10:55 FiO2 80 % 09/08/20 16:25 FiO2 % 35.0 09/13/20 10:55 Sodium 137 mmol/L (137-145) 09/17/20 07:20 Potassium 4.0 mmol/L (3.6-5.0) 09/17/20 07:20 Chloride 98.0 mmol/L (98-107) 09/17/20 07:20 Carbon Dioxide 31 mmol/L (22-30) H 09/17/20 07:20 Anion Gap 12 mmol/L 09/17/20 07:20 BUN 40 mg/dL (9-20) H 09/17/20 07:20 Creatinine 0.9 mg/dL (0.8-1.3) 09/17/20 07:20 Estimated GFR > 60 ml/min 09/17/20 07:20 BUN/Creatinine Ratio 44 % 09/17/20 07:20 Glucose 103 mg/dL (75-100) H 09/17/20 07:20 POC Glucose 142 mg/dL (70-105) H 09/15/20 23:05 Hemoglobin A1c 5.8 % (4-6) 09/08/20 15:58 Lactic Acid 2.00 mmol/L (0.7-2.0) 09/09/20 09:10 Calcium 8.5 mg/dL (8.4-10.2) 09/17/20 07:20 Phosphorus 3.00 mg/dL (2.5-4.5) 09/13/20 04:29 Magnesium 2.00 mg/dL (1.7-2.3) 09/13/20 04:29 Total Bilirubin 1.00 mg/dL (0.1-1.2) 09/14/20 05:50 Direct Bilirubin < 0.2 mg/dL (0-0.2) 09/08/20 08:15 Indirect Bilirubin 0.0 mg/dL 09/08/20 08:15 AST 55 units/L (5-40) H 09/14/20 05:50 ALT 52 units/L (7-56) 09/14/20 05:50 Alkaline Phosphatase 135 units/L (35-129) H 09/14/20 05:50 Ammonia 50.0 umol/L (25-60) 09/09/20 04:12 Total Protein 7.1 g/dL (6.3-8.2) 09/14/20 05:50 Albumin 3.5 g/dL (3.9-5) L 09/14/20 05:50 Albumin/Globulin Ratio 1.0 % 09/14/20 05:50 Triglycerides 148 mg/dL (2-149) 09/09/20 04:12 Cholesterol 119 mg/dL (50-199) 09/09/20 04:12 LDL Cholesterol Direct 71 mg/dL (50-130) 09/09/20 04:12 HDL Cholesterol 33 mg/dL (40-59) L 09/09/20 04:12 Cholesterol/HDL Ratio 3.60 % 09/09/20 04:12 Amylase 45 units/L (27-131) 09/09/20 04:12 Lipase 12 units/L (13-60) L 09/09/20 04:12 Procalcitonin 0.28 ng/mL (<0.15) 09/10/20 05:00 Arterial Blood Glucose 102 mg/dL (65-95) H 09/13/20 10:55 Arterial Blood Ionized Calcium 4.7 mg/dL (4.6-5.3) 09/13/20 10:55 Urine Color Yee (Yellow) 09/08/20 Unknown Urine Turbidity Cloudy (Clear) 09/08/20 Unknown Urine pH 5.0 (5.0-7.0) 09/08/20 Unknown Ur Specific [place] 1.018 (1.003-1.030) 09/08/20 Unknown Urine Protein >500 mg/dL (Negative) 09/08/20 Unknown Urine Glucose (UA) Neg mg/dL (Negative) 09/08/20 Unknown Urine Ketones Neg mg/dL (Negative) 09/08/20 Unknown Urine Blood Sm (Negative) 09/08/20 Unknown Urine Nitrite Neg (Negative) 09/08/20 Unknown Urine Bilirubin Neg (Negative) 09/08/20 Unknown Urine Urobilinogen < 2.0 mg/dL (<2.0) 09/08/20 Unknown Ur Leukocyte Esterase Tr (Negative) 09/08/20 Unknown Urine WBC (Auto) Not Reportable 09/08/20 Unknown Urine RBC (Auto) Not Reportable 09/08/20 Unknown Salicylates < 0.3 mg/dL (2.8-20.0) L 09/08/20 07:51 Urine Opiates Screen Negative 09/08/20 Unknown Urine Methadone Screen Negative 09/08/20 Unknown Acetaminophen 5.0 ug/mL (10.0-30.0) L 09/08/20 08:15 Ur Barbiturates Screen Negative 09/08/20 Unknown Ur Phencyclidine Scrn Negative 09/08/20 Unknown Ur Amphetamines Screen Negative 09/08/20 Unknown U Benzodiazepines Scrn Negative 09/08/20 Unknown Urine Cocaine Screen Negative 09/08/20 Unknown U Marijuana (THC) Screen Presumptive negative 09/08/20 Unknown Drugs of Abuse Note Disclamer 09/08/20 Unknown Plasma/Serum Alcohol 0.11 % (0-0.07) H 09/08/20 08:15 Heparin-induced Plt Ab Negative (Negative) 09/13/20 09:50 UF Heparin High Dose 0 % Release 09/13/20 09:50 LEILANI UFH Low Dose 0.1 0 % Release 09/13/20 09:50 LEILANI UFH Low Dose 0.5 0 % Release 09/13/20 09:50 Coronavirus (PCR) Negative (Negative) 09/09/20 09:45 [place]/IV: Voiding Method Toilet Active Medications - Current Medications Current Medications: Generic Name Dose Route Start Last Admin Trade Name Freq PRN Reason Stop Dose Admin Acetaminophen 650 mg 09/14/20 00:19 09/15/20 13:23 Acetaminophen 325 Mg Tab PO 650 mg Q6H PRN Administration Pain, Mild (1-3) Aspirin 81 mg 09/11/20 10:00 09/17/20 11:32 Aspirin 81 Mg Tab Chew PO Not Given QDAY JUAN LUIS Atorvastatin Calcium 40 mg 09/17/20 22:00 Atorvastatin 40 Mg Tab PO QHS JUAN LUIS Carvedilol 3.125 mg 09/10/20 22:00 09/17/20 11:31 Carvedilol 3.125 Mg Tab PO 3.125 mg BID JUAN LUIS Administration Enoxaparin Sodium 40 mg 09/08/20 22:00 09/16/20 21:43 Enoxaparin 40 Mg/0.4 Ml Inj SUB-Q 40 mg QDAY@2200 JUAN LUIS Administration Protocol Sodium Chloride 500 mls @ 50 mls/hr 09/17/20 09:00 09/17/20 08:48 Nacl 0.9% 500 Ml IV 09/17/20 23:00 50 mls/hr DIRECT JUAN LUIS Administration Lisinopril 2.5 mg 09/11/20 10:00 09/17/20 11:31 Lisinopril 5 Mg Tab PO 2.5 mg QDAY JUAN LUIS Administration Lorazepam 2 mg 09/08/20 10:35 09/11/20 14:45 Lorazepam 2 Mg/Ml Vial IV 2 mg Q4H PRN Administration Agitation Multi-Ingred Cream/Lotion/Oil/Oint 1 applic 09/08/20 16:21 Mineral Oil/Petrolatum, White Ophth Oint 3.5 Gm OU Q4HR PRN Dry Eye(s) Spironolactone 25 mg 09/11/20 10:00 09/17/20 11:30 Spironolactone 25 Mg Tab PO 25 mg QDAY JUAN LUIS Administration Tramadol HCl 50 mg 09/17/20 10:00 Tramadol 50 Mg Tab PO Q4H PRN Pain, Moderate (4-6) Nutrition/Malnutrition Assess - Dietary Evaluation Nutrition/Malnutrition Findings: Nutrition Notes Start: 09/09/20 09:13 Freq: Status: Active Protocol: Document 09/17/20 11:04 COLLEEN (Rec: 09/17/20 11:08 COLLEEN [id number]) Nutrition Notes Initial or Follow up Reassessment Current Diagnosis Diabetes,Hypertension, Respiratory Failure Other Pertinent Diagnosis alcohol intoxication Current Diet NPO Labs/Tests Reviewed Pertinent Medications Lasix Height 5 ft Weight 122.6 kg [place] Body Weight (kg) 48.18 BMI 52.7 Weight Status Morbidly Obese Subjective/Other Information FU for intakes. Pt reports eating 25% of meals. Pt has some trouble communicating. Pt NPO for procedure this AM. Percent of energy/protein needs met: 28%/38% Burn Absent Trauma Absent Difficulty In Chewing Current % PO Poor (25-49%) Minimum of two criteria No physical signs of malnutrition #1 Nutrition Diagnosis Inadequate oral intake Diagnosis Progress(for reassessment Continues documentation) Is patient on ventilator? No Is Patient Ambulatory and/or Out of Bed No [facility] 2317.620 Kcal/Kg value to use for calculation 15 Approximate Energy Requirements Using 1839 kcal/Kg Calculation Used for Recommendations Kcal/kg Additional Notes Protein needs are 64-80g (0.8- 1g/kg Adj wt 80kg) Fluid: 1 ml/kcal or per MD Nutrition Intervention Change Diet Order: Mechanical soft diet as able Add Supplement/Snack (indicate name/kcal Ensure Enlive BID when diet /protein ) advances Provides kCal: 700 Provides Protein (gm) 40 Goal #1 Diet advancement Anticipated Discharge Needs: Mechanical soft diet Follow-Up By: 09/21/20 Additional Comments Follow for intakes and ONS tolerance
--- NOTE | 2020-09-17 14:32 | Progress Note ---
Assessment and Plan Acute hypoxemic respiratory failure Alcohol overdose Acute toxic metabolic encephalopathy HFrEF Leukocytosis at presentation Hemoconcentration Likely chronic hypercapnia Mild hypokalemia Lactic acidosis at presentation History of hypertension History of diabetes Morbid obesity - will need CTSU evaluation for CABG - continue care as below otherwise; - prn supplemental oxygen for target O2 sat's > 90% acutely - aspiration precautions - prn bronchodilators with pulmonary hygiene per RT - accuchecks with glycemic control per SSI for target blood glucose of < 180 mg/dL; avoid hypoglycemia - avoid nephrotoxins, renally dose all medications - prn analgesia per pain score - Maintenance of sleep-wake cycle, avoid delirium - G.I. & VTE prophylaxis - PT/OT/ROM exercises - continue mobility protocols for pressure ulcer prophylaxis - Monitor hemodynamics closely - continue other care per attending / other consultants - discharge planning ongoing concurrently .... Re-evaluate in am & prn Subjective Date of service: 09/17/20 Principal diagnosis: Ac hypoxemic and hypercapnic resp failure; EtOH OD; Ac. encephalopathy; CAD Interval history: Patient is seen today for: Acute hypoxemic and hypercapnic respiratory failure; Alcohol overdose; Acute encephalopathy; Leukocytosis; DM II; Morbid obesity Seen and examined at bedside; 24hour events reviewed; nursing and respiratory care staff consulted; no adverse overnight events reported to me; restying pe acefully in bed; s/p LHC with severe 3 vessel disease found Objective Vital Signs - 12hr 09/17/20 09/17/20 09/17/20 04:03 11:30 11:31 Temperature 98.0 F Pulse Rate 104 H 92 H Respiratory 18 Rate Blood Pressure 141/97 151/70 151/107 O2 Sat by Pulse 88 Oximetry 09/17/20 11:50 Temperature 98.6 F Pulse Rate Respiratory 20 Rate Blood Pressure 148/106 O2 Sat by Pulse Oximetry Constitutional: no acute distress, other (middle aged morbidly obese male with mildly increased respiratory effort at rest) Eyes: non-icteric ENT: oropharynx moist Neck: supple, no lymphadenopathy, no JVD, other (large neck circumference) Effort: normal Ascultation: Bilateral: diminished breath sounds, rhonchi Percussion: Bilateral: not dull Cardiovascular: regular rate and rhythm Gastrointestinal: normoactive bowel sounds, soft, non-tender, non-distended (protuberant) Integumentary: normal Extremities: no cyanosis, pink and warm, pulses normal, no ischemia or petechiae, edema (trace) Neurologic: non-focal exam (grossly), pupils equal and round, CN II-XII normal, motor strength normal and Psychiatric: mood appropriate, affect normal CBC and BMP: 09/17/20 07:20 09/17/20 07:20 ABG, PT/INR, D-dimer: ABG ABG pH 7.346 (7.320-7.450) 09/13/20 10:55 POC ABG pCO2 45.4 mmHg (32.0-48.0) 09/13/20 10:55 ABG pCO2 31.8 mm Hg 09/08/20 16:25 POC ABG pO2 96.5 mmHg (83-108) 09/13/20 10:55 ABG pO2 117.8 mm Hg (80.0-90.0) H 09/08/20 16:25 POC ABG HCO3 24.3 09/13/20 10:55 ABG O2 Saturation 97.9 (0-100) 09/13/20 10:55 PT/INR, D-dimer PT 12.9 Sec. (12.2-14.9) 09/17/20 07:20 INR 0.91 (0.87-1.13) 09/17/20 07:20 D-Dimer 3467.79 ng/mlDDU (0-234) H 09/09/20 15:19 Abnormal lab findings: Abnormal Labs 09/08/20 09/08/20 09/08/20 07:51 08:15 08:15 WBC 15.6 H RBC 6.67 H Hgb 17.7 H Hct 57.5 H MCV MCH 27 L MCHC 31 L RDW 18.1 H Plt Count Lymph % (Auto) [place] % (Auto) Eos % (Auto) Lymph # (Auto) [place] # (Auto) Eos # (Auto) Seg Neutrophils % Seg Neuts % (Manual) 71.0 H Lymphocytes % (Manual) Eosinophils % (Manual) Seg Neutrophils # Seg Neutrophils # Man 11.1 H Lymphocytes # (Manual) Eosinophils # (Manual) D-Dimer ABG pH POC ABG pCO2 POC ABG pO2 ABG pO2 ABG Base Excess ABG Hemoglobin ABG Sodium ABG Potassium ABG Chloride ABG Glucose Carboxyhemoglobin Potassium 3.5 L Chloride 97.7 L Carbon Dioxide BUN 21 H Glucose 228 H POC Glucose Lactic Acid Calcium Magnesium Total Bilirubin AST Alkaline Phosphatase Total Protein Albumin HDL Cholesterol Lipase Arterial Blood Glucose Arterial Blood Ionized Calcium Salicylates < 0.3 L Acetaminophen Plasma/Serum Alcohol 09/08/20 09/08/20 09/08/20 08:15 08:15 08:20 WBC RBC Hgb Hct MCV MCH MCHC RDW Plt Count Lymph % (Auto) [place] % (Auto) Eos % (Auto) Lymph # (Auto) [place] # (Auto) Eos # (Auto) Seg Neutrophils % Seg Neuts % (Manual) Lymphocytes % (Manual) Eosinophils % (Manual) Seg Neutrophils # Seg Neutrophils # Man Lymphocytes # (Manual) Eosinophils # (Manual) D-Dimer ABG pH POC ABG pCO2 POC ABG pO2 ABG pO2 ABG Base Excess ABG Hemoglobin ABG Sodium ABG Potassium ABG Chloride ABG Glucose Carboxyhemoglobin Potassium Chloride Carbon Dioxide BUN Glucose POC Glucose Lactic Acid 4.40 H* Calcium Magnesium Total Bilirubin AST Alkaline Phosphatase Total Protein Albumin HDL Cholesterol Lipase Arterial Blood Glucose Arterial Blood Ionized Calcium Salicylates Acetaminophen 5.0 L Plasma/Serum Alcohol 0.11 H 09/08/20 09/08/20 09/08/20 09:15 16:25 17:19 WBC RBC Hgb Hct MCV MCH MCHC RDW Plt Count Lymph % (Auto) [place] % (Auto) Eos % (Auto) Lymph # (Auto) [place] # (Auto) Eos # (Auto) Seg Neutrophils % Seg Neuts % (Manual) Lymphocytes % (Manual) Eosinophils % (Manual) Seg Neutrophils # Seg Neutrophils # Man Lymphocytes # (Manual) Eosinophils # (Manual) D-Dimer ABG pH 7.222 L POC ABG pCO2 POC ABG pO2 ABG pO2 185.7 H 117.8 H ABG Base Excess -6.5 L ABG Hemoglobin 18.1 H ABG Sodium ABG Potassium ABG Chloride ABG Glucose Carboxyhemoglobin Potassium Chloride Carbon Dioxide BUN Glucose POC Glucose 106 H Lactic Acid Calcium Magnesium Total Bilirubin AST Alkaline Phosphatase Total Protein Albumin HDL Cholesterol Lipase Arterial Blood Glucose Arterial Blood Ionized Calcium Salicylates Acetaminophen Plasma/Serum Alcohol 09/08/20 09/09/20 09/09/20 17:39 01:32 03:08 WBC RBC Hgb Hct MCV MCH MCHC RDW Plt Count Lymph % (Auto) [place] % (Auto) Eos % (Auto) Lymph # (Auto) [place] # (Auto) Eos # (Auto) Seg Neutrophils % Seg Neuts % (Manual) Lymphocytes % (Manual) Eosinophils % (Manual) Seg Neutrophils # Seg Neutrophils # Man Lymphocytes # (Manual) Eosinophils # (Manual) D-Dimer ABG pH POC ABG pCO2 POC ABG pO2 ABG pO2 ABG Base Excess ABG Hemoglobin 18.2 H ABG Sodium ABG Potassium ABG Chloride ABG Glucose 145 H Carboxyhemoglobin Potassium Chloride Carbon Dioxide BUN Glucose POC Glucose 128 H Lactic Acid 2.20 H* Calcium Magnesium Total Bilirubin AST Alkaline Phosphatase Total Protein Albumin HDL Cholesterol Lipase Arterial Blood Glucose 145 H Arterial Blood Ionized Calcium 4.3 L Salicylates Acetaminophen Plasma/Serum Alcohol 09/09/20 09/09/20 09/09/20 04:12 06:10 11:05 WBC RBC Hgb Hct MCV MCH MCHC RDW Plt Count Lymph % (Auto) [place] % (Auto) Eos % (Auto) Lymph # (Auto) [place] # (Auto) Eos # (Auto) Seg Neutrophils % Seg Neuts % (Manual) Lymphocytes % (Manual) Eosinophils % (Manual) Seg Neutrophils # Seg Neutrophils # Man Lymphocytes # (Manual) Eosinophils # (Manual) D-Dimer ABG pH POC ABG pCO2 POC ABG pO2 ABG pO2 ABG Base Excess ABG Hemoglobin ABG Sodium ABG Potassium ABG Chloride ABG Glucose Carboxyhemoglobin Potassium Chloride Carbon Dioxide BUN 26 H Glucose 136 H POC Glucose 135 H 139 H Lactic Acid Calcium 7.5 L Magnesium Total Bilirubin AST Alkaline Phosphatase Total Protein 6.0 L D Albumin 2.8 L HDL Cholesterol 33 L Lipase 12 L Arterial Blood Glucose Arterial Blood Ionized Calcium Salicylates Acetaminophen Plasma/Serum Alcohol 09/09/20 09/09/20 09/09/20 15:19 15:43 23:37 WBC RBC Hgb Hct MCV MCH MCHC RDW Plt Count Lymph % (Auto) [place] % (Auto) Eos % (Auto) Lymph # (Auto) [place] # (Auto) Eos # (Auto) Seg Neutrophils % Seg Neuts % (Manual) Lymphocytes % (Manual) Eosinophils % (Manual) Seg Neutrophils # Seg Neutrophils # Man Lymphocytes # (Manual) Eosinophils # (Manual) D-Dimer 3467.79 H ABG pH POC ABG pCO2 POC ABG pO2 ABG pO2 ABG Base Excess ABG Hemoglobin ABG Sodium ABG Potassium ABG Chloride ABG Glucose Carboxyhemoglobin Potassium Chloride Carbon Dioxide BUN Glucose POC Glucose 116 H 117 H Lactic Acid Calcium Magnesium Total Bilirubin AST Alkaline Phosphatase Total Protein Albumin HDL Cholesterol Lipase Arterial Blood Glucose Arterial Blood Ionized Calcium Salicylates Acetaminophen Plasma/Serum Alcohol 09/10/20 09/10/20 09/10/20 05:00 05:22 08:47 WBC RBC 6.44 H Hgb 17.2 H Hct 53.2 H MCV 83 L MCH 27 L MCHC RDW 18.1 H Plt Count Lymph % (Auto) 13.3 L [place] % (Auto) Eos % (Auto) Lymph # (Auto) [place] # (Auto) Eos # (Auto) Seg Neutrophils % 79.1 H Seg Neuts % (Manual) Lymphocytes % (Manual) Eosinophils % (Manual) Seg Neutrophils # 7.9 H Seg Neutrophils # Man Lymphocytes # (Manual) Eosinophils # (Manual) D-Dimer ABG pH POC ABG pCO2 POC ABG pO2 73.9 L ABG pO2 ABG Base Excess ABG Hemoglobin 18.0 H ABG Sodium ABG Potassium ABG Chloride 110.0 H ABG Glucose 121 H Carboxyhemoglobin 1.6 H Potassium Chloride Carbon Dioxide BUN Glucose POC Glucose 127 H Lactic Acid Calcium Magnesium Total Bilirubin AST Alkaline Phosphatase Total Protein Albumin HDL Cholesterol Lipase Arterial Blood Glucose 121 H Arterial Blood Ionized Calcium Salicylates Acetaminophen Plasma/Serum Alcohol 09/10/20 09/10/20 09/11/20 08:47 11:39 04:24 WBC RBC Hgb Hct MCV MCH MCHC RDW Plt Count Lymph % (Auto) [place] % (Auto) Eos % (Auto) Lymph # (Auto) [place] # (Auto) Eos # (Auto) Seg Neutrophils % Seg Neuts % (Manual) Lymphocytes % (Manual) Eosinophils % (Manual) Seg Neutrophils # Seg Neutrophils # Man Lymphocytes # (Manual) Eosinophils # (Manual) D-Dimer ABG pH 7.456 H POC ABG pCO2 28.6 L POC ABG pO2 123.7 H ABG pO2 ABG Base Excess ABG Hemoglobin ABG Sodium ABG Potassium 3.2 L ABG Chloride 108.0 H ABG Glucose 112 H Carboxyhemoglobin 1.9 H Potassium Chloride 108.3 H Carbon Dioxide 20 L BUN 27 H Glucose POC Glucose 107 H Lactic Acid Calcium 7.8 L Magnesium 2.50 H Total Bilirubin AST Alkaline Phosphatase Total Protein 5.8 L Albumin 2.6 L HDL Cholesterol Lipase Arterial Blood Glucose 112 H Arterial Blood Ionized Calcium Salicylates Acetaminophen Plasma/Serum Alcohol 09/11/20 09/11/20 09/11/20 06:22 11:26 13:10 WBC 11.1 H RBC 6.38 H Hgb 16.9 H Hct 52.0 H MCV 82 L MCH 27 L MCHC RDW 17.8 H Plt Count 127 L Lymph % (Auto) [place] % (Auto) Eos % (Auto) Lymph # (Auto) [place] # (Auto) Eos # (Auto) Seg Neutrophils % Seg Neuts % (Manual) Lymphocytes % (Manual) Eosinophils % (Manual) Seg Neutrophils # Seg Neutrophils # Man Lymphocytes # (Manual) Eosinophils # (Manual) D-Dimer ABG pH POC ABG pCO2 POC ABG pO2 ABG pO2 ABG Base Excess ABG Hemoglobin ABG Sodium ABG Potassium ABG Chloride ABG Glucose Carboxyhemoglobin Potassium Chloride Carbon Dioxide BUN Glucose POC Glucose 108 H 124 H Lactic Acid Calcium Magnesium Total Bilirubin AST Alkaline Phosphatase Total Protein Albumin HDL Cholesterol Lipase Arterial Blood Glucose Arterial Blood Ionized Calcium Salicylates Acetaminophen Plasma/Serum Alcohol 09/11/20 09/11/20 09/12/20 13:10 17:25 05:01 WBC RBC Hgb Hct MCV MCH MCHC RDW Plt Count Lymph % (Auto) [place] % (Auto) Eos % (Auto) Lymph # (Auto) [place] # (Auto) Eos # (Auto) Seg Neutrophils % Seg Neuts % (Manual) Lymphocytes % (Manual) Eosinophils % (Manual) Seg Neutrophils # Seg Neutrophils # Man Lymphocytes # (Manual) Eosinophils # (Manual) D-Dimer ABG pH 7.507 H POC ABG pCO2 28.3 L POC ABG pO2 ABG pO2 ABG Base Excess ABG Hemoglobin ABG Sodium ABG Potassium 3.2 L ABG Chloride 108.0 H ABG Glucose Carboxyhemoglobin 2.0 H Potassium 3.4 L Chloride Carbon Dioxide BUN 28 H Glucose POC Glucose 107 H Lactic Acid Calcium 8.0 L Magnesium Total Bilirubin AST Alkaline Phosphatase Total Protein 5.7 L Albumin 3.3 L HDL Cholesterol Lipase Arterial Blood Glucose Arterial Blood Ionized Calcium Salicylates Acetaminophen Plasma/Serum Alcohol 09/13/20 09/13/20 09/13/20 03:27 04:29 04:29 WBC 11.8 H RBC 6.74 H Hgb 18.2 H Hct 55.4 H MCV 82 L MCH 27 L MCHC RDW 17.2 H Plt Count Lymph % (Auto) 8.3 L [place] % (Auto) 8.6 H Eos % (Auto) Lymph # (Auto) 1.0 L [place] # (Auto) 1.0 H Eos # (Auto) 0.5 H Seg Neutrophils % 79.0 H Seg Neuts % (Manual) Lymphocytes % (Manual) Eosinophils % (Manual) Seg Neutrophils # 9.3 H Seg Neutrophils # Man Lymphocytes # (Manual) Eosinophils # (Manual) D-Dimer ABG pH 7.509 H POC ABG pCO2 29.8 L POC ABG pO2 81.6 L ABG pO2 ABG Base Excess ABG Hemoglobin 19.2 H ABG Sodium 145.3 H ABG Potassium 3.0 L ABG Chloride ABG Glucose 97 H Carboxyhemoglobin 1.8 H Potassium 3.2 L Chloride Carbon Dioxide BUN 29 H Glucose POC Glucose Lactic Acid Calcium Magnesium Total Bilirubin 1.80 H AST Alkaline Phosphatase Total Protein Albumin 3.3 L HDL Cholesterol Lipase Arterial Blood Glucose 97 H Arterial Blood Ionized Calcium Salicylates Acetaminophen Plasma/Serum Alcohol 09/13/20 09/13/20 09/13/20 10:55 11:31 23:10 WBC RBC Hgb Hct MCV MCH MCHC RDW Plt Count Lymph % (Auto) [place] % (Auto) Eos % (Auto) Lymph # (Auto) [place] # (Auto) Eos # (Auto) Seg Neutrophils % Seg Neuts % (Manual) Lymphocytes % (Manual) Eosinophils % (Manual) Seg Neutrophils # Seg Neutrophils # Man Lymphocytes # (Manual) Eosinophils # (Manual) D-Dimer ABG pH POC ABG pCO2 POC ABG pO2 ABG pO2 ABG Base Excess ABG Hemoglobin 19.7 H ABG Sodium ABG Potassium ABG Chloride ABG Glucose 102 H Carboxyhemoglobin Potassium Chloride Carbon Dioxide BUN Glucose POC Glucose 106 H 107 H Lactic Acid Calcium Magnesium Total Bilirubin AST Alkaline Phosphatase Total Protein Albumin HDL Cholesterol Lipase Arterial Blood Glucose 102 H Arterial Blood Ionized Calcium Salicylates Acetaminophen Plasma/Serum Alcohol 09/14/20 09/14/20 09/14/20 05:50 05:50 11:38 WBC 11.3 H RBC 6.82 H Hgb 18.8 H Hct 57.2 H MCV MCH MCHC RDW 17.9 H Plt Count Lymph % (Auto) 8.0 L [place] % (Auto) 10.3 H Eos % (Auto) 6.1 H Lymph # (Auto) 0.9 L [place] # (Auto) 1.2 H Eos # (Auto) 0.7 H Seg Neutrophils % 75.0 H Seg Neuts % (Manual) Lymphocytes % (Manual) Eosinophils % (Manual) Seg Neutrophils # 8.5 H Seg Neutrophils # Man Lymphocytes # (Manual) Eosinophils # (Manual) D-Dimer ABG pH POC ABG pCO2 POC ABG pO2 ABG pO2 ABG Base Excess ABG Hemoglobin ABG Sodium ABG Potassium ABG Chloride ABG Glucose Carboxyhemoglobin Potassium Chloride Carbon Dioxide 32 H BUN 28 H Glucose POC Glucose 114 H Lactic Acid Calcium Magnesium Total Bilirubin AST 55 H Alkaline Phosphatase 135 H Total Protein Albumin 3.5 L HDL Cholesterol Lipase Arterial Blood Glucose Arterial Blood Ionized Calcium Salicylates Acetaminophen Plasma/Serum Alcohol 09/14/20 09/14/20 09/15/20 15:24 23:53 11:17 WBC RBC Hgb Hct MCV MCH MCHC RDW Plt Count Lymph % (Auto) [place] % (Auto) Eos % (Auto) Lymph # (Auto) [place] # (Auto) Eos # (Auto) Seg Neutrophils % Seg Neuts % (Manual) Lymphocytes % (Manual) Eosinophils % (Manual) Seg Neutrophils # Seg Neutrophils # Man Lymphocytes # (Manual) Eosinophils # (Manual) D-Dimer ABG pH POC ABG pCO2 POC ABG pO2 ABG pO2 ABG Base Excess ABG Hemoglobin ABG Sodium ABG Potassium ABG Chloride ABG Glucose Carboxyhemoglobin Potassium Chloride Carbon Dioxide BUN Glucose POC Glucose 127 H 140 H 112 H Lactic Acid Calcium Magnesium Total Bilirubin AST Alkaline Phosphatase Total Protein Albumin HDL Cholesterol Lipase Arterial Blood Glucose Arterial Blood Ionized Calcium Salicylates Acetaminophen Plasma/Serum Alcohol 09/15/20 09/15/20 09/17/20 16:43 23:05 07:20 WBC RBC Hgb Hct MCV MCH MCHC RDW Plt Count Lymph % (Auto) [place] % (Auto) Eos % (Auto) Lymph # (Auto) [place] # (Auto) Eos # (Auto) Seg Neutrophils % Seg Neuts % (Manual) Lymphocytes % (Manual) Eosinophils % (Manual) Seg Neutrophils # Seg Neutrophils # Man Lymphocytes # (Manual) Eosinophils # (Manual) D-Dimer ABG pH POC ABG pCO2 POC ABG pO2 ABG pO2 ABG Base Excess ABG Hemoglobin ABG Sodium ABG Potassium ABG Chloride ABG Glucose Carboxyhemoglobin Potassium Chloride Carbon Dioxide 31 H BUN 40 H Glucose 103 H POC Glucose 113 H 142 H Lactic Acid Calcium Magnesium Total Bilirubin AST Alkaline Phosphatase Total Protein Albumin HDL Cholesterol Lipase Arterial Blood Glucose Arterial Blood Ionized Calcium Salicylates Acetaminophen Plasma/Serum Alcohol 09/17/20 07:20 WBC 11.9 H RBC 7.01 H Hgb 18.9 H Hct 57.9 H MCV 83 L MCH 27 L MCHC RDW 17.4 H Plt Count Lymph % (Auto) [place] % (Auto) Eos % (Auto) Lymph # (Auto) [place] # (Auto) Eos # (Auto) Seg Neutrophils % Seg Neuts % (Manual) 81.0 H Lymphocytes % (Manual) 9.0 L Eosinophils % (Manual) 5.0 H Seg Neutrophils # Seg Neutrophils # Man 9.6 H Lymphocytes # (Manual) 1.1 L Eosinophils # (Manual) 0.6 H D-Dimer ABG pH POC ABG pCO2 POC ABG pO2 ABG pO2 ABG Base Excess ABG Hemoglobin ABG Sodium ABG Potassium ABG Chloride ABG Glucose Carboxyhemoglobin Potassium Chloride Carbon Dioxide BUN Glucose POC Glucose Lactic Acid Calcium Magnesium Total Bilirubin AST Alkaline Phosphatase Total Protein Albumin HDL Cholesterol Lipase Arterial Blood Glucose Arterial Blood Ionized Calcium Salicylates Acetaminophen Plasma/Serum Alcohol Allied health notes reviewed: nursing
--- NOTE | 2020-09-17 16:36 | Event Note ---
Date: 09/17/20 I called patient's brother Mr. Dilan Issa at [phone] and discussed in detail patient's condition, tests and reports, docket clerk recommendation of bypass surgery About the benefits of getting the surgery done , and consequences and complications with the surgery surgery. He had numerous questions, I answered all of them He also discussed about the financial and insurance problem that Mr. Inge jimenez has, and wanted to talk to the assistant case manager for some assistance. I encouraged him to call in the morning to talk to the assistant case manager about the patient's needs. He verbalized understanding and was appreciative of my call. Encouraged him to call back anytime if he has any questions or concerns. I also discussed with the patient's nurse about the above conversation.
[2020-09-17] MEDS: ENOXAPARIN 40 MG/0.4 ML INJ SUB-Q SCH (21:46)
[2020-09-18 06:13] LABS: Basophils % (Auto) 0.4 % (0.0-1.8); Eosinophils # (Auto) 0.9 K/mm3 (0.0-0.4); Eosinophils % (Auto) 8.9 % (0.0-4.3); Hematocrit 57.4 % (35.5-45.6); Hemoglobin 18.4 gm/dl (11.8-15.2); Lymphocytes # (Auto) 1.1 K/mm3 (1.2-5.4); Mean Corpuscular HGB Conc 32 % (32-34); Mean Corpuscular Volume 83 fl (84-94); Monocytes # (Auto) 0.9 K/mm3 (0.0-0.8); Monocytes % (Auto) 8.7 % (0.0-7.3); Red Blood Count 6.89 M/mm3 (3.65-5.03); Red Cell Distribution Width 17.4 % (13.2-15.2)
[2020-09-18 06:22] LABS: Platelet Count 195 K/mm3 (140-440)
[2020-09-18 06:29] LABS: BUN/Creatinine Ratio 35; Blood Urea Nitrogen 35 mg/dL (9-20); Calcium 8.9 mg/dL (8.4-10.2); Hemolysis Index 7
[2020-09-18] MEDS: carvediloL 3.125 MG TAB PO SCH ×2 (10:49→21:54)
[2020-09-18] MEDS: ASPIRIN 81 MG TAB CHEW PO SCH (10:49)
[2020-09-18] MEDS: LISINOPRIL 5 MG TAB PO SCH (10:49)
[2020-09-18] MEDS: SPIRONOLACTONE 25 MG TAB PO SCH (10:49)
--- NOTE | 2020-09-18 10:59 | Progress Note ---
Assessment and Plan - Patient Problems (1) CAD (coronary artery disease) Current Visit: Yes Status: Acute (2) Acute respiratory failure with hypoxia Current Visit: Yes Status: Acute (3) Dilated cardiomyopathy Current Visit: Yes Status: Acute Subjective Date of service: 09/18/20 Principal diagnosis: Ac hypoxemic and hypercapnic resp failure; EtOH OD; Ac. encephalopathy; CAD Interval history: no c/o,,,,now agrees to CABG Objective Vital Signs Temp Pulse Resp BP BP Pulse Ox 09/18/20 07:41 98.7 F 98 H 18 149/92 96 09/18/20 03:41 97.5 F L 102 H 30 H 126/80 96 09/17/20 23:27 97.7 F 90 20 128/88 97 09/17/20 22:00 90 96 09/17/20 21:46 98 H 124/84 09/17/20 19:22 97.6 F 98 H 20 124/84 97 09/17/20 16:32 22 123/69 09/17/20 16:31 116/68 09/17/20 16:28 108/67 09/17/20 14:15 93 H 147/107 96 09/17/20 14:00 91 H 145/103 97 09/17/20 13:45 87 141/101 96 09/17/20 13:30 97 H 148/112 97 09/17/20 13:15 90 148/106 97 09/17/20 13:00 90 141/101 98 09/17/20 12:45 90 151/98 98 09/17/20 12:30 79 134/95 93 09/17/20 12:15 92 H 162/102 93 09/17/20 12:00 95 H 146/107 97 09/17/20 11:50 98.6 F 20 148/106 09/17/20 11:45 142/110 09/17/20 11:31 92 H 151/107 09/17/20 11:30 96 H 152/106 97 09/17/20 11:15 94 H 151/107 98 09/17/20 11:00 96 H 146/103 97 - Physical Examination General: No Apparent Distress (OBESE) HEENT: Positive: PERRL Neck: Positive: neck supple, trachea midline. Negative: JVD/HJR Cardiac: Positive: Reg Rate and Rhythm Lungs: Positive: clear to auscultation Neuro: Positive: Grossly Intact Abdomen: Positive: Unremarkable, Soft Skin: Positive: Clear Extremities: Absent: edema (NO) - Labs and Meds CBC 09/18/20 Range/Units 04:53 WBC 10.6 (4.5-11.0) K/mm3 RBC 6.89 H (3.65-5.03) M/mm3 Hgb 18.4 H (11.8-15.2) gm/dl Hct 57.4 H (35.5-45.6) % Plt Count 195 (140-440) K/mm3 Lymph # (Auto) 1.1 L (1.2-5.4) K/mm3 [place] # (Auto) 0.9 H (0.0-0.8) K/mm3 Eos # (Auto) 0.9 H (0.0-0.4) K/mm3 Baso # (Auto) 0.0 (0.0-0.1) K/mm3 Comprehensive Metabolic Panel 09/18/20 Range/Units 04:53 Sodium 141 (137-145) mmol/L Potassium 4.0 (3.6-5.0) mmol/L Chloride 98.8 (98-107) mmol/L Carbon Dioxide 32 H (22-30) mmol/L BUN 35 H (9-20) mg/dL Creatinine 1.0 (0.8-1.3) mg/dL Glucose 101 H (75-100) mg/dL Calcium 8.9 (8.4-10.2) mg/dL - Allied health notes Allied health notes reviewed: nursing
--- NOTE | 2020-09-18 12:09 | Discharge Summary ---
Providers - Providers Date of Admission: 09/08/20 09:37 Date of discharge: 09/18/20 Attending physician: CANDELARIO MARCOS 09/08/20 13:15 Consult to Physician [CONS] Routine Comment: Consulting Provider: HOUSTON MCCRACKEN Physician Instructions: Reason For Exam: Ac hypoxic resp failure/intubated.pul/CC consult 09/08/20 16:22 Consult to Dietitian/Nutrition [CONS] Routine Physician Instructions: Reason For Exam: Reason for Consult: Evaluate nutritional intake 09/08/20 16:23 Consult to Dietitian/Nutrition [CONS] Routine Physician Instructions: Reason For Exam: Reason for Consult: Write/Manage Tube Feeding 09/09/20 06:38 Consult to Wound/ET Nurse [CONS] Routine Reason For Exam: wound eval ankles 09/10/20 08:00 Consult to Physician [CONS] Routine Comment: dr. lopez is aware/ markel Consulting Provider: HOWIE LOPEZ Physician Instructions: Reason For Exam: Acute systolic CHF, EF 20 to 25% 09/13/20 11:57 Occupational Therapy Evaluate and Treat [CONS] Routine Comment: Reason For Exam: ADLS Physical Therapy Evaluation and Treat [CONS] Routine Comment: Reason For Exam: weakness, Speech Therapy Evaluation and Treat [CONS] Routine Reason For Exam: swallow evaluation 09/17/20 09:29 Consult to Cardiac Rehabilitation [CONS] Routine Reason For Exam: Cardiac Rehab Evaluation Primary care physician: COAL TRIMMER Hospitalization Condition: Critical Pertinent studies: Cardiac catheterization that showed severe three-vessel disease. EF documented on catheterization as 45 to 50%. Echocardiogram showed ejection fraction 25- 30%. Chest CTA negative for pulmonary embolism questionable pneumonia. Bilateral lower extremity Doppler negative for DVT. Hospital course: Patient 49-year-old male without any initial past medical history had episode in which she was drinking at a green party became lethargic and short of breath. Patient presented to the ED initially with acute hypoxic respiratory failure requiring intubation and ventilation. Patient initial diagnosis was worked up as alcohol intoxication via history that were received from the family as well as pneumonia. Patient was treated with CIWA protocol as well as empiric antibiotics for pneumonia. Patient spent 4 days intubated and upon extubated cardiology recommended stress test. Patient had Latrice stress test which was abnormal. Therefore led to cardiac catheterization which showed severe triple-vessel disease. Initially patient refused surgery and then changed her mind stated that she will follow cardiology recommendations for surgical intervention. Disposition: DC-01 TO HOME OR SELFCARE Final Discharge Diagnosis (Prints w/discharge instructions): Unstable angina #2 triple-vessel disease - Discharge Diagnoses (1) Acute encephalopathy Status: Acute Comment: Has resolved. Patient is alert oriented walking around most likely secondary to alcohol intoxication initially. (2) Acute respiratory failure with hypoxia Status: Acute Comment: Secondary to coronary artery disease exacerbated by alcohol. Has since resolved patient up on room air satting 97%. (3) Alcohol intoxication Status: Acute Comment: Patient initiated on CIWA protocol. Subsequently did well. Will be discharged on multivitamins thiamine folic acid etc. Has discussed alcohol cessation immediate cessation direct with the patient greater than 15-minute counseling. (4) CAD (coronary artery disease) Status: Acute Comment: Patient scheduled for transfer to [facility] for CABG procedure. Discussed with Dr. Adrián Diop about transfer orders and excepting physician. Continue beta-laurie antiplatelet and antistatin therapy with aspirin and Plavix and atorvastatin. (5) Dilated cardiomyopathy Status: Acute Comment: Will resume patient on beta-laurie and TONO inhibitor Coreg and lisinopril. (6) Hyperlipidemia Status: Acute Comment: Atorvastatin goal LDL less than 70. (7) Hypertension Status: Acute Comment: Fair control of blood pressure continue Coreg and lisinopril at this time. Core Measure Documentation - Palliative Care Palliative Care/ Comfort Measures: Not Applicable - Core Measures Any of the following diagnoses?: acute HI - Acute HI Discharge Requirements Aspirin at discharge: Yes TONO/ARB for LVSD if EF <40%: Yes Beta laurie at discharge: Yes Statin for LDL = or >100 mg/dl on DC: Yes Exam - Constitutional Vitals: Temp Pulse Resp BP Pulse Ox 98.7 F 98 H 18 149/92 96 09/18/20 07:41 09/18/20 07:41 09/18/20 07:41 09/18/20 07:41 09/18/20 07:41 Plan Follow up with: PRIMARY MD BRADFORD [Primary Care Provider] - 3-5 Days
--- NOTE | 2020-09-18 13:32 | Progress Note ---
Assessment and Plan Acute hypoxemic respiratory failure Alcohol overdose Acute toxic metabolic encephalopathy HFrEF Leukocytosis at presentation Hemoconcentration Likely chronic hypercapnia Mild hypokalemia Lactic acidosis at presentation History of hypertension History of diabetes Morbid obesity - needs outpatient sleep study - to transfer to [facility] re: CTSU evaluation for CABG - continue care as below otherwise; - prn supplemental oxygen for target O2 sat's > 90% acutely - aspiration precautions - prn bronchodilators with pulmonary hygiene per RT - accuchecks with glycemic control per SSI for target blood glucose of < 180 mg/dL; avoid hypoglycemia - avoid nephrotoxins, renally dose all medications - prn analgesia per pain score - Maintenance of sleep-wake cycle, avoid delirium - G.I. & VTE prophylaxis - PT/OT/ROM exercises - continue mobility protocols for pressure ulcer prophylaxis - Monitor hemodynamics closely - continue other care per attending / other consultants - discharge planning ongoing concurrently .... Re-evaluate in am & prn Subjective Date of service: 09/18/20 Principal diagnosis: Ac hypoxemic and hypercapnic resp failure; EtOH OD; Ac. encephalopathy; CAD Interval history: Patient is seen today for: Acute hypoxemic and hypercapnic respiratory failure; Alcohol overdose; Acute encephalopathy; Leukocytosis; DM II; Morbid obesity Seen and examined at bedside; 24hour events reviewed; nursing and respiratory care staff consulted; no adverse overnight events reported to me; restying peacefully in bed; brother visiting; they have agreed to CABG and tentative transfer to [facility] ongoing; He denies N/V/F/C Objective Vital Signs - 12hr 09/18/20 09/18/20 09/18/20 03:41 07:41 10:00 Temperature 97.5 F L 98.7 F Pulse Rate 102 H 98 H 97 H Respiratory 30 H 18 Rate Blood Pressure 126/80 149/92 O2 Sat by Pulse 96 96 Oximetry Constitutional: no acute distress, other (middle aged morbidly obese male with normal respiratory effort at rest) Eyes: non-icteric ENT: oropharynx moist Neck: supple, no lymphadenopathy, no JVD, other (large neck circumference) Effort: normal Ascultation: Bilateral: diminished breath sounds, rhonchi Percussion: Bilateral: not dull Cardiovascular: regular rate and rhythm Gastrointestinal: normoactive bowel sounds, soft, non-tender, non-distended (protuberant) Integumentary: normal Extremities: no cyanosis, no edema, pink and warm, pulses normal, no ischemia or petechiae Neurologic: non-focal exam (grossly), pupils equal and round, CN II-XII normal, motor strength normal and Psychiatric: mood appropriate, affect normal CBC and BMP: 09/18/20 04:53 09/18/20 04:53 ABG, PT/INR, D-dimer: ABG ABG pH 7.346 (7.320-7.450) 09/13/20 10:55 POC ABG pCO2 45.4 mmHg (32.0-48.0) 09/13/20 10:55 ABG pCO2 31.8 mm Hg 09/08/20 16:25 POC ABG pO2 96.5 mmHg (83-108) 09/13/20 10:55 ABG pO2 117.8 mm Hg (80.0-90.0) H 09/08/20 16:25 POC ABG HCO3 24.3 09/13/20 10:55 ABG O2 Saturation 97.9 (0-100) 09/13/20 10:55 PT/INR, D-dimer PT 12.9 Sec. (12.2-14.9) 09/17/20 07:20 INR 0.91 (0.87-1.13) 09/17/20 07:20 D-Dimer 3467.79 ng/mlDDU (0-234) H 09/09/20 15:19 Abnormal lab findings: Abnormal Labs 09/08/20 09/08/20 09/08/20 07:51 08:15 08:15 WBC 15.6 H RBC 6.67 H Hgb 17.7 H Hct 57.5 H MCV MCH 27 L MCHC 31 L RDW 18.1 H Plt Count Lymph % (Auto) Baxter % (Auto) Eos % (Auto) Lymph # (Auto) Baxter # (Auto) Eos # (Auto) Seg Neutrophils % Seg Neuts % (Manual) 71.0 H Lymphocytes % (Manual) Eosinophils % (Manual) Seg Neutrophils # Seg Neutrophils # Man 11.1 H Lymphocytes # (Manual) Eosinophils # (Manual) D-Dimer ABG pH POC ABG pCO2 POC ABG pO2 ABG pO2 ABG Base Excess ABG Hemoglobin ABG Sodium ABG Potassium ABG Chloride ABG Glucose Carboxyhemoglobin Potassium 3.5 L Chloride 97.7 L Carbon Dioxide BUN 21 H Glucose 228 H POC Glucose Lactic Acid Calcium Magnesium Total Bilirubin AST Alkaline Phosphatase Total Protein Albumin HDL Cholesterol Lipase Arterial Blood Glucose Arterial Blood Ionized Calcium Salicylates < 0.3 L Acetaminophen Plasma/Serum Alcohol 09/08/20 09/08/20 09/08/20 08:15 08:15 08:20 WBC RBC Hgb Hct MCV MCH MCHC RDW Plt Count Lymph % (Auto) Baxter % (Auto) Eos % (Auto) Lymph # (Auto) Baxter # (Auto) Eos # (Auto) Seg Neutrophils % Seg Neuts % (Manual) Lymphocytes % (Manual) Eosinophils % (Manual) Seg Neutrophils # Seg Neutrophils # Man Lymphocytes # (Manual) Eosinophils # (Manual) D-Dimer ABG pH POC ABG pCO2 POC ABG pO2 ABG pO2 ABG Base Excess ABG Hemoglobin ABG Sodium ABG Potassium ABG Chloride ABG Glucose Carboxyhemoglobin Potassium Chloride Carbon Dioxide BUN Glucose POC Glucose Lactic Acid 4.40 H* Calcium Magnesium Total Bilirubin AST Alkaline Phosphatase Total Protein Albumin HDL Cholesterol Lipase Arterial Blood Glucose Arterial Blood Ionized Calcium Salicylates Acetaminophen 5.0 L Plasma/Serum Alcohol 0.11 H 09/08/20 09/08/20 09/08/20 09:15 16:25 17:19 WBC RBC Hgb Hct MCV MCH MCHC RDW Plt Count Lymph % (Auto) Baxter % (Auto) Eos % (Auto) Lymph # (Auto) Baxter # (Auto) Eos # (Auto) Seg Neutrophils % Seg Neuts % (Manual) Lymphocytes % (Manual) Eosinophils % (Manual) Seg Neutrophils # Seg Neutrophils # Man Lymphocytes # (Manual) Eosinophils # (Manual) D-Dimer ABG pH 7.222 L POC ABG pCO2 POC ABG pO2 ABG pO2 185.7 H 117.8 H ABG Base Excess -6.5 L ABG Hemoglobin 18.1 H ABG Sodium ABG Potassium ABG Chloride ABG Glucose Carboxyhemoglobin Potassium Chloride Carbon Dioxide BUN Glucose POC Glucose 106 H Lactic Acid Calcium Magnesium Total Bilirubin AST Alkaline Phosphatase Total Protein Albumin HDL Cholesterol Lipase Arterial Blood Glucose Arterial Blood Ionized Calcium Salicylates Acetaminophen Plasma/Serum Alcohol 09/08/20 09/09/20 09/09/20 17:39 01:32 03:08 WBC RBC Hgb Hct MCV MCH MCHC RDW Plt Count Lymph % (Auto) Baxter % (Auto) Eos % (Auto) Lymph # (Auto) Baxter # (Auto) Eos # (Auto) Seg Neutrophils % Seg Neuts % (Manual) Lymphocytes % (Manual) Eosinophils % (Manual) Seg Neutrophils # Seg Neutrophils # Man Lymphocytes # (Manual) Eosinophils # (Manual) D-Dimer ABG pH POC ABG pCO2 POC ABG pO2 ABG pO2 ABG Base Excess ABG Hemoglobin 18.2 H ABG Sodium ABG Potassium ABG Chloride ABG Glucose 145 H Carboxyhemoglobin Potassium Chloride Carbon Dioxide BUN Glucose POC Glucose 128 H Lactic Acid 2.20 H* Calcium Magnesium Total Bilirubin AST Alkaline Phosphatase Total Protein Albumin HDL Cholesterol Lipase Arterial Blood Glucose 145 H Arterial Blood Ionized Calcium 4.3 L Salicylates Acetaminophen Plasma/Serum Alcohol 09/09/20 09/09/20 09/09/20 04:12 06:10 11:05 WBC RBC Hgb Hct MCV MCH MCHC RDW Plt Count Lymph % (Auto) Baxter % (Auto) Eos % (Auto) Lymph # (Auto) Baxter # (Auto) Eos # (Auto) Seg Neutrophils % Seg Neuts % (Manual) Lymphocytes % (Manual) Eosinophils % (Manual) Seg Neutrophils # Seg Neutrophils # Man Lymphocytes # (Manual) Eosinophils # (Manual) D-Dimer ABG pH POC ABG pCO2 POC ABG pO2 ABG pO2 ABG Base Excess ABG Hemoglobin ABG Sodium ABG Potassium ABG Chloride ABG Glucose Carboxyhemoglobin Potassium Chloride Carbon Dioxide BUN 26 H Glucose 136 H POC Glucose 135 H 139 H Lactic Acid Calcium 7.5 L Magnesium Total Bilirubin AST Alkaline Phosphatase Total Protein 6.0 L D Albumin 2.8 L HDL Cholesterol 33 L Lipase 12 L Arterial Blood Glucose Arterial Blood Ionized Calcium Salicylates Acetaminophen Plasma/Serum Alcohol 09/09/20 09/09/20 09/09/20 15:19 15:43 23:37 WBC RBC Hgb Hct MCV MCH MCHC RDW Plt Count Lymph % (Auto) Baxter % (Auto) Eos % (Auto) Lymph # (Auto) Baxter # (Auto) Eos # (Auto) Seg Neutrophils % Seg Neuts % (Manual) Lymphocytes % (Manual) Eosinophils % (Manual) Seg Neutrophils # Seg Neutrophils # Man Lymphocytes # (Manual) Eosinophils # (Manual) D-Dimer 3467.79 H ABG pH POC ABG pCO2 POC ABG pO2 ABG pO2 ABG Base Excess ABG Hemoglobin ABG Sodium ABG Potassium ABG Chloride ABG Glucose Carboxyhemoglobin Potassium Chloride Carbon Dioxide BUN Glucose POC Glucose 116 H 117 H Lactic Acid Calcium Magnesium Total Bilirubin AST Alkaline Phosphatase Total Protein Albumin HDL Cholesterol Lipase Arterial Blood Glucose Arterial Blood Ionized Calcium Salicylates Acetaminophen Plasma/Serum Alcohol 09/10/20 09/10/20 09/10/20 05:00 05:22 08:47 WBC RBC 6.44 H Hgb 17.2 H Hct 53.2 H MCV 83 L MCH 27 L MCHC RDW 18.1 H Plt Count Lymph % (Auto) 13.3 L Baxter % (Auto) Eos % (Auto) Lymph # (Auto) Baxter # (Auto) Eos # (Auto) Seg Neutrophils % 79.1 H Seg Neuts % (Manual) Lymphocytes % (Manual) Eosinophils % (Manual) Seg Neutrophils # 7.9 H Seg Neutrophils # Man Lymphocytes # (Manual) Eosinophils # (Manual) D-Dimer ABG pH POC ABG pCO2 POC ABG pO2 73.9 L ABG pO2 ABG Base Excess ABG Hemoglobin 18.0 H ABG Sodium ABG Potassium ABG Chloride 110.0 H ABG Glucose 121 H Carboxyhemoglobin 1.6 H Potassium Chloride Carbon Dioxide BUN Glucose POC Glucose 127 H Lactic Acid Calcium Magnesium Total Bilirubin AST Alkaline Phosphatase Total Protein Albumin HDL Cholesterol Lipase Arterial Blood Glucose 121 H Arterial Blood Ionized Calcium Salicylates Acetaminophen Plasma/Serum Alcohol 09/10/20 09/10/20 09/11/20 08:47 11:39 04:24 WBC RBC Hgb Hct MCV MCH MCHC RDW Plt Count Lymph % (Auto) Baxter % (Auto) Eos % (Auto) Lymph # (Auto) Baxter # (Auto) Eos # (Auto) Seg Neutrophils % Seg Neuts % (Manual) Lymphocytes % (Manual) Eosinophils % (Manual) Seg Neutrophils # Seg Neutrophils # Man Lymphocytes # (Manual) Eosinophils # (Manual) D-Dimer ABG pH 7.456 H POC ABG pCO2 28.6 L POC ABG pO2 123.7 H ABG pO2 ABG Base Excess ABG Hemoglobin ABG Sodium ABG Potassium 3.2 L ABG Chloride 108.0 H ABG Glucose 112 H Carboxyhemoglobin 1.9 H Potassium Chloride 108.3 H Carbon Dioxide 20 L BUN 27 H Glucose POC Glucose 107 H Lactic Acid Calcium 7.8 L Magnesium 2.50 H Total Bilirubin AST Alkaline Phosphatase Total Protein 5.8 L Albumin 2.6 L HDL Cholesterol Lipase Arterial Blood Glucose 112 H Arterial Blood Ionized Calcium Salicylates Acetaminophen Plasma/Serum Alcohol 09/11/20 09/11/20 09/11/20 06:22 11:26 13:10 WBC 11.1 H RBC 6.38 H Hgb 16.9 H Hct 52.0 H MCV 82 L MCH 27 L MCHC RDW 17.8 H Plt Count 127 L Lymph % (Auto) Baxter % (Auto) Eos % (Auto) Lymph # (Auto) Baxter # (Auto) Eos # (Auto) Seg Neutrophils % Seg Neuts % (Manual) Lymphocytes % (Manual) Eosinophils % (Manual) Seg Neutrophils # Seg Neutrophils # Man Lymphocytes # (Manual) Eosinophils # (Manual) D-Dimer ABG pH POC ABG pCO2 POC ABG pO2 ABG pO2 ABG Base Excess ABG Hemoglobin ABG Sodium ABG Potassium ABG Chloride ABG Glucose Carboxyhemoglobin Potassium Chloride Carbon Dioxide BUN Glucose POC Glucose 108 H 124 H Lactic Acid Calcium Magnesium Total Bilirubin AST Alkaline Phosphatase Total Protein Albumin HDL Cholesterol Lipase Arterial Blood Glucose Arterial Blood Ionized Calcium Salicylates Acetaminophen Plasma/Serum Alcohol 09/11/20 09/11/20 09/12/20 13:10 17:25 05:01 WBC RBC Hgb Hct MCV MCH MCHC RDW Plt Count Lymph % (Auto) Baxter % (Auto) Eos % (Auto) Lymph # (Auto) Baxter # (Auto) Eos # (Auto) Seg Neutrophils % Seg Neuts % (Manual) Lymphocytes % (Manual) Eosinophils % (Manual) Seg Neutrophils # Seg Neutrophils # Man Lymphocytes # (Manual) Eosinophils # (Manual) D-Dimer ABG pH 7.507 H POC ABG pCO2 28.3 L POC ABG pO2 ABG pO2 ABG Base Excess ABG Hemoglobin ABG Sodium ABG Potassium 3.2 L ABG Chloride 108.0 H ABG Glucose Carboxyhemoglobin 2.0 H Potassium 3.4 L Chloride Carbon Dioxide BUN 28 H Glucose POC Glucose 107 H Lactic Acid Calcium 8.0 L Magnesium Total Bilirubin AST Alkaline Phosphatase Total Protein 5.7 L Albumin 3.3 L HDL Cholesterol Lipase Arterial Blood Glucose Arterial Blood Ionized Calcium Salicylates Acetaminophen Plasma/Serum Alcohol 09/13/20 09/13/20 09/13/20 03:27 04:29 04:29 WBC 11.8 H RBC 6.74 H Hgb 18.2 H Hct 55.4 H MCV 82 L MCH 27 L MCHC RDW 17.2 H Plt Count Lymph % (Auto) 8.3 L Baxter % (Auto) 8.6 H Eos % (Auto) Lymph # (Auto) 1.0 L Baxter # (Auto) 1.0 H Eos # (Auto) 0.5 H Seg Neutrophils % 79.0 H Seg Neuts % (Manual) Lymphocytes % (Manual) Eosinophils % (Manual) Seg Neutrophils # 9.3 H Seg Neutrophils # Man Lymphocytes # (Manual) Eosinophils # (Manual) D-Dimer ABG pH 7.509 H POC ABG pCO2 29.8 L POC ABG pO2 81.6 L ABG pO2 ABG Base Excess ABG Hemoglobin 19.2 H ABG Sodium 145.3 H ABG Potassium 3.0 L ABG Chloride ABG Glucose 97 H Carboxyhemoglobin 1.8 H Potassium 3.2 L Chloride Carbon Dioxide BUN 29 H Glucose POC Glucose Lactic Acid Calcium Magnesium Total Bilirubin 1.80 H AST Alkaline Phosphatase Total Protein Albumin 3.3 L HDL Cholesterol Lipase Arterial Blood Glucose 97 H Arterial Blood Ionized Calcium Salicylates Acetaminophen Plasma/Serum Alcohol 09/13/20 09/13/20 09/13/20 10:55 11:31 23:10 WBC RBC Hgb Hct MCV MCH MCHC RDW Plt Count Lymph % (Auto) Baxter % (Auto) Eos % (Auto) Lymph # (Auto) Baxter # (Auto) Eos # (Auto) Seg Neutrophils % Seg Neuts % (Manual) Lymphocytes % (Manual) Eosinophils % (Manual) Seg Neutrophils # Seg Neutrophils # Man Lymphocytes # (Manual) Eosinophils # (Manual) D-Dimer ABG pH POC ABG pCO2 POC ABG pO2 ABG pO2 ABG Base Excess ABG Hemoglobin 19.7 H ABG Sodium ABG Potassium ABG Chloride ABG Glucose 102 H Carboxyhemoglobin Potassium Chloride Carbon Dioxide BUN Glucose POC Glucose 106 H 107 H Lactic Acid Calcium Magnesium Total Bilirubin AST Alkaline Phosphatase Total Protein Albumin HDL Cholesterol Lipase Arterial Blood Glucose 102 H Arterial Blood Ionized Calcium Salicylates Acetaminophen Plasma/Serum Alcohol 09/14/20 09/14/20 09/14/20 05:50 05:50 11:38 WBC 11.3 H RBC 6.82 H Hgb 18.8 H Hct 57.2 H MCV MCH MCHC RDW 17.9 H Plt Count Lymph % (Auto) 8.0 L Baxter % (Auto) 10.3 H Eos % (Auto) 6.1 H Lymph # (Auto) 0.9 L Baxter # (Auto) 1.2 H Eos # (Auto) 0.7 H Seg Neutrophils % 75.0 H Seg Neuts % (Manual) Lymphocytes % (Manual) Eosinophils % (Manual) Seg Neutrophils # 8.5 H Seg Neutrophils # Man Lymphocytes # (Manual) Eosinophils # (Manual) D-Dimer ABG pH POC ABG pCO2 POC ABG pO2 ABG pO2 ABG Base Excess ABG Hemoglobin ABG Sodium ABG Potassium ABG Chloride ABG Glucose Carboxyhemoglobin Potassium Chloride Carbon Dioxide 32 H BUN 28 H Glucose POC Glucose 114 H Lactic Acid Calcium Magnesium Total Bilirubin AST 55 H Alkaline Phosphatase 135 H Total Protein Albumin 3.5 L HDL Cholesterol Lipase Arterial Blood Glucose Arterial Blood Ionized Calcium Salicylates Acetaminophen Plasma/Serum Alcohol 09/14/20 09/14/20 09/15/20 15:24 23:53 11:17 WBC RBC Hgb Hct MCV MCH MCHC RDW Plt Count Lymph % (Auto) Baxter % (Auto) Eos % (Auto) Lymph # (Auto) Baxter # (Auto) Eos # (Auto) Seg Neutrophils % Seg Neuts % (Manual) Lymphocytes % (Manual) Eosinophils % (Manual) Seg Neutrophils # Seg Neutrophils # Man Lymphocytes # (Manual) Eosinophils # (Manual) D-Dimer ABG pH POC ABG pCO2 POC ABG pO2 ABG pO2 ABG Base Excess ABG Hemoglobin ABG Sodium ABG Potassium ABG Chloride ABG Glucose Carboxyhemoglobin Potassium Chloride Carbon Dioxide BUN Glucose POC Glucose 127 H 140 H 112 H Lactic Acid Calcium Magnesium Total Bilirubin AST Alkaline Phosphatase Total Protein Albumin HDL Cholesterol Lipase Arterial Blood Glucose Arterial Blood Ionized Calcium Salicylates Acetaminophen Plasma/Serum Alcohol 09/15/20 09/15/20 09/17/20 16:43 23:05 07:20 WBC RBC Hgb Hct MCV MCH MCHC RDW Plt Count Lymph % (Auto) Baxter % (Auto) Eos % (Auto) Lymph # (Auto) Baxter # (Auto) Eos # (Auto) Seg Neutrophils % Seg Neuts % (Manual) Lymphocytes % (Manual) Eosinophils % (Manual) Seg Neutrophils # Seg Neutrophils # Man Lymphocytes # (Manual) Eosinophils # (Manual) D-Dimer ABG pH POC ABG pCO2 POC ABG pO2 ABG pO2 ABG Base Excess ABG Hemoglobin ABG Sodium ABG Potassium ABG Chloride ABG Glucose Carboxyhemoglobin Potassium Chloride Carbon Dioxide 31 H BUN 40 H Glucose 103 H POC Glucose 113 H 142 H Lactic Acid Calcium Magnesium Total Bilirubin AST Alkaline Phosphatase Total Protein Albumin HDL Cholesterol Lipase Arterial Blood Glucose Arterial Blood Ionized Calcium Salicylates Acetaminophen Plasma/Serum Alcohol 09/17/20 09/18/20 09/18/20 07:20 04:53 04:53 WBC 11.9 H RBC 7.01 H 6.89 H Hgb 18.9 H 18.4 H Hct 57.9 H 57.4 H MCV 83 L 83 L MCH 27 L 27 L MCHC RDW 17.4 H 17.4 H Plt Count Lymph % (Auto) 10.0 L Baxter % (Auto) 8.7 H Eos % (Auto) 8.9 H Lymph # (Auto) 1.1 L Baxter # (Auto) 0.9 H Eos # (Auto) 0.9 H Seg Neutrophils % 72.0 H Seg Neuts % (Manual) 81.0 H Lymphocytes % (Manual) 9.0 L Eosinophils % (Manual) 5.0 H Seg Neutrophils # Seg Neutrophils # Man 9.6 H Lymphocytes # (Manual) 1.1 L Eosinophils # (Manual) 0.6 H D-Dimer ABG pH POC ABG pCO2 POC ABG pO2 ABG pO2 ABG Base Excess ABG Hemoglobin ABG Sodium ABG Potassium ABG Chloride ABG Glucose Carboxyhemoglobin Potassium Chloride Carbon Dioxide 32 H BUN 35 H Glucose 101 H POC Glucose Lactic Acid Calcium Magnesium 2.40 H Total Bilirubin AST Alkaline Phosphatase Total Protein Albumin HDL Cholesterol Lipase Arterial Blood Glucose Arterial Blood Ionized Calcium Salicylates Acetaminophen Plasma/Serum Alcohol Allied health notes reviewed: nursing
[2020-09-18] MEDS: ENOXAPARIN 40 MG/0.4 ML INJ SUB-Q SCH (21:53)
[2020-09-19] MEDS: SPIRONOLACTONE 25 MG TAB PO SCH (09:37)
[2020-09-19] MEDS: ASPIRIN 81 MG TAB CHEW PO SCH (09:37)
[2020-09-19] MEDS: carvediloL 3.125 MG TAB PO SCH ×2 (09:37→22:10)
[2020-09-19] MEDS: LISINOPRIL 5 MG TAB PO SCH (09:38)
--- NOTE | 2020-09-19 11:26 | Progress Note ---
Assessment and Plan - Patient Problems (1) Acute encephalopathy Current Visit: Yes Status: Acute Plan to address problem: Secondary to alcoholic intoxication has resolved. (2) Acute respiratory failure with hypoxia Current Visit: Yes Status: Acute Plan to address problem: Also resolved. Extubated. No further evidence of metabolic encephalopathy. (3) Alcohol intoxication Current Visit: Yes Status: Acute Plan to address problem: Stable status post CIWA protocol. Now Ativan as needed patient hemodynamically stable. (4) CAD (coronary artery disease) Current Visit: Yes Status: Acute Plan to address problem: Scheduled for discharge and correction with cardiothoracic surgeon Sparkman. (5) Dilated cardiomyopathy Current Visit: Yes Status: Acute (6) Hyperlipidemia Current Visit: Yes Status: Acute (7) Hypertension Current Visit: Yes Status: Acute Plan to address problem: At present has optimal control with current medications. Await discharge. Subjective Date of service: 09/19/20 Principal diagnosis: Ac hypoxemic and hypercapnic resp failure; EtOH OD; Acute encephalopathy Interval history: Patient was not discharged yesterday secondary to no beds at [facility]. Patient hemodynamically stable no mold changer p.m. no chest pain or shortness of breath no cardiac arrhythmias. Will discharge today when bed is available. Objective - Constitutional Vitals: Vital Signs - 12hr 09/18/20 09/19/20 09/19/20 23:43 03:51 08:16 Temperature 97.4 F L 97.8 F 98.2 F Pulse Rate 95 H 98 H 92 H Pulse Rate [ Apical] Pulse Rate [ From Monitor] Respiratory 20 20 18 Rate Blood Pressure 118/76 131/85 116/77 Blood Pressure [Left] O2 Sat by Pulse 97 97 97 Oximetry 09/19/20 09/19/20 09/19/20 09:37 09:38 10:00 Temperature Pulse Rate 92 H 92 H 95 H Pulse Rate [ 82 Apical] Pulse Rate [ 82 From Monitor] Respiratory 17 Rate Blood Pressure 118/72 118/72 Blood Pressure [Left] O2 Sat by Pulse 97 Oximetry 09/19/20 11:18 Temperature 97.8 F Pulse Rate 91 H Pulse Rate [ Apical] Pulse Rate [ From Monitor] Respiratory 16 Rate Blood Pressure Blood Pressure 114/68 [Left] O2 Sat by Pulse 98 Oximetry General appearance: Present: no acute distress, well-nourished - EENT Eyes: PERRL, EOM intact ENT: hearing intact, clear oral mucosa Ears: bilateral: normal - Neck Neck: supple, normal ROM - Respiratory Respiratory effort: normal Respiratory: bilateral: CTA - Breasts Breasts: normal - Cardiovascular Rhythm: regular Heart Sounds: Present: S1 & S2. Absent: gallop, rub Extremities: pulses intact, No edema, normal color, Full ROM - Gastrointestinal General gastrointestinal: Present: soft, non-tender, non-distended, normal bowel sounds - Genitourinary Male genitourinary: normal - Integumentary Integumentary: clear, warm, dry - Musculoskeletal Musculoskeletal: 1, strength equal bilaterally - Neurologic Neurologic: moves all extremities - Psychiatric Psychiatric: memory intact, appropriate mood/affect, intact judgment & insight - Labs CBC & Chem 7: 09/18/20 04:53 09/18/20 04:53
--- NOTE | 2020-09-19 12:56 | Progress Note ---
Assessment and Plan Acute hypoxemic respiratory failure Alcohol overdose Acute toxic metabolic encephalopathy HFrEF Leukocytosis at presentation Hemoconcentration Likely chronic hypercapnia Mild hypokalemia Lactic acidosis at presentation History of hypertension History of diabetes Morbid obesity - needs outpatient sleep study - to transfer to [facility] re: CTSU evaluation for CABG - continue care as below otherwise; - prn supplemental oxygen for target O2 sat's > 90% acutely - aspiration precautions - prn bronchodilators with pulmonary hygiene per RT - accuchecks with glycemic control per SSI for target blood glucose of < 180 mg/dL; avoid hypoglycemia - avoid nephrotoxins, renally dose all medications - prn analgesia per pain score - Maintenance of sleep-wake cycle, avoid delirium - G.I. & VTE prophylaxis - PT/OT/ROM exercises - continue mobility protocols for pressure ulcer prophylaxis - Monitor hemodynamics closely - continue other care per attending / other consultants - discharge planning ongoing concurrently .... Re-evaluate in am & prn Subjective Date of service: 09/19/20 Principal diagnosis: Ac hypoxemic and hypercapnic resp failure; EtOH OD; Acute encephalopathy Interval history: Patient is seen today for: Acute hypoxemic and hypercapnic respiratory failure; Alcohol overdose; Acute encephalopathy; Leukocytosis; DM II; Morbid obesity Seen and examined at bedside; 24hour events reviewed; nursing and respiratory care staff consulted; no adverse overnight events reported to me; restying peacefully in bed; Objective Vital Signs - 12hr 09/19/20 09/19/20 09/19/20 03:51 08:16 09:37 Temperature 97.8 F 98.2 F Pulse Rate 98 H 92 H 92 H Pulse Rate [ Apical] Pulse Rate [ From Monitor] Respiratory 20 18 Rate Blood Pressure 131/85 116/77 118/72 Blood Pressure [Left] O2 Sat by Pulse 97 97 Oximetry 09/19/20 09/19/20 09/19/20 09:38 10:00 11:18 Temperature 97.8 F Pulse Rate 92 H 95 H 91 H Pulse Rate [ 82 Apical] Pulse Rate [ 82 From Monitor] Respiratory 17 16 Rate Blood Pressure 118/72 Blood Pressure 114/68 [Left] O2 Sat by Pulse 97 98 Oximetry Constitutional: no acute distress, alert Eyes: non-icteric ENT: oropharynx moist Neck: supple, no lymphadenopathy, no JVD, other (large neck circumference) Effort: normal Ascultation: Bilateral: diminished breath sounds, rhonchi Percussion: Bilateral: not dull Cardiovascular: regular rate and rhythm, other (S1,S2) Gastrointestinal: normoactive bowel sounds, soft, non-tender, non-distended (protuberant) Integumentary: normal Extremities: no cyanosis, pink and warm, pulses normal, no ischemia or petechiae, edema (trace) Neurologic: normal mental status, non-focal exam, pupils equal and round, CN II- XII normal, motor strength normal and Psychiatric: mood appropriate, affect normal CBC and BMP: 09/18/20 04:53 09/18/20 04:53 ABG, PT/INR, D-dimer: ABG ABG pH 7.346 (7.320-7.450) 09/13/20 10:55 POC ABG pCO2 45.4 mmHg (32.0-48.0) 09/13/20 10:55 ABG pCO2 31.8 mm Hg 09/08/20 16:25 POC ABG pO2 96.5 mmHg (83-108) 09/13/20 10:55 ABG pO2 117.8 mm Hg (80.0-90.0) H 09/08/20 16:25 POC ABG HCO3 24.3 09/13/20 10:55 ABG O2 Saturation 97.9 (0-100) 09/13/20 10:55 PT/INR, D-dimer PT 12.9 Sec. (12.2-14.9) 09/17/20 07:20 INR 0.91 (0.87-1.13) 09/17/20 07:20 D-Dimer 3467.79 ng/mlDDU (0-234) H 09/09/20 15:19 Abnormal lab findings: Abnormal Labs 09/08/20 09/08/20 09/08/20 07:51 08:15 08:15 WBC 15.6 H RBC 6.67 H Hgb 17.7 H Hct 57.5 H MCV MCH 27 L MCHC 31 L RDW 18.1 H Plt Count Lymph % (Auto) [place] % (Auto) Eos % (Auto) Lymph # (Auto) [place] # (Auto) Eos # (Auto) Seg Neutrophils % Seg Neuts % (Manual) 71.0 H Lymphocytes % (Manual) Eosinophils % (Manual) Seg Neutrophils # Seg Neutrophils # Man 11.1 H Lymphocytes # (Manual) Eosinophils # (Manual) D-Dimer ABG pH POC ABG pCO2 POC ABG pO2 ABG pO2 ABG Base Excess ABG Hemoglobin ABG Sodium ABG Potassium ABG Chloride ABG Glucose Carboxyhemoglobin Potassium 3.5 L Chloride 97.7 L Carbon Dioxide BUN 21 H Glucose 228 H POC Glucose Lactic Acid Calcium Magnesium Total Bilirubin AST Alkaline Phosphatase Total Protein Albumin HDL Cholesterol Lipase Arterial Blood Glucose Arterial Blood Ionized Calcium Salicylates < 0.3 L Acetaminophen Plasma/Serum Alcohol 09/08/20 09/08/20 09/08/20 08:15 08:15 08:20 WBC RBC Hgb Hct MCV MCH MCHC RDW Plt Count Lymph % (Auto) [place] % (Auto) Eos % (Auto) Lymph # (Auto) [place] # (Auto) Eos # (Auto) Seg Neutrophils % Seg Neuts % (Manual) Lymphocytes % (Manual) Eosinophils % (Manual) Seg Neutrophils # Seg Neutrophils # Man Lymphocytes # (Manual) Eosinophils # (Manual) D-Dimer ABG pH POC ABG pCO2 POC ABG pO2 ABG pO2 ABG Base Excess ABG Hemoglobin ABG Sodium ABG Potassium ABG Chloride ABG Glucose Carboxyhemoglobin Potassium Chloride Carbon Dioxide BUN Glucose POC Glucose Lactic Acid 4.40 H* Calcium Magnesium Total Bilirubin AST Alkaline Phosphatase Total Protein Albumin HDL Cholesterol Lipase Arterial Blood Glucose Arterial Blood Ionized Calcium Salicylates Acetaminophen 5.0 L Plasma/Serum Alcohol 0.11 H 09/08/20 09/08/20 09/08/20 09:15 16:25 17:19 WBC RBC Hgb Hct MCV MCH MCHC RDW Plt Count Lymph % (Auto) [place] % (Auto) Eos % (Auto) Lymph # (Auto) [place] # (Auto) Eos # (Auto) Seg Neutrophils % Seg Neuts % (Manual) Lymphocytes % (Manual) Eosinophils % (Manual) Seg Neutrophils # Seg Neutrophils # Man Lymphocytes # (Manual) Eosinophils # (Manual) D-Dimer ABG pH 7.222 L POC ABG pCO2 POC ABG pO2 ABG pO2 185.7 H 117.8 H ABG Base Excess -6.5 L ABG Hemoglobin 18.1 H ABG Sodium ABG Potassium ABG Chloride ABG Glucose Carboxyhemoglobin Potassium Chloride Carbon Dioxide BUN Glucose POC Glucose 106 H Lactic Acid Calcium Magnesium Total Bilirubin AST Alkaline Phosphatase Total Protein Albumin HDL Cholesterol Lipase Arterial Blood Glucose Arterial Blood Ionized Calcium Salicylates Acetaminophen Plasma/Serum Alcohol 09/08/20 09/09/20 09/09/20 17:39 01:32 03:08 WBC RBC Hgb Hct MCV MCH MCHC RDW Plt Count Lymph % (Auto) [place] % (Auto) Eos % (Auto) Lymph # (Auto) [place] # (Auto) Eos # (Auto) Seg Neutrophils % Seg Neuts % (Manual) Lymphocytes % (Manual) Eosinophils % (Manual) Seg Neutrophils # Seg Neutrophils # Man Lymphocytes # (Manual) Eosinophils # (Manual) D-Dimer ABG pH POC ABG pCO2 POC ABG pO2 ABG pO2 ABG Base Excess ABG Hemoglobin 18.2 H ABG Sodium ABG Potassium ABG Chloride ABG Glucose 145 H Carboxyhemoglobin Potassium Chloride Carbon Dioxide BUN Glucose POC Glucose 128 H Lactic Acid 2.20 H* Calcium Magnesium Total Bilirubin AST Alkaline Phosphatase Total Protein Albumin HDL Cholesterol Lipase Arterial Blood Glucose 145 H Arterial Blood Ionized Calcium 4.3 L Salicylates Acetaminophen Plasma/Serum Alcohol 09/09/20 09/09/20 09/09/20 04:12 06:10 11:05 WBC RBC Hgb Hct MCV MCH MCHC RDW Plt Count Lymph % (Auto) [place] % (Auto) Eos % (Auto) Lymph # (Auto) [place] # (Auto) Eos # (Auto) Seg Neutrophils % Seg Neuts % (Manual) Lymphocytes % (Manual) Eosinophils % (Manual) Seg Neutrophils # Seg Neutrophils # Man Lymphocytes # (Manual) Eosinophils # (Manual) D-Dimer ABG pH POC ABG pCO2 POC ABG pO2 ABG pO2 ABG Base Excess ABG Hemoglobin ABG Sodium ABG Potassium ABG Chloride ABG Glucose Carboxyhemoglobin Potassium Chloride Carbon Dioxide BUN 26 H Glucose 136 H POC Glucose 135 H 139 H Lactic Acid Calcium 7.5 L Magnesium Total Bilirubin AST Alkaline Phosphatase Total Protein 6.0 L D Albumin 2.8 L HDL Cholesterol 33 L Lipase 12 L Arterial Blood Glucose Arterial Blood Ionized Calcium Salicylates Acetaminophen Plasma/Serum Alcohol 09/09/20 09/09/20 09/09/20 15:19 15:43 23:37 WBC RBC Hgb Hct MCV MCH MCHC RDW Plt Count Lymph % (Auto) [place] % (Auto) Eos % (Auto) Lymph # (Auto) [place] # (Auto) Eos # (Auto) Seg Neutrophils % Seg Neuts % (Manual) Lymphocytes % (Manual) Eosinophils % (Manual) Seg Neutrophils # Seg Neutrophils # Man Lymphocytes # (Manual) Eosinophils # (Manual) D-Dimer 3467.79 H ABG pH POC ABG pCO2 POC ABG pO2 ABG pO2 ABG Base Excess ABG Hemoglobin ABG Sodium ABG Potassium ABG Chloride ABG Glucose Carboxyhemoglobin Potassium Chloride Carbon Dioxide BUN Glucose POC Glucose 116 H 117 H Lactic Acid Calcium Magnesium Total Bilirubin AST Alkaline Phosphatase Total Protein Albumin HDL Cholesterol Lipase Arterial Blood Glucose Arterial Blood Ionized Calcium Salicylates Acetaminophen Plasma/Serum Alcohol 09/10/20 09/10/20 09/10/20 05:00 05:22 08:47 WBC RBC 6.44 H Hgb 17.2 H Hct 53.2 H MCV 83 L MCH 27 L MCHC RDW 18.1 H Plt Count Lymph % (Auto) 13.3 L [place] % (Auto) Eos % (Auto) Lymph # (Auto) [place] # (Auto) Eos # (Auto) Seg Neutrophils % 79.1 H Seg Neuts % (Manual) Lymphocytes % (Manual) Eosinophils % (Manual) Seg Neutrophils # 7.9 H Seg Neutrophils # Man Lymphocytes # (Manual) Eosinophils # (Manual) D-Dimer ABG pH POC ABG pCO2 POC ABG pO2 73.9 L ABG pO2 ABG Base Excess ABG Hemoglobin 18.0 H ABG Sodium ABG Potassium ABG Chloride 110.0 H ABG Glucose 121 H Carboxyhemoglobin 1.6 H Potassium Chloride Carbon Dioxide BUN Glucose POC Glucose 127 H Lactic Acid Calcium Magnesium Total Bilirubin AST Alkaline Phosphatase Total Protein Albumin HDL Cholesterol Lipase Arterial Blood Glucose 121 H Arterial Blood Ionized Calcium Salicylates Acetaminophen Plasma/Serum Alcohol 09/10/20 09/10/20 09/11/20 08:47 11:39 04:24 WBC RBC Hgb Hct MCV MCH MCHC RDW Plt Count Lymph % (Auto) [place] % (Auto) Eos % (Auto) Lymph # (Auto) [place] # (Auto) Eos # (Auto) Seg Neutrophils % Seg Neuts % (Manual) Lymphocytes % (Manual) Eosinophils % (Manual) Seg Neutrophils # Seg Neutrophils # Man Lymphocytes # (Manual) Eosinophils # (Manual) D-Dimer ABG pH 7.456 H POC ABG pCO2 28.6 L POC ABG pO2 123.7 H ABG pO2 ABG Base Excess ABG Hemoglobin ABG Sodium ABG Potassium 3.2 L ABG Chloride 108.0 H ABG Glucose 112 H Carboxyhemoglobin 1.9 H Potassium Chloride 108.3 H Carbon Dioxide 20 L BUN 27 H Glucose POC Glucose 107 H Lactic Acid Calcium 7.8 L Magnesium 2.50 H Total Bilirubin AST Alkaline Phosphatase Total Protein 5.8 L Albumin 2.6 L HDL Cholesterol Lipase Arterial Blood Glucose 112 H Arterial Blood Ionized Calcium Salicylates Acetaminophen Plasma/Serum Alcohol 09/11/20 09/11/20 09/11/20 06:22 11:26 13:10 WBC 11.1 H RBC 6.38 H Hgb 16.9 H Hct 52.0 H MCV 82 L MCH 27 L MCHC RDW 17.8 H Plt Count 127 L Lymph % (Auto) [place] % (Auto) Eos % (Auto) Lymph # (Auto) [place] # (Auto) Eos # (Auto) Seg Neutrophils % Seg Neuts % (Manual) Lymphocytes % (Manual) Eosinophils % (Manual) Seg Neutrophils # Seg Neutrophils # Man Lymphocytes # (Manual) Eosinophils # (Manual) D-Dimer ABG pH POC ABG pCO2 POC ABG pO2 ABG pO2 ABG Base Excess ABG Hemoglobin ABG Sodium ABG Potassium ABG Chloride ABG Glucose Carboxyhemoglobin Potassium Chloride Carbon Dioxide BUN Glucose POC Glucose 108 H 124 H Lactic Acid Calcium Magnesium Total Bilirubin AST Alkaline Phosphatase Total Protein Albumin HDL Cholesterol Lipase Arterial Blood Glucose Arterial Blood Ionized Calcium Salicylates Acetaminophen Plasma/Serum Alcohol 09/11/20 09/11/20 09/12/20 13:10 17:25 05:01 WBC RBC Hgb Hct MCV MCH MCHC RDW Plt Count Lymph % (Auto) [place] % (Auto) Eos % (Auto) Lymph # (Auto) [place] # (Auto) Eos # (Auto) Seg Neutrophils % Seg Neuts % (Manual) Lymphocytes % (Manual) Eosinophils % (Manual) Seg Neutrophils # Seg Neutrophils # Man Lymphocytes # (Manual) Eosinophils # (Manual) D-Dimer ABG pH 7.507 H POC ABG pCO2 28.3 L POC ABG pO2 ABG pO2 ABG Base Excess ABG Hemoglobin ABG Sodium ABG Potassium 3.2 L ABG Chloride 108.0 H ABG Glucose Carboxyhemoglobin 2.0 H Potassium 3.4 L Chloride Carbon Dioxide BUN 28 H Glucose POC Glucose 107 H Lactic Acid Calcium 8.0 L Magnesium Total Bilirubin AST Alkaline Phosphatase Total Protein 5.7 L Albumin 3.3 L HDL Cholesterol Lipase Arterial Blood Glucose Arterial Blood Ionized Calcium Salicylates Acetaminophen Plasma/Serum Alcohol 09/13/20 09/13/20 09/13/20 03:27 04:29 04:29 WBC 11.8 H RBC 6.74 H Hgb 18.2 H Hct 55.4 H MCV 82 L MCH 27 L MCHC RDW 17.2 H Plt Count Lymph % (Auto) 8.3 L [place] % (Auto) 8.6 H Eos % (Auto) Lymph # (Auto) 1.0 L [place] # (Auto) 1.0 H Eos # (Auto) 0.5 H Seg Neutrophils % 79.0 H Seg Neuts % (Manual) Lymphocytes % (Manual) Eosinophils % (Manual) Seg Neutrophils # 9.3 H Seg Neutrophils # Man Lymphocytes # (Manual) Eosinophils # (Manual) D-Dimer ABG pH 7.509 H POC ABG pCO2 29.8 L POC ABG pO2 81.6 L ABG pO2 ABG Base Excess ABG Hemoglobin 19.2 H ABG Sodium 145.3 H ABG Potassium 3.0 L ABG Chloride ABG Glucose 97 H Carboxyhemoglobin 1.8 H Potassium 3.2 L Chloride Carbon Dioxide BUN 29 H Glucose POC Glucose Lactic Acid Calcium Magnesium Total Bilirubin 1.80 H AST Alkaline Phosphatase Total Protein Albumin 3.3 L HDL Cholesterol Lipase Arterial Blood Glucose 97 H Arterial Blood Ionized Calcium Salicylates Acetaminophen Plasma/Serum Alcohol 09/13/20 09/13/20 09/13/20 10:55 11:31 23:10 WBC RBC Hgb Hct MCV MCH MCHC RDW Plt Count Lymph % (Auto) [place] % (Auto) Eos % (Auto) Lymph # (Auto) [place] # (Auto) Eos # (Auto) Seg Neutrophils % Seg Neuts % (Manual) Lymphocytes % (Manual) Eosinophils % (Manual) Seg Neutrophils # Seg Neutrophils # Man Lymphocytes # (Manual) Eosinophils # (Manual) D-Dimer ABG pH POC ABG pCO2 POC ABG pO2 ABG pO2 ABG Base Excess ABG Hemoglobin 19.7 H ABG Sodium ABG Potassium ABG Chloride ABG Glucose 102 H Carboxyhemoglobin Potassium Chloride Carbon Dioxide BUN Glucose POC Glucose 106 H 107 H Lactic Acid Calcium Magnesium Total Bilirubin AST Alkaline Phosphatase Total Protein Albumin HDL Cholesterol Lipase Arterial Blood Glucose 102 H Arterial Blood Ionized Calcium Salicylates Acetaminophen Plasma/Serum Alcohol 09/14/20 09/14/20 09/14/20 05:50 05:50 11:38 WBC 11.3 H RBC 6.82 H Hgb 18.8 H Hct 57.2 H MCV MCH MCHC RDW 17.9 H Plt Count Lymph % (Auto) 8.0 L [place] % (Auto) 10.3 H Eos % (Auto) 6.1 H Lymph # (Auto) 0.9 L [place] # (Auto) 1.2 H Eos # (Auto) 0.7 H Seg Neutrophils % 75.0 H Seg Neuts % (Manual) Lymphocytes % (Manual) Eosinophils % (Manual) Seg Neutrophils # 8.5 H Seg Neutrophils # Man Lymphocytes # (Manual) Eosinophils # (Manual) D-Dimer ABG pH POC ABG pCO2 POC ABG pO2 ABG pO2 ABG Base Excess ABG Hemoglobin ABG Sodium ABG Potassium ABG Chloride ABG Glucose Carboxyhemoglobin Potassium Chloride Carbon Dioxide 32 H BUN 28 H Glucose POC Glucose 114 H Lactic Acid Calcium Magnesium Total Bilirubin AST 55 H Alkaline Phosphatase 135 H Total Protein Albumin 3.5 L HDL Cholesterol Lipase Arterial Blood Glucose Arterial Blood Ionized Calcium Salicylates Acetaminophen Plasma/Serum Alcohol 09/14/20 09/14/20 09/15/20 15:24 23:53 11:17 WBC RBC Hgb Hct MCV MCH MCHC RDW Plt Count Lymph % (Auto) [place] % (Auto) Eos % (Auto) Lymph # (Auto) [place] # (Auto) Eos # (Auto) Seg Neutrophils % Seg Neuts % (Manual) Lymphocytes % (Manual) Eosinophils % (Manual) Seg Neutrophils # Seg Neutrophils # Man Lymphocytes # (Manual) Eosinophils # (Manual) D-Dimer ABG pH POC ABG pCO2 POC ABG pO2 ABG pO2 ABG Base Excess ABG Hemoglobin ABG Sodium ABG Potassium ABG Chloride ABG Glucose Carboxyhemoglobin Potassium Chloride Carbon Dioxide BUN Glucose POC Glucose 127 H 140 H 112 H Lactic Acid Calcium Magnesium Total Bilirubin AST Alkaline Phosphatase Total Protein Albumin HDL Cholesterol Lipase Arterial Blood Glucose Arterial Blood Ionized Calcium Salicylates Acetaminophen Plasma/Serum Alcohol 09/15/20 09/15/20 09/17/20 16:43 23:05 07:20 WBC RBC Hgb Hct MCV MCH MCHC RDW Plt Count Lymph % (Auto) [place] % (Auto) Eos % (Auto) Lymph # (Auto) [place] # (Auto) Eos # (Auto) Seg Neutrophils % Seg Neuts % (Manual) Lymphocytes % (Manual) Eosinophils % (Manual) Seg Neutrophils # Seg Neutrophils # Man Lymphocytes # (Manual) Eosinophils # (Manual) D-Dimer ABG pH POC ABG pCO2 POC ABG pO2 ABG pO2 ABG Base Excess ABG Hemoglobin ABG Sodium ABG Potassium ABG Chloride ABG Glucose Carboxyhemoglobin Potassium Chloride Carbon Dioxide 31 H BUN 40 H Glucose 103 H POC Glucose 113 H 142 H Lactic Acid Calcium Magnesium Total Bilirubin AST Alkaline Phosphatase Total Protein Albumin HDL Cholesterol Lipase Arterial Blood Glucose Arterial Blood Ionized Calcium Salicylates Acetaminophen Plasma/Serum Alcohol 09/17/20 09/18/20 09/18/20 07:20 04:53 04:53 WBC 11.9 H RBC 7.01 H 6.89 H Hgb 18.9 H 18.4 H Hct 57.9 H 57.4 H MCV 83 L 83 L MCH 27 L 27 L MCHC RDW 17.4 H 17.4 H Plt Count Lymph % (Auto) 10.0 L [place] % (Auto) 8.7 H Eos % (Auto) 8.9 H Lymph # (Auto) 1.1 L [place] # (Auto) 0.9 H Eos # (Auto) 0.9 H Seg Neutrophils % 72.0 H Seg Neuts % (Manual) 81.0 H Lymphocytes % (Manual) 9.0 L Eosinophils % (Manual) 5.0 H Seg Neutrophils # Seg Neutrophils # Man 9.6 H Lymphocytes # (Manual) 1.1 L Eosinophils # (Manual) 0.6 H D-Dimer ABG pH POC ABG pCO2 POC ABG pO2 ABG pO2 ABG Base Excess ABG Hemoglobin ABG Sodium ABG Potassium ABG Chloride ABG Glucose Carboxyhemoglobin Potassium Chloride Carbon Dioxide 32 H BUN 35 H Glucose 101 H POC Glucose Lactic Acid Calcium Magnesium 2.40 H Total Bilirubin AST Alkaline Phosphatase Total Protein Albumin HDL Cholesterol Lipase Arterial Blood Glucose Arterial Blood Ionized Calcium Salicylates Acetaminophen Plasma/Serum Alcohol Allied health notes reviewed: nursing
--- NOTE | 2020-09-19 12:57 | Progress Note ---
Assessment and Plan 1. Severe [place] vessel Coronary artery disease 2. Ischemic cardiomyopathy 3. Essential hypertension 4. Type 2 diabetes mellitus 5. Alcoholism 6. Obesity Plan. We will continue conservative anti-ischemic cardiac management. Recommend CABG going forward. Subjective Date of service: 09/19/20 Principal diagnosis: Ac hypoxemic and hypercapnic resp failure; EtOH OD; Acute encephalopathy Interval history: Alert no cardiac complains Objective Vital Signs Temp Pulse Pulse Pulse Resp BP BP 09/19/20 11:18 97.8 F 91 H 16 114/68 09/19/20 10:00 95 H 82 82 17 09/19/20 09:38 92 H 118/72 09/19/20 09:37 92 H 118/72 09/19/20 08:16 98.2 F 92 H 18 116/77 09/19/20 03:51 97.8 F 98 H 20 131/85 09/18/20 23:43 97.4 F L 95 H 20 118/76 09/18/20 20:07 99.4 F 101 H 20 106/67 09/18/20 19:59 94 H Pulse Ox 09/19/20 11:18 98 09/19/20 10:00 97 09/19/20 09:38 09/19/20 09:37 09/19/20 08:16 97 09/19/20 03:51 97 09/18/20 23:43 97 09/18/20 20:07 94 09/18/20 19:59 - Physical Examination General: No Apparent Distress (OBESE) HEENT: Positive: PERRL Neck: Positive: neck supple, trachea midline. Negative: JVD/HJR Cardiac: Positive: Regular Rate, S1/S2, S4, PMI, Dilated, Laterally Displaced Lungs: Positive: clear to auscultation, No Wheeze, Rales, Rhonchi Neuro: Positive: Grossly Intact Abdomen: Positive: Unremarkable, Soft Skin: Positive: Clear Extremities: Absent: edema (NO) - Telemetry EKG Rhythm: Sinus Rhythm - Allied health notes Allied health notes reviewed: nursing
[2020-09-19] MEDS: ENOXAPARIN 40 MG/0.4 ML INJ SUB-Q SCH (22:11)
[2020-09-20 00:19] VITALS: BP 136/91
== END 2020-09-20 02:39 | disposition short-term general hospital (02) | DRG 870 ==
LOC: ED 06:34 → CC1 09:37 → 4A 09-14 13:53
PROVIDERS: ADMIT Internal Medicine; ATTEND Internal Medicine
PROC: 5A1955Z Respiratory Ventilation, Greater than 96 Consecutive Hours (ICD-10-PCS; principal; 2020-09-08)
PROC: 0BH17EZ Insertion of Endotracheal Airway into Trachea, Via Natural or Artificial Opening (ICD-10-PCS; 2020-09-08)
PROC: 4A033R1 Measurement of Arterial Saturation, Peripheral, Percutaneous Approach (ICD-10-PCS; 2020-09-08)
PROC: 4A023N7 Measurement of Cardiac Sampling and Pressure, Left Heart, Percutaneous Approach (ICD-10-PCS; 2020-09-17)
PROC: B2111ZZ Fluoroscopy of Multiple Coronary Arteries using Low Osmolar Contrast (ICD-10-PCS; 2020-09-17)
PROC: B2151ZZ Fluoroscopy of Left Heart using Low Osmolar Contrast (ICD-10-PCS; 2020-09-17)
DX: A41.9 Sepsis, unspecified organism (principal); J96.01 Acute respiratory failure with hypoxia; J18.9 Pneumonia, unspecified organism; G92 Toxic encephalopathy; E43 Unspecified severe protein-calorie malnutrition; I50.43 Acute on chronic combined systolic (congestive) and diastolic (congestive) heart failure; I42.0 Dilated cardiomyopathy; Z68.42 Body mass index [BMI] 45.0-49.9, adult; T51.91XA Toxic effect of unspecified alcohol, accidental (unintentional), initial encounter; F10.129 Alcohol abuse with intoxication, unspecified; E87.6 Hypokalemia; E66.01 Morbid (severe) obesity due to excess calories; Z20.822 Contact with and (suspected) exposure to COVID-19; E78.5 Hyperlipidemia, unspecified; I25.10 Atherosclerotic heart disease of native coronary artery without angina pectoris; I11.0 Hypertensive heart disease with heart failure; D69.6 Thrombocytopenia, unspecified; E11.65 Type 2 diabetes mellitus with hyperglycemia; Z79.899 Other long term (current) drug therapy; Y92.89 Other specified places as the place of occurrence of the external cause
CPT/HCPCS: 36415; 36600; 70450; 71045; 71275; 74018; 78452; 80048; 80053; 80061; 80076; 80307; 80320; 81001; 82140; 82150; 82803; 82805; 82962; 83036; 83690; 83735; 84100; 84145; 85007; 85025; 85379; 85610; 86022; 87040; 87070; 87076; 87205; 93005; 93017; 93306; 93458; 93970; 94002; 94003; 96361; 96365; 96375; G0378; A9270-GY; A9502; C9113; G0480; J0692; J1200; J1644; J1650; J1940; J2060; J2250; J2704; J2785; J3010; J3370; J3411; J3490; J7030; J7040; J7050; Q9967; U0003